=== PATIENT | male | born 1945 | race Caucasian/White ===

== ENCOUNTER 2019-04-05 14:11 | Observation (INO) | payer MEDICARE, SELFPAY ==
[2018-09-18 12:49] VITALS: BMI 31.6
[2019-04-05] VITALS (11 sets, daily range): BP systolic 148–190; BP diastolic 79–98; PULSE 57–76; RESP 15–19; TEMP 36.6–37.7; O2SAT 96–100; BMI 34.2; BMI 31.4
--- NOTE | 2019-04-05 14:19 | RAD_ITS ---
STUDY: X-RAY CHEST REASON FOR EXAM: Male, 74 years old. Stroke like symptoms. TECHNIQUE: Single AP portable view of the chest. COMPARISON: Comparison is made with prior studies of July 28, 2017. FINDINGS: EKG electrodes are seen. Hyperinflation. Scattered calcified granulomas. There is no demonstrated pleural abnormality. Normal size heart. Normal mediastinum and wyatt. Normal visualized pulmonary arteries. There is atherosclerotic tortuosity of the aortic arch and descending thoracic aorta. There are diffuse degenerative changes of the visualized thoracic spine. Normal visualized ribs, clavicles, and shoulders. There is no demonstrated abnormality of the visualized soft tissue structures of the upper abdomen. RAD/Chest 1 View IMPRESSION: Hyperinflation. Scattered calcified granulomas. Electronically Signed: Nate Langston, at 14:58 EDT , Service support ,
--- NOTE | 2019-04-05 14:19 | EKG12_ITS ---
Test Reason : STROKE Blood Pressure : / mmHG Vent. Rate : 055 BPM Atrial Rate : 055 BPM P-R Int : 182 ms QRS Dur : 104 ms QT Int : 446 ms P-R-T Axes : 055 007 -02 degrees QTc Int : 426 ms Sinus bradycardia Minimal voltage criteria for LVH, may be normal variant Nonspecific ST abnormality Poor R wave progression Abnormal ECG Confirmed by CON CRAIG, RSOARIO ([id number]), tape editor JULISSA JAIMES ([id number]) on 04/08/2019 11:41:04 AM Referred By: Andres Chaudhry Confirmed By:ROSARIO ANDUJAR MD
--- NOTE | 2019-04-05 14:20 | CT_ITS ---
STUDY: CT BRAIN WITHOUT CONTRAST REASON FOR EXAM: Male, 74 years old. Expressive dysphasia. Inability to follow directions. RADIATION DOSAGE (If Supplied By Facility): CTDIvol = ( 44.99 ) mGy, DLP = ( 796.11 ) mGycm TECHNIQUE: Transaxial CT imaging of the brain was performed without administration of intravenous contrast material. Individualized dose optimization techniques were used for this CT. COMPARISON: No relevant priors. FINDINGS: Normal soft tissue structures. Normal calvarium. There is mild cerebral atrophy with widening of the extra-axial spaces and ventricular dilatation. There are areas of decreased attenuation within the white matter tracts of the supratentorial brain, consistent with microvascular disease changes. Normal basal ganglia and thalami. Normal brainstem. Normal cerebellum. There is no intracranial hemorrhage. There are no findings of an acute ischemic infarction. Atherosclerotic calcification of the vertebral arteries and cavernous portions of the internal carotid arteries bilaterally. Normal visualized paranasal sinuses. CT/Brain/Head without Contrast IMPRESSION: Chronic involutional changes of the brain. N.B. : The above information has been verbally conveyed by Nate Langston to Yair Bhanu on 04/05/2019 14:35:03 (ET). Electronically Signed: Nate Langston, at 14:36 EDT , Service support ,
[2019-04-05 14:33] LABS: International Normalized Ratio 1.1; Prothrombin Time (Protime)PT. 13.5 SECONDS (11.7-14.9)
[2019-04-05 14:34] LABS: Partial Thromboplast Time 31.7 Seconds (24.1-36.2)
[2019-04-05 14:42] LABS: Absolute Lymphocyte Count 0.83 X10^3/uL (0.83-4.51); Absolute Neutrophil Count 2.9 X10^3/uL (2.0-7.7); Basophil# 0.03 X10^3/uL; Basophil% 0.7 % (0-1); Eosinophil# 0.19 X10^3/uL; Eosinophils% 4.4 % (0-5); Hematocrit 38.8 % (40-54); Hemoglobin 13.5 g/dL (13.0-16.5); Lymphocyte # 0.83 X10^3/ul (4.0); Mean Corp Hgb Conc 34.8 g/dL (32-36); Mean Corpuscular Hgb 32.2 pg (27.0-32.0); Mean Corpuscular Volume 92.6 fL (80-94); Mean Platelet Vol. 8.8 fl (6.2-12.0); Monocyte# 0.37 X10^3/uL; Monocyte% 8.5 % (0-10); NRBC Flagged by Analyzer 0 % (0-5); Neutrophil # 2.93 X10^3/uL (2.7-7.7); Neutrophil % 67.2 % (47-70); Platelet Count 157 K/mm3 (150-450); RBC Distribution Width SD 40.4 fl (35.1-43.9); Red Blood Count 4.19 M/mm3 (4.6-6.2); White Blood Count 4.4 K/mm3 (4.4-11.0)
[2019-04-05 14:51] LABS: Anion Gap 6 (5-15); BUN 14 mg/dL (7-18); BUN/Creat Ratio 15.2 RATIO (10-20); Calcium,Total 8.7 mg/dL (8.5-10.1); Chloride 105 mmol/L (98-107); Creatinine, Serum 0.92 mg/dL (0.70-1.30); EST Glomerular Filtration Rate 85 mL/min (>60); Est Glom Filt Rate - Afr Amer 103 mL/min (>60); Estimated Creatinine Clearance 72.74 ml/min; Glucose 118 mg/dL (74-106); Potassium 4.1 mmol/L (3.5-5.1); Sodium Level 142 mmol/L (136-145)
--- NOTE | 2019-04-05 16:11 | ED.VISSUMM ---
- ER Visit Summary Date of Service: 04/05/19 Chief Complaint: Expressive a aphasia History of Present Illness: The patient is a 74 M history of hypertension. No prior CVAs or TIAs. No recent head injury. According to the patient's they were at home and she said he could not find the words to put together to speak appropriately. She initially thought he was goofing around but then she realized he was serious. His speech was not slurred he just could not put the words together appropriately. No trouble moving his arms or legs. No numbness. No prior history. No recent head trauma. He is on no blood thinners besides aspirin. Physical Examination: Older male brought in by squad vital signs are stable afebrile. Initial blood pressure 190/98. HEENT exam normal. No facial droop. Tongue midline. Normal speech. Neck nontender. Lungs clear to auscultation bilaterally. Heart regular rhythm rate about 60 no murmur. Chest wall nontender. Abdomen soft nontender. Remedies moves all 4. Equal symmetrical 5 out of 5 food and nutrition teacher strength. Dorsi plantarflexion intact. Neurologically he is awake and alert. Currently he has normal speech. He has no facial droop. He has no weakness or numbness. His NIH score on arrival here is 0. Test Results: CAT scan of his brain without contrast shows no acute abnormality. Chronic changes. Read by the radiologist and reviewed by me. Chest x-ray portable one view no acute abnormality CBC normal. Chemistries normal. Troponin normal. EKG sinus bradycardia rate of 55 with no acute signs of TN or ischemia. Emergency Department Course and Treatment: Patient's history is consistent with a TIA that is completely resolved. Repeat exam his NIH remains normal. I did discuss about the patient is all his test results. They are comfortable with him being admitted. Treatment Plan: I spoke to our hospitalist the patient will be admitted to the PCU. Disposition: Admission Impression: Acute TIA resolved History of hypertension This note was generated with [employer] dictation software. It may contain incorrect words, spelling, and punctuation that were not noted in review of the chart prior to signing ED Disposition - Plan for ED Patient: Referrals: Niall Ramirez MD [Primary Care Provider] -
--- NOTE | 2019-04-05 16:16 | PCM.HP.STD ---
Problem List (1) Hyperlipemia, mixed Status: Chronic (2) History of left heart catheterization Status: Chronic Comment: 08/05/2017 multi-vessel CAD with collateral flow; (3) Atherosclerosis of [place] coronary artery of [place] heart without angina pectoris Status: Chronic (4) Low HDL (under 40) Status: Chronic (5) Hypokalemia Status: Chronic (6) Former smoker Status: Chronic (7) Hypertension Status: Chronic Qualifiers: Hypertension type: essential hypertension Qualified Code(s): I10 - Essential (primary) hypertension (8) TIA (transient ischemic attack) Status: Acute (9) Aphasia Status: Acute History of Present Illness Date of Admission: 04/05/19 Chief Complaint: Speech difficulty The patient is a 74 year old M with past medical history significant for hypertension brought to the emergency department after noticed patient was having difficulty finding words and expressing himself. There was no report any focal neurological deficit. Squad was called by the in view of the persistent nature of patient's speech difficulty. Patient symptoms have apparently resolved at the time of arrival to the emergency department. CT of the head obtained came back unremarkable. Decision was made to admit patient for subsequent elevation in the hospital. Past Medical History Past Medical History (Chronic Problems): Chronic Problems (Last Reviewed 04/05/19 @ 16:32 by Andres Chaudhry MD) Hyperlipemia, mixed (Chronic) History of left heart catheterization (Chronic) 08/05/2017 multi-vessel CAD with collateral flow; Atherosclerosis of [place] coronary artery of [place] heart without angina pectoris (Chronic) 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) Hypokalemia (Chronic) Former smoker (Chronic) Hypertension (Chronic) Medical History: Medical History (Last Reviewed 04/05/19 @ 16:32 by Andres Chaudhry MD) Atherosclerosis of [place] coronary artery of [place] heart without angina pectoris (Chronic) I25.10 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) E78.6 Hypokalemia (Chronic) E87.6 Former smoker (Chronic) Z87.891 Elevated troponin (Resolved) R74.8 Hypertension (Chronic) I10 Abnormal stress test (Resolved) Cellulitis of right leg (Resolved) L03.115 Vertigo (Resolved) R42 Allergies bacitracin [From Neosporin ([id number])] Allergy (Unknown, Verified 04/05/19 14:20) Dermatitis/rash neomycin [From Neosporin ([id number])] Allergy (Unknown, Verified 04/05/19 14:20) Dermatitis/rash polymyxin B [From Neosporin ([id number])] Allergy (Unknown, Verified 04/05/19 14:20) Dermatitis/rash Home Medications: Ambulatory Orders Medication Instructions Recorded Cholecalciferol (Vitamin D3) 5,000 unit PO DAILY 07/23/17 [Vitamin D3] Aspirin [Aspirin, Baby] 81 mg PO DAILY@0800 tab.chew 07/26/17 acetaminophen 500 mg tablet 500 mg PO Q6H PRN 01/31/18 garlic tablet 300 mg PO DAILY 09/18/18 metoprolol succinate ER 50 mg 25 mg PO QDAY tab 09/18/18 tablet,extended release 24 hr Omeprazole 40 mg PO DAILY 04/05/19 Surgical History: Surgical History (Last Reviewed 04/05/19 @ 16:32 by Andres Chaudhry MD) History of left heart catheterization (Chronic) Z98.890 08/05/2017 multi-vessel CAD with collateral flow; History of vasectomy Z98.52 Surgical History: noncontributory Psychiatric History: No pertinent psych hx Smoking Status: Former smoker Tobacco Use: Cigarettes - *Family History Maternal Family History: Family History (Last Reviewed 04/05/19 @ 16:32 by Andres Chaudhry MD) Father CAD (coronary artery disease) Mother Cancer CAD (coronary artery disease) Brother CAD (coronary artery disease) Myocardial infarction Brother Thoracic aortic aneurysm Brother Hypertension Sister Breast cancer Sister CAD (coronary artery disease) Hx of CABG History Items: - - No coronary artery disease Review of Systems Constitutional: Denies: Anorexia, Chills, Fever, Night Sweats, Weight Change HEENT: Denies: Head Aches, Sinus Congestion, Sinus Drainage Cardiovascular: Denies: Chest Pain, Orthopnea, Palpitations, Paroxysmal Noc. Dyspnea Respiratory: Denies: Cough, Shortness of breath at rest, Shortness of breath upon exertion, Sputum production Gastrointestinal: Denies: Abdominal Pain, Hematemesis, Hematochezia, Nausea, Melena, Vomiting Genitourinary: Denies: Dysuria, Frequency, Hematuria, Urgency Musculoskeletal: Denies: Joint Pain, Joint Tenderness Skin: Denies: Rash Neurological: Reports: Change in Speech, Slurred speech. Denies: Focal weakness, Numbness, Tingling Psychiatric: Denies: Homicidal Ideations, Suicidal Ideations Hematologic/ Lymphatic: Denies: Easy Bruising, Easy Bleeding VTE Information - Inpt Only VTE Present on Admission: No VTE Mechan Device Prophylaxis: Knee High CANELO Hose VTE Pharm Prophylaxis ordered?: Yes Patient Problems: Active and Suspected Problems (Last Reviewed 04/05/19 @ 16:32 by Andres Chaudhry MD) TIA (transient ischemic attack) (Acute) Aphasia (Acute) Objective: GENERAL: cooperative HEENT: Atraumatic; EYES; Anicteric, Normal Conjunctiva NECK; supple, normal thyroid, RESPIRATORY: Diminished to auscultation CARDIOVASCULAR: Regular S1 S2, GI: soft, non-tender, normoactive bowel sounds, : No Renal angle tenderness; EXTREMITIES: No edema, no clubbing, MUSCULOSKELETAL: No Joint Tenderness; NEURO: Awake; no lateralizing signs. SKIN: No Rash PSYCH; Normal affect - Physical Exam Vital Signs Temp Pulse Resp BP Pulse Ox 98 F 66 16 164/90 H 98 04/05/19 14:12 04/05/19 16:07 04/05/19 16:07 04/05/19 16:07 04/05/19 16:07 Oxygen Flow Rate (L/min) 2 Oxygen Delivery Method Nasal Cannula Weight: 108.182 kg Body Mass Index (BMI) 34.2 Finger Stick Blood Glucose 101 Laboratory Tests Past 24 Hrs 04/05/19 04/05/19 04/05/19 14:10 14:10 14:10 WBC 4.4 RBC 4.19 L Hgb 13.5 Hct 38.8 L MCV 92.6 MCH 32.2 H MCHC 34.8 RDW Std Deviation 40.4 RDW Coeff of Brigida 12.0 Plt Count 157 MPV 8.8 Immature Gran % (Auto) 0.200 Neut % (Auto) 67.2 Lymph % (Auto) 19.0 [place] % (Auto) 8.5 Eos % (Auto) 4.4 Baso % (Auto) 0.7 Absolute Neuts (auto) 2.9 Absolute Lymphs (auto) 0.83 Nucleated RBC % 0 PT 13.5 INR 1.1 APTT 31.7 Sodium 142 Potassium 4.1 Chloride 105 Carbon Dioxide 31.0 Anion Gap 6 BUN 14 Creatinine 0.92 Estim Creat Clear Calc 72.74 Est GFR (MDRD) Af Amer 103 Est GFR (MDRD) Non-Af 85 BUN/Creatinine Ratio 15.2 Glucose 118 H Calcium 8.7 Troponin I < 0.015 Assessment/Plan All Active Problems (Last Reviewed 04/05/19 @ 16:32 by Andres Chaudhry MD) TIA (transient ischemic attack) (Acute) Aphasia (Acute) Elevated troponin (Resolved) Abnormal stress test (Resolved) Cellulitis of right leg (Resolved) Vertigo (Resolved) Patient is a 74-year-old gentleman who presented with slurred speech and difficulty finding words lasting for over 1 hour. 1. Transient ischemic attack initial head CT obtained in the emergency department was unremarkable admitted to a monitored bed for subsequent evaluation. As part of's management ordered a CTA of the head and neck, MRI 2D echo. Patient is already on aspirin did continue. Also requested for lipid panel 2. Hypertension-blood pressure controlled, home medications continued with dose adjustment as needed 3. Dyslipidemia patient apparently did not tolerate statins in the past currently on supplement with garlic 4. Coronary artery disease underwent left heart catheterization in August 2017 which demonstrated only diffuse medical disease optimization of medical therapy was advised 5. Obesity with BMI of 34 weight loss advised 6. DVT prophylaxis SC Lovenox Advance planning; did discuss with the patient and family (daughter and spouse) regarding advanced directives as well as CODE STATUS. Did explain the various scenarios involved ( FULL CODE, DNR CCA, DNR CCA with no intubation, and DNR CC and what each meant) patient elected to full code. Order was placed. Time spent on discussion 18 minutes. Code Visit OBSV E&M: 29182 Initial observation care L3 Multi Select Codes - Hospitalists' Procedures Procedures: 79554 Advncd Care Plan 30 Min
--- NOTE | 2019-04-05 16:46 | ECHOD_ITS ---
Reason For Study: TIA/CVA Procedure This was a 2D Doppler, Color Flow transthoracic echocardiogram. The study was technically difficult. Contrast injection was performed. Exam performed portable in patient room. Left Ventricle Normal LV size. Moderate concentric left ventricular hypertrophy. Left ventricular systolic function is normal. The estimated ejection fraction is 65 %. Diastolic function is indeterminate. No regional wall motion abnormalities noted. Right Ventricle Normal RV size. Normal systolic function. Atria Normal left atrium. Normal right atrium. No doppler evidence for ASD. Mitral Valve There is no mitral annular calcification. Normal mitral valve. Trivial mitral valve insufficiency. Tricuspid Valve Normal tricuspid valve. Trivial tricuspid valve insufficiency. Unable to estimate RV systolic pressure/pulmonary artery pressure due to technically difficult study. Aortic Valve Trisinus/trileaflet aortic valve. Mild focal aortic valve calcification. Pulmonic Valve The pulmonic valve is not well visualized. Trivial pulmonic valve insufficiency. Great Vessels Normal sized aortic root. Pericardium/Pleural No pericardial effusion. Medication Diluted definity 3ml given slow IV push to enhance endocardial definition. MMode/2D Measurements & Calculations LVIDd: 5.3 cm IVSd: 1.6 cm LA dimension: 3.8 cm LVIDs: 3.5 cm LVPWd: 1.6 cm FS: 34.1 % LAV(MOD-sp4): 55.7 ml LA A4 area: 19.8 cm2 Time Measurements MV dec time: 0.30 sec Doppler Measurements & Calculations MV E max willard: 46.6 cm/sec Lat Peak E' Willard: 5.9 cm/sec Med Peak E' Willard: 6.6 cm/sec MV A max willard: 95.1 cm/sec E/E' lat: 7.8 E/E' med: 7.1 MV E/A: 0.49 MV V2 max: 112.7 cm/sec MV P1/2t max willard: 68.4 cm/sec Ao V2 max: 131.9 cm/sec MV max P.1 mmHg MV P1/2t: 91.0 msec Ao max P.0 mmHg MV V2 mean: 56.2 cm/sec MV dec slope: 220.0 cm/sec2 MV mean P.5 mmHg MV V2 VTI: 32.0 cm MVA(P1/2t): 2.4 cm2 LV V1 max: 97.1 cm/sec PA V2 max: 92.5 cm/sec LV V1 max P.8 mmHg Interpretation Summary The study was technically difficult. Contrast injection was performed. Left ventricular systolic function is normal. The estimated ejection fraction is 65 %. Moderate concentric left ventricular hypertrophy. Trivial mitral valve insufficiency. Trivial tricuspid valve insufficiency. Mild focal aortic valve calcification. Trivial pulmonic valve insufficiency. Unable to estimate RV systolic pressure/pulmonary artery pressure due to technically difficult study. Diastolic function is indeterminate. Ordering Physician: Andres Chaudhry Referring Physician: Andres Chaudhry Performed By: Ulices Bradley RCS
--- NOTE | 2019-04-05 16:46 | CT_ITS ---
STUDY: CT ANGIOGRAM HEAD AND NECK WITH CONTRAST REASON FOR EXAM: Male, 74 years old. TIA, stroke. Signs and symptoms are reported. According to the prior CT brain of 04/05/2019 the patient presents with expressive dysphasia and inability to follow directions. RADIATION DOSAGE (If Supplied By Facility): CTDIvol = ( 22.45 ) mGy, DLP = ( 854.17 ) mGycm. Individualized dose optimization techniques were used for this CT.? TECHNIQUE: IV contrast Isovue-300, [address] mL. Thin slice helical [address] angiogram was performed of the head and neck from the level of the hetal through the cranial vertex with 3-D volume rendered, coronal and sagittal MIP reformatted images saved to the PACS archive. COMPARISON: CT head 04/05/2019. FINDINGS: Apical thorax: Apical lungs clear, body wall soft tissues unremarkable, osseous structures intact. Incidental note is made of calcified pulmonary nodules in the lungs consistent with old granulomatous disease. Superior mediastinal contents unremarkable. Supraclavicular: Generalized heterogeneity of the thyroid without dominant nodule, favoring goitrous changes or sequela from thyroiditis. The thyroid is normal in size. There is no supraclavicular mass or lymphadenopathy. Cervical soft tissues: No mass or lymphadenopathy. Pharyngeal and laryngeal structures appear normal. Extra cranial soft tissues, orbital contents and facial soft tissues: No acute process. Sinuses: Relatively small right maxillary sinus, developmental, associated with mild mucoperiosteal thickening. Paranasal sinuses otherwise clear. Mastoid air cells and middle ear cavities clear. Symmetric and grossly normal features of the vestibular and acoustic apparatus of the temporal bones. Cranial facial osseous structures: No acute process. Cervical spine: There is multilevel cervical spondylosis with disc degeneration most notable at C6-C7, uncovertebral joint hypertrophy and facet hypertrophy contributing to prominent right foraminal stenosis at C2-C3, C3-C4 and prominent left foraminal stenosis at C6-C7. Aorta: Nondilated, mild atherosclerosis, widely patent three-vessel cervical arch branching. Right carotid: Mild plaque of the bulb and bifurcation. Calcified and soft atheroma contribute to luminal narrowing of the proximal ICA with a least dimension of 3 mm, widening thereafter up to 4.4 mm, less than 50% stenosis, widely patent through the skull base with mild calcified plaque of the cavernous portion. Left carotid: Mild calcified and soft atheroma of the bulb and bifurcation. No stenosis. Patent through the skull base, mild calcified plaque of the cavernous portion. [place] of [place]: Normal ophthalmic arteries. Normal supraclinoid ICA. Normal communicating arteries. Normal bilateral anterior and middle cerebral arteries. Vertebral arteries: Normal bilaterally. Posterior circulation: Normal intracranial vertebral arteries. Normal major cerebellopontine divisions. Normal basilar artery and basilar tip. Normal posterior cerebral arteries. Pedis: Normal dural venous sinuses, straight sinus, vein of Tom and major venous tributaries. Brain parenchyma: Mild age-related atrophy. No acute intracranial process. CT/CTA Head AND Neck W/ Contrast IMPRESSION: There is no hemodynamically significant carotid artery stenosis. Normal vertebral arteries. Normal intracranial circulation. Electronically Signed: Marcelo Lazo MD at 18:17 EDT Tel , Service support ,
--- NOTE | 2019-04-05 16:46 | MRI_ITS ---
STUDY: MRI BRAIN WITHOUT CONTRAST REASON FOR EXAM: Male, 74 years old. Aphasia TECHNIQUE: Standardized multiplanar fat and water weighted pulse sequences were obtained. COMPARISON: CTA and CT brain April 05, 2019 FINDINGS: There is mild cerebral atrophy with widening of the extra-axial spaces and ventricular dilatation. There are multiple white matter hyperintensities, distributed throughout the deep white matter tracts of the cerebral hemispheres, consistent with moderate chronic white matter ischemic changes. There is no evidence for recent intracranial ischemia or other cause of cytotoxic edema on diffusion weighted imaging (DWI). Normal bilateral basal ganglia. Normal thalami. There is no extra-axial fluid accumulation. Normal flow voids within the major intracranial circulation suggesting patency by spin echo criteria. Tortuous right vertebral artery impinging the right brainstem. Normal sella turcica, pituitary gland, infundibular stalk, optic chiasm and hypothalamus. Normal tectal plate and pineal gland. Normal midbrain, jennifer and medulla. Normal cerebellum. Normal basal cisterns. Normal bilateral temporal bones. Normal bilateral internal auditory canals. No demonstrated orbital abnormality, within the constraints of a routine brain study. Air-fluid level right maxillary sinus. Normal calvarium and skull base. Normal visualized soft tissue structures. Hypertrophic changes C1-C2 and erosion of the odontoid. IMPRESSION: Involutional changes of the brain, as described above. No acute infarct. Hypertrophic and cystic/erosive changes C1-C2. Query rheumatoid arthritis. Electronically Signed: Eduardo Gómez MD at 21:48 EDT , Service support , STUDY: MRI BRAIN WITHOUT CONTRAST REASON FOR EXAM: Male, 74 years old. Aphasia TECHNIQUE: Standardized multiplanar fat and water weighted pulse sequences were obtained. COMPARISON: CTA and CT brain April 05, 2019 FINDINGS: There is mild cerebral atrophy with widening of the extra-axial spaces and ventricular dilatation. There are multiple white matter hyperintensities, distributed throughout the deep white matter tracts of the cerebral hemispheres, consistent with moderate chronic white matter ischemic changes. There is no evidence for recent intracranial ischemia or other cause of cytotoxic edema on diffusion weighted imaging (DWI). Normal bilateral basal ganglia. Normal thalami. There is no extra-axial fluid accumulation. Normal flow voids within the major intracranial circulation suggesting patency by spin echo criteria. Tortuous right vertebral artery impinging the right brainstem. Normal sella turcica, pituitary gland, infundibular stalk, optic chiasm and hypothalamus. Normal tectal plate and pineal gland. Normal midbrain, jennifer and medulla. Normal cerebellum. Normal basal cisterns. Normal bilateral temporal bones. Normal bilateral internal auditory canals. No demonstrated orbital abnormality, within the constraints of a routine brain study. Air-fluid level right maxillary sinus. Normal calvarium and skull base. Normal visualized soft tissue structures. Hypertrophic changes C1-C2 and erosion of the odontoid. MRI/Brain without Contrast
[2019-04-05] MEDS: 0.9% NaCl Peripheral Flush Adult/Peds IV (20:15)
[2019-04-05] MEDS: LORazepam 2 MG/ML Syringe 1 MG IV (20:15)
[2019-04-06] VITALS (7 sets, daily range): BP systolic 147–160; BP diastolic 66–82; PULSE 52–68; RESP 17–18; TEMP 36.5–36.8; O2SAT 94–97; BMI 31.4
[2019-04-06 06:12] LABS: Absolute Lymphocyte Count 0.89 X10^3/uL (0.83-4.51); Absolute Neutrophil Count 2.3 X10^3/uL (2.0-7.7); Basophil# 0.04 X10^3/uL; Eosinophil# 0.21 X10^3/uL; Eosinophils% 5.4 % (0-5); Hematocrit 37.8 % (40-54); Hemoglobin 13.1 g/dL (13.0-16.5); Lymphocyte # 0.89 X10^3/ul (4.0); Lymphocyte % 23.1 % (19-41); Mean Corp Hgb Conc 34.7 g/dL (32-36); Mean Corpuscular Hgb 31.6 pg (27.0-32.0); Mean Corpuscular Volume 91.3 fL (80-94); Monocyte% 10.4 % (0-10); NRBC Flagged by Analyzer 0 % (0-5); Neutrophil # 2.31 X10^3/uL (2.7-7.7); Neutrophil % 59.8 % (47-70); Platelet Count 153 K/mm3 (150-450); RBC Distribution Width CV 12.2 % (11.6-14.6); RBC Distribution Width SD 40.4 fl (35.1-43.9); Red Blood Count 4.14 M/mm3 (4.6-6.2); White Blood Count 3.9 K/mm3 (4.4-11.0)
[2019-04-06 06:33] LABS: Anion Gap 6 (5-15); BUN 13 mg/dL (7-18); BUN/Creat Ratio 14.3 RATIO (10-20); Calcium,Total 8.7 mg/dL (8.5-10.1); Chloride 107 mmol/L (98-107); Cholesterol 183 mg/dL (200); Creatinine, Serum 0.91 mg/dL (0.70-1.30); EST Glomerular Filtration Rate 86 mL/min (>60); Est Glom Filt Rate - Afr Amer 104 mL/min (>60); Estimated Creatinine Clearance 75.85 ml/min; Glucose 94 mg/dL (74-106); High Density Lipoprotein 34 mg/dL; Potassium 3.9 mmol/L (3.5-5.1); Sodium Level 142 mmol/L (136-145); Triglycerides 193 mg/dL; Very Low Density Lipoprotein 39 mg/dL (5-40)
--- NOTE | 2019-04-06 08:48 | DCINST_ITS ---
- Discharge Diagnoses Current Active Problems: Current Active and Chronic Problems (Last Reviewed 04/05/19 @ 16:32 by Andres Chaudhry MD) TIA (transient ischemic attack) (Acute) Aphasia (Acute) You will use the following diet at home:: Cardiac Your food should be the consistency of: Regular Discharge Activity: Return to Normal Activity Allergies/Adverse Reactions: Allergies bacitracin [From Neosporin ([id number])] Allergy (Unknown, Verified 04/05/19 14:20) Dermatitis/rash neomycin [From Neosporin ([id number])] Allergy (Unknown, Verified 04/05/19 14:20) Dermatitis/rash polymyxin B [From Neosporin ([id number])] Allergy (Unknown, Verified 04/05/19 14:20) Dermatitis/rash Medications to take at Discharge Aspirin [Aspirin, Baby] 81 mg PO DAILY@0800 tab.chew 07/26/17 acetaminophen 500 mg tablet 500 mg PO Q6H PRN 01/31/18 metoprolol succinate ER 50 mg tablet,extended release 24 hr 25 mg PO QDAY tab 09/18/18 Ergocalciferol [Vitamin D] 50,000 unit PO SA 04/05/19 Omeprazole 40 mg PO DAILY 04/05/19 Primary Care Physician: Niall Ramirez MD [Primary Care Provider] - Please follow up with your Primary Care Physician in: in 5-7 days Test Results: Test results from this visit will be discussed in further detail at your follow- up appointment, if applicable. Proposed Discharge Date: 04/06/19
--- NOTE | 2019-04-06 08:50 | PCM.DC.SUM ---
Discharge Date and Diagnosis - Problem List Patient Problems: Active and Suspected Problems (Last Reviewed 04/05/19 @ 16:32 by Andres Chaudhry MD) TIA (transient ischemic attack) (Acute) Aphasia (Acute) Date of Admission: 04/05/19 Date of Discharge: 04/06/19 - Primary Discharge Diagnosis Active and Suspected Problems (Last Reviewed 04/05/19 @ 16:32 by Andres Chaudhry MD) TIA (transient ischemic attack) (Acute) Aphasia (Acute) - Secondary Discharge Diagnosis Chronic Problems (Last Reviewed 04/05/19 @ 16:32 by Andres Chaudhry MD) Hyperlipemia, mixed (Chronic) History of left heart catheterization (Chronic) 08/05/2017 multi-vessel CAD with collateral flow; Atherosclerosis of [place] coronary artery of [place] heart without angina pectoris (Chronic) 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 Scattered calcified granulomas. Electronically Signed: Nate Langston, at 14:58 EDT , Service support , Brain CT 04/05/19 14:20 IMPRESSION: Chronic involutional changes of the brain. N.B. : The above information has been verbally conveyed by Nate Langston to Yair Drummond on 04/05/2019 14:35:03 (ET). Electronically Signed: Nate Langston, at 14:36 EDT , Service support , ADDENDUM: 04/05/19 1443 IMPRESSION: Chronic involutional changes of the brain. N.B. : The above information has been verbally conveyed by Nate Langston to Yair Drummond on 04/05/2019 14:35:03 (ET). Electronically Signed: Nate Langston, at 14:36 EDT , Service support , ADDENDUM: 04/05/19 1746 IMPRESSION: Chronic involutional changes of the brain. N.B. : The above information has been verbally conveyed by Nate Langston to Yair Drummond on 04/05/2019 14:35:03 (ET). Electronically Signed: Nate Langston, at 14:36 EDT , Service support , Brain MRI 04/05/19 16:46 IMPRESSION: Involutional changes of the brain, as described above. No acute infarct. Hypertrophic and cystic/erosive changes C1-C2. Query rheumatoid arthritis. Electronically Signed: Eduardo Gómez MD at 21:48 EDT , Service support , ADDENDUM: 04/05/19 2155 IMPRESSION: Involutional changes of the brain, as described above. No acute infarct. Hypertrophic and cystic/erosive changes C1-C2. Query rheumatoid arthritis. Electronically Signed: Eduardo Gómez MD at 21:48 EDT , Service support , Head/Neck CTA 04/05/19 16:46 IMPRESSION: There is no hemodynamically significant carotid artery stenosis. Normal vertebral arteries. Normal intracranial circulation. Electronically Signed: Marcelo Lazo MD at 18:17 EDT Tel , Service support , Operations: None Summary of Care Provided: Patient is a 74-year-old gentleman who presented with slurred speech and difficulty finding words lasting for over 1 hour. 1. Transient ischemic attack initial head CT obtained in the emergency department was unremarkable admitted to a monitored bed for subsequent evaluation. As part of's management ordered a CTA of the head and neck, MRI 2D echo. Patient CTA of the head and neck was unremarkable. MRI did not show any acute CVA. Discharge home instructed to continue with his aspirin 2. Hypertension-blood pressure controlled, home medications continued with dose adjustment as needed 3. Dyslipidemia patient apparently did not tolerate statins in the past currently on supplement with garlic 4. Coronary artery disease underwent left heart catheterization in August 2017 which demonstrated only diffuse medical disease optimization of medical therapy was advised 5. Obesity with BMI of 34 weight loss advised 6. DVT prophylaxis SC Lovenox Patient Problems: Active and Suspected Problems (Last Reviewed 04/05/19 @ 16:32 by Andres Chaudhry MD) TIA (transient ischemic attack) (Acute) Aphasia (Acute) Objective: GENERAL: cooperative HEENT: Atraumatic; moist oral mucosa EYES; Anicteric, Normal Conjunctiva NECK; supple, normal thyroid, no distended JVD. RESPIRATORY: Diminished to auscultation bilaterally, CARDIOVASCULAR: Regular S1 S2, no audible murmurs GI: soft, non-tender, normoactive bowel sounds, : No Renal angle tenderness; EXTREMITIES: No edema, no clubbing, no cyanosis. NEURO: Awake; no lateralizing signs. SKIN: No Rash PSYCH; Normal affect - Physical Exam Vital Signs Temp Pulse Resp BP Pulse Ox 97.7 F L 59 L 18 149/66 H 96 04/06/19 04:15 04/06/19 07:29 04/06/19 04:15 04/06/19 04:15 04/06/19 07:01 Oxygen Flow Rate (L/min) 2 Oxygen Delivery Method Room Air Weight: 102.2 kg Body Mass Index (BMI) 31.4 Finger Stick Blood Glucose 101 Intake and Output for Last 24 Hours 04/04/19 04/05/19 04/06/19 23:59 23:59 23:59 Intake Total 480 / 480 Balance 480 / 480 Laboratory Tests Past 24 Hrs 04/05/19 04/05/19 04/05/19 14:10 14:10 14:10 WBC 4.4 RBC 4.19 L Hgb 13.5 Hct 38.8 L MCV 92.6 MCH 32.2 H MCHC 34.8 RDW Std Deviation 40.4 RDW Coeff of Brig[place] 12.0 Plt Count 157 MPV 8.8 Immature Gran % (Auto) 0.200 Neut % (Auto) 67.2 Lymph % (Auto) 19.0 [place] % (Auto) 8.5 Eos % (Auto) 4.4 Baso % (Auto) 0.7 Absolute Neuts (auto) 2.9 Absolute Lymphs (auto) 0.83 Nucleated RBC % 0 PT 13.5 INR 1.1 APTT 31.7 Sodium 142 Potassium 4.1 Chloride 105 Carbon Dioxide 31.0 Anion Gap 6 BUN 14 Creatinine 0.92 Estim Creat Clear Calc 72.74 Est GFR (MDRD) Af Amer 103 Est GFR (MDRD) Non-Af 85 BUN/Creatinine Ratio 15.2 Glucose 118 H Calcium 8.7 Troponin I < 0.015 Triglycerides Cholesterol LDL Cholesterol VLDL Cholesterol HDL Cholesterol 04/05/19 04/05/19 04/06/19 17:45 21:25 05:15 WBC 3.9 L RBC 4.14 L Hgb 13.1 Hct 37.8 L MCV 91.3 MCH 31.6 MCHC 34.7 RDW Std Deviation 40.4 RDW Coeff of Brig[place] 12.2 Plt Count 153 MPV 9.0 Immature Gran % (Auto) 0.300 Neut % (Auto) 59.8 Lymph % (Auto) 23.1 [place] % (Auto) 10.4 H Eos % (Auto) 5.4 H Baso % (Auto) 1.0 Absolute Neuts (auto) 2.3 Absolute Lymphs (auto) 0.89 Nucleated RBC % 0 PT INR APTT Sodium Potassium Chloride Carbon Dioxide Anion Gap BUN Creatinine Estim Creat Clear Calc Est GFR (MDRD) Af Amer Est GFR (MDRD) Non-Af BUN/Creatinine Ratio Glucose Calcium Troponin I < 0.015 < 0.015 Triglycerides Cholesterol LDL Cholesterol VLDL Cholesterol HDL Cholesterol 04/06/19 05:15 WBC RBC Hgb Hct MCV MCH MCHC RDW Std Deviation RDW Coeff of [place] Plt Count MPV Immature Gran % (Auto) Neut % (Auto) Lymph % (Auto) [place] % (Auto) Eos % (Auto) Baso % (Auto) Absolute Neuts (auto) Absolute Lymphs (auto) Nucleated RBC % PT INR APTT Sodium 142 Potassium 3.9 Chloride 107 Carbon Dioxide 29.0 Anion Gap 6 BUN 13 Creatinine 0.91 Estim Creat Clear Calc 75.85 Est GFR (MDRD) Af Amer 104 Est GFR (MDRD) Non-Af 86 BUN/Creatinine Ratio 14.3 Glucose 94 Calcium 8.7 Troponin I Triglycerides 193 Cholesterol 183 LDL Cholesterol 110 VLDL Cholesterol 39 HDL Cholesterol 34 L Discharge Diet: No Restrictions Discharge Activity: Return to Normal Activity Home Medications: Medications to take at Discharge Aspirin [Aspirin, Baby] 81 mg PO DAILY@0800 tab.chew 07/26/17 acetaminophen 500 mg tablet 500 mg PO Q6H PRN 01/31/18 metoprolol succinate ER 50 mg tablet,extended release 24 hr 25 mg PO QDAY tab 09/18/18 Ergocalciferol [Vitamin D] 50,000 unit PO SA 04/05/19 Omeprazole 40 mg PO DAILY 04/05/19 Primary Care Physician: Niall Ramirez MD [Primary Care Provider] - Please follow up with your Primary Care Physician in: in 5-7 days Disposition: Home Minutes spent on discharge:: 35 Patient Condition:: Stable Medical Necessity - Tobacco Use Smoking Status: Former smoker Tobacco Use: Cigarettes Meaningful Use Info Meaningful Use Diagnoses (Choose all that apply): None applicable Code Visit OBSV E&M: 51343 Observation care discharge
[2019-04-06] MEDS: Metoprolol(XL)Succ 25 MG Tablet PO (09:15)
[2019-04-06] MEDS: Pantoprazole Sodium 40 MG Tablet PO (09:15)
--- NOTE | 2019-04-06 09:15 | NURSING ---
Discharge teaching completed. Patient instructed to follow-up with his PCP in 5-[address] Chaudhry to review his Echo. Patient voiced understanding of same.
== END 2019-04-06 08:49 | disposition home or self-care (01) ==
LOC: ED 15:24 → PCU 16:32
PROVIDERS: Admitting Provider Internal Medicine; Emergency Provider Emergency Medicine; Family Provider Family Medicine; PCP Family Medicine; Visit Provider Internal Medicine
DX: G45.9 Transient cerebral ischemic attack, unspecified (principal); R47.01 Aphasia; E78.2 Mixed hyperlipidemia; I25.10 Atherosclerotic heart disease of native coronary artery without angina pectoris; E66.9 Obesity, unspecified; I10 Essential (primary) hypertension; Z87.891 Personal history of nicotine dependence; Z79.899 Other long term (current) drug therapy; Z79.82 Long term (current) use of aspirin; Z68.34 Body mass index [BMI] 34.0-34.9, adult; Z71.3 Dietary counseling and surveillance
CPT/HCPCS: 36415; 70450; 70496; 70498; 70551; 71045; 80048; 80061; 84484; 85025; 85610; 85730; 93005; 93306; 94762; 96374; 99218; 99251; 99285; J7030; Q9957; Q9967; A4216; G0378; G0463; J2405

== ENCOUNTER 2019-04-18 23:08 | Observation (INO) | payer MEDICARE, SELFPAY ==
[2019-04-06 00:25] VITALS: BMI 31.4
--- NOTE | 2019-04-18 23:08 | CT_ITS ---
We are attempting to reach an attending provider to discuss findings. An addendum with communication details will be sent when the communication is complete. STUDY: CT BRAIN WITHOUT CONTRAST REASON FOR EXAM: Male, 74 years old. Stroke RADIATION DOSAGE (If Supplied By Facility): CTDIvol = ( 44.99 ) mGy, DLP = ( 815.79 ) mGycm TECHNIQUE: Transaxial CT imaging of the brain was performed without administration of intravenous contrast material. Individualized dose optimization techniques were used for this CT. COMPARISON: Previous study of April 05, 2019 FINDINGS: Normal soft tissue structures. Normal calvarium. Normal size ventricles and extra-axial spaces for the patient's age. There are areas of decreased attenuation within the white matter tracts of the supratentorial brain, consistent with microvascular disease changes. Normal basal ganglia and thalami. Normal brainstem. Normal cerebellum. There is no intracranial hemorrhage. There are no findings of an acute ischemic infarction. There is minimal mucosal thickening of the right maxillary sinus. CT/Brain/Head without Contrast IMPRESSION: Chronic involutional changes of the brain. There is minimal mucosal thickening of the right maxillary sinus. There is no intracranial hemorrhage or evidence of acute infarct. Findings are stable in the interval. If clinically indicated, CTA brain and/or MRI may be helpful for further evaluation at this time. Electronically Signed: Yayo Patricia MD at 23:28 EDT , Service support ,
[2019-04-18 23:09] VITALS: BP 160/97; PULSE 107; RESP 15; TEMP 36.3; O2SAT 94; BMI 30.9
[2019-04-18] MEDS: LORazepam 2 MG/ML Syringe 1 MG IV ×3 (23:20→23:41)
[2019-04-18 23:21] VITALS: BP 160/97; PULSE 83; RESP 15; TEMP 36.3; O2SAT 99; BMI 30.9
--- NOTE | 2019-04-18 23:22 | EKG12_ITS ---
Test Reason : Blood Pressure : / mmHG Vent. Rate : 078 BPM Atrial Rate : 078 BPM P-R Int : 188 ms QRS Dur : 116 ms QT Int : 420 ms P-R-T Axes : 050 010 138 degrees QTc Int : 478 ms Normal sinus rhythm Marked ST abnormality, possible inferolateral subendocardial injury Abnormal ECG Confirmed by JEROMY CRAIG, LISA ([id number]), non linear editor ELOISE PERDUE ([id number]) on 04/22/2019 1:18:06 PM Referred By: SONAL Confirmed By:DALLAS PINZON MD
--- NOTE | 2019-04-18 23:22 | ED.RN ---
FACE SHEET FAXED PER [employer]
--- NOTE | 2019-04-18 23:23 | ED.RN ---
PT TO CT UPON ARRIVAL FROM EMS. RETURNS TO BED [address] HARRIS AT BEDSIDE TO EVALUATE. PT BEGINS SEIZING, FULL BODY TENSION, SNORING RESPS. PT ON NON REBREATHER 15L. ORAL SUCTION WITH CLEAR SECRETIONS. PT GIVEN 1 MG ATIVAN IV BY Bianca ZEPEDA. PT NOT POSTICTAL SNORING RESP. ADDITIONAL IV. 160/97 ,100% 15L, 79,17.
--- NOTE | 2019-04-18 23:25 | ED.RN ---
phone call to [facility] stroke line for consult at this time
[2019-04-18 23:29] VITALS: O2SAT 98
[2019-04-18 23:30] LABS: Absolute Neutrophil Count 3.5 X10^3/uL (2.0-7.7); Basophil# 0.04 X10^3/uL; Basophil% 0.5 % (0-1); Eosinophil# 0.27 X10^3/uL; Eosinophils% 3.4 % (0-5); Hemoglobin 15.1 g/dL (13.0-16.5); Lymphocyte % 41.8 % (19-41); Mean Corp Hgb Conc 33.6 g/dL (32-36); Mean Corpuscular Hgb 32.1 pg (27.0-32.0); Mean Corpuscular Volume 95.7 fL (80-94); Mean Platelet Vol. 8.8 fl (6.2-12.0); Monocyte# 0.72 X10^3/uL; Monocyte% 9.1 % (0-10); NRBC Flagged by Analyzer 0 % (0-5); Neutrophil # 3.54 X10^3/uL (2.7-7.7); Neutrophil % 44.9 % (47-70); Platelet Count 188 K/mm3 (150-450); RBC Distribution Width CV 11.9 % (11.6-14.6); RBC Distribution Width SD 41.6 fl (35.1-43.9); White Blood Count 7.9 K/mm3 (4.4-11.0)
[2019-04-18 23:35] LABS: International Normalized Ratio 1.1
[2019-04-18] MEDS: 0.9% Normal Saline 1,000 ML 100 ML IV (23:38)
--- NOTE | 2019-04-18 23:41 | ED.VIS.GEN ---
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 It is a stroke team and went straight to the CAT scanner. EMS stated that the patient reported a strange feeling in his head and nausea. He took a shower. He came out of the shower and talk to his family at 930 and had slurred speech and difficulty finding words. EMS stated that he had almost complete paralysis of his left upper and lower extremity as well as decreased sensation as well. Upon arrival the patient's symptoms are resolved. He has no slurred speech and normal movement of his upper and lower arm. The patient was admitted 2 weeks ago for a TIA with a aphasia and slurred speech. He was discharged on a baby aspirin. He had a full work-up that was negative for stroke. Per the who arrived later she stated that in December of this year he had a tonic-clonic seizure. He had similar nausea and aura prior. He was on Dilantin for 2 months and his neurologist in [place] recently stopped that. This was the first time he had a seizure. Patient denies any symptoms currently. He is not on a blood thinner other than baby aspirin. - Past Medical History (1) Aphasia Status: Acute (2) TIA (transient ischemic attack) Status: Acute (3) Atherosclerosis of [place] coronary artery of [place] heart without angina pectoris Status: Chronic (4) Former smoker Status: Chronic (5) History of left heart catheterization Status: Chronic Comment: 08/05/2017 multi-vessel CAD with collateral flow; (6) Hyperlipemia, mixed Status: Chronic (7) Hypertension Status: Chronic (8) Hypokalemia Status: Chronic (9) Low HDL (under 40) Status: Chronic (10) Abnormal stress test Status: Resolved (11) Cellulitis of right leg Status: Resolved (12) Elevated troponin Status: Resolved (13) Vertigo Status: Resolved Past Medical History - Allergies and Home Meds Allergies/Adverse Reactions: Allergies bacitracin [From Neosporin ([id number])] Allergy (Unknown, Verified 04/05/19 14:20) Dermatitis/rash neomycin [From Neosporin ([id number])] Allergy (Unknown, Verified 04/05/19 14:20) Dermatitis/rash polymyxin B [From Neosporin ([id number])] Allergy (Unknown, Verified 04/05/19 14:20) Dermatitis/rash Primary Care Physician: Niall Ramirez MD [Primary Care Provider] - Prior records reviewed: Yes Surgical History: - - Viewed Lives: Spouse/ Significant Other Smoking Status: Former smoker Alcohol: None Drugs: None - Family History Maternal Family History: Family History (Last Reviewed 04/05/19 @ 16:32 by Andres Chaudhry MD) Father CAD (coronary artery disease) Mother Cancer CAD (coronary artery disease) Brother CAD (coronary artery disease) Myocardial infarction Brother Thoracic aortic aneurysm Brother Hypertension Sister Breast cancer Sister CAD (coronary artery disease) Hx of CABG Family History: Reports: - - No coronary artery disease Review of Systems General: Denies: Chills, Fever, Sweats Eyes: Denies: Visual changes - bilaterally, Diplopia ENT: Denies: Rhinorrhea, Sore throat Cardiovascular: Denies: Chest pain, Palpitations Respiratory: Denies: Dyspnea, Cough, Dyspnea on exertion Gastrointestinal: Reports: Nausea. Denies: Abdominal pain, Vomiting, Diarrhea, Melena, Hematochezia Genitourinary: Denies: Dysuria, Hematuria, Frequency Musculoskeletal: Denies: Back pain, Extremity Pain Skin: Denies: Rash, Wounds Neurological: Reports: Weakness. Denies: Headache Physical Exam Vital Signs/Narrative: Vital Signs Temp Pulse Resp BP Pulse Ox 04/18/19 23:29 98 04/18/19 23:21 97.3 F L 83 15 160/97 H 99 04/18/19 23:09 97.3 F L 107 H 15 160/97 H 94 General: Well nourished, Well developed, No Acute Distress Head: Normocephalic, Atraumatic Eyes: Perrl, EOMI ENT: Moist mucous membranes, No rhinorrhea Neck: Supple, Nontender Cardiovascular: Regular rate, Regular rhythm, No murmurs Respiratory: No distress, CTA bilaterally, Chest nontender Abdomen: Soft, Nontender, Nondistended, Normal bowel sounds Back: Nontender, Normal Inspection Extremities: Nontender, No edema Skin: Normal color, No rash Neurological: Alert, Oriented x3, Cranial nerves II-XII grossly intact, Normal Strength, Normal Sensation, - - He has a mild intermittent twitch to his left periorbital region. initial NIH stroke scale 0 Psychological: Normal affect, Normal Mood Diagnostic/Tx/Re-eval - Medical Decision Making Upon return from the CAT scanner the patient was able to do NIH stroke scale. The patient then had a full body tonic-clonic generalized seizure lasting 1 minute. It resolved on its own. The patient had a postictal state with significant stiffness. He was placed on oxygen. Repeat blood sugar was normal. CT the head was negative. Patient was given Ativan to calm him. Patient was also started on a Keppra drip. His stated this would be his second seizure. Initially the patient was a stroke team. I discussed the case with [facility] neurology. They felt that at this point the seizure is most likely the cause of his symptoms and that TPA is not indicated in this case. The patient's symptoms were completely resolved upon arrival as well. Patient underwent lab work evaluation that showed no significant abnormalities including CBC troponin electrolytes and coagulation studies. Patient discussed with the hospitalist here at our institution. At this time I feel it is more likely that he has had a general tonic-clonic seizure with pre-aura including slurred speech and left-sided weakness. EKG shows sinus rhythm at a rate of 78. Mild diffuse ST depression V3 through V6 1 and aVL as well as inferior lead to suggestive of his post ictal state. No STEMI. Critical care time 74 minutes - Critical Care Time Critical care time (excluding procedures): 30-74 minutes ED Disposition - Plan for ED Patient: Diagnosis: Generalized convulsive seizure Referrals: Niall Ramirez MD [Primary Care Provider] -
--- NOTE | 2019-04-18 23:42 | ED.RN ---
PT AGITATED AND VIOLENT POSTICTAL. SOFT RESTRAINTS APPLIED FOR PATIENT SAFETY. MULTIPLE RNS AT BEDSIDE. PT PULLING AT LINES AND CORDS ATTEMPTING TO REMOVE. PT KICKING AND SWINGING INCOHERENTLY AT STAFF. SEIZURE PADS ON BEDSIDE. PT MEDICATED WITH ATIVAN PER MD ORDERS
[2019-04-18] MEDS: Ondansetron 4 MG/2 ML Vial IV (23:54)
[2019-04-19] VITALS (12 sets, daily range): BP systolic 123–152; BP diastolic 65–85; PULSE 55–71; RESP 12–18; TEMP 36.2–36.8; O2SAT 94–100; BMI 30.9; BMI 32.1
[2019-04-19 00:02] LABS: Anion Gap 14 (5-15); BUN 18 mg/dL (7-18); BUN/Creat Ratio 15.5 RATIO (10-20); Calcium,Total 9.5 mg/dL (8.5-10.1); Chloride 109 mmol/L (98-107); Creatinine, Serum 1.16 mg/dL (0.70-1.30); EST Glomerular Filtration Rate 65 mL/min (>60); Est Glom Filt Rate - Afr Amer 79 mL/min (>60); Estimated Creatinine Clearance 61.32 ml/min; Glucose 114 mg/dL (74-106); Potassium 4.4 mmol/L (3.5-5.1); Sodium Level 145 mmol/L (136-145)
--- NOTE | 2019-04-19 00:08 | PCM.HP.STD ---
History of Present Illness Date of Admission: 04/19/19 Chief Complaint: seizure The patient is a 74 year old M with a PMH as listed, who was admitted through the ED on 04/19/19 with a complaint of seizure. History was was taken from patient's and daughter as patient was too drowsy to give history. According to his , patient complained of feeling nauseous and lightheaded while he was admitted in the toilet about to go take a bath. He subsequently complained of a metallic taste in his mouth which was persistent. Therefore decided to bring him into the ED to be checked out. On arrival in the ED, patient had a generalized tonic-clonic seizure which lasted for about 1 minutes. Subsequently became very drowsy and obtunded. CT of the brain done was negative for any acute intracranial process. Of note, patient had a similar seizure in December 2018 and was sent to [facility]. According to his granddaughter, he was admitted in the ICU and had continuous video EEG but this was negative for any seizure. He was started on Dilantin and after 2 months he was taken off of the medication by his neurologist as he had not had any further seizures. Review of systems was otherwise negative. Vitals in the ED was essentially stable and he was saturating at 98% on 15 L of oxygen. CBC and BMP were essentially unremarkable. He has been admitted to be managed for acute neurolyse tonic-clonic seizure. 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) Hypokalemia (Chronic) Former smoker (Chronic) Hypertension (Chronic) Medical History: Medical History (Last Reviewed 04/05/19 @ 16:32 by Andres Chaudhry MD) Atherosclerosis of [place] coronary artery of [place] heart without angina pectoris (Chronic) I25.10 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) E78.6 Hypokalemia (Chronic) E87.6 Former smoker (Chronic) Z87.891 Elevated troponin (Resolved) R74.8 Hypertension (Chronic) I10 Abnormal stress test (Resolved) Cellulitis of right leg (Resolved) L03.115 Vertigo (Resolved) R42 Allergies bacitracin [From Neosporin ([id number])] Allergy (Unknown, Verified 04/05/19 14:20) Dermatitis/rash neomycin [From Neosporin ([id number])] Allergy (Unknown, Verified 04/05/19 14:20) Dermatitis/rash polymyxin B [From Neosporin ([id number]-[id number])] Allergy (Unknown, Verified 04/05/19 14:20) Dermatitis/rash Home Medications: Ambulatory Orders Medication Instructions Recorded Aspirin [Aspirin, Baby] 81 mg PO DAILY@0800 tab.chew 07/26/17 acetaminophen 500 mg tablet 500 mg PO Q6H PRN 01/31/18 metoprolol succinate ER 50 mg 25 mg PO QDAY tab 09/18/18 tablet,extended release 24 hr Ergocalciferol [Vitamin D] 50,000 unit PO SA 04/05/19 Omeprazole 40 mg PO DAILY 04/05/19 [place]-3 Fatty Acids [[place]-3] 1,000 mg PO DAILY 04/19/19 Surgical History: Surgical History (Last Reviewed 04/05/19 @ 16:32 by Andres Chaudhry MD) History of left heart catheterization (Chronic) Z98.890 08/05/2017 multi-vessel CAD with collateral flow; History of vasectomy Z98.52 Surgical History: - - Viewed Psychiatric History: No pertinent psych hx Lives: Spouse/ Significant Other Smoking Status: Former smoker Alcohol: None Drugs: None - *Family History Maternal Family History: Family History (Last Reviewed 04/05/19 @ 16:32 by Andres Chaudhry MD) Father CAD (coronary artery disease) Mother Cancer CAD (coronary artery disease) Brother CAD (coronary artery disease) Myocardial infarction Brother Thoracic aortic aneurysm Brother Hypertension Sister Breast cancer Sister CAD (coronary artery disease) Hx of CABG History Items: - - No coronary artery disease Review of Systems Constitutional: Reports: Chills, Fever, Weight Change Cardiovascular: Denies: Chest Pain Respiratory: Denies: Cough, Shortness of Breath, Shortness of breath at rest, Shortness of breath upon exertion Neurological: Reports: Confusion, Seizures. Denies: Focal weakness, Incoordination, Numbness, Tingling Unable to obtain accurate/complete ROS d/t: review of systems as per ; unable to do comprehensive ROS VTE Information - Inpt Only VTE Present on Admission: No VTE Pharm Prophylaxis ordered?: Yes Patient Problems: Active and Suspected Problems (Last Reviewed 04/05/19 @ 16:32 by Andres Chaudhry MD) Generalized convulsive seizure (Acute) - Physical Exam General: Disoriented, Lethargic HEENT: Atraumatic, PERRLA, EOMI, Normocephalic Oral: Dry Mucosa Neck: Supple, No JVD, Negative Carotid Bruits Lungs: Clear to auscultation, Normal air movement, No rhonchi, No wheeze, No rales Cardiovascular: Regular rate, Regular Rhythm, Normal S1, Normal S2, No murmurs Abdomen: Bowel Sounds Present, Soft, Non Tender, Non-Distended, No Hepato-splenomegaly Extremities: No clubbing, No cyanosis, No edema, Capillary Refill Less than 3 Seconds Skin: No rashes, No breakdown Musculoskeletal: No Tenderness to Palpation of Joints or Extremities Lymphatic: No Cervical, Supraclavicular, or Inguinal Adenopathy Neurological: Cranial nerves II-XII grossly intact, Muscle tone normal, - - spontaneously moves all limbs after sternal pressure is applied Psych/Mental Status: - - drowsy Vital Signs Temp Pulse Resp BP Pulse Ox 97.3 F L 83 15 160/97 H 98 04/18/19 23:21 04/18/19 23:21 04/18/19 23:21 04/18/19 23:21 04/18/19 23:29 Oxygen Flow Rate (L/min) 15 Oxygen Delivery Method Non-Rebreather Weight: 227 lb 11.8 oz Body Mass Index (BMI) 30.9 Finger Stick Blood Glucose 105 Laboratory Tests Past 24 Hrs 04/18/19 04/18/19 04/18/19 23:20 23:20 23:20 WBC 7.9 RBC 4.70 Hgb 15.1 Hct 45.0 MCV 95.7 H MCH 32.1 H MCHC 33.6 RDW Std Deviation 41.6 RDW Coeff of [place] 11.9 Plt Count 188 MPV 8.8 Immature Gran % (Auto) 0.300 Neut % (Auto) 44.9 L Lymph % (Auto) 41.8 H [place] % (Auto) 9.1 Eos % (Auto) 3.4 Baso % (Auto) 0.5 Absolute Neuts (auto) 3.5 Absolute Lymphs (auto) 3.30 Nucleated RBC % 0 PT 14.0 INR 1.1 APTT 32.0 Sodium 145 Potassium 4.4 Chloride 109 H Carbon Dioxide 22.0 Anion Gap 14 BUN 18 Creatinine 1.16 Estim Creat Clear Calc 61.32 Est GFR (MDRD) Af Amer 79 Est GFR (MDRD) Non-Af 65 BUN/Creatinine Ratio 15.5 Glucose 114 H Calcium 9.5 Troponin I < 0.[address] 04/18/19 23:08 IMPRESSION: Chronic involutional changes of the brain. There is minimal mucosal thickening of the right maxillary sinus. There is no intracranial hemorrhage or evidence of acute infarct. Findings are stable in the interval. If clinically indicated, CTA brain and/or MRI may be helpful for further evaluation at this time. Electronically Signed: Yayo Patricia MD at 23:28 EDT , Service support , ADDENDUM: 04/18/19 2344 IMPRESSION: Chronic involutional changes of the brain. There is minimal mucosal thickening of the right maxillary sinus. There is no intracranial hemorrhage or evidence of acute infarct. Findings are stable in the interval. If clinically indicated, CTA brain and/or MRI may be helpful for further evaluation at this time. N.B. : The above information has been verbally conveyed by Yayo Patricia MD to Theron Maharaj MD, on 04/18/2019 23:37:55 (ET). Electronically Signed: Yayo Patricia MD at 23:28 EDT , Service support , Assessment/Plan All Active Problems (Last Reviewed 04/05/19 @ 16:32 by Andres Chaudhry MD) TIA (transient ischemic attack) (Acute) Aphasia (Acute) Generalized convulsive seizure (Acute) Elevated troponin (Resolved) Abnormal stress test (Resolved) Cellulitis of right leg (Resolved) Vertigo (Resolved) 56-year-old male admitted with a complaint of lightheadedness and nausea and also complaining of metallic taste in his mouth and subsequently had a seizure. 1. Acute generalised tonic clonic seizure lasted ~ 1 min; had subsequent lethargy and drowsiness CT of the brain was negative had been taken off Dilantin 2 months ago after he was put on it in December, when he first had a seizure labs are unremarkable will check Mg load with IV keppra 1000mg consult neurology in the morning fall and seizure precautions NPO until he is more alert and able to pass a swallow test EKG after seizure showed ST depression in lateral leads, with possible subendocardial injury; however, repeat EKG showed resolution of these ST changes 2. Acute metabolic encephalopathy due to seizure: as under 1 3. Hypertension: on metoprolol 4. GERD: on omeprazole 5. History of TIA: had TIA a few weeks ago. On aspirin. DVT prophylaxis: SCDs Code status: full code. Patient's and granddaughter counseled extensively about different types of CODE STATUS including full code, DNR CCA and DNR CCA. Patient's family elect for him to be full code. Total iojm-af-[id number] time 16 minutes. Code Visit Inpatient E&M: 08156 Init Hosp L3 Procedures: 87780 Advncd Care Plan 30 Min
--- NOTE | 2019-04-19 00:10 | ED.RN ---
ATIVAN 1 MG GIVEN BY Bianca LOYOLA AT 0.
--- NOTE | 2019-04-19 00:26 | EKG12_ITS ---
Test Reason : REPEAT Blood Pressure : / mmHG Vent. Rate : 070 BPM Atrial Rate : 070 BPM P-R Int : 186 ms QRS Dur : 112 ms QT Int : 436 ms P-R-T Axes : 054 005 009 degrees QTc Int : 470 ms Normal sinus rhythm Nonspecific ST abnormality Abnormal ECG Confirmed by JEROMY CRAIG, LISA ([id number]), web editor ELOISE PERDUE ([id number]) on 04/22/2019 1:14:36 PM Referred By: FARIDA Confirmed By:DALLAS PINZON MD
[2019-04-19] MEDS: levETIRAcetam IV 1,000 MG/100 ML BAG 400 MG IV ×2 (00:34→10:45)
[2019-04-19 00:41] LABS: Bedside Glucose 105 mg/dL (70-110)
[2019-04-19 07:07] LABS: Absolute Lymphocyte Count 0.76 X10^3/uL (0.83-4.51); Absolute Neutrophil Count 4.5 X10^3/uL (2.0-7.7); Basophil# 0.02 X10^3/uL; Basophil% 0.3 % (0-1); Eosinophil# 0.05 X10^3/uL; Eosinophils% 0.9 % (0-5); Hematocrit 38.5 % (40-54); Hemoglobin 13.5 g/dL (13.0-16.5); Lymphocyte # 0.76 X10^3/ul (4.0); Mean Corp Hgb Conc 35.1 g/dL (32-36); Mean Corpuscular Volume 91.2 fL (80-94); Mean Platelet Vol. 9.1 fl (6.2-12.0); Monocyte# 0.54 X10^3/uL; Monocyte% 9.2 % (0-10); NRBC Flagged by Analyzer 0 % (0-5); Neutrophil # 4.47 X10^3/uL (2.7-7.7); Neutrophil % 76.3 % (47-70); Platelet Count 163 K/mm3 (150-450); RBC Distribution Width CV 11.9 % (11.6-14.6); RBC Distribution Width SD 39.5 fl (35.1-43.9); Red Blood Count 4.22 M/mm3 (4.6-6.2); White Blood Count 5.9 K/mm3 (4.4-11.0)
[2019-04-19 07:28] LABS: Anion Gap 6 (5-15); BUN 15 mg/dL (7-18); BUN/Creat Ratio 18.7 RATIO (10-20); Calcium,Total 8.2 mg/dL (8.5-10.1); Chloride 107 mmol/L (98-107); EST Glomerular Filtration Rate 100 mL/min (>60); Est Glom Filt Rate - Afr Amer 121 mL/min (>60); Estimated Creatinine Clearance 83.65 ml/min; Glucose 109 mg/dL (74-106); Potassium 3.9 mmol/L (3.5-5.1); Sodium Level 140 mmol/L (136-145)
--- NOTE | 2019-04-19 10:21 | PCM.CONS.GEN ---
Problem List (1) Seizure Status: Acute Reason for Consult Date of Consultation: 04/19/19 Reason for Consultation: Seizure History of Present Illness: The patient is a 74 year old M PMH HTN, HLD, CAD, history of vertigo admitted with seizures. History is obtained from patient as well as medical records and documentation. Per ED documentation patient initially came in as a stroke alert for acute onset slurred speech with left-sided weakness and numbness which had resolved and per ED documentation NIHSS was 0, [facility] telestroke was consulted, per ED documentation after coming back from the CT scan he had a witnessed generalized tonic-clonic seizure lasting for 1 minute without any tongue bite, urinary incontinence but patient had postictal confusion following the event, and per discussion with [facility] both [facility] neurology and ED felt that patient's symptoms were probably secondary to seizure and that he was not a TPA candidate. Per documentation patient also had a tonic-clonic seizure in December 2018, was started on Dilantin but per documentation it was later stopped by his outside neurologist . In the ED patient was loaded with phenytoin by the ED and started on Keppra 1000 mg twice daily. At present patient is alert, denies any headache, dizziness, focal motor weakness, sensory loss, speech disturbances, visual disturbances or facial weakness. Patient was admitted on 04/05/2019 with speech disturbances which had resolved and he was discharged with a diagnosis of possible TIA. Patient denies any frequent falls, does not use cane or walker to ambulate, per patient he does not drive, and is on aspirin at baseline. CT head on admission did not show anything acute. 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) Hypokalemia (Chronic) Former smoker (Chronic) Hypertension (Chronic) Medical History: Medical History (Last Reviewed 04/05/19 @ 16:32 by Andres Chaudhry MD) Atherosclerosis of [place] coronary artery of [place] heart without angina pectoris (Chronic) I25.10 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) E78.6 Hypokalemia (Chronic) E87.6 Former smoker (Chronic) Z87.891 Elevated troponin (Resolved) R74.8 Hypertension (Chronic) I10 Abnormal stress test (Resolved) Cellulitis of right leg (Resolved) L03.115 Vertigo (Resolved) R42 Allergies bacitracin [From Neosporin (uwj-hjf-iliud)] Allergy (Unknown, Verified 04/05/19 14:20) Dermatitis/rash neomycin [From Neosporin ([id number])] Allergy (Unknown, Verified 04/05/19 14:20) Dermatitis/rash polymyxin B [From Neosporin ([id number]-[id number])] Allergy (Unknown, Verified 04/05/19 14:20) Dermatitis/rash Home Medications: Ambulatory Orders Medication Instructions Recorded Aspirin [Aspirin, Baby] 81 mg PO DAILY@0800 tab.chew 07/26/17 acetaminophen 500 mg tablet 500 mg PO Q6H PRN 01/31/18 metoprolol succinate ER 50 mg 25 mg PO QDAY tab 09/18/18 tablet,extended release 24 hr Ergocalciferol [Vitamin D] 50,000 unit PO SA 04/05/19 Omeprazole 40 mg PO DAILY 04/05/19 [place]-3 Fatty Acids [[place]-3] 1,000 mg PO DAILY 04/19/19 Surgical History: Surgical History (Last Reviewed 04/05/19 @ 16:32 by Andres Chaudhry MD) History of left heart catheterization (Chronic) Z98.890 08/05/2017 multi-vessel CAD with collateral flow; History of vasectomy Z98.52 Surgical History: - - Viewed Psychiatric History: No pertinent psych hx Lives: Spouse/ Significant Other Smoking Status: Former smoker Alcohol: None Drugs: None - *Family History Maternal Family History: Family History (Last Reviewed 04/05/19 @ 16:32 by Andres Chaudhry MD) Father CAD (coronary artery disease) Mother Cancer CAD (coronary artery disease) Brother CAD (coronary artery disease) Myocardial infarction Brother Thoracic aortic aneurysm Brother Hypertension Sister Breast cancer Sister CAD (coronary artery disease) Hx of CABG History Items: - - No coronary artery disease Review of Systems Constitutional: Reports: - - Complete ROS negative except as documented in HPI Patient Problems: Active and Suspected Problems (Last Reviewed 04/05/19 @ 16:32 by Andres Chaudhry MD) Generalized convulsive seizure (Acute) Seizure (Acute) - Physical Exam General: Alert HEENT: Normocephalic Neck: Supple Lungs: Normal air movement Cardiovascular: Normal S1, Normal S2 Abdomen: Bowel Sounds Present Extremities: No cyanosis Neurological: - - Conscious, alert, CN II through XII grossly intact, power 5 x 5 both upper and lower extremities, no sensory loss, no cerebellar signs, gait deferred, reflexes + B/L B/S/T/K/A, no NR Psych/Mental Status: Normal Affect Vital Signs Temp Pulse Resp BP Pulse Ox 97.8 F 57 L 16 138/74 H 95 04/19/19 09:01 04/19/19 09:01 04/19/19 09:01 04/19/19 09:01 04/19/19 09:01 Oxygen Flow Rate (L/min) 11 Oxygen Delivery Method Room Air Weight: 101.5 kg Body Mass Index (BMI) 32.1 Finger Stick Blood Glucose 105 Intake and Output for Last 24 Hours 04/17/19 04/18/19 04/19/19 23:59 23:59 23:59 Intake Total 551 / 551 Output Total 625 / 625 Balance -74 / -74 Laboratory Tests Past 24 Hrs 04/18/19 04/18/19 04/18/19 23:20 23:20 23:20 WBC 7.9 RBC 4.70 Hgb 15.1 Hct 45.0 MCV 95.7 H MCH 32.1 H MCHC 33.6 RDW Std Deviation 41.6 RDW Coeff of [place] 11.9 Plt Count 188 MPV 8.8 Immature Gran % (Auto) 0.300 Neut % (Auto) 44.9 L Lymph % (Auto) 41.8 H [place] % (Auto) 9.1 Eos % (Auto) 3.4 Baso % (Auto) 0.5 Absolute Neuts (auto) 3.5 Absolute Lymphs (auto) 3.30 Nucleated RBC % 0 PT 14.0 INR 1.1 APTT 32.0 Sodium 145 Potassium 4.4 Chloride 109 H Carbon Dioxide 22.0 Anion Gap 14 BUN 18 Creatinine 1.16 Estim Creat Clear Calc 61.32 Est GFR (MDRD) Af Amer 79 Est GFR (MDRD) Non-Af 65 BUN/Creatinine Ratio 15.5 Glucose 114 H Calcium 9.5 Troponin I < 0.015 04/19/19 04/19/19 06:30 06:30 WBC 5.9 RBC 4.22 L Hgb 13.5 Hct 38.5 L MCV 91.2 MCH 32.0 MCHC 35.1 RDW Std Deviation 39.5 RDW Coeff of [place] 11.9 Plt Count 163 MPV 9.1 Immature Gran % (Auto) 0.300 Neut % (Auto) 76.3 H Lymph % (Auto) 13.0 L [place] % (Auto) 9.2 Eos % (Auto) 0.9 Baso % (Auto) 0.3 Absolute Neuts (auto) 4.5 Absolute Lymphs (auto) 0.76 L Nucleated RBC % 0 PT INR APTT Sodium 140 Potassium 3.9 Chloride 107 Carbon Dioxide 27.0 Anion Gap 6 BUN 15 Creatinine 0.80 Estim Creat Clear Calc 83.65 Est GFR (MDRD) Af Amer 121 Est GFR (MDRD) Non-Af 100 BUN/Creatinine Ratio 18.7 Glucose 109 H Calcium 8.2 L Troponin I POC Glucose 04/18/19 23:21 POC Glucose 105 Assessment/Plan All Active Problems (Last Reviewed 04/05/19 @ 16:32 by Anders Chaudhry MD) TIA (transient ischemic attack) (Acute) Aphasia (Acute) Generalized convulsive seizure (Acute) Seizure (Acute) Elevated troponin (Resolved) Abnormal stress test (Resolved) Cellulitis of right leg (Resolved) Vertigo (Resolved) The patient is a 74 year old M PMH HTN, HLD, CAD, history of vertigo admitted with seizures. History is obtained from patient as well as medical records and documentation. Per ED documentation patient initially came in as a stroke alert for acute onset slurred speech with left-sided weakness and numbness which had resolved and per ED documentation NIHSS was 0, [facility] was consulted, per ED documentation after coming back from the CT scan he had a witnessed generalized tonic-clonic seizure lasting for 1 minute without any tongue bite, urinary incontinence but patient had postictal confusion following the event, and per discussion with [facility] and ED felt that patient's symptoms were probably secondary to seizure and that he was not a TPA candidate. Per documentation patient also had a tonic-clonic seizure in December 2018, was started on Dilantin but per documentation it was later stopped by his outside neurologist . In the ED patient was loaded with phenytoin by the ED and started on Keppra 1000 mg twice daily. At present patient is alert, denies any headache, dizziness, focal motor weakness, sensory loss, speech disturbances, visual disturbances or facial weakness. Patient was admitted on 04/05/2019 with speech disturbances which had resolved and he was discharged with a diagnosis of possible TIA. Patient denies any frequent falls, does not use cane or walker to ambulate, per patient he does not drive, and is on aspirin at baseline. CT head on admission did not show anything acute. Impression Seizures Less likely to be stroke or TIA Plan ?MRI brain with and without contrast ?EEG ?On Keppra thousand milligrams p.o. twice daily. Side effect discussed in detail with patient ?On aspirin at baseline ?Seizure precautions ?Patient counseled not to drive for 6 months after the seizure ?Labs reviewed, check UA and UDS, lipid profile ?PT/OT ?GI/DVT prophylaxis ?Fall precautions ?Further medical management per hospitalist team ?Please call with questions if any ?Follow-up with neurology as outpatient in 6 weeks ?Thank you for allowing us to participate in patient's care and management This note is generated using [employer] dictation software. It may contain incorrect words, spellings and punctuation's which were not noted in the review of the note prior to signing. Code Visit Inpatient E&M: 45114 Init Hosp L3
[2019-04-19] MEDS: Metoprolol(XL)Succ 50 MG Tablet 25 MG PO (10:45)
[2019-04-19] MEDS: Enoxaparin 40 MG/0.4 ML Syringe SC (10:45)
[2019-04-19] MEDS: Pantoprazole Sodium 40 MG Tablet PO (10:45)
[2019-04-19] MEDS: Aspirin 81 MG TAB.CHEW PO (10:45)
[2019-04-19] MEDS: 0.9% NaCl Peripheral Flush Adult/Peds IV (10:46)
[2019-04-19 11:01] LABS: Bacteria 0 SEEN /hpf (None Seen); Mucous, Urine 0 SEEN /hpf (<or=2+); White Blood Cells 0 SEEN /hpf (0-5)
[2019-04-19 11:03] LABS: Color, Urine Yellow (Yellow); Glucose, Dipstick Normal (Normal); Ketone-Dipstick Negative (Negative); Leukocyte Esterase-Dipstick Negative /ul (Negative); Nitrite-Dipstick Negative (Negative); Occult Blood-Urine 10 /ul (Negative); Protein-Dipstick Negative (Negative); Urine Bilirubin Dipstick Negative (Negative); Urine Clarity Clear (Clear); Urine Urobilinogen Normal (Normal); Urine pH 6.5 (5.0 - 8.0)
[2019-04-19 11:14] LABS: Red Blood Cells-Urine 0-5 SEEN /hpf (0-5); Squamous Epithelial Cells - UA 0-5 SEEN /hpf (0-5)
--- NOTE | 2019-04-19 11:19 | MRI_ITS ---
STUDY: MRI BRAIN WITH AND WITHOUT CONTRAST REASON FOR EXAM: Male, 74 years old. Recurrent seizure TECHNIQUE: Standardized multiplanar fat and water weighted pulse sequences were obtained. 20 IV Dotarem was administered for the contrast portion of the examination. COMPARISON: CT head 04/18/2019. FINDINGS: There is mild cerebral atrophy with widening of the extra-axial spaces and ventricular dilatation. There are a limited number of small white matter hyperintensities, distributed throughout the deep white matter tracts of the cerebral hemispheres, consistent with mild chronic white matter ischemic changes. There is no evidence for recent intracranial ischemia or other cause of cytotoxic edema on diffusion weighted imaging (DWI). Normal T2* images of the brain without demonstrated susceptibility artifact. There is no demonstrated hemosiderin stain. Normal bilateral basal ganglia. Normal thalami. There is no extra-axial fluid accumulation. Normal flow voids within the major intracranial circulation suggesting patency by spin echo criteria. Normal venous enhancement. There is no enhancing intra-axial or extra-axial abnormality. Normal sella turcica, pituitary gland, infundibular stalk, optic chiasm and hypothalamus. Normal tectal plate and pineal gland. Normal midbrain, jennifer and medulla. Normal cerebellum. Normal basal cisterns. Normal bilateral temporal bones. Normal bilateral internal auditory canals. No demonstrated orbital abnormality, within the constraints of a routine brain study. Normal visualized paranasal sinuses. Normal calvarium and skull base. Normal visualized soft tissue structures. Normal visualized upper cervical spine. MRI/Brain W/WO Contrast IMPRESSION: Involutional changes of the brain, as described above. Electronically Signed: Letiemily Carlisle, at 15:50 EDT Tel , Service support ,
[2019-04-19 11:25] LABS: Amphetamine Urine VISTA NEGATIVE (<1000 ng/mL); Barbiturate Urine VISTA NEGATIVE (< 200 ng/mL); Benzodiazepine Urine VISTA NEGATIVE (< 200 ng/mL); Cocaine Urine VISTA NEGATIVE (< 300 ng/mL); Ecstacy Urine VISTA NEGATIVE (< 500 ng/mL); Methadone Urine VISTA NEGATIVE (< 300 ng/mL); PCP Urine VISTA NEGATIVE (< 25 ng/mL); THC Urine VISTA NEGATIVE (< 50 ng/mL); Vista UDS pH Range 6
--- NOTE | 2019-04-19 11:41 | PCM.DC ---
- Discharge Diagnoses Current Active Problems: Current Active and Chronic Problems (Last Reviewed 04/05/19 @ 16:32 by Andres Chaudhry MD) Generalized convulsive seizure (Acute) Seizure (Acute) You will use the following diet at home:: Cardiac Discharge Activity: May Not Drive - For at least 6 months or until approved by neurology Call your doctor if you observe: Shortness of breath, Dizziness, Fainting spells, - - Recurrent seizures. Allergies/Adverse Reactions: Allergies bacitracin [From Neosporin ([id number])] Allergy (Unknown, Verified 04/05/19 14:20) Dermatitis/rash neomycin [From Neosporin ([id number]-[id number])] Allergy (Unknown, Verified 04/05/19 14:20) Dermatitis/rash polymyxin B [From Neosporin ([id number]-[id number])] Allergy (Unknown, Verified 04/05/19 14:20) Dermatitis/rash Medications to take at Discharge Aspirin [Aspirin, Baby] 81 mg PO DAILY@0800 tab.chew 07/26/17 acetaminophen 500 mg tablet 500 mg PO Q6H PRN 01/31/18 metoprolol succinate ER 50 mg tablet,extended release 24 hr 25 mg PO QDAY tab 09/18/18 Ergocalciferol [Vitamin D] 50,000 unit PO SA 04/05/19 Omeprazole 40 mg PO DAILY 04/05/19 Levetiracetam [Keppra] 1,000 mg PO BID #120 tab 04/19/19 [place]-3 Fatty Acids [[place]-3] 1,000 mg PO DAILY 04/19/19 The following prescriptions were given: Levetiracetam [Keppra] 1,000 mg PO BID #120 tab Transmission Status: Pending to [facility] Primary Care Physician: Niall Ramirez MD [Primary Care Provider] - Please follow up with your Primary Care Physician in: 1 Week Test Results: Test results from this visit will be discussed in further detail at your follow-up appointment, if applicable. Please Follow Up With: Tana Dejesus MD When: 6 Weeks Proposed Discharge Date: 04/19/19
--- NOTE | 2019-04-19 13:13 | DS.PCM_ITS ---
<Vidhya Armstrong - Last Filed: 04/19/19 13:28> Discharge Date and Diagnosis - Problem List Patient Problems: Active and Suspected Problems (Last Reviewed 04/05/19 @ 16:32 by Andres Chaudhry MD) Seizure (Acute) Date of Admission: 04/19/19 Date of Discharge: 04/19/19 - Primary Discharge Diagnosis Active and Suspected Problems (Last Reviewed 04/05/19 @ 16:32 by Andres Chaudhry MD) 1. Acute seizure, history of tonic clonic seizure December 2018 2. Acute metabolic encephalopathy secondary to #1 3. Hypertension 4. GERD 5. 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 There is minimal mucosal thickening of the right maxillary sinus. There is no intracranial hemorrhage or evidence of acute infarct. Findings are stable in the interval. If clinically indicated, CTA brain and/or MRI may be helpful for further evaluation at this time. Electronically Signed: Yayo Patricia MD at 23:28 EDT , Service support , ADDENDUM: 04/18/19 2344 IMPRESSION: Chronic involutional changes of the brain. There is minimal mucosal thickening of the right maxillary sinus. There is no intracranial hemorrhage or evidence of acute infarct. Findings are stable in the interval. If clinically indicated, CTA brain and/or MRI may be helpful for further evaluation at this time. N.B. : The above information has been verbally conveyed by Yayo Patricia MD to Theron Maharaj MD, on 04/18/2019 23:37:55 (ET). Electronically Signed: Yayo Patricia MD at 23:28 EDT , Service support , Dr. Dejesus- Neurology Operations: None Procedures: Electroencephalogram Summary of Care Provided: The patient is a 74 year old M admitted 04/19/2019 due to seizure. 1. Acute seizure-Patient reports he had a tonic-clonic seizure in December 2018 and was started on Dilantin at that time. This was later discontinued by outside neurologist. Brain CT without acute process. Neurology consulted. Continue Keppra 1000 mg twice daily. EEG completed, results can be followed as outpatient follow-up. MRI of brain with and without contrast completed and results will be reviewed prior to discharge. Patient had recent MRI of brain without contrast 04/05/19 which showed involutional changes of the brain, no acute infarct, hypertrophic and cystic/erosive changes C1-C2. Follow-up with neurology in 6 weeks. Patient advised no driving for 6 months or until further approved by neurology. Urine drug screen and urinalysis unremarkable. 2. Acute metabolic encephalopathy secondary to #1-improved. 3. Hypertension-stable, continue home metoprolol regimen. 4. GERD-continue PPI regimen. 5. History of TIA-continue aspirin regimen. Patient seen and examined prior to discharge. Physical assessment as noted below. Patient is stable for discharge with follow up recommendations as noted above. This patient was seen by EDUARD Leblanc under the supervision of Dr. Vick. Patient Problems: Active and Suspected Problems (Last Reviewed 04/05/19 @ 16:32 by Andres Chaudhry MD) Seizure (Acute) - Physical Exam General: Alert, Oriented x3, Cooperative HEENT: Atraumatic, PERRLA, EOMI, Normocephalic Neck: Supple, No JVD, Negative Carotid Bruits Lungs: Clear to auscultation, Normal air movement Cardiovascular: Regular rate, Regular Rhythm, Normal S1, Normal S2, No murmurs Abdomen: Bowel Sounds Present, Soft, Non Tender, Non-Distended Extremities: No clubbing, No cyanosis, No edema, Capillary Refill Less than 3 Seconds Skin: No rashes, No breakdown Musculoskeletal: No Tenderness to Palpation of Joints or Extremities Neurological: Cranial nerves II-XII grossly intact, Neuro grossly intact Psych/Mental Status: Normal Affect, Appropriate Vital Signs Temp Pulse Resp BP Pulse Ox 97.9 F 56 L 14 137/76 H 95 04/19/19 11:00 04/19/19 11:00 04/19/19 11:00 04/19/19 11:00 04/19/19 11:00 Oxygen Flow Rate (L/min) 11 Oxygen Delivery Method Room Air Weight: 223 lb 12.307 oz Body Mass Index (BMI) 32.1 Finger Stick Blood Glucose 105 Intake and Output for Last 24 Hours 04/17/19 04/18/19 04/19/19 23:59 23:59 23:59 Intake Total 1232 / 1232 Output Total 1345 / 1345 Balance -113 / -113 Laboratory Tests Past 24 Hrs 04/18/19 04/18/19 04/18/19 23:20 23:20 23:20 WBC 7.9 RBC 4.70 Hgb 15.1 Hct 45.0 MCV 95.7 H MCH 32.1 H MCHC 33.6 RDW Std Deviation 41.6 RDW Coeff of Brigida 11.9 Plt Count 188 MPV 8.8 Immature Gran % (Auto) 0.300 Neut % (Auto) 44.9 L Lymph % (Auto) 41.8 H [place] % (Auto) 9.1 Eos % (Auto) 3.4 Baso % (Auto) 0.5 Absolute Neuts (auto) 3.5 Absolute Lymphs (auto) 3.30 Nucleated RBC % 0 PT 14.0 INR 1.1 APTT 32.0 Sodium 145 Potassium 4.4 Chloride 109 H Carbon Dioxide 22.0 Anion Gap 14 BUN 18 Creatinine 1.16 Estim Creat Clear Calc 61.32 Est GFR (MDRD) Af Amer 79 Est GFR (MDRD) Non-Af 65 BUN/Creatinine Ratio 15.5 Glucose 114 H Calcium 9.5 Troponin I < 0.015 Urine Color Urine Clarity Urine pH Ur Specific [place] Urine Protein Urine Glucose (UA) Urine Ketones Urine Occult Blood Urine Nitrite Urine Bilirubin Urine Urobilinogen Ur Leukocyte Esterase Urine RBC Urine WBC Ur Squamous Epith Cells Urine Bacteria Urine Mucus Urine Opiates Screen Urine Methadone Screen Ur Barbiturates Screen Ur Phencyclidine Scrn Ur Amphetamines Screen U Methamphetamin-MDMA U Benzodiazepines Scrn Urine Cocaine Screen U Cannabinoids Screen Ur Drug Screen Comment 04/19/19 04/19/19 04/19/19 06:30 06:30 10:55 WBC 5.9 RBC 4.22 L Hgb 13.5 Hct 38.5 L MCV 91.2 MCH 32.0 MCHC 35.1 RDW Std Deviation 39.5 RDW Coeff of Brigida 11.9 Plt Count 163 MPV 9.1 Immature Gran % (Auto) 0.300 Neut % (Auto) 76.3 H Lymph % (Auto) 13.0 L [place] % (Auto) 9.2 Eos % (Auto) 0.9 Baso % (Auto) 0.3 Absolute Neuts (auto) 4.5 Absolute Lymphs (auto) 0.76 L Nucleated RBC % 0 PT INR APTT Sodium 140 Potassium 3.9 Chloride 107 Carbon Dioxide 27.0 Anion Gap 6 BUN 15 Creatinine 0.80 Estim Creat Clear Calc 83.65 Est GFR (MDRD) Af Amer 121 Est GFR (MDRD) Non-Af 100 BUN/Creatinine Ratio 18.7 Glucose 109 H Calcium 8.2 L Troponin I Urine Color Urine Clarity Urine pH Ur Specific [place] Urine Protein Urine Glucose (UA) Urine Ketones Urine Occult Blood Urine Nitrite Urine Bilirubin Urine Urobilinogen Ur Leukocyte Esterase Urine RBC Urine WBC Ur Squamous Epith Cells Urine Bacteria Urine Mucus Urine Opiates Screen NEGATIVE Urine Methadone Screen NEGATIVE Ur Barbiturates Screen NEGATIVE Ur Phencyclidine Scrn NEGATIVE Ur Amphetamines Screen NEGATIVE U Methamphetamin-MDMA NEGATIVE U Benzodiazepines Scrn NEGATIVE Urine Cocaine Screen NEGATIVE U Cannabinoids Screen NEGATIVE Ur Drug Screen Comment 04/19/19 10:55 WBC RBC Hgb Hct MCV MCH MCHC RDW Std Deviation RDW Coeff of Brigida Plt Count MPV Immature Gran % (Auto) Neut % (Auto) Lymph % (Auto) [place] % (Auto) Eos % (Auto) Baso % (Auto) Absolute Neuts (auto) Absolute Lymphs (auto) Nucleated RBC % PT INR APTT Sodium Potassium Chloride Carbon Dioxide Anion Gap BUN Creatinine Estim Creat Clear Calc Est GFR (MDRD) Af Amer Est GFR (MDRD) Non-Af BUN/Creatinine Ratio Glucose Calcium Troponin I Urine Color Yellow Urine Clarity Clear Urine pH 6.5 Ur Specific [place] 1.010 Urine Protein Negative Urine Glucose (UA) Normal Urine Ketones Negative Urine Occult Blood 10 H Urine Nitrite Negative Urine Bilirubin Negative Urine Urobilinogen Normal Ur Leukocyte Esterase Negative Urine RBC 0-5 SEEN Urine WBC 0 SEEN Ur Squamous Epith Cells 0-5 SEEN Urine Bacteria 0 SEEN Urine Mucus 0 SEEN Urine Opiates Screen Urine Methadone Screen Ur Barbiturates Screen Ur Phencyclidine Scrn Ur Amphetamines Screen U Methamphetamin-MDMA U Benzodiazepines Scrn Urine Cocaine Screen U Cannabinoids Screen Ur Drug Screen Comment POC Glucose 04/18/19 23:21 POC Glucose 105 Discharge Diet: Low fat/ Low Cholesterol Discharge Activity: May Not Drive - For at least 6 months or until approved by neurology Call your doctor if you observe: Shortness of breath, Dizziness, Fainting spells, - - Recurrent seizures. Home Medications: Medications to take at Discharge Aspirin [Aspirin, Baby] 81 mg PO DAILY@0800 tab.chew 07/26/17 acetaminophen 500 mg tablet 500 mg PO Q6H PRN 01/31/18 metoprolol succinate ER 50 mg tablet,extended release 24 hr 25 mg PO QDAY tab 09/18/18 Ergocalciferol [Vitamin D] 50,000 unit PO SA 04/05/19 Omeprazole 40 mg PO DAILY 04/05/19 Levetiracetam [Keppra] 1,000 mg PO BID #120 tab 04/19/19 [place]-3 Fatty Acids [[place]-3] 1,000 mg PO DAILY 04/19/19 Following Prescrptions Were Given to Patient: Levetiracetam [Keppra] 1,000 mg PO BID #120 tab Transmission Status: Received by [id number] Primary Care Physician: Niall Ramirez MD [Primary Care Provider] - Please follow up with your Primary Care Physician in: 1 Week Please Follow Up With: Tana Dejesus MD When: 6 Weeks Disposition: Home Minutes spent on discharge:: 35 Patient Condition:: Stable Medical Necessity - Tobacco Use Smoking Status: Former smoker Meaningful Use Info Meaningful Use Diagnoses (Choose all that apply): None applicable <Javan Vick - Last Filed: 04/19/19 14:39> Discharge Date and Diagnosis - Primary Discharge Diagnosis Active and Suspected Problems (Last Reviewed 04/05/19 @ 16:32 by Andres Chaudhry MD) Seizure (Acute) - Secondary Discharge Diagnosis Chronic Problems (Last Reviewed 04/05/19 @ 16:32 by Andres Chaudhry MD) Hyperlipemia, mixed (Chronic) History of left heart catheterization (Chronic) 08/05/2017 multi-vessel CAD with collateral flow; Atherosclerosis of [place] coronary artery of [place] heart without angina pectoris (Chronic) 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) Hypokalemia (Chronic) Former smoker (Chronic) Hypertension (Chronic) Hospital Course and Treatment Imaging Results: 04/19/19 11:19 Brain W/WO Contrast [MRI] Stat Operations: None Procedures: Electroencephalogram Summary of Care Provided: Patient seen and examined independently. Data reviewed. I agree with the above note by the nurse practitioner. The patient is a 74 year old M presents with recurrent bouts of seizure. Had been worked up back in December started on phenytoin. Subsequently taken off of phenytoin and had been doing well. Had a recurrent seizures. Started on Keppra. MRI was negative for any acute process. Seen by neurology. Patient to follow-up with neurology as outpatient. Discussed with the patient about driving restrictions. Patient was already on driving restrictions were that were set to in about 2 months but I told him that with the new seizures, the 6 months starts from the time of his see new seizures, so the patient would not be able to drive, as long as he seizure-free, until October 2019. [] - Physical Exam General: Alert, Cooperative HEENT: Atraumatic, PERRLA, EOMI, Normocephalic Oral: Moist Mucosa, No Gingival or Mucosal Lesions/ Ulcerations Cardiovascular: Regular rate, Regular Rhythm, Normal S1, Normal S2 Abdomen: Bowel Sounds Present, Soft, Non Tender, Non-Distended Neurological: Cranial nerves II-XII grossly intact, Deep Tendon Reflexes 2+/4 and Symmetrical, Neuro grossly intact Vital Signs Temp Pulse Resp BP Pulse Ox 36.6 C 56 L 14 137/76 H 95 04/19/19 11:00 04/19/19 11:00 04/19/19 11:00 04/19/19 11:00 04/19/19 11:00 Oxygen Flow Rate (L/min) 11 Oxygen Delivery Method Room Air Weight: 101.5 kg Body Mass Index (BMI) 32.1 Finger Stick Blood Glucose 105 Intake and Output for Last 24 Hours 04/17/19 04/18/19 04/19/19 23:59 23:59 23:59 Intake Total 1232 / 1232 Output Total 1345 / 1345 Balance -113 / -113 Laboratory Tests Past 24 Hrs 04/18/19 04/18/19 04/18/19 23:20 23:20 23:20 WBC 7.9 RBC 4.70 Hgb 15.1 Hct 45.0 MCV 95.7 H MCH 32.1 H MCHC 33.6 RDW Std Deviation 41.6 RDW Coeff of Brigida 11.9 Plt Count 188 MPV 8.8 Immature Gran % (Auto) 0.300 Neut % (Auto) 44.9 L Lymph % (Auto) 41.8 H [place] % (Auto) 9.1 Eos % (Auto) 3.4 Baso % (Auto) 0.5 Absolute Neuts (auto) 3.5 Absolute Lymphs (auto) 3.30 Nucleated RBC % 0 PT 14.0 INR 1.1 APTT 32.0 Sodium 145 Potassium 4.4 Chloride 109 H Carbon Dioxide 22.0 Anion Gap 14 BUN 18 Creatinine 1.16 Estim Creat Clear Calc 61.32 Est GFR (MDRD) Af Amer 79 Est GFR (MDRD) Non-Af 65 BUN/Creatinine Ratio 15.5 Glucose 114 H Calcium 9.5 Troponin I < 0.015 Urine Color Urine Clarity Urine pH Ur Specific [place] Urine Protein Urine Glucose (UA) Urine Ketones Urine Occult Blood Urine Nitrite Urine Bilirubin Urine Urobilinogen Ur Leukocyte Esterase Urine RBC Urine WBC Ur Squamous Epith Cells Urine Bacteria Urine Mucus Urine Opiates Screen Urine Methadone Screen Ur Barbiturates Screen Ur Phencyclidine Scrn Ur Amphetamines Screen U Methamphetamin-MDMA U Benzodiazepines Scrn Urine Cocaine Screen U Cannabinoids Screen Ur Drug Screen Comment 04/19/19 04/19/19 04/19/19 06:30 06:30 10:55 WBC 5.9 RBC 4.22 L Hgb 13.5 Hct 38.5 L MCV 91.2 MCH 32.0 MCHC 35.1 RDW Std Deviation 39.5 RDW Coeff of Brigida 11.9 Plt Count 163 MPV 9.1 Immature Gran % (Auto) 0.300 Neut % (Auto) 76.3 H Lymph % (Auto) 13.0 L [place] % (Auto) 9.2 Eos % (Auto) 0.9 Baso % (Auto) 0.3 Absolute Neuts (auto) 4.5 Absolute Lymphs (auto) 0.76 L Nucleated RBC % 0 PT INR APTT Sodium 140 Potassium 3.9 Chloride 107 Carbon Dioxide 27.0 Anion Gap 6 BUN 15 Creatinine 0.80 Estim Creat Clear Calc 83.65 Est GFR (MDRD) Af Amer 121 Est GFR (MDRD) Non-Af 100 BUN/Creatinine Ratio 18.7 Glucose 109 H Calcium 8.2 L Troponin I Urine Color Urine Clarity Urine pH Ur Specific [place] Urine Protein Urine Glucose (UA) Urine Ketones Urine Occult Blood Urine Nitrite Urine Bilirubin Urine Urobilinogen Ur Leukocyte Esterase Urine RBC Urine WBC Ur Squamous Epith Cells Urine Bacteria Urine Mucus Urine Opiates Screen NEGATIVE Urine Methadone Screen NEGATIVE Ur Barbiturates Screen NEGATIVE Ur Phencyclidine Scrn NEGATIVE Ur Amphetamines Screen NEGATIVE U Methamphetamin-MDMA NEGATIVE U Benzodiazepines Scrn NEGATIVE Urine Cocaine Screen NEGATIVE U Cannabinoids Screen NEGATIVE Ur Drug Screen Comment 04/19/19 10:55 WBC RBC Hgb Hct MCV MCH MCHC RDW Std Deviation RDW Coeff of Brigida Plt Count MPV Immature Gran % (Auto) Neut % (Auto) Lymph % (Auto) [place] % (Auto) Eos % (Auto) Baso % (Auto) Absolute Neuts (auto) Absolute Lymphs (auto) Nucleated RBC % PT INR APTT Sodium Potassium Chloride Carbon Dioxide Anion Gap BUN Creatinine Estim Creat Clear Calc Est GFR (MDRD) Af Amer Est GFR (MDRD) Non-Af BUN/Creatinine Ratio Glucose Calcium Troponin I Urine Color Yellow Urine Clarity Clear Urine pH 6.5 Ur Specific [place] 1.010 Urine Protein Negative Urine Glucose (UA) Normal Urine Ketones Negative Urine Occult Blood 10 H Urine Nitrite Negative Urine Bilirubin Negative Urine Urobilinogen Normal Ur Leukocyte Esterase Negative Urine RBC 0-5 SEEN Urine WBC 0 SEEN Ur Squamous Epith Cells 0-5 SEEN Urine Bacteria 0 SEEN Urine Mucus 0 SEEN Urine Opiates Screen Urine Methadone Screen Ur Barbiturates Screen Ur Phencyclidine Scrn Ur Amphetamines Screen U Methamphetamin-MDMA U Benzodiazepines Scrn Urine Cocaine Screen U Cannabinoids Screen Ur Drug Screen Comment POC Glucose 04/18/19 23:21 POC Glucose 105 Discharge Diet: Low fat/ Low Cholesterol Discharge Activity: May Not Drive Call your doctor if you observe: Shortness of breath, Dizziness, Fainting spells, - Disposition: Home Minutes spent on discharge:: 35 Patient Condition:: Stable Medical Necessity - Tobacco Use Smoking Status: Former smoker Meaningful Use Info Meaningful Use Diagnoses (Choose all that apply): None applicable Code Visit OBSV E&M: 39800 Observation care discharge
--- NOTE | 2019-04-19 15:34 | PCM.PN.HOSP ---
Patient Problems: Active and Suspected Problems (Last Reviewed 04/05/19 @ 16:32 by Andres Chaudhry MD) Seizure (Acute) Subjective: Did poorly with therapy. Leaning towards left. Vitals/I&O's: Vital Signs Temp Pulse Resp BP Pulse Ox 36.6 C 64 14 137/76 H 95 04/19/19 11:00 04/19/19 15:00 04/19/19 11:00 04/19/19 11:00 04/19/19 11:00 Oxygen Flow Rate (L/min) 11 Oxygen Delivery Method Room Air Weight: 101.5 kg Body Mass Index (BMI) 32.1 Finger Stick Blood Glucose 105 Intake and Output for Last 24 Hours 04/17/19 04/18/19 04/19/19 23:59 23:59 23:59 Intake Total 1232 / 1232 Output Total 1345 / 1345 Balance -113 / -113 General: Alert, No apparent distress HEENT: Atraumatic, PERRLA, EOMI, Normocephalic Oral: Moist Mucosa, No Gingival or Mucosal Lesions/ Ulcerations Lungs: Clear to auscultation, Normal air movement, No rhonchi, No wheeze, No rales Cardiovascular: Regular rate, Regular Rhythm, Normal S1, Normal S2, No murmurs Abdomen: Bowel Sounds Present, Soft, Non Tender, Non-Distended, No Hepato-splenomegaly Extremities: No edema, No Calf Tenderness Skin: No rashes, No breakdown Neurological: Cranial nerves II-XII grossly intact, Neuro grossly intact, Motor Exam 5/5 strength throughout Psych/Mental Status: Appropriate, Flat Affect Laboratory Results 04/18/19 23:20: WBC 7.9, RBC 4.70, Hgb 15.1, Hct 45.0, MCV 95.7 H, MCH 32.1 H, MCHC 33.6, RDW Std Deviation 41.6, RDW Coeff of Brigida 11.9, Plt Count 188, MPV 8.8, Immature Gran % (Auto) 0.300, Neut % (Auto) 44.9 L, Lymph % (Auto) 41.8 H, [place] % (Auto) 9.1, Eos % (Auto) 3.4, Baso % (Auto) 0.5, Absolute Neuts (auto) 3.5, Absolute Lymphs (auto) 3.30, Nucleated RBC % 0 04/18/19 23:20: PT 14.0, INR 1.1, APTT 32.0 04/18/19 23:20: Sodium 145, Potassium 4.4, Chloride 109 H, Carbon Dioxide 22.0, Anion Gap 14, BUN 18, Creatinine 1.16, Estim Creat Clear Calc 61.32, Est GFR (MDRD) Af Amer 79, Est GFR (MDRD) Non-Af 65, BUN/Creatinine Ratio 15.5, Glucose 114 H, Calcium 9.5, Troponin I < 0.015 04/18/19 23:21: POC Glucose 105 04/19/19 06:30: WBC 5.9, RBC 4.22 L, Hgb 13.5, Hct 38.5 L, MCV 91.2, MCH 32.0, MCHC 35.1, RDW Std Deviation 39.5, RDW Coeff of Brigida 11.9, Plt Count 163, MPV 9.1, Immature Gran % (Auto) 0.300, Neut % (Auto) 76.3 H, Lymph % (Auto) 13.0 L, [place] % (Auto) 9.2, Eos % (Auto) 0.9, Baso % (Auto) 0.3, Absolute Neuts (auto) 4.5, Absolute Lymphs (auto) 0.76 L, Nucleated RBC % 0 04/19/19 06:30: Sodium 140, Potassium 3.9, Chloride 107, Carbon Dioxide 27.0, Anion Gap 6, BUN 15, Creatinine 0.80, Estim Creat Clear Calc 83.65, Est GFR (MDRD) Af Amer 121, Est GFR (MDRD) Non-Af 100, BUN/Creatinine Ratio 18.7, Glucose 109 H, Calcium 8.2 L 04/19/19 10:55: Urine Opiates Screen NEGATIVE, Urine Methadone Screen NEGATIVE, Ur Barbiturates Screen NEGATIVE, Ur Phencyclidine Scrn NEGATIVE, Ur Amphetamines Screen NEGATIVE, U Methamphetamin-MDMA NEGATIVE, U Benzodiazepines Scrn NEGATIVE, Urine Cocaine Screen NEGATIVE, U Cannabinoids Screen NEGATIVE, Ur Drug Screen Comment 04/19/19 10:55: Urine Color Yellow, Urine Clarity Clear, Urine pH 6.5, Ur Specific [place] 1.010, Urine Protein Negative, Urine Glucose (UA) Normal, Urine Ketones Negative, Urine Occult Blood 10 H, Urine Nitrite Negative, Urine Bilirubin Negative, Urine Urobilinogen Normal, Ur Leukocyte Esterase Negative, Urine RBC 0-5 SEEN, Urine WBC 0 SEEN, Ur Squamous Epith Cells 0-5 SEEN, Urine Bacteria 0 SEEN, Urine Mucus 0 SEEN Current Medications Acetaminophen (Tylenol) 500 mg PO Q6H PRN PRN Reason: PAIN Aspirin (Aspirin, Baby) 81 mg PO DAILY@0800 [facility] Last Admin: 04/19/19 10:45 Dose: 81 mg Documented by: Dextrose (D50w Syringe) 0 gm IV X1 PRN; Protocol PRN Reason: Hypoglycemia Enoxaparin Sodium (Lovenox) 40 mg SC DAILY@1000 [facility] Last Admin: 04/19/19 10:45 Dose: 40 mg Documented by: Ergocalciferol (Vitamin D) 50,000 unit PO Sa@1000 [place] Glucagon () 1 mg IM .X1 PRN PRN Reason: Hypoglycemia Levetiracetam () 1,000 mg in 100 mls @ 400 mls/hr IV Q12 [place] Lorazepam (Ativan) 1 mg IV Q4H PRN PRN PRN Reason: SEIZURES Metoprolol Succinate (Toprol Xl (Beta Damari)) 25 mg PO DAILY [facility] Last Admin: 04/19/19 10:45 Dose: 25 mg Documented by: Pantoprazole Sodium (Protonix) 40 mg PO DAILY [facility] Last Admin: 04/19/19 10:45 Dose: 40 mg Documented by: Sodium Chloride () 10 - 40 ml IV UD PRN PRN Reason: SALINE FLUSH Last Admin: 04/19/19 10:46 Dose: 10 ml Documented by: Medical Necessity - Tobacco Use Smoking Status: Former smoker Assessment/Plan All Active Problems (Last Reviewed 04/05/19 @ 16:32 by Andres Chaudhry MD) TIA (transient ischemic attack) (Acute) Aphasia (Acute) Generalized convulsive seizure (Acute) Seizure (Acute) Elevated troponin (Resolved) Abnormal stress test (Resolved) Cellulitis of right leg (Resolved) Vertigo (Resolved) 1. recurrent seizure The patient is a 74 year old M presents with recurrent bouts of seizure. Had been worked up back in December started on phenytoin. Subsequently taken off of phenytoin and had been doing well. Had a recurrent seizures. Started on Keppra. MRI was negative for any acute process. Seen by neurology. Patient to follow-up with neurology as outpatient. Discussed with the patient about driving restrictions. Patient was already on driving restrictions were that were set to in about 2 months but I told him that with the new seizures, the 6 months starts from the time of his see new seizures, so the patient would not be able to drive, as long as he seizure-free, until October 2019. follow up MRI and EEG 2. Debility too unsteady to return home anticipate SNF v rehab DW case mgmt 3. VTE prophylaxis: LMWH. Code Visit OBSV E&M: 09631 Subsequent observation care L3
--- NOTE | 2019-04-19 15:37 | EEG ---
- Electroencephalogram Date of service 04/19/2019 History EEG is being done in this 74 yr M to rule out seizures EEG Description: This is an 18 channel EEG with 10-20 lead placement system. Bipolar montages, and Referential montages were reviewed. Photic stimulation and Hyperventilation were performed. The posterior dominant rhythm is 9 HZ synchronous, symmetric, reacting to eye opening and closing. Photo stimulation elicited normal driving response but no abnormal photoparoxysmal response, Hyperventilation did not elicit any abnormal photoparoxysmal response. Sleep was identified. There is no abnormal background slowing noted. There was no epileptiform discharges or electrographic seizures noted during this recording. EKG artefact was noted during the record. EEG Interpretation This is a normal awake and asleep EEG. There is no epileptiform discharges or electrographic seizures noted during the record.
--- NOTE | 2019-04-19 17:11 | CASEMGMT ---
Social Work PT/OT reporting pt did not do well during therapy evaluation. SW met with pt, pt and several family members. Pt lives at home with his who is able to assist and transport as needed. Prior to hosptializaiton pt was independent with ADLS. Pt and family deny need for SNF at this time. SW also presented idea of home health therapy. Pt is agreeable to home health and written list of Home health companies in network with insurance provided. Pt would like to utilize [facility]. Referral made to [place] at [facility] and they are able to accept pt with start date of Monday. No further SW needs. Plan: D/C home with assist of family and [facility] PT JOSUÉ Figueredo
== END 2019-04-19 11:43 | disposition home or self-care (01) ==
LOC: ED 04-19 00:06 → PCU 04-19 00:58
PROVIDERS: Psychiatry & Neurology Neurology; Admitting Provider Student in an Organized Health Care Education/Training Program; Emergency Provider Emergency Medicine; Family Provider Family Medicine; PCP Family Medicine
DX: G40.409 Other generalized epilepsy and epileptic syndromes, not intractable, without status epilepticus (principal); G92 Toxic encephalopathy; I25.10 Atherosclerotic heart disease of native coronary artery without angina pectoris; I10 Essential (primary) hypertension; E78.5 Hyperlipidemia, unspecified; E87.6 Hypokalemia; Z88.8 Allergy status to other drugs, medicaments and biological substances; Z79.82 Long term (current) use of aspirin; Z79.899 Other long term (current) drug therapy; Z86.73 Personal history of transient ischemic attack (TIA), and cerebral infarction without residual deficits; Z87.891 Personal history of nicotine dependence
CPT/HCPCS: 36415; 70450; 70553; 80048; 80307; 81001; 82962; 84484; 85025; 85610; 85730; 87086; 87088; 93005; 95819; 96361; 96365; 96366; 96375; 97163; 97166; 99218; 99285; A9575; J7030; A4216; G0378; J2405

== ENCOUNTER 2019-09-02 02:07 | Emergency (ER) | payer MEDICARE, SELFPAY ==
[2019-04-19 01:16] VITALS: BMI 32.1
[2019-09-02 02:14] VITALS: BP 152/75; PULSE 73; RESP 16; TEMP 36.4; O2SAT 87; BMI 31.8
[2019-09-02 02:16] VITALS: O2SAT 96
--- NOTE | 2019-09-02 03:28 | ED.VIS.GEN ---
History of Present Illness Chief Complaint: Seizure Informant: Patient Narrative: Presents after a seizure. He was at home and felt a seizure coming on. He was in the bedroom. He was on the ground. It lasted for about 10 minutes. He had some clonic activity. No generalized seizure. No loss of conscious. History of seizure disorder on Keppra. He took a second dose of Keppra approximately 4 hours late today. He normally takes in the morning and then at dinner. He has not missed any doses. He has a history of seizure disorder. He had a negative MRI and work-up for seizures in April and sees neurology as an outpatient. Denies any other symptoms. Feels normal currently. - Past Medical History (1) Aphasia Status: Acute (2) Generalized convulsive seizure Status: Acute (3) Seizure Status: Acute (4) TIA (transient ischemic attack) Status: Acute (5) Atherosclerosis of [place] coronary artery of [place] heart without angina pectoris Status: Chronic (6) Former smoker Status: Chronic (7) History of left heart catheterization Status: Chronic Comment: 08/05/2017 multi-vessel CAD with collateral flow; (8) Hyperlipemia, mixed Status: Chronic (9) Hypertension Status: Chronic (10) Hypokalemia Status: Chronic (11) Low HDL (under 40) Status: Chronic (12) Abnormal stress test Status: Resolved (13) Cellulitis of right leg Status: Resolved (14) Elevated troponin Status: Resolved (15) Vertigo Status: Resolved Past Medical History - Allergies and Home Meds Allergies/Adverse Reactions: Allergies bacitracin [From Neosporin ([id number])] Allergy (Unknown, Verified 09/02/19 02:46) Dermatitis/rash neomycin [From Neosporin ([id number])] Allergy (Unknown, Verified 09/02/19 02:46) Dermatitis/rash polymyxin B [From Neosporin ([id number])] Allergy (Unknown, Verified 09/02/19 02:46) Dermatitis/rash Primary Care Physician: Niall Ramirez MD [Primary Care Provider] - Prior records reviewed: Yes Past Medical History: - - See problem list Surgical History: - - Viewed Lives: With Family Smoking Status: Former smoker Alcohol: None Drugs: None - Family History Maternal Family History: Family History (Last Reviewed 04/05/19 @ 16:32 by Andres Chaudhry MD) Father CAD (coronary artery disease) Mother Cancer CAD (coronary artery disease) Brother CAD (coronary artery disease) Myocardial infarction Brother Thoracic aortic aneurysm Brother Hypertension Sister Breast cancer Sister CAD (coronary artery disease) Hx of CABG Family History: Reports: - - No coronary artery disease Review of Systems General: Denies: Chills, Fever, Sweats Eyes: Denies: Visual changes - bilaterally, Diplopia ENT: Denies: Rhinorrhea, Sore throat Cardiovascular: Denies: Chest pain, Palpitations Respiratory: Denies: Dyspnea, Cough, Dyspnea on exertion Gastrointestinal: Denies: Abdominal pain, Nausea, Vomiting, Diarrhea, Melena, Hematochezia Genitourinary: Denies: Dysuria, Hematuria, Frequency Musculoskeletal: Denies: Back pain, Extremity Pain Skin: Denies: Rash, Wounds Neurological: Denies: Headache, Weakness, Numbness Physical Exam Vital Signs/Narrative: Vital Signs Temp Pulse Resp BP Pulse Ox 09/02/19 02:16 96 09/02/19 02:14 97.5 F L 73 16 152/75 H 87 General: Well nourished, Well developed, No Acute Distress Head: Normocephalic, Atraumatic Eyes: Perrl, EOMI ENT: Moist mucous membranes, No rhinorrhea Neck: Supple, Nontender Cardiovascular: Regular rate, Regular rhythm, No murmurs Respiratory: No distress, CTA bilaterally, Chest nontender Abdomen: Soft, Nontender, Nondistended, Normal bowel sounds Back: Nontender, Normal Inspection Extremities: Nontender, No edema Skin: Normal color, No rash Neurological: Alert, Oriented x3, Cranial nerves II-XII grossly intact, Normal Strength, Normal Sensation Psychological: Normal affect, Normal Mood Diagnostic/Tx/Re-eval - Medical Decision Making Monitored here. Resting comfortably. Given a dose of Ativan. We will continue his Keppra. At this time I feel he has a breakthrough seizure. Resting comfortably. We will follow-up with neurology. I do not feel he needs to be admitted. ED Disposition - Plan for ED Patient: Diagnosis: Breakthrough seizure, Seizure Instructions: SEIZURE, Recurrent [Adult] Referrals: Niall Ramirez MD [Primary Care Provider] -
[2019-09-02] MEDS: LORazepam 2 MG/ML Syringe 0.5 MG IV (03:43)
[2019-09-02 03:46] VITALS: BP 148/88; PULSE 79; RESP 16; O2SAT 96
== END 2019-09-02 03:52 | disposition home or self-care (01) ==
PROVIDERS: Emergency Provider Emergency Medicine; Family Provider Family Medicine; PCP Family Medicine
DX: G40.909 Epilepsy, unspecified, not intractable, without status epilepticus (principal); I25.10 Atherosclerotic heart disease of native coronary artery without angina pectoris; I10 Essential (primary) hypertension; E78.2 Mixed hyperlipidemia; Z79.82 Long term (current) use of aspirin; Z79.1 Long term (current) use of non-steroidal anti-inflammatories (NSAID); Z79.899 Other long term (current) drug therapy; Z86.73 Personal history of transient ischemic attack (TIA), and cerebral infarction without residual deficits; Z87.891 Personal history of nicotine dependence
CPT/HCPCS: 99285; A4216

== ENCOUNTER → 2020-04-17 06:56 | Outpatient (CLI) | payer MEDICARE, SELFPAY ==
[2020-04-09 11:04] VITALS: BMI 30.7
--- NOTE | 2020-04-17 15:48 | STRESSREP ---
Stress Test Report Pharmacologic myocardial stress test. 75-year-old male with a history of diffuse coronary artery disease. Stress protocol: Resting EKG demonstrates normal sinus rhythm with nonspecific ST-T wave changes. Rate of 60 bpm. Resting blood pressure is 144/100 mmHg. 0.4 mg of regadenoson was infused per usual protocol followed by rapid intravenous saline flush injection continuous EKG monitoring was performed. At rest nonspecific ST-T wave changes were noted at peak infusion nonspecific ST-T wave changes were noted. The maximum heart rate was 73 bpm. The maximum workload was 1 metabolic equivalent. The peak blood pressure 148/100 mmHg. Myocardial perfusion protocol. 14.8 mCi of technetium 99m sestamibi was injected at rest. 0.4 mg of regadenoson was infused per usual protocol peak infusion 44.3 mCi of technetium 99m sestamibi was injected stress images were obtained stress and rest images were reconstructed and compared in the short axis vertical and horizontal long axis. Gated images were also obtained per Perfusion SPECT analysis: Review of the images demonstrate normal perfusion noted in the anterior wall lateral wall and septum. There is a small to medium size defect noted in the inferolateral wall with improvement on the resting images suggestive of inferolateral ischemia. The rest of the headley appear to be normally perfused. Gated SPECT analysis: The gated ejection fraction is 42%. Conclusion: Abnormal myocardial perfusion stress test with evidence of inferolateral ischemia. Reduced ejection fraction.
== END ==
PROVIDERS: PCP Family Medicine; Referring Provider Internal Medicine Cardiovascular Disease; Visit Provider Internal Medicine Cardiovascular Disease
DX: I25.10 Atherosclerotic heart disease of native coronary artery without angina pectoris (principal)
CPT/HCPCS: 78452; 93017; A9500; A4216; J2785

== ENCOUNTER → 2020-04-20 07:40 | Outpatient (CLI) | payer MEDICARE, SELFPAY ==
[2020-04-09 11:04] VITALS: BMI 30.7
--- NOTE | 2020-04-20 07:42 | RAD_ITS ---
STUDY: X-RAY CHEST REASON FOR EXAM: Male, 75 years old. CAD, DYSPNEA TECHNIQUE: PA and lateral views of the chest. COMPARISON: 04/05/2019 FINDINGS: There are interstitial changes of the lungs. There is no demonstrated pleural abnormality. Normal size heart. Normal mediastinum and wyatt. Normal visualized pulmonary arteries. Normal visualized aortic arch and descending thoracic aorta. There are diffuse degenerative changes of the visualized thoracic spine. There is degenerative osteoarthritis of the bilateral shoulders. There is no demonstrated abnormality of the visualized soft tissue structures of the upper abdomen. RAD/Chest PA and Lateral IMPRESSION: Chronic interstitial changes, no superimposed acute pulmonary process Electronically Signed: Jluis Trent MD at 10:09 EDT , Service support ,
[2020-04-20 08:32] LABS: Absolute Lymphocyte Count 0.83 X10^3/uL (0.83-4.51); Absolute Neutrophil Count 2.7 X10^3/uL (2.0-7.7); Basophil# 0.03 X10^3/uL; Basophil% 0.7 % (0-1); Eosinophil# 0.17 X10^3/uL; Eosinophils% 4.1 % (0-5); Hematocrit 42.7 % (40-54); Hemoglobin 14.5 g/dL (13.0-16.5); Lymphocyte # 0.83 X10^3/ul (4.0); Lymphocyte % 20.1 % (19-41); Mean Corpuscular Hgb 31.8 pg (27.0-32.0); Mean Corpuscular Volume 93.6 fL (80-94); Mean Platelet Vol. 9.1 fl (6.2-12.0); Monocyte# 0.39 X10^3/uL; Monocyte% 9.5 % (0-10); NRBC Flagged by Analyzer 0 % (0-5); Neutrophil # 2.69 X10^3/uL (2.7-7.7); Neutrophil % 65.4 % (47-70); Platelet Count 173 K/mm3 (150-450); RBC Distribution Width CV 11.8 % (11.6-14.6); RBC Distribution Width SD 40.1 fl (35.1-43.9); Red Blood Count 4.56 M/mm3 (4.6-6.2); White Blood Count 4.1 K/mm3 (4.4-11.0)
[2020-04-20 08:51] LABS: Anion Gap 5 (5-15); BUN 14 mg/dL (7-18); Calcium,Total 8.8 mg/dL (8.5-10.1); Chloride 103 mmol/L (98-107); EST Glomerular Filtration Rate 78 mL/min (>60); Est Glom Filt Rate - Afr Amer 94 mL/min (>60); Glucose 95 mg/dL (74-106); Potassium 3.9 mmol/L (3.5-5.1); Sodium Level 140 mmol/L (136-145)
== END ==
PROVIDERS: PCP Family Medicine; Referring Provider Internal Medicine Cardiovascular Disease; Visit Provider Internal Medicine Cardiovascular Disease
DX: I25.10 Atherosclerotic heart disease of native coronary artery without angina pectoris (principal); I25.2 Old myocardial infarction; I10 Essential (primary) hypertension; E78.2 Mixed hyperlipidemia; I73.9 Peripheral vascular disease, unspecified; I74.3 Embolism and thrombosis of arteries of the lower extremities
CPT/HCPCS: 36415; 71046; 80048; 85025

== ENCOUNTER 2020-04-21 06:50 | Day surgery (SDC) | payer MEDICARE, SELFPAY ==
[2020-04-09 11:04] VITALS: BMI 30.7
[2020-04-20 10:30] VITALS: BMI 30.7
--- NOTE | 2020-04-21 08:00 | HP_ITS ---
[facility] HPI History of Present Illness Details: ANN MARIE ELAM, is a 75 M who presents to the office today for a follow- up visit. He is a gentleman with a history of coronary artery disease status post cardiac catheterization August 2017 demonstrating diffuse medical disease not amenable to angioplasty. He tells me that he had a CAT scan done which demonstrated coronary atherosclerosis and this prompted him to be referred back here for evaluation. He has had no neck arm or jaw discomfort suggest angina no dizziness or diaphoresis no near syncope or syncope. He has been compliant with his medications. He tells me that he did have some seizures and has been started on seizure medication. He has had no cardiac symptoms however. He has had no dizziness or diaphoresis near syncope or syncope he did not tolerate the statins and therefore he has discontinued these. His physical exam today demonstrates fibrotic rales in his lung daniels regular rate and rhythm and no pedal edema. Intake Vital Signs 04/09/20 Height 6 ft 04/09/20 Weight: 227 lb 04/09/20 BMI 30.7 04/09/20 BP 169/92 H 04/09/20 Respiration 18 04/09/20 Pulse 58 L 04/09/20 Pulse Oximetry (%) 95 04/09/20 BMI 31.4 Intake Visit Reasons: increased SOB and fatigue, CT chest at [facility] Allergies bacitracin [From Neosporin ([id number])] Allergy (Unknown, Verified 04/09/20 11:04) Dermatitis/rash neomycin [From Neosporin ([id number])] Allergy (Unknown, Verified 04/09/20 11:04) Dermatitis/rash polymyxin B [From Neosporin ([id number])] Allergy (Unknown, Verified 04/09/20 11:04) Dermatitis/rash Medications Aspirin [Aspirin, Baby] 81 mg PO DAILY@0800 tab.chew 07/26/17 [Rx Confirmed 04/09/20] metoprolol succinate 50 mg tablet,extended release 24 hr 25 mg PO QDAY tab 09/18/18 [History Confirmed 04/09/20] Ergocalciferol [Vitamin D] 50,000 unit PO SA 04/05/19 [History Confirmed 04/09/20] Omeprazole 40 mg PO DAILY 04/05/19 [History Confirmed 04/09/20] Levetiracetam [Keppra] 1,000 mg PO BID #120 tab 04/19/19 [Rx Confirmed 04/09/20] [place]-3 Fatty Acids [[place]-3] 1,200 mg PO DAILY 04/19/19 [History Confirmed 04/09/20] Cyanocobalamin (Vitamin B-12) [Vitamin B-12] 1,000 mcg PO DAILY 09/02/19 [History Confirmed 04/09/20] Meclizine HCl 25 mg PO DAILY PRN 09/02/19 [History Confirmed 04/09/20] Naproxen Sodium [Aleve] 440 mg PO Q8H PRN PRN 09/02/19 [History Confirmed 04/09/20] umeclidinium 62.5 mcg-vilanterol 25 mcg/actuation powdr for inhalation INHALATION 09/24/19 [History Confirmed 04/09/20] albuterol sulfate 90 mcg/actuation aerosol inhaler 2 inh INHALATION Q6H PRN g 04/09/20 [History Confirmed 04/09/20] levetiracetam 250 mg tablet 250 mg PO BID 04/09/20 [History Confirmed 04/09/20] Ejection fraction %: 65 to 70 PFSH Medical History Atherosclerosis of [place] coronary artery of [place] heart without angina pectoris (Chronic) Old inferior wall myocardial infarction (Chronic) History of non-ST elevation myocardial infarction (NSTEMI) (Resolved 07/23/17) Essential (primary) hypertension (Chronic) Hyperlipemia, mixed (Chronic) Peripheral vascular disease of extremity with claudication (Chronic) 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) COPD (chronic obstructive pulmonary disease) (Chronic) Lung nodule (Chronic) Obesity (Chronic) Obstructive sleep apnea (Suspected) 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) Seizure disorder (Chronic) Abnormal stress test (Resolved) Aphasia (Resolved) Cellulitis of right leg (Resolved) Elevated troponin (Resolved 07/2017) Generalized convulsive seizure (Resolved) Hypokalemia (Resolved) Vertigo (Resolved) TIA (transient ischemic attack) (Ruled-out) Former smoker (Inactive) Surgical History History of left heart catheterization (Resolved 08/05/17) History of vasectomy (Resolved) Family History Father CAD (coronary artery disease) Mother Cancer CAD (coronary artery disease) Brother CAD (coronary artery disease) Myocardial infarction Brother Thoracic aortic aneurysm Brother Hypertension Sister Breast cancer Sister CAD (coronary artery disease) Hx of CABG Social History (Updated 04/09/20 @ 11:[address] Romulo Flores MD) Smoking Status: Former smoker alcohol intake: never substance use type: does not use caffeine: Yes Type: coffee Number of servings: 10 what type of physical activity do you participate in: none seatbelt use: always do you feel safe at home: Yes ROS Const Const: Negative for fatigue, weakness, headache(s), frequent falls, difficulty sleeping or excessive sweating Eyes Eyes: Negative for loss of peripheral vision, transient loss of vision, blurry vision, double vision or tunnel vision ENT ENT: Positive for balance problems; negative for headache(s), dizziness or Nosebleed/epistaxis Cardio Chest Pain: No Palpitations: No Edema: Bilateral Muscle aches with walking: None Resp Respiratory: Positive for SOB with activity; negative for SOB at rest, SOB orthopnea\SOB lying down, Cough or paroxysmal nocturnal dyspnea GI GI: Negative nausea, vomiting, heartburn or black,tarry stools : Negative for hematuria Musc Musc: Positive for balance problems; negative for muscle aches/ myalgia, muscle weakness or joint pain Skin Skin: Negative non-healing lesions, rash or unusual bruising Neuro Neuro: Positive for seizures; negative for dizziness, lightheadedness, near syncope, syncope, orthostatic symptoms, frequent falls, headache(s), weakness, blurry vision, double vision or lack of coordination Jim Hematologic/Lymphatic: Negative for easy bleeding or easy bruising Endo Endo: Negative for fatigue, excessive sweating or increased thirst/drinking Psych Psych: Negative for anxiety or depression Allergy Allergy/Immunology: Negative for hives, Negative for rash Cardiology Exam Const Appearance: cooperative, healthy appearing, no acute distress, well developed and well groomed Nutritional Appearance: average body habitus and well nourished Orientation: alert, awake and oriented x3 Head Head: normal to inspection, normocephalic and atraumatic Ears: hearing grossly normal bilaterally and external ears normal Nose: external nose normal, nares normal, nasal mucous membranes and turbinates normal, septum normal, no nasal discharge Face and Sinus: face symmetric Mouth: oral mucosae normal, tongue normal, oropharynx normal and moist mucous membranes Teeth and gingiva: dentition normal Throat: posterior oropharynx normal, tonsils normal and uvula midline Eyes General: appearance normal, both eyes and all related structures Eyelids: eyelids normal Conjunctivae: conjunctivae normal Pupils: PERRL, normal by confrontation and accommodation normal EOM: EOM intact bilaterally Neck Neck: normal visual inspection, trachea midline and no JVD JVD: +5 Carotids: normal carotid upstroke and bounding pulses Chest Chest inspection: normal inspection of the chest, symmetric chest movement and normal respiratory effort Auscultation: Bilateral: Clear to Auscultation Cardio Palpation: normal PMI Rate: regular rate Rhythm: regular rhythm Heart sounds: S1 normal, S2 normal and normal, physiologic split S2; negative rub, gallop or murmur GI GI: normal to inspection, soft, no hepatosplenomegaly and bowel sounds present Neuro General: alert, awake, oriented x3, gait normal, moves all extremities and no focal sensory deficit Skin Skin: no rashes or lesions noted Extremities Pulses: Normal: Right Femoral Pulse, Left Femoral Pulse, Right Dorsalis Pedis Pulse, Left Dorsalis Pedis Pulse, Right Posterior Tibial Pulse, Left Posterior Tibial Pulse, Right Radial Pulse, Left Radial Pulse Lower Extremity Edema: None: Bilateral Musculoskel Musculoskeletal: No joint tenderness Psych Psychological: normal affect Assessment & Plan 1. Old inferior wall myocardial infarction I25.2 Plan He does have evidence of an old inferior wall myocardial infarction. His last catheterization had demonstrated an occlusion of his right coronary artery, occlusion of the obtuse marginal branch #2, 70% stenosis in the obtuse marginal branch #1, in the mid circumflex artery was totally occluded. There were left to left collaterals as well as [id number] collaterals. Medical therapy was recommended. I would recommend that we make him undergo a pharmacologic stress test to make sure that there is no worsening of the above. 2. Essential (primary) hypertension I10 Plan His blood pressure here today is elevated but it has been normal in your office. He also tells me that he had a checked yesterday and was normal and I would not make any changes. 3. Hyperlipemia, mixed E78.2 Plan He does have a history of hyperlipidemia. He has not been able to tolerate the statins in the past. He should continue with aggressive risk factor modification. 4. Peripheral vascular disease of extremity with claudication I73.9 Plan He does have evidence of peripheral vascular disease with an ankle-brachial index which was noted to be abnormal at approximately 0.77 in the left of 0.61. 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 He will continue to follow with a vascular surgeon regarding the above. 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
--- NOTE | 2020-04-21 08:48 | CL.D_ITS ---
Patient Name: ANN MARIE ELAM Study Date: 04/21/2020 Performing: Romulo Flores MD Ht: 72.04 inches 183 cm : 1945 Wt: 227.08 lbs 103 kg Age: 75 Gender: male BSA: 2.25 PROCEDURE(S) PERFORMED PP08-[id number]/COR/LV CLINICAL PROFILE AND INDICATIONS Indications: Stable Known CAD Heart Failure: None Stress/Imaging Date: 03/17/2020Stress Test with SPECT MPI: Positive Intermediate Risk CONCLUSIONS Patient has moderately severe two-vessel disease with a totally occluded right coronary artery with l [id number] collaterals and moderate disease noted in the circumflex artery. Left anterior descendi ng artery is calcified but no high-grade stenosis noted. Preserved ejection fraction is noted. In c omparison to the previous films from 3 years ago there is minimal change. RECOMMENDATIONS Medical therapy DESCRIPTION OF PROCEDURE The patient arrived to the procedure lab. The risks and benefits of the procedure as well as a full d escription of our services here and current unavailability of surgical backup were fully explained to the patient and/or their significant other prior to the catheterization. The Timeout was completed, verifying the correct patient and procedure. The patient's procedural site was prepped and draped in the usual fashion. Local anesthetic was given subcutaneously to right radial region with Lidocaine 2% . Using a modified Seldinger technique, arterial access was obtained via the right radial artery, a 6 Fr sheath was inserted. Left Coronary Artery selective angiography was performed in multiple views u sing a 5 Fr. 4.0 [place] catheter. Right Coronary Artery selective angiography was then performed in mu ltiple views using a 5 Fr. 4.0 [place] catheter. Left Coronary Artery selective angiography was perform ed in multiple views using a 5 Fr. JL3.5 catheter. Left Ventriculography was performed in LOPEZ projection using a 5 Fr. Pig[place] catheter. LV to AO pullback pressures were then recorded.The art erial sheath was pulled and a TR Band was applied for hemostasis - 10cc air CORONARY ANGIOGRAPHY DOMINANCE: Right Dominant LEFT HEART ASSESSMENT Left Ventricular Ejection Fraction: by LV Gram 60 % Normal LV wall motion Normal Left Ventricular systolic function LEFT MAIN: Mild calcification LEFT ANTERIOR DESCENDING ARTERY: Moderate calcification CIRCUMFLEX ARTERY: PROX CIRC: Mild calcification MID CIRC: Moderate luminal irregularities up to 50% RIGHT CORONARY ARTERY: PROX RCA: is occluded COLLATERAL FLOW: Collateral flow from Left to Right COMPLICATIONS No Complications PROCEDURE MEDICATIONS Fentanyl 50 mcg IV Versed 1 mg IV Versed 1 mg IV Oxygen: 2 L/min via nasal cannula Heparin diluted in 23cc Heparinized saline. Patient given 10cc IA of this solution. 04/21/2020 08:18: 13 SUMMARY OF HEMODYNAMIC DATA Time AIR REST ECG 07:06:46 AO 118/75 (95) SA 08:20:30 LV 146/6, 10 08:28:28 LV 143/6, 10 08:28:35 LV 151/9, 15 08:29:33 LV 149/8, 14 08:29:34 LV 149/7, 13 08:29:36 AOp 149/78 (107) 08:29:38 Signed By Romulo Flores MD On 04/21/2020 08:47:52 Romulo Flores MD
== END 2020-04-21 10:20 | disposition home or self-care (01) ==
LOC: CLSP 06:51
PROVIDERS: PCP Family Medicine; Referring Provider Internal Medicine Cardiovascular Disease; Visit Provider Internal Medicine Cardiovascular Disease
DX: I25.10 Atherosclerotic heart disease of native coronary artery without angina pectoris (principal); I25.82 Chronic total occlusion of coronary artery; I73.9 Peripheral vascular disease, unspecified; I25.2 Old myocardial infarction; I10 Essential (primary) hypertension; E78.2 Mixed hyperlipidemia; J44.9 Chronic obstructive pulmonary disease, unspecified; E66.9 Obesity, unspecified; Z68.30 Body mass index [BMI] 30.0-30.9, adult; G40.909 Epilepsy, unspecified, not intractable, without status epilepticus; Z95.1 Presence of aortocoronary bypass graft; Z79.82 Long term (current) use of aspirin; Z79.899 Other long term (current) drug therapy; Z87.891 Personal history of nicotine dependence
CPT/HCPCS: 93458; 99152; 99153; J7040; Q9967; C1769; C1894

== ENCOUNTER → 2020-10-15 08:05 | Outpatient (CLI) | payer MEDICARE, SELFPAY ==
[2020-09-29 08:55] VITALS: BMI 29.2
[2020-10-15 10:14] LABS: Anion Gap 3 (5-15); BUN 23 mg/dL (7-18); BUN/Creat Ratio 24.4 RATIO (10-20); Calcium,Total 9.3 mg/dL (8.5-10.1); Chloride 104 mmol/L (98-107); Creatinine, Serum 0.94 mg/dL (0.70-1.30); EST Glomerular Filtration Rate 83 mL/min (>60); Est Glom Filt Rate - Afr Amer 100 mL/min (>60); Glucose 91 mg/dL (74-106); Potassium 3.7 mmol/L (3.5-5.1); Sodium Level 139 mmol/L (136-145)
== END ==
PROVIDERS: PCP Family Medicine; Referring Provider Internal Medicine Cardiovascular Disease; Visit Provider Internal Medicine Cardiovascular Disease
DX: R60.9 Edema, unspecified (principal)
CPT/HCPCS: 36415; 80048

== ENCOUNTER 2021-03-11 20:53 | Emergency (ER) | payer MEDICARE, SELFPAY ==
[2020-09-29 08:55] VITALS: BMI 29.2
[2021-03-11 20:54] VITALS: BP 152/77; PULSE 67; RESP 18; TEMP 36.4; O2SAT 98; BMI 27.1
--- NOTE | 2021-03-11 22:00 | CT_ITS ---
STUDY: CT ABDOMEN AND PELVIS WITH CONTRAST REASON FOR EXAM: Male, 76 years old. Abdominal pain -- IV PO Contrast RADIATION DOSAGE (If Supplied By Facility): CTDIvol = ( 17.97 ) mGy, DLP = ( 1171.33 ) mGycm TECHNIQUE: Transaxial images were obtained from the dome of the diaphragm to the symphysis pubis without oral contrast. was administered. Sagittal and coronal images were reconstructed. Individualized dose optimization techniques were used for this CT. COMPARISON: None. FINDINGS: The visualized lung bases are unremarkable. The visualized portions of the heart are within normal limits. Normal liver. Normal gallbladder and extrahepatic biliary system. Normal spleen. Normal pancreas. Normal bilateral adrenal glands. Normal right kidney. Normal left kidney. Normal visualized stomach. Normal small intestine. There are multiple colonic diverticula consistent with diverticulosis. There is non-visualization of the appendix. Normal abdominal aorta. Normal inferior vena cava. Normal retroperitoneum. Normal urinary bladder. Normal visualized prostate gland. Prominent and heterogeneously enhancing lymph nodes in the right inguinal canal region. Largest which measures 3.3 x 2.5 cm. Numerous additional abnormal lymph nodes as well. No concerning left-sided lymphadenopathy, pelvic or retroperitoneal lymphadenopathy Normal osseous structures. CT/Abdomen/Pelvis WITH Contrast IMPRESSION: Abnormal enhancing and enlarged lymph nodes in the right inguinal canal region. Nonspecific finding. Remainder the exam is essentially within normal limits Electronically Signed: Luiz Bauer DO at 0:24 EDT Tel , Service support ,
[2021-03-11 22:18] LABS: Absolute Lymphocyte Count 0.94 X10^3/uL (0.83-4.51); Absolute Neutrophil Count 3.9 X10^3/uL (2.0-7.7); Basophil# 0.04 X10^3/uL; Basophil% 0.7 % (0-1); Eosinophil# 0.13 X10^3/uL; Eosinophils% 2.4 % (0-5); Hematocrit 36.4 % (40-54); Hemoglobin 12.6 g/dL (13.0-16.5); Lymphocyte # 0.94 X10^3/ul (0.83-4.51); Mean Corp Hgb Conc 34.6 g/dL (32-36); Mean Corpuscular Hgb 32.6 pg (27.0-32.0); Mean Corpuscular Volume 94.3 fL (80-94); Mean Platelet Vol. 8.8 fl (6.2-12.0); NRBC Flagged by Analyzer 0 % (0-5); Neutrophil % 70.5 % (47-70); Platelet Count 161 K/mm3 (150-450); RBC Distribution Width CV 11.7 % (11.6-14.6); Red Blood Count 3.86 M/mm3 (4.6-6.2); White Blood Count 5.5 K/mm3 (4.4-11.0)
[2021-03-11 22:25] LABS: Bacteria 0 SEEN /hpf (None Seen); Mucous, Urine 0 SEEN /hpf (<or=2+); White Blood Cells 0 SEEN /hpf (0-5)
[2021-03-11 22:26] LABS: Color, Urine Yellow (Yellow); Glucose, Dipstick Normal (Normal); Ketone-Dipstick Negative (Negative); Leukocyte Esterase-Dipstick Negative /ul (Negative); Nitrite-Dipstick Negative (Negative); Occult Blood-Urine 25 /ul (Negative); Protein-Dipstick Negative (Negative); Urine Bilirubin Dipstick Negative (Negative); Urine Clarity Clear (Clear); Urine Urobilinogen Normal (Normal)
[2021-03-11 22:33] LABS: AST(SGOT) 35 U/L (15-37); Alanine Aminotransfer ALT/SGPT 44 U/L (16-61); Albumin, Serum 3.3 g/dL (3.2-5.0); Alkaline Phosphatase 62 U/L (45-117); BUN 22 mg/dL (7-18); BUN/Creat Ratio 24.4 RATIO (10-20); Calcium,Total 8.7 mg/dL (8.5-10.1); EST Glomerular Filtration Rate 87 mL/min (>60); Est Glom Filt Rate - Afr Amer 105 mL/min (>60); Estimated Creatinine Clearance 76.64 ml/min; Globulin 3.3 g/dL (2.2-4.2); Glucose 103 mg/dL (74-106); Potassium 3.7 mmol/L (3.5-5.1); Protein, Total 6.6 g/dL (6.4-8.2); Sodium Level 139 mmol/L (136-145)
[2021-03-11 22:34] LABS: Anion Gap 3 (5-15); Chloride 104 mmol/L (98-107)
[2021-03-11 22:41] LABS: Red Blood Cells-Urine 0-5 SEEN /hpf (0-5); Squamous Epithelial Cells - UA 0-5 SEEN /hpf (0-5)
[2021-03-11 22:41] LABS: Lactic Acid 0.8 mmol/L (0.4-1.9)
--- NOTE | 2021-03-12 00:44 | EDS_ITS ---
HPI History of Present Illness Chief Complaint: Other, Pain/Inj Informant: patient Onset/Context/Timing Onset: Yesterday Context: Gradual Onset Timing: Continuous Quality: Burning, sharp Location: Right inguinal area Worsened by: Palpation Relieved by: Nothing Narrative Narrative: Patient presents with pain and swelling to his right inguinal area that began yesterday. Patient states it became worse today. Patient states there is more redness and swelling to the area today. Patient denies any fevers or chills. Patient denies any nausea or vomiting. Patient denies any dysuria or hematuria. Patient states his pain is localized to the right inguinal area. Patient states it is burning and sharp. Patient states it is worse with palpation. [facility] Medical History (Updated 03/12/21 @ 00:[address] 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) TIA (transient ischemic attack) Vertigo Home Medications aspirin 81 mg PO DAILY@0800 tab.chew 07/26/17 [Rx Last Taken 04/21/20] ergocalciferol (vitamin D2) 50,000 unit PO SA 04/05/19 [History Last Taken 03/30/19] omeprazole 40 mg PO DAILY 04/05/19 [History Last Taken 04/05/19] levetiracetam 1,000 mg PO BID #120 tab 04/19/19 [Rx Last Taken 04/21/20] cyanocobalamin (vitamin B-12) 1,000 mcg PO DAILY 09/02/19 [History Last Taken Unknown] meclizine 25 mg PO DAILY PRN 09/02/19 [History Last Taken Unknown] umeclidinium 62.5 mcg-vilanterol 25 mcg/actuation powdr for inhalation 1 inh INHALATION DAILY 09/24/19 [History Last Taken Unknown] albuterol sulfate 90 mcg/actuation aerosol inhaler 2 inh INHALATION Q6H PRN g 04/09/20 [History Last Taken Unknown] levetiracetam 250 mg tablet 250 mg PO BID 04/09/20 [History Last Taken 04/21/20] lisinopril 10 mg tablet 10 mg PO DAILY #90 tab 04/21/20 [Rx Last Taken Unknown] metoprolol succinate 25 mg tablet,extended release 24 hr 25 mg PO DAILY #90 tab 09/29/20 [Rx Last Taken Unknown] furosemide 40 mg tablet 40 mg PO BID #180 tab 10/08/20 [Rx Last Taken Unknown] Allergy/AdvReac Type Severity Reaction Status Date / Time bacitracin Allergy Unknown Dermatitis/ Verified 03/11/21 20:56 [From Neosporin rash ([id number])] neomycin Allergy Unknown Dermatitis/ Verified 03/11/21 20:56 [From Neosporin rash ([id number])] polymyxin B Allergy Unknown Dermatitis/ Verified 03/11/21 20:56 [From Neosporin rash ([id number])] Ljgswzj-Ofn-Hrw Reductase AdvReac myalgias, Verified 03/11/21 20:56 Inhibitor fatigue Family History Father CAD (coronary artery disease) Mother Cancer CAD (coronary artery disease) Brother CAD (coronary artery disease) Myocardial infarction Brother Thoracic aortic aneurysm Brother Hypertension Sister Breast cancer Sister CAD (coronary artery disease) Hx of CABG Surgical History History of left heart catheterization (04/21/20) History of vasectomy Social History Smoking Status: Former smoker alcohol intake: never substance use type: does not use caffeine: Yes Type: coffee Number of servings: 10 what type of physical activity do you participate in: none seatbelt use: always do you feel safe at home: Yes ROS ROS ED Constitutional Constitutional ED: Denies chills or fever(s) Eyes Eyes: Denies blurry vision or change in vision ENT ENT ED: Denies rhinorrhea or sore throat Cardiovascular Cardiovascular: Denies chest pain or palpitations Respiratory/Chest Respiratory/Chest: Denies cough or dyspnea Gastrointestinal Gastrointestinal: Reports abdominal pain; Denies nausea or vomiting Genitourinary Genitourinary ED: Denies dysuria or hematuria Musculoskeletal Musculoskeletal: Reports back pain; Denies neck pain Integumentary Denies abscess or rash Neurologic Neurologic: Denies headache(s) or weakness Allergic/Immunologic Allergic/Immunologic ED: Denies mouth swelling or urticaria EXAM Physical Exam Const Vital Signs: 03/11/21 20:54 Temperature 97.5 F L Temperature Source Temporal Pulse Rate 67 Respiratory Rate 18 Blood Pressure 152/77 H Blood Pressure Mean 102 Pulse Ox 98 Oxygen Delivery Method Room Air Positive well nourished and well developed General Appearance ED: well developed HEENT Reports moist mucous membranes Neck supple and no JVD Resp normal respiratory effort and clear to auscultation bilaterally Cardio regular rate and regular rhythm GI normal to inspection, nondistended, normoactive bowel sounds and non-tender Palpation: soft Narrative: There is tenderness and edema in the right inguinal area. There are no hernias palpated. The tender firm area feels like lymphadenopathy. There is no fluctuance. There is no discharge or drainage. Neuro oriented x3, CN's II-XII intact bilaterally and no sensory deficits noted Sensorium / Orientation: alert Motor Exam: strength 5/5 throughout MDM MDM MDM Narrative Medical decision making narrative: CBC shows a slight anemia with a hemoglobin of 12.6 hematocrit 36.4. Comprehensive metabolic profile was essentially within normal limits. Lactate was normal. Urinalysis was normal. CT scan of the abdomen and pelvis with oral and IV contrast was obtained. There are abnormal enhancing and enlarged lymph nodes in the right inguinal canal. This is nonspecific. There are no other acute intra-abdominal findings. This was interpreted by the radiologist and reviewed by myself. Lab Data Attestation: I reviewed the patient's lab results. Labs: Laboratory Results - last 24 hr 03/11/21 03/11/21 03/11/21 22:08 22:08 22:08 WBC 5.5 RBC 3.86 L Hgb 12.6 L Hct 36.4 L MCV 94.3 H MCH 32.6 H MCHC 34.6 RDW Std Deviation 40.0 RDW Coeff of Brig[place] 11.7 Plt Count 161 MPV 8.8 Immature Gran % (Auto) 0.400 Neut % (Auto) 70.5 H Lymph % (Auto) 17.0 L [place] % (Auto) 9.0 Eos % (Auto) 2.4 Baso % (Auto) 0.7 Absolute Neuts (auto) 3.9 Absolute Lymphs (auto) 0.94 Nucleated RBC % 0 Sodium 139 Potassium 3.7 Chloride 104 Carbon Dioxide 32.0 Anion Gap 3 L BUN 22 H Creatinine 0.90 Estim Creat Clear Calc 76.64 Est GFR (MDRD) Af Amer 105 Est GFR (MDRD) Non-Af 87 BUN/Creatinine Ratio 24.4 H Glucose 103 Lactic Acid 0.8 Calcium 8.7 Total Bilirubin 0.30 AST 35 ALT 44 Alkaline Phosphatase 62 Total Protein 6.6 Albumin 3.3 Globulin 3.3 Albumin/Globulin Ratio 1.0 Urine Color Urine Clarity Urine pH Ur Specific [place] Urine Protein Urine Glucose (UA) Urine Ketones Urine Occult Blood Urine Nitrite Urine Bilirubin Urine Urobilinogen Ur Leukocyte Esterase Urine RBC Urine WBC Ur Squamous Epith Cells Urine Bacteria Urine Mucus 03/11/21 22:10 WBC RBC Hgb Hct MCV MCH MCHC RDW Std Deviation RDW Coeff of [place] Plt Count MPV Immature Gran % (Auto) Neut % (Auto) Lymph % (Auto) [place] % (Auto) Eos % (Auto) Baso % (Auto) Absolute Neuts (auto) Absolute Lymphs (auto) Nucleated RBC % Sodium Potassium Chloride Carbon Dioxide Anion Gap BUN Creatinine Estim Creat Clear Calc Est GFR (MDRD) Af Amer Est GFR (MDRD) Non-Af BUN/Creatinine Ratio Glucose Lactic Acid Calcium Total Bilirubin AST ALT Alkaline Phosphatase Total Protein Albumin Globulin Albumin/Globulin Ratio Urine Color Yellow Urine Clarity Clear Urine pH 7.0 Ur Specific [place] 1.010 Urine Protein Negative Urine Glucose (UA) Normal Urine Ketones Negative Urine Occult Blood 25 H Urine Nitrite Negative Urine Bilirubin Negative Urine Urobilinogen Normal Ur Leukocyte Esterase Negative Urine RBC 0-5 SEEN Urine WBC 0 SEEN Ur Squamous Epith Cells 0-5 SEEN Urine Bacteria 0 SEEN Urine Mucus 0 SEEN Radiography Diagnostic Testing: Radiology Impression Abdomen/Pelvis CT 03/11/21 22:00 IMPRESSION: Abnormal enhancing and enlarged lymph nodes in the right inguinal canal region. Nonspecific finding. Remainder the exam is essentially within normal limits Electronically Signed: Luiz Bauer DO at 0:24 EDT Tel , Service support , Discharge Plan Triage Chief Complaint: Other, Pain/Inj ED Provider: Javan Loyd Dx/Rx/DC Orders Clinical Impression: Lymphadenopathy, inguinal Instructions: Lymphadenopathy Prescriptions: No Action umeclidinium-vilanterol 62.5-25 mcg/actuation blister with device 1 inh INHALATION DAILY RF: 0 metoprolol succinate 25 mg tablet extended release 24 hr 25 mg PO DAILY Qty: 90 RF: 3 levetiracetam 250 mg tablet 250 mg PO BID RF: 0 albuterol sulfate 90 mcg/actuation HFA aerosol inhaler 2 inh INHALATION Q6H PRN (Reason: Shortness Of Breath) RF: 0 aspirin 81 MG tablet,chewable 81 mg PO DAILY@0800 RF: 0 omeprazole 40 MG capsule,delayed release(DR/EC) 40 mg PO DAILY RF: 0 ergocalciferol (vitamin D2) 50,000 UNIT capsule 50,000 unit PO SA RF: 0 levetiracetam 1,000 MG tablet 1,000 mg PO BID Qty: 120 RF: 0 meclizine 25 MG tablet 25 mg PO DAILY PRN (Reason: Vertigo) RF: 0 cyanocobalamin (vitamin B-12) 1,000 MCG capsule 1,000 mcg PO DAILY RF: 0 lisinopril 10 mg tablet 10 mg PO DAILY Qty: 90 RF: 4 furosemide [Lasix] 40 mg tablet 40 mg PO BID Qty: 180 RF: 3 Primary Care Provider: Niall Ramirez Referrals: Marcelo Echeverria MD [STAFF PHYSICIAN] - Keep [place]oree appointment Niall Ramirez MD [Primary Care Provider] - 3-5 Days Disposition Disposition: Home, Self Care
[2021-03-12 01:10] VITALS: BP 170/117; PULSE 63; RESP 16; O2SAT 98
== END 2021-03-12 01:10 | disposition home or self-care (01) ==
PROVIDERS: Emergency Provider Emergency Medicine; PCP Family Medicine
DX: R59.0 Localized enlarged lymph nodes (principal); E78.2 Mixed hyperlipidemia; I10 Essential (primary) hypertension; I25.10 Atherosclerotic heart disease of native coronary artery without angina pectoris; I25.2 Old myocardial infarction; J44.9 Chronic obstructive pulmonary disease, unspecified; G40.909 Epilepsy, unspecified, not intractable, without status epilepticus; G47.33 Obstructive sleep apnea (adult) (pediatric); Z86.73 Personal history of transient ischemic attack (TIA), and cerebral infarction without residual deficits; Z79.82 Long term (current) use of aspirin; Z79.899 Other long term (current) drug therapy; Z87.891 Personal history of nicotine dependence
CPT/HCPCS: 74177; 80053; 81001; 83605; 85025; 99283; Q9967; A4216

== ENCOUNTER 2021-03-13 13:10 | Emergency (ER) | payer MEDICARE, SELFPAY ==
[2021-03-13 13:11] VITALS: BP 128/69; PULSE 58; RESP 14; TEMP 36.2; O2SAT 98; BMI 29.0
[2021-03-13 14:41] LABS: Bacteria 0 SEEN /hpf (None Seen); Mucous, Urine 0 SEEN /hpf (<or=2+); Red Blood Cells-Urine 0 SEEN /hpf (0-5); Squamous Epithelial Cells - UA 0 SEEN /hpf (0-5); White Blood Cells 0 SEEN /hpf (0-5)
[2021-03-13 14:48] LABS: Color, Urine Yellow (Yellow); Glucose, Dipstick Normal (Normal); Ketone-Dipstick Negative (Negative); Leukocyte Esterase-Dipstick Negative /ul (Negative); Nitrite-Dipstick Negative (Negative); Occult Blood-Urine 10 /ul (Negative); Protein-Dipstick Negative (Negative); Urine Bilirubin Dipstick Negative (Negative); Urine Clarity Clear (Clear); Urine Urobilinogen Normal (Normal)
[2021-03-13] MEDS: Cephalexin 250 MG Capsule 500 MG PO (15:16)
--- NOTE | 2021-03-13 15:25 | EX.ED.GUMALE ---
HPI History of Present Illness Chief Complaint: Male Pain/Injury Narrative Narrative: 76-year-old male presenting for repeat evaluation. He states he was previously here and had lab work and imaging done which showed abnormal lymphadenopathy in the right inguinal region. He states that he is scheduled to follow-up to have these biopsied but noticed today that he started to have redness of the skin in this area. He denies any new injury. He denies abdominal pain, nausea, vomiting. He denies testicular pain or penile pain. He hasn't had no dysuria no hematuria that he knows of. He does not feel unwell other than pain where the lymphadenopathy is. He states he has not had sex in 6 months. 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 Seizure disorder 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) TIA (transient ischemic attack) Vertigo Home Medications aspirin 81 mg PO DAILY@0800 tab.chew 07/26/17 [Rx Last Taken 04/21/20] ergocalciferol (vitamin D2) 50,000 unit PO SA 04/05/19 [History Last Taken 03/30/19] omeprazole 40 mg PO DAILY 04/05/19 [History Last Taken 04/05/19] levetiracetam 1,000 mg PO BID #120 tab 04/19/19 [Rx Last Taken 04/21/20] cyanocobalamin (vitamin B-12) 1,000 mcg PO DAILY 09/02/19 [History Last Taken Unknown] meclizine 25 mg PO DAILY PRN 09/02/19 [History Last Taken Unknown] umeclidinium 62.5 mcg-vilanterol 25 mcg/actuation powdr for inhalation 1 inh INHALATION DAILY 09/24/19 [History Last Taken Unknown] albuterol sulfate 90 mcg/actuation aerosol inhaler 2 inh INHALATION Q6H PRN g 04/09/20 [History Last Taken Unknown] levetiracetam 250 mg tablet 250 mg PO BID 04/09/20 [History Last Taken 04/21/20] lisinopril 10 mg tablet 10 mg PO DAILY #90 tab 04/21/20 [Rx Last Taken Unknown] metoprolol succinate 25 mg tablet,extended release 24 hr 25 mg PO DAILY #90 tab 09/29/20 [Rx Last Taken Unknown] furosemide 40 mg tablet 40 mg PO BID #180 tab 10/08/20 [Rx Last Taken Unknown] cephalexin 500 mg PO Q6 #40 capsule 03/13/21 [Rx Last Taken Unknown] Allergy/AdvReac Type Severity Reaction Status Date / Time bacitracin Allergy Unknown Dermatitis/ Verified 03/13/21 13:11 [From Neosporin rash ([id number])] neomycin Allergy Unknown Dermatitis/ Verified 03/13/21 13:11 [From Neosporin rash ([id number]-[id number]-lcney)] polymyxin B Allergy Unknown Dermatitis/ Verified 03/13/21 13:11 [From Neosporin rash (mjh-[id number])] [id number]-Dcn Reductase AdvReac myalgias, Verified 03/13/21 13:11 Inhibitor fatigue Family History Father CAD (coronary artery disease) Mother Cancer CAD (coronary artery disease) Brother CAD (coronary artery disease) Myocardial infarction Brother Thoracic aortic aneurysm Brother Hypertension Sister Breast cancer Sister CAD (coronary artery disease) Hx of CABG Surgical History History of left heart catheterization (04/21/20) History of vasectomy Social History Smoking Status: Former smoker alcohol intake: never substance use type: does not use caffeine: Yes Type: coffee Number of servings: 10 what type of physical activity do you participate in: none seatbelt use: always do you feel safe at home: Yes ROS ROS ED Constitutional Constitutional ED: Denies chills, fever(s) or subjective Eyes Eyes: Denies blurry vision or change in vision ENT ENT ED: Denies rhinorrhea or sore throat Cardiovascular Cardiovascular: Denies chest pain or palpitations Respiratory/Chest Respiratory/Chest: Denies cough, dyspnea or sputum Gastrointestinal Gastrointestinal: Denies abdominal pain, nausea or vomiting Genitourinary Genitourinary ED: Denies dysuria or hematuria Integumentary Reports rash Neurologic Neurologic: Denies headache(s), paresthesias or weakness Psychiatric Psychiatric: Denies anxiety or depression Hematologic/Lymphatic Hematologic/Lymphatic: Reports lymphadenopathy EXAM Physical Exam Const Vital Signs: 03/13/21 13:11 Temperature 97.2 F L Temperature Source Temporal Pulse Rate 58 L Respiratory Rate 14 Blood Pressure 128/69 H Blood Pressure Mean 88 Pulse Ox 98 Oxygen Delivery Method Room Air Positive well nourished General Appearance ED: NAD HEENT normocephalic and atraumatic Resp normal respiratory effort and clear to auscultation bilaterally Cardio regular rate and regular rhythm GI non-tender Palpation: soft Narrative: Right inguinal lymphadenopathy. No testicular pain or swelling. Penis appears normal. There is erythema overlying the area lymphadenopathy which is mildly tender to palpation. Neuro oriented x3 Sensorium / Orientation: alert Psych mental status grossly normal Skin Lesions: no lesions Rashes: no rashes MDM MDM MDM Narrative Medical decision making narrative: Patient presenting for evaluation of erythema which is started to spread over the area of lymphadenopathy. He denies any other new symptoms. His work-up previously was normal. He is scheduled for a biopsy. Given the new erythema I will cover him for cellulitis. He will follow up on Monday for biopsy. Patient stable for discharge at this time. Impression: 1 right inguinal lymphadenopathy 2. Right inguinal cellulitis Lab Data Labs: Laboratory Results - last 24 hr 03/13/21 14:30 Urine Color Yellow Urine Clarity Clear Urine pH 7.0 Ur Specific [place] 1.030 Urine Protein Negative Urine Glucose (UA) Normal Urine Ketones Negative Urine Occult Blood 10 H Urine Nitrite Negative Urine Bilirubin Negative Urine Urobilinogen Normal Ur Leukocyte Esterase Negative Urine RBC 0 SEEN Urine WBC 0 SEEN Ur Squamous Epith Cells 0 SEEN Urine Bacteria 0 SEEN Urine Mucus 0 SEEN Discharge Plan Triage Chief Complaint: Male Pain/Injury ED Provider: Parth Gutierrez Dx/Rx/DC Orders Instructions: ED Cellulitis Prescriptions: New cephalexin 500 mg capsule 500 mg PO Q6 Qty: 40 RF: 0 No Action umeclidinium-vilanterol 62.5-25 mcg/actuation blister with device 1 inh INHALATION DAILY RF: 0 metoprolol succinate 25 mg tablet extended release 24 hr 25 mg PO DAILY Qty: 90 RF: 3 levetiracetam 250 mg tablet 250 mg PO BID RF: 0 albuterol sulfate 90 mcg/actuation HFA aerosol inhaler 2 inh INHALATION Q6H PRN (Reason: Shortness Of Breath) RF: 0 aspirin 81 MG tablet,chewable 81 mg PO DAILY@0800 RF: 0 omeprazole 40 MG capsule,delayed release(DR/EC) 40 mg PO DAILY RF: 0 ergocalciferol (vitamin D2) 50,000 UNIT capsule 50,000 unit PO SA RF: 0 levetiracetam 1,000 MG tablet 1,000 mg PO BID Qty: 120 RF: 0 meclizine 25 MG tablet 25 mg PO DAILY PRN (Reason: Vertigo) RF: 0 cyanocobalamin (vitamin B-12) 1,000 MCG capsule 1,000 mcg PO DAILY RF: 0 lisinopril 10 mg tablet 10 mg PO DAILY Qty: 90 RF: 4 furosemide [Lasix] 40 mg tablet 40 mg PO BID Qty: 180 RF: 3 Primary Care Provider: Niall Ramirez Referrals: Niall Ramirez MD [Primary Care Provider] - Disposition Disposition: Home, Self Care Discharge Date/Time: 03/13/21 15:23
== END 2021-03-13 15:23 | disposition home or self-care (01) ==
PROVIDERS: Emergency Provider Student in an Organized Health Care Education/Training Program; PCP Family Medicine
DX: L03.314 Cellulitis of groin (principal); R59.0 Localized enlarged lymph nodes; I25.10 Atherosclerotic heart disease of native coronary artery without angina pectoris; J44.9 Chronic obstructive pulmonary disease, unspecified; I10 Essential (primary) hypertension; I25.2 Old myocardial infarction; E78.2 Mixed hyperlipidemia; E66.9 Obesity, unspecified; Z68.29 Body mass index [BMI] 29.0-29.9, adult; G47.33 Obstructive sleep apnea (adult) (pediatric); I73.9 Peripheral vascular disease, unspecified; G40.909 Epilepsy, unspecified, not intractable, without status epilepticus; Z86.73 Personal history of transient ischemic attack (TIA), and cerebral infarction without residual deficits; Z79.82 Long term (current) use of aspirin; Z79.899 Other long term (current) drug therapy; Z87.891 Personal history of nicotine dependence
CPT/HCPCS: 81001; 99283

== ENCOUNTER 2021-05-26 22:27 | Emergency (ER) | payer MEDICARE, SELFPAY ==
[2021-05-26 22:28] VITALS: BP 101/58; PULSE 90; RESP 18; TEMP 36.7; O2SAT 95; BMI 27.8
--- NOTE | 2021-05-26 22:56 | RAD_ITS ---
EXAM: XR CHEST, 1 VIEW : 1945 CLINICAL INDICATION: fever TECHNIQUE: Frontal view of the chest. This report was created using [employer] report generation technology. COMPARISON: 04/20/2020 FINDINGS: LUNGS AND PLEURAL SPACES: There are mild emphysematous changes in the upper lobes. No pneumothorax. No effusion. HEART: Unremarkable. Cardiac silhouette not enlarged. MEDIASTINUM: Central airways and mediastinal contour are unremarkable. BONES/JOINTS: Unremarkable. SOFT TISSUES: Unremarkable. TUBES, LINES AND DEVICES: Right-sided Port-A-Cath is in good position with the distal tip overlying the superior vena cava. RAD/Chest 1 View (Portable) IMPRESSION: Mild emphysematous changes in the upper lobes. Right-sided Port-A-Cath is in good position. There is no focal consolidation. at 0000 Reported and signed by: Sylvester Navarro MD Electronically Signed: Sylvester Navarro MD at 23:58 EDT Tel , Service support ,
--- NOTE | 2021-05-26 22:58 | EX.ED.DYSGE1 ---
HPI History of Present Illness Chief Complaint: Fever Informant: patient Onset/Context/Timing Onset: Yesterday Current Severity: Mild Maximum Severity: Moderate Narrative Narrative: Patient presents secondary to fever. He is currently on chemotherapy treatment secondary to lymphoma. His last treatment was on May 17 and his neck scheduled treatment is on June 07. Patient states last evening he had some low-grade fevers. Tonight his temperature went up to 102. He does report having some chills today. He states he has felt somewhat queasy lately but no vomiting or diarrhea. He denies cough or congestion. Last evening he had some right knee pain but no redness or swelling. Today that is improved. 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) TIA (transient ischemic attack) Vertigo Home Medications aspirin 81 mg PO DAILY@0800 tab.chew 07/26/17 [Rx Last Taken 04/21/20] omeprazole 40 mg PO DAILY 04/05/19 [History Last Taken 04/05/19] levetiracetam 1,000 mg PO BID #120 tab 04/19/19 [Rx Last Taken 04/21/20] meclizine 25 mg PO DAILY PRN 09/02/19 [History Last Taken Unknown] umeclidinium 62.5 mcg-vilanterol 25 mcg/actuation powdr for inhalation 1 inh INHALATION DAILY 09/24/19 [History Last Taken Unknown] albuterol sulfate 90 mcg/actuation aerosol inhaler 2 inh INHALATION Q6H PRN g 04/09/20 [History Last Taken Unknown] levetiracetam 250 mg tablet 250 mg PO BID 04/09/20 [History Last Taken 04/21/20] furosemide 40 mg tablet 40 mg PO BID #180 tab 10/08/20 [Rx Last Taken Unknown] cephalexin 500 mg PO Q6 #40 capsule 03/13/21 [Rx Last Taken Unknown] cholecalciferol (vitamin D3) 1,250 mcg (50,000 unit) capsule 1,250 mcg PO QWEEK 03/29/21 [History Last Taken Unknown] metoprolol succinate 25 mg tablet,extended release 24 hr 50 mg PO DAILY tab 03/29/21 [History Last Taken Unknown] lisinopril 10 mg tablet 10 mg PO DAILY #90 tab 04/22/21 [Rx Last Taken Unknown] Allergy/AdvReac Type Severity Reaction Status Date / Time bacitracin Allergy Unknown Dermatitis/ Verified 05/26/21 22:30 [From Neosporin rash ([id number])] neomycin Allergy Unknown Dermatitis/ Verified 05/26/21 22:30 [From Neosporin rash ([id number])] polymyxin B Allergy Unknown Dermatitis/ Verified 05/26/21 22:30 [From Neosporin rash ([id number])] Sbygmee-Uil-Fpi Reductase AdvReac myalgias, Verified 05/26/21 22:30 Inhibitor fatigue Family History Father CAD (coronary artery disease) Mother Cancer CAD (coronary artery disease) Brother CAD (coronary artery disease) Myocardial infarction Brother Thoracic aortic aneurysm Brother Hypertension Sister Breast cancer Sister CAD (coronary artery disease) Hx of CABG Surgical History History of left heart catheterization (04/21/20) History of vasectomy Social History Smoking Status: Former smoker alcohol intake: never substance use type: does not use caffeine: Yes Type: coffee Number of servings: 10 what type of physical activity do you participate in: none seatbelt use: always do you feel safe at home: Yes ROS ROS ED Constitutional Constitutional ED: Reports fever(s); Denies chills Eyes Eyes: Denies change in vision ENT ENT ED: Denies sore throat Cardiovascular Cardiovascular: Denies chest pain Respiratory/Chest Respiratory/Chest: Denies cough or dyspnea Gastrointestinal Gastrointestinal: Reports nausea; Denies abdominal pain, diarrhea or vomiting Genitourinary Genitourinary ED: Denies dysuria Musculoskeletal Musculoskeletal: Denies back pain Integumentary Denies rash Neurologic Neurologic: Denies headache(s) or weakness Endocrine Endocrinology: Reports polydipsia Allergic/Immunologic Allergic/Immunologic ED: Denies urticaria EXAM Physical Exam Const Vital Signs: 05/26/21 22:28 05/26/21 23:33 05/27/21 00:27 Temperature 98.1 F 98.9 F 98.9 F Temperature Source Temporal Oral Oral Pulse Rate 90 75 77 Respiratory Rate 18 16 18 Respiratory Pattern Normal Blood Pressure 101/58 L 116/76 128/74 H Blood Pressure Mean 72 89 92 Pulse Ox 95 97 95 Oxygen Delivery Method Room Air Room Air Room Air 05/27/21 00:55 Temperature 99.7 F H Temperature Source Oral Pulse Rate Respiratory Rate Respiratory Pattern Blood Pressure Blood Pressure Mean Pulse Ox Oxygen Delivery Method Positive well nourished and well developed General Appearance ED: well developed HEENT Reports normocephalic and head/scalp atraumatic Eyes PERRL and EOMs intact bilaterally Neck supple Chest Wall inspection of chest normal and palpation of chest normal Resp normal respiratory effort and clear to auscultation bilaterally Cardio regular rate and regular rhythm GI normal to inspection, nondistended, normoactive bowel sounds Palpation: soft Extremity normal to inspection Neuro oriented x3 and no sensory deficits noted Sensorium / Orientation: alert Motor Exam: strength 5/5 throughout Psych mental status grossly normal Skin no rashes or lesions noted MDM MDM MDM Narrative Medical decision making narrative: Lab work, urinalysis, chest x-ray, cultures obtained. Rapid Covid test obtained. Lab Data Attestation: I reviewed the patient's lab results. Labs: Laboratory Results - last 24 hr 05/26/21 05/26/21 05/26/21 23:15 23:15 23:15 WBC 3.1 L RBC 3.07 L Hgb 9.9 L Hct 29.5 L MCV 96.1 H MCH 32.2 H MCHC 33.6 RDW Std Deviation 44.0 H RDW Coeff of Brigida 13.2 Plt Count 167 MPV 9.4 Neut % (Auto) Not Reportable Absolute Neuts (auto) 1.9 L Absolute Lymphs (auto) 0.47 L Neutrophils % (Manual) 42 L Band Neutrophils % 20 H Lymphocytes % (Manual) 15 L Monocytes % (Manual) 12 H Eosinophils % (Manual) 3 Basophils % (Manual) 2 H Metamyelocytes % 2 H Myelocytes % 4 H Diff Path Review May foll Sodium 134 L Potassium 4.0 Chloride 101 Carbon Dioxide 29.0 Anion Gap 4 L BUN 16 Creatinine 0.98 Estim Creat Clear Calc 68.30 Est GFR (MDRD) Af Amer 96 Est GFR (MDRD) Non-Af 79 BUN/Creatinine Ratio 16.3 Glucose 114 H Lactic Acid 1.1 Calcium 8.8 Total Bilirubin 0.20 Direct Bilirubin 0.11 AST 20 ALT 28 Alkaline Phosphatase 86 Total Protein 6.4 Albumin 2.7 L Globulin 3.7 Urine Color Urine Clarity Urine pH Ur Specific Purlear Urine Protein Urine Glucose (UA) Urine Ketones Urine Occult Blood Urine Nitrite Urine Bilirubin Urine Urobilinogen Ur Leukocyte Esterase Urine RBC Urine WBC Ur Squamous Epith Cells Urine Bacteria Urine Mucus 05/27/21 00:10 WBC RBC Hgb Hct MCV MCH MCHC RDW Std Deviation RDW Coeff of Brigida Plt Count MPV Neut % (Auto) Absolute Neuts (auto) Absolute Lymphs (auto) Neutrophils % (Manual) Band Neutrophils % Lymphocytes % (Manual) Monocytes % (Manual) Eosinophils % (Manual) Basophils % (Manual) Metamyelocytes % Myelocytes % Diff Path Review Sodium Potassium Chloride Carbon Dioxide Anion Gap BUN Creatinine Estim Creat Clear Calc Est GFR (MDRD) Af Amer Est GFR (MDRD) Non-Af BUN/Creatinine Ratio Glucose Lactic Acid Calcium Total Bilirubin Direct Bilirubin AST ALT Alkaline Phosphatase Total Protein Albumin Globulin Urine Color Yellow Urine Clarity Clear Urine pH 8.0 Ur Specific Purlear 1.015 Urine Protein Negative Urine Glucose (UA) Normal Urine Ketones Negative Urine Occult Blood 10 H Urine Nitrite Negative Urine Bilirubin Negative Urine Urobilinogen Normal Ur Leukocyte Esterase 25 H Urine RBC 0-5 SEEN Urine WBC 0 SEEN Ur Squamous Epith Cells 0 SEEN Urine Bacteria 0 SEEN Urine Mucus 0 SEEN Radiography Chest X-Ray - ED: 1 View, Read by ED Physician, Chronic Changes and No Infiltrates Diagnostic Testing: Radiology Impression Chest X-Ray 05/26/21 22:56 IMPRESSION: Mild emphysematous changes in the upper lobes. Right-sided Port-A-Cath is in good position. There is no focal consolidation. at 0000 Reported and signed by: Sylvester Navarro MD Electronically Signed: Sylvester Navarro MD at 23:58 EDT Tel , Service support , Treatment and Re-Evaluation Comments:: Patient was afebrile on arrival here. Lab work is remarkable for a white count of 3.1 with 1.9 absolute neutrophil count. Chemistry studies and LFTs normal. Lactic acid normal. Urinalysis and Covid swab both negative. On repeat evaluation patient feels well. His temperature is currently 99.7. I attempted to contact Dr. Rodriguez, on-call for patient's oncologist. At this time we have not received a return call. I will let the patient go as his absolute neutrophil count is not 1.5 or under. I will speak with Dr. Rodriguez before I leave from the shift and if he wishes for the patient to be on antibiotics I will contact him and make these arrangements. Patient and are comfortable with this plan. Discharge Plan Triage Chief Complaint: Fever ED Provider: Liv Isaacs Dx/Rx/DC Orders Clinical Impression: Fever Instructions: ED FUO Adult, ED Fever Control (Adult) Prescriptions: No Action umeclidinium-vilanterol 62.5-25 mcg/actuation blister with device 1 inh INHALATION DAILY RF: 0 levetiracetam 250 mg tablet 250 mg PO BID RF: 0 albuterol sulfate 90 mcg/actuation HFA aerosol inhaler 2 inh INHALATION Q6H PRN (Reason: Shortness Of Breath) RF: 0 cholecalciferol (vitamin D3) 1,250 mcg (50,000 unit) capsule 1,250 mcg PO QWEEK RF: 0 metoprolol succinate 25 mg tablet extended release 24 hr 50 mg PO DAILY RF: 0 aspirin 81 MG tablet,chewable 81 mg PO DAILY@0800 RF: 0 omeprazole 40 MG capsule,delayed release(DR/EC) 40 mg PO DAILY RF: 0 levetiracetam 1,000 MG tablet 1,000 mg PO BID Qty: 120 RF: 0 meclizine 25 MG tablet 25 mg PO DAILY PRN (Reason: Vertigo) RF: 0 cephalexin 500 mg capsule 500 mg PO Q6 Qty: 40 RF: 0 furosemide [Lasix] 40 mg tablet 40 mg PO BID Qty: 180 RF: 3 lisinopril 10 mg tablet 10 mg PO DAILY Qty: 90 RF: 4 Primary Care Provider: Niall Ramirez Referrals: Aparna Thorne MD [STAFF PHYSICIAN] - As soon as possible Niall Ramirez MD [Primary Care Provider] - Disposition Disposition: Home, Self Care
[2021-05-26 23:33] VITALS: BP 116/76; PULSE 75; RESP 16; TEMP 37.2; O2SAT 97
[2021-05-26 23:46] LABS: Hematocrit 29.5 % (40-54); Hemoglobin 9.9 g/dL (13.0-16.5); Mean Corp Hgb Conc 33.6 g/dL (32-36); Mean Corpuscular Hgb 32.2 pg (27.0-32.0); Mean Corpuscular Volume 96.1 fL (80-94); Mean Platelet Vol. 9.4 fl (6.2-12.0); POSITIVE COUNT YES; POSITIVE DIFFERENTIAL YES; POSITIVE MORPHOLOGY YES; Platelet Count 167 K/mm3 (150-450); RBC Distribution Width CV 13.2 % (11.6-14.6); Red Blood Count 3.07 M/mm3 (4.6-6.2); White Blood Count 3.1 K/mm3 (4.4-11.0)
[2021-05-26 23:50] LABS: AST(SGOT) 20 U/L (15-37); Alanine Aminotransfer ALT/SGPT 28 U/L (16-61); Albumin, Serum 2.7 g/dL (3.2-5.0); Alkaline Phosphatase 86 U/L (45-117); Anion Gap 4 (5-15); BUN 16 mg/dL (7-18); BUN/Creat Ratio 16.3 RATIO (10-20); Bilirubin, Direct 0.11 mg/dL (0.00-0.30); Calcium,Total 8.8 mg/dL (8.5-10.1); Chloride 101 mmol/L (98-107); Creatinine, Serum 0.98 mg/dL (0.70-1.30); Differential Indicated MANUAL DIFF; EST Glomerular Filtration Rate 79 mL/min (>60); Est Glom Filt Rate - Afr Amer 96 mL/min (>60); Globulin 3.7 g/dL (2.2-4.2); Glucose 114 mg/dL (74-106); Lactic Acid 1.1 mmol/L (0.4-1.9); Protein, Total 6.4 g/dL (6.4-8.2); Sodium Level 134 mmol/L (136-145)
[2021-05-27 00:15] LABS: Basophil 2 % (0-1); Neutrophil-Band 20 % (0-5); Neutrophil-Segmented 42 % (47-70)
[2021-05-27 00:16] LABS: Metamyelocyte 2 % (0-1); Monocyte 12 % (0-10); Myelocyte 4 % (0-0)
[2021-05-27 00:17] LABS: Eosinophil 3 % (0-5); Lymphocyte 15 % (19-41)
[2021-05-27 00:18] LABS: Absolute Lymphocyte Count 0.47 X10^3/uL (0.83-4.51); Absolute Neutrophil Count 1.9 X10^3/uL (2.0-7.7)
[2021-05-27 00:25] LABS: Bacteria 0 SEEN /hpf (None Seen); Mucous, Urine 0 SEEN /hpf (<or=2+); Squamous Epithelial Cells - UA 0 SEEN /hpf (0-5); White Blood Cells 0 SEEN /hpf (0-5)
[2021-05-27 00:27] VITALS: BP 128/74; PULSE 77; RESP 18; TEMP 37.2; O2SAT 95
[2021-05-27 00:28] LABS: Color, Urine Yellow (Yellow); Glucose, Dipstick Normal (Normal); Ketone-Dipstick Negative (Negative); Leukocyte Esterase-Dipstick 25 /ul (Negative); Nitrite-Dipstick Negative (Negative); Occult Blood-Urine 10 /ul (Negative); Protein-Dipstick Negative (Negative); Specific Gravity, Urine 1.015 (1.002-1.030); Urine Bilirubin Dipstick Negative (Negative); Urine Clarity Clear (Clear); Urine Urobilinogen Normal (Normal)
[2021-05-27 00:36] LABS: Red Blood Cells-Urine 0-5 SEEN /hpf (0-5)
[2021-05-27 00:55] VITALS: TEMP 37.6
[2021-05-27 01:42] VITALS: BP 118/68; PULSE 81; RESP 20; O2SAT 97
[2021-05-27 04:36] LABS: Platelet Estimate ADEQUATE (ADEQ); Red Cell Morphology NORM C+C NORMAL (NORM C&C)
[2021-05-27 12:42] LABS: Pathologist Review Reviewed
== END 2021-05-27 01:56 | disposition home or self-care (01) ==
PROVIDERS: Emergency Provider Emergency Medicine; PCP Family Medicine
DX: R50.9 Fever, unspecified (principal); C85.90 Non-Hodgkin lymphoma, unspecified, unspecified site; I10 Essential (primary) hypertension; E78.2 Mixed hyperlipidemia; J44.9 Chronic obstructive pulmonary disease, unspecified; I25.2 Old myocardial infarction; I73.9 Peripheral vascular disease, unspecified; G47.33 Obstructive sleep apnea (adult) (pediatric); I25.10 Atherosclerotic heart disease of native coronary artery without angina pectoris; G40.909 Epilepsy, unspecified, not intractable, without status epilepticus; Z86.73 Personal history of transient ischemic attack (TIA), and cerebral infarction without residual deficits; Z79.82 Long term (current) use of aspirin; Z79.899 Other long term (current) drug therapy; Z87.891 Personal history of nicotine dependence
CPT/HCPCS: 36591; 71045; 80048; 80076; 81001; 83605; 85025; 87040; 87086; 87426; 99283; A4216

== ENCOUNTER → 2022-04-13 | Outpatient (CLI) | payer MEDICARE, SELFPAY ==
--- NOTE | 2022-04-13 17:37 | STRESSREP ---
Stress Test Report Pharmacologic myocardial perfusion stress test. 77-year-old man with a history of chest pain and shortness of breath. Stress protocol: Resting EKG demonstrates sinus bradycardia with a rate of 49 bpm normal intervals are noted resting blood pressure is 162/70 mmHg. 0.4 mg of regadenoson was infused per usual protocol followed by rapid intravenous saline flush injection continuous EKG monitoring was performed. The maximum heart rate attained was 68 bpm which was 47% of max impacted heart rate the maximum workload was 1 metabolic equivalent. At rest there were nonspecific ST-T wave changes noted with did not meet the criteria for abnormal flow reserve and at peak infusion nonspecific ST changes were noted with did not meet the criteria for abnormal flow reserve. The peak blood pressure was 168/88 mmHg. Myocardial perfusion protocol. 14.7 mCi of technetium 99m sestamibi was injected at rest. 0.4 mg of regadenoson was infused per usual protocol. At peak infusion 45.0 mCi of technetium 99m sestamibi was injected stress images were obtained stress and rest images were reconstructed and compared in the short axis vertical long and horizontal long axis. Gated images were also obtained. Perfusion SPECT analysis: Review of the stress images demonstrate normal uptake of tracer noted in all areas of the myocardium. The resting images similar demonstrate normal uptake of tracer noted in all areas of the myocardium. No previous infarct is noted and no ischemia is noted. Gated SPECT analysis: The gated ejection fraction is 56%. Conclusion: Normal pharmacologic myocardial perfusion stress test. Preserved ejection fraction.
== END | disposition home or self-care (01) ==
PROVIDERS: PCP Family Medicine; Referring Provider Physician Assistant Medical; Visit Provider Physician Assistant Medical
DX: I25.10 Atherosclerotic heart disease of native coronary artery without angina pectoris (principal)
CPT/HCPCS: 78452; 93017; A9500; A4216; J2785

== ENCOUNTER → 2023-01-12 | Outpatient (CLI) | payer MEDICARE, SELFPAY ==
[2023-01-12 11:47] LABS: AST(SGOT) 33 U/L (15-37); Alanine Aminotransfer ALT/SGPT 34 U/L (16-61); Albumin, Serum 3.6 g/dL (3.2-5.0); Alkaline Phosphatase 63 U/L (45-117); Anion Gap 7 (5-15); BUN 22 mg/dL (7-18); BUN/Creat Ratio 23.3 RATIO (10-20); Bilirubin, Direct 0.13 mg/dL (0.00-0.30); Calcium,Total 9.1 mg/dL (8.5-10.1); Chloride 104 mmol/L (98-107); Cholesterol 176 mg/dL (200); Creatinine, Serum 0.94 mg/dL (0.70-1.30); EST Glomerular Filtration Rate 82 mL/min (>60); Est Glom Filt Rate - Afr Amer 99 mL/min (>60); Globulin 3.4 g/dL (2.2-4.2); Glucose 99 mg/dL (74-106); High Density Lipoprotein 35 mg/dL; Sodium Level 141 mmol/L (136-145); Triglycerides 148 mg/dL; Very Low Density Lipoprotein 30 mg/dL (5-40)
== END | disposition home or self-care (01) ==
LOC: LAB 10:57
PROVIDERS: PCP Family Medicine; Visit Provider Internal Medicine Cardiovascular Disease
DX: I10 Essential (primary) hypertension (principal); I25.10 Atherosclerotic heart disease of native coronary artery without angina pectoris; E78.2 Mixed hyperlipidemia
CPT/HCPCS: 36415; 80048; 80061; 80076

== ENCOUNTER → 2024-10-04 | Outpatient (CLI) | payer MEDICARE, SELFPAY ==
[2024-10-04 10:54] LABS: Absolute Lymphocyte Count 0.47 X10^3/uL (0.83-4.51); Absolute Neutrophil Count 3.1 X10^3/uL (2.0-7.7); Basophil# 0.05 X10^3/uL; Basophil% 1.2 % (0-1); Eosinophil# 0.19 X10^3/uL; Eosinophils% 4.5 % (0-5); Hematocrit 40.3 % (40-54); Hemoglobin 14.4 g/dL (13.0-16.5); Lymphocyte # 0.47 X10^3/ul (0.83-4.51); Lymphocyte % 11.2 % (19-41); Mean Corp Hgb Conc 35.7 g/dL (32-36); Mean Corpuscular Hgb 32.1 pg (27.0-32.0); Mean Corpuscular Volume 89.8 fL (80-94); Mean Platelet Vol. 8.4 fl (6.2-12.0); Monocyte# 0.36 X10^3/uL; Monocyte% 8.6 % (0-10); NRBC Flagged by Analyzer 0 % (0-5); Neutrophil % 74.3 % (47-70); POSITIVE DIFFERENTIAL YES; Platelet Count 159 K/mm3 (150-450); RBC Distribution Width CV 12.3 % (11.6-14.6); Red Blood Count 4.49 M/mm3 (4.6-6.2); White Blood Count 4.2 K/mm3 (4.4-11.0)
[2024-10-04 11:31] LABS: Anion Gap 5 (5-15); BUN 19 mg/dL (7-18); BUN/Creat Ratio 20.2 RATIO (10-20); Chloride 101 mmol/L (98-107); Creatinine, Serum 0.94 mg/dL (0.70-1.30); EST Glomerular Filtration Rate 82 mL/min (>60); Est Glom Filt Rate - Afr Amer 99 mL/min (>60); Glucose 94 mg/dL (74-106); Potassium 3.8 mmol/L (3.5-5.1); Sodium Level 136 mmol/L (136-145)
[2024-10-05 09:37] LABS: BNP,B-Type NATRIURETIC PEPTIDE 24.9 pg/mL (0-100)
== END | disposition home or self-care (01) ==
LOC: LAB 10:18
PROVIDERS: PCP Family Medicine; Referring Provider Nurse Practitioner Family; Visit Provider Nurse Practitioner Family
DX: R06.09 Other forms of dyspnea (principal)
CPT/HCPCS: 36415; 80048; 83880; 85025

== ENCOUNTER → 2024-10-14 | Outpatient (CLI) | payer MEDICARE, SELFPAY ==
--- NOTE | 2024-10-14 09:52 | ECHOD_ITS ---
Reason For Study: DYSPNEA Procedure This was a 2D Doppler, Color Flow transthoracic echocardiogram. The study was technically difficult. Exam performed in department. Left Ventricle Normal LV size. Moderate concentric left ventricular hypertrophy. Left ventricular systolic function is normal. The left ventricular ejection fraction is 60 %. No regional wall motion abnormalities noted. Right Ventricle Normal RV size. Normal systolic function. Atria Normal left atrium. Normal right atrium. Mitral Valve Normal mitral valve. Tricuspid Valve Normal tricuspid valve. Aortic Valve Trisinus/trileaflet aortic valve. Mild focal aortic valve calcification. Pulmonic Valve Normal pulmonic valve. Great Vessels Normal aortic root. The pulmonary artery is normal size. Normal inferior vena cava. Pericardium/Pleural No pericardial effusion. MMode/2D Measurements & Calculations LVIDd: 4.4 cm IVSd: 1.5 cm LVOT diam: 2.4 cm LVIDs: 2.6 cm LVPWd: 1.5 cm LVOT area: 4.6 cm2 RVDd: 3.6 cm FS: 40.6 % _ asc Aorta Diam: 3.7 cm LAV(MOD-bp): 21.2 ml LVAd ap4: 23.3 cm2 LAV(MOD-bp) Indexed: 10.0 ml/m2 LVLd ap4: 7.7 cm LAV(MOD-sp2): 27.2 ml EDV(MOD- sp4): 58.9 ml LAV(MOD-sp4): 15.8 ml EDV(sp4- el): 59.9 ml LVAs ap4: 13.9 cm2 LVLs ap4: 6.5 cm ESV(MOD- sp4): 25.2 ml ESV(sp4- el): 25.4 ml EF(MOD- sp4): 57.2 % EF(sp4- el): 57.5 % _ LVAd ap2: 20.2 cm2 SV(MOD-sp4): 33.7 ml SV(MOD- sp2): 27.9 ml LVLd ap2: 7.7 cm SI(MOD-sp4): 15.9 ml/m2 SI(MOD- sp2): 13.2 ml/m2 EDV(MOD-sp2): 45.5 ml EDV(sp2-el): 45.0 ml LVAs ap2: 11.5 cm2 LVLs ap2: 6.2 cm ESV(MOD-sp2): 17.6 ml ESV(sp2-el): 18.2 ml EF(MOD-sp2): 61.3 % _ SV(sp4-el): 34.5 ml Ao sinus diam: 3.[address] Junction: 2.8 cm _ LA dimension(2D): 3.9 cm LA A4 area: 9.3 cm2 RA A4 area: 7.8 cm2 _ TAPSE: 1.4 cm Time Measurements MV dec time: 0.26 sec Doppler Measurements & Calculations MV E max willard: 53.4 cm/sec Lat Peak E' Willard: 7.8 cm/sec Med Peak E' Willard: 8.2 cm/sec MV A max willard: 75.1 cm/sec E/E' lat: 6.8 E/E' med: 6.5 MV E/A: 0.71 _ MV dec slope: 209.4 cm/sec2 Ao V2 max: 114.9 cm/sec LV V1 max: 85.6 cm/sec Ao max P.3 mmHg LV V1 max P.9 mmHg Ao V2 mean: 76.9 cm/sec LV V1 mean P.6 mmHg Ao mean P.6 mmHg LV V1 mean: 59.1 cm/sec Ao V2 VTI: 19.5 cm LV V1 VTI: 15.8 cm AV (velocity ratio): 0.81 DORETHA(I,D): 3.7 cm2 DORETHA(V,D): 3.4 cm2 _ SV(LVOT): 73.0 ml PA V2 max: 78.5 cm/sec TR max willard: 186.1 cm/sec TR max P.8 mmHg ECHO/Echo Complete Interpretation Summary Normal LV size. Moderate concentric left ventricular hypertrophy. Left ventricular systolic function is normal. The left ventricular ejection fraction is 60 %. Mild focal aortic valve calcification. Ordering Physician: José Barron Referring Physician: José Barron Performed By: Violet Philippe RDCS
== END | disposition home or self-care (01) ==
LOC: CVS 09:40
PROVIDERS: PCP Family Medicine; Referring Provider Nurse Practitioner Family; Visit Provider Nurse Practitioner Family
DX: I25.10 Atherosclerotic heart disease of native coronary artery without angina pectoris (principal); I10 Essential (primary) hypertension; E78.2 Mixed hyperlipidemia; R06.09 Other forms of dyspnea
CPT/HCPCS: 93306

== ENCOUNTER → 2025-04-23 | Outpatient (CLI) | payer MEDICARE, SELFPAY ==
--- OUTSIDE RECORDS SUMMARY | 2025-04-23 06:51 | XMS RPT_ITS | CCD ---
Author Organization [facility] Care Team Providers Care Tank Storage Supervisor Name Role Phone Fidelina Cabrales Unavailable Fidelina Cabrales Unavailable Araseli RN, Leidy Pineda Unavailable Unavailable Austin CRAIG, Benji Fierro Unavailable Unavailable Primary Care Provider UnavailKeerthi Ross MD Primary Care Provider Christina Hi RN Unavailable Unavailable Cristóbal CRAIG MD, Angela Unavailable Anabel Jerez RN Unavailable Anabel Jerez RN Unavailable Christina Hi RN Unavailable Unavailable Dr. Keerthi Hazel Primary Care Provider Dr. Keerthi Hazel Referring Provider IGLESIA Milse Attending Provider IGLESIA Miles Referring Provider IGLESIA Miles Other Provider Dr. Romulo Flores Attending Provider Keerthi Hazel MD Primary Care Provider Cristóbal CRAIG MD, Daallanung Unavailable Anabel Jerez RN Unavailable Keerthi Hazel MD Primary Care Provider Cristóbal CRAIG MD, Daallanung Unavailable Anabel Jerez RN Unavailable Catrachita Shearer RN Unavailable Solitario GARZA, Anabel Unavailable Janki GARZA, Catrachita Unavailable Dr. Kaylyn Segovia Attending Penny vailable Ilir, Dr. Keerthi Juan Primary Care Unavail able AMBER ELIZALDE Attending Unavailable KEERTHI HAZEL Primary Care Unavailable AMBER ELIZALDE Attending Unavailable KEERTHI HAZEL Primary Care Unavailable AMBER ELIZALDE Attending Unavailable SELF Referring Unavailable KEERTHI HAZEL Primary Care Unavailable STEPHON INFANTE Admitting Unavailable STEPHON INFANTE Attending Unavailable KEERTHI HAZEL Primary Care Unavailable Simone RN, Elvie Unavailable Chin Hatch MD Unavailable Unavailable Primary Care Provider Unavaillynette Ambrocio MD, Angela Unavailable Franklin GARZA, Lulu Unavailable Unavailable Keerthi Hazel MD Primary Care Provider KEERTHI HAZEL Primary Care Unavailable JAMES LIVINGSTON Attending Unavaillynette LAIRD VIDHYA Referring Unavaila CESAR Oropeza Admitting Unavailable Provider Yissel CRAIG Unavailable Unavailable RADHA ALLEN Attending Unavailable RADHA ALLEN Attending Unavailable Sussy RN, Christina Unavailable Unavailable Zoë J2EE DEVELOPER.Zakia ERNST Unavailable Suppan J2EE DEVELOPER.KLEVER, Yessi A Unavailable Suppan J2EE DEVELOPER.TRANSCRIPTIONIST, Yessi A Unavailable [phone] Suppan J2EE DEVELOPER.KLEVER, Yessi A Unavailable DELILAH RODRIGUES Attending Unavailable KEERTHI HAZEL Primary Care Unavailable KEERTHI HAZEL Primary Care Unavailable EITAN VIDHYA Attending Unavailmiriam Hazel MD, Dr. Tierney Primary Care Provider Dr. Keerthi Hazel MD Referring Provider Anedrson SLASHER TENDER-CJosé Attending Provider KEERTHI HAZEL Primary Care Unavailable CHIN HATCH Attending Unavailable KEERTHI HAZEL Primary Care Unavailable SELF Referring Unavailable ADE GARCIA Attending Unavailable KEERTHI HAZEL Primary Care Unavailable MADISON CHAVARRIA Referring Unavailable ILIR, KEERTHI Amor Primary Care Unavailable ILIR, KEERTHI Amor Primary Care Unavailable KEERTHI HAZEL Attending Unavailable ILIR, KEERTHI Amor Primary Care Unavailable ILIR, KEERTHI Amor Referring Unavailable ILIR, KEERTHI Amor Primary Care Unavailable ILIR, KEERTHI Amor Referring Unavailable MADISON CHAVARRIA Attending Unavailable MADISON CHAVARRIA Referring Unavailable ILIR, KEERTHI Amor Primary Care Unavailable ILIR, KEERTHI Amor Primary Care Unavailable ILIR, KEERTHI Amor Primary Care Unavailable ILIR, KEERTHI Amor Attending Unavailable ILIR, KEERTHI Amor Primary Care Unavailable ILIR, KEERTHI Amor Referring Unavailable ILIR, KEERTHI Amor Primary Care Unavailable MARS MARRERO Referring Unavailable ILIR, KEERTHI Amor Primary Care Unavailable MARS MARRERO Referring Unavailable ILIR, KEERTHI Amor Primary Care Unavailable ILIR, KEERTHI Amor Referring Unavailable ILIR, KEERTHI Amor Primary Care Unavailable ILIR, KEERTHI Amor Primary Care Unavailable MADISON CHAVARRIA Attending Unavailable ILIR, KEERTHI Amor Primary Care Unavailable Seltzer, Keerthi Primary Care Unavailable Carolina Solo Attending Unavailabl e Ilir, Keerthi Referring Unavailable Romulo Flores Attending Unavailable Ilir, Keerthi Primary Care Unavailable Ilir, Keerthi Primary Care Unavailable Roof SLASHER TENDER, José Jarrett Attending Unavailable Ilir, Keerthi Referring Unavailable Seltzer, Keerthi Primary Care Unavailable Roof SLASHER TENDER, José Jarrett Referring Unavailable Roof SLASHER TENDER, José Jarrett Attending Unavailable Ilir, Keerthi Primary Care Unavailable Roof SLASHER TENDER, José Jarrett Referring Unavailable Roof SLASHER TENDER, José Jarrett Attending Unavailable Roof SLASHER TENDER, José Jarrett Attending Unavailable Roof SLASHER TENDER, José Jarrett Referring Unavailable Keerthi Hazel Primary Care Unavailable Roof SLASHER TENDER, José Jarrett Attending Unavailable Keerthi Hzael Referring Unavailable Ilir, Keerthi Primary Care Unavailable Allergies Allergy Classification Reported Allergen(s) Allergy Type Date of Onset Reaction(s) Facility bacitracin / neomycin / polymyxin b (4 sources) bacitracin / neomycin / polymyxin b Drug Allergy 0 Other: See Comments [facility] HMG-CoA Reductase Inhibitors (statins) (4 sources) atorvastatin Drug Allergy 8 Myalgia [facility] Work Phone: (2 sources) bacitracin / neomycin / polymyxin b Drug Allergy 7 Dermatitis/tarik h [facility] Work Phone: (4 sources) NKDA; Translations: [NKDA] propensity to adverse reactions 3 [facility] Work Phone: (1 source) Bacitracin / Neomycin / Polymyxin B Drug Allergy 0 [facility] Work Phone: (20 sources) atorvastatin; Translations: [ATORVASTATIN CALCIUM] Drug Allergy 8 Myalgia [facility] Work Phone: (20 sources) bacitracin / neomycin / polymyxin b; Translations: [NEOMYCIN-BACITR ACIN-POLYMYXIN] Drug Allergy 0 Other: See Comments [facility] Work Phone: (2 sources) Bacitracin Drug Allergy 2 Dermatitis/tarik h [facility] (2 sources) Neomycin Drug Allergy 2 Dermatitis/tarik h [facility] (2 sources) Polymyxin B Drug Allergy 2 Dermatitis/tarik h [facility] (3 sources) Gvvqmrf-Whr-Dra Reductase Inhibitor; Translations: [Ccoxizn-Hiy-Woj Reductase Inhibitor] Propensity to adverse reactions 2 myalgias, fatigue [facility] (1 source) Bacitracin Drug Allergy 5 [facility] (1 source) Neomycin Drug Allergy 5 [facility] (1 source) polymyxin B Drug allergy (disorder) 5 [facility] Medications Current Medications Medication Drug Class(es) Dates Sig (Normalized) Sig (Original) acetaminophen 500 mg oral tablet (20 sources) take 2 tablets by mouth every eight hours as needed acetaminophen (TYLENOL EXTRA STRENGTH) 500 mg tablet Take 1,000 mg by mouth every 8 hours as needed. Active take 1 tablet by velasquez th every six hours as needed for pain acetaminophen (TYLENOL) 500 MG tablet Ta ke 500 mg by mouth every 6 hours as needed for Pain 0 Suspended Comment on above: Take 1,000 mg by velasquez th every 8 hours as needed. [id number] 200 actuat albuterol 0.09 mg/actuat metered dose inhaler (20 sources) beta2-Adrenergic Agonist Start: 05-22-2023 End: 10-09-2024 take 2 puff(s) by inhalation every four hours as needed for wheezing VENTOLIN HFA 90 mcg/actuation inhaler Indications: Chronic obstructive pulmonary disease, unspecified COPD type (HCC) Inhale 2 Puffs as instructed every 4 hours as needed for wheezing/shortness of breath. 1 Each 10/18/2023 Active Start: 03-25-2022 take 2 puff(s) by in halation every four hours as needed for wheezing VENTOLIN HFA 90 mcg/actuation inhaler Indications: Chronic obstructive pulmonary disease, unspecified COPD type (HCC) Inhale 2 Puffs as instructed every 4 hours as needed for wheezing/shortness of breath. 1 Each 03/25/2022 Active Start: 11-08-2021 End: 03-25-2022 take 2 puff(s) by inhalation every four hours as needed for wheezing albuterol sulfate 90 mcg/actuation breath activated powder inhaler Indications: Chronic obstructive pulmonary disease, unspecified COPD type (HCC) Inhale 2 Puffs as instructed every 4 hours as needed for wheezing/shortness of breath. 1 Each 11/08/2021 03/25/2022 Discontinued Start: 04-09-2020 Albuterol Sulf ate 90 mcg/actuation HFA aerosol inhaler Active 2 NMA INHALATION EVERY 6 HOURS as needed for Shortness Of Breath April 09, 2020 12:00am Start: 04-09-2020 Albuterol Sulf ate Active 2 INH INHALATION EVERY 6 HOURS April 09, 2020 12:00am Comment on above: Inhale 2 Puffs as in structed every 4 hours as needed for wheezing/shortness of breath. amoxicillin 875 mg / clavulanate 125 mg oral tablet (4 sources) Penicillin-class Antibacterial Start: 2023 End: 2023 take 1 tablet by mouth twice daily amoxicillin-clavulana te potassium (AUGMENTIN) 875-125 mg per tablet Take 1 tablet by mouth two times a day for 5 days. 10 tablet 0 03/05/2024 03/10/2024 Active azithromycin 500 mg oral tablet (4 sources) Macrolide Antimicrobial Start: 2023 End: 2023 take 1 tablet by mouth once daily azithromycin (ZITHROMAX) 500 mg tablet Take 1 tablet by mouth once daily for 3 days. 3 tablet 0 03/05/2024 03/08/2024 Active cyclobenzaprine hydrochloride 10 mg oral tablet (9 sources) Muscle Relaxant Start: 2021 End: 2021 take 1 tablet by mouth at bedtime as needed cyclobenzaprine (FLEXERIL) 10 mg tablet Indications: Chronic pain syndrome Take 1 tablet by mouth at bedtime as needed. 30 tablet 0 03/03/2022 04/02/2022 Active Comment on above: Take 1 tablet by velasquez th at bedtime as needed. dexamethasone 1 mg oral tablet (1 source) Corticosteroid Start: 2021 End: 2021 take 1 tablet by mouth once dexAMETHasone (DECADRON) 1 mg tablet Indications: Adrenal hyperplasia (HCC) Take 1 tablet by mouth one time only for 1 dose. Before bed 1 tablet 0 12/10/2021 12/10/2021 Active Comment on above: Take 1 tablet by velasquez th one time only for 1 dose. Before bed doxycycline monohydrate 100 mg oral tablet (2 sources) Tetracycline-class Drug Start: 2021 End: 2021 take 1 tablet by mouth twice daily doxycycline monohydrate 100 mg tablet Indications: COPD with exacerbation (HCC) Take 1 tablet by mouth twice daily for 10 days. 20 tablet 0 11/25/2021 12/05/2021 Active Comment on above: Take 1 tablet by velasquez th twice daily for 10 days. 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) , Diffuse large B-cell lymphoma of intra-abdominal lymph nodes (HCC) For CT CHESTABD/PEL W IVCON Routine order Administer, As Directed One Time Only, via Oral, Rectal, both Oral and Rectal, Enteric Tube, Stoma or Indwelling Catheter, Enteric Contrast as designated per enteric contrast guidelines 1 Each 0 02/07/2024 2024 Active Start: 01-17-2022 End: 01-18-2022 enteric contrast (will be pr ovided with radiology test) Indications: 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) , Diffuse large B-cell lymphoma of intra-abdominal lymph nodes (HCC) For CT CHESTABD/PEL W IVCON Routine order Administer, As Directed One Time Only, via Oral, Rectal, both Oral and Rectal, Enteric Tube, Stoma or Indwelling Catheter, Enteric Contrast as designated per enteric contrast guidelines 1 Each 0 01/17/2022 01/18/2022 Active Comment on above: For CT CHESTABD/PEL W IVCON Routine order Administer, As Directed One Time Only, via Oral, Rectal, both Oral and Rectal, Enteric Tube, Stoma or Indwelling Catheter, Enteric Contrast as designated per enteric contrast guidelines ezetimibe 10 mg oral tablet (20 sources) Dietary Cholesterol Absorption Inhibitor Start: End: take 1 tablet by mouth once daily Ezetimibe (Zetia) 10 mg tablet Active 10 mg PO DAILY March 11, 2024 12:00am Comment on above: Take 1 tablet by velasquez th once daily. 30 actuat fluticasone furoate 0.1 mg/actuat / umeclidinium 0.0625 mg/actuat / vilanterol 0.025 mg/actuat dry powder inhaler (12 sources) Anticholinergic, Corticosteroid, beta2-Adrenergic Agonist Start: End: take 1 puff(s) by inhalation once daily fluticasone-umeclidin -vilanter (TRELEGY ELLIPTA) 100-62.5-25 mcg inhalation powder Inhale 1 Puff as instructed once daily. 60 Each 11 05/22/2023 06/17/2024 Active Comment on above: Inhale 1 Puff as ins tructed once daily. 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 Discontinue saline lock post exam. If Pt. has a central line or IVAD, may access for administration according to line specific nursing protocol. Once exam is complete flush line and de-access according to line specific nursing protocol in the CT contrast administration guidelines link. 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 Discontinue saline lock post exam. If Pt. has a central line or IVAD, may access for administration according to line specific nursing protocol. Once exam is complete flush line and de-access according to line specific nursing protocol in the CT contrast administration guidelines link. 1 Each 0 01/17/2022 01/18/2022 Active Comment on above: CT Chest ABD/PEL-Inj ect, intravenously, once for 1 dose.No IV access, insert saline lock prior to the beginning of sedation, infusion, injection of imaging exam. Discontinue saline lock post exam. If Pt. has a central line or IVAD, may access for administration according to line specific nursing protocol. Once exam is complete flush line and de-access according to line specific nursing protocol in the CT contrast administration guidelines link. levETIRAcetam 1000 mg oral tablet (20 sources) Start: 10-29-19 take 1 tablet by mouth twice daily levETIRAcetam (KEPPRA) 250 mg tablet Take 1 tablet by mouth two times a day. 180 tablet 4 10/29/2024 Active Start: 10-29-2024 take 1 tablet by velasquez th twice daily levETIRAcetam (KEPPRA) 1,000 mg tablet Take 1 tablet by mouth two times a day. 180 tablet 4 10/29/2024 Active Start: 10-05-2023 take 1 tablet by velasquez th twice daily levETIRAcetam (Keppra) 250 MG tablet Indications: Unspecified convulsions (CMS/HCC) TAKE 1 TABLET BY MOUTH TWICE DAILY 180 tablet 3 10/05/2023 Active Start: 10-05-2023 take 1 tablet by velasquez th twice daily levETIRAcetam (Keppra) 1000 MG tablet Indications: Unspecified convulsions (CMS/HCC) TAKE 1 TABLET BY MOUTH TWICE DAILY FOR 90 DAYS 180 tablet 3 10/05/2023 Active Start: 04-09-2020 End: 10-29-2024 take 1 tablet by mouth twice daily Levetiracetam 250 mg tablet Active 250 mg PO TWICE A DAY April 09, 2020 12:00am Start: 04-19-2019 End: 10-29-2024 take 1 tablet by mouth twice daily Levetiracetam 1,000 MG tablet Active 1000 mg PO TWICE A DAY 120 0 April 19, 2019 12:00am End: 10-05-2023 levETIRAcetam (Keppra) 250 M G tablet every 12 (twelve) hours 0 10/05/2023 Discontinued End: 10-05-2023 levETIRAcetam (Keppra) 1000 MG tablet every 12 (twelve) hours 0 10/05/2023 Discontinued levETIRAcetam (K EPPRA) 500 MG tablet Take 1,250 mg by mouth 2 times daily 0 Suspended Comment on above: Take 1,000 mg by velasquez twice daily. Take 1 tablet by velasquez twice daily. levoFLOXacin 500 mg oral tablet (2 sources) Quinolone Antimicrobial Start: 07-20-20 End: 07-27-20 levoFLOXacin (LEVAQUIN) 500 mg tablet Indications: Acute bronchitis with chronic obstructive pulmonary disease (COPD) ([facility]) Take 1 tablet by mouth once daily for 7 days. FOR 7 DAYS. 7 tablet 0 07/20/2022 07/27/2022 Active Comment on above: Take 1 tablet by velasquez once daily for 7 days. FOR 7 DAYS. lisinopril 10 mg oral tablet (20 sources) Angiotensin Converting Enzyme Inhibitor Start: 04-21-20 End: 05-30-20 24 take 1 tablet by mouth once daily Lisinopril 10 mg tablet Active 10 mg PO DAILY 90 4 May 30, 2024 11:38am Start: 04-14-2020 End: 04-21-2020 take 1 tablet by mouth once daily Lisinopril 5 mg tablet Discontinued 5 mg PO DAILY 30 April 14, 2020 9:49am April 21, 2020 9:52am Comment on above: Take 10 mg by mouth once daily. mecobalamin (20 sources) take 1 tablet by mouth once daily mecobalamin (B12 ACTIVE ORAL) Take 1 tablet by mouth once daily. Active mecobalamin (B12 ACTIVE ORAL) Take by mouth. Active 24 hr metoprolol succinate 25 mg extended release oral tablet (20 sources) beta-Adrenergic Neeta Start: 03-11-2024 Metopr olol Succinate 25 mg tablet extended release 24 hr Active 50 mg PO DAILY March 11, 2024 3:14pm Start: 02-24-2023 take 1 tablet by velasquez th once daily metoprolol succinate ER (TOPROL XL) 25 mg 24 hr tablet Take 50 mg by mouth once daily. 02/24/2023 Active Start: 02-24-2023 metoprolol suc cinate ER (TOPROL XL) 25 mg 24 hr tablet Start: 09-17-2021 End: 01-09-2023 take 0.5 tablet by mouth once daily metoprolol succinate ER (TOPROL XL) 50 mg 24 hr tablet Indications: Coronary artery disease involving [place] coronary artery of [place] heart without angina pectoris Take 0.5 tablets by mouth once daily. 45 tablet 3 09/17/2021 07/13/2022 Discontinued Start: 09-07-2021 End: 09-05-2024 take 1 tablet by mouth once daily Metoprolol Succinate 25 mg tablet extended release 24 hr Discontinued 25 mg PO DAILY 90 September 08, 2023 4:10pm March 11, 2024 3:14pm Start: 03-29-2021 End: 09-07-2021 Metoprolol Succinate 25 mg t ablet extended release 24 hr Discontinued 50 mg PO DAILY March 29, 2021 10:00am September 07, 2021 2:07pm Start: 03-29-2021 End: 09-07-2021 take 50 mg by mouth once daily Metoprolol Succinate Di scontinued 50 MG PO DAILY March 29, 2021 10:00am September 07, 2021 2:07pm Start: 09-29-2020 End: 03-29-2021 take 1 tablet by mouth once daily Metoprolol Succinate 25 mg tablet extended release 24 hr Discontinued 25 mg PO DAILY 90 3 September 29, 2020 11:19am March 29, 2021 10:01am Start: 08-12-2020 METOPROLOL TAR TRATE 25 MG TABS one tablet daily METOPROLOL TARTRATE [id number] Benji Avila MD Start: 09-18-2018 End: 09-29-2020 take 2 tablets by mouth once daily Metoprolol Succinate 50 mg tablet extended release 24 hr Discontinued 25 mg PO daily September 18, 2018 1:50pm September 29, 2020 11:07am BP Start: 09-18-2018 End: 09-29-2020 take 25 mg by mouth once daily Metoprolol Succinate Di scontinued 25 MG PO daily September 18, 2018 1:50pm September 29, 2020 11:07am Start: 07-31-2017 take 1 tablet by velasquez th once daily at bedtime TOPROL XL 50 MG [id number] One tablet by mouth daily at bedtime METOPROLOL SUCCINATE [id number] Leidy Marx RN Start: 07-26-2017 End: 09-18-2018 take 1 tablet by mouth once daily Metoprolol Succinate 50 mg tablet extended release 24 hr Discontinued 50 mg PO daily January 31, 2018 1:34pm September 18, 2018 1:51pm take 1 tablet by velasquez th once daily metoprolol succinate (TOPROL XL) 25 MG extended release tablet Take 25 mg by mouth daily 0 Suspended Comment on above: Take 0.5 tablets by mouth once daily. Take 25 mg by mouth once daily. ofloxacin 3 mg/ml otic solution (1 source) Quinolone Antimicrobial Start: 4 End: 4 ofloxacin (FLOXIN) 0.3 % otic solution Indications: Acute otitis externa of right ear, unspecified type Use 5 Drops in the right ear two times a day for 7 days. 5 mL 0 02/16/2024 02/23/2024 Active omeprazole 40 mg delayed release oral capsule (20 sources) Proton Pump Inhibitor Start: 9 End: 5 take 1 capsule by mouth once daily omeprazole (PRILOSEC) 40 mg capsule Indications: GERD with esophagitis Take 1 capsule by mouth once daily. 90 capsule 3 11/27/2024 Active take 2 capsules by mouth once da neris omeprazole (PRILOSEC) 20 MG delayed release capsule Take 40 mg by mouth daily 0 Suspended Comment on above: Take 1 capsule by mo uth once daily. perflutren lipid microspheres 1.3 mL in NaCl (PF) 0.9% 10 mL injection (DEFINITY) (20 sources) Start: 09-14-2022 End: 12-14-2023 perflutren lipid microspheres 1.3 mL in NaCl (PF) 0.9% 10 mL injection (DEFINITY) Start: 04-09-2021 End: 11-22-2021 perflutren lipid microsphere s 1.3 mL in NaCl (PF) 0.9% 10 mL injection (DEFINITY) 125 ml sodium chloride 9 mg/ ml prefilled syringe (20 sources) Start: 09-14-2022 End: 12-14-2023 sodium chloride 0.9 % (flush ) 10 mL (BD POSIFLUSH) Start: 04-09-2021 End: 11-22-2021 sodium chloride 0.9 % (flush ) 10 mL (BD POSIFLUSH) Start: 09-15-2020 End: 09-15-2020 0.9 % sodium chloride infusi on 30 actuat umeclidinium 0.0625 mg/actuat / vilanterol 0.025 mg/actuat dry powder inhaler (20 sources) Anticholinergic, beta2-Adrenergic Agonist Start: 01-17-2024 take 1 dose by inhalation once daily umeclidinium-vilanterol (ANORO ELLIPTA) 62.5-25 mcg/actuation inhaler Inhale 1 Inhalation as instructed once daily. 60 Each 5 01/17/2024 Active Start: 05-04-2022 End: 11-28-2022 take 1 dose by inhalation once daily umeclidinium-vilanterol (ANORO ELLIPTA) 62.5-25 mcg/actuation inhaler Indications: Chronic obstructive pulmonary disease, unspecified COPD type (HCC) Inhale 1 Inhalation as instructed once daily. 60 Each 5 11/28/2022 Active Start: 11-08-2021 End: 05-02-2022 take 1 dose by inhalation once daily umeclidinium-vilanterol (ANORO ELLIPTA) 62.5-25 mcg/actuation inhaler Indications: Chronic obstructive pulmonary disease, unspecified COPD type (HCC) Inhale 1 Inhalation as instructed once daily. 60 Each 5 11/08/2021 05/02/2022 Discontinued Start: 09-24-2019 End: 03-27-2025 Umeclidinium-Vilanterol 62.5 -25 mcg/actuation blister with device Discontinued 1 NMA INHALATION DAILY September 24, 2019 1:00am March 27, 2025 9:09am Start: 09-24-2019 ANORO ELLIPTA 62.5-25 MCG/INH AEPB one time daily UMECLIDINIUM-VILANTEROL [id number] Benji Avila MD End: 02-07-2024 take 1 puff(s) by inhalation once daily umeclidinium-vilanterol (ANORO ELLIPTA) 62.5-25 mcg/actuation inhaler Inhale 1 Puff as instructed once daily. 02/07/2024 Discontinued Comment on above: Inhale 1 Inhalation as instructed once daily. Inhale 1 Puff as ins tructed once daily. Completed/Discontinued Medications Medication Drug Class(es) Dates Sig (Normalized) Sig (Original) acetaminophen 300 mg / codeine phosphate 30 mg oral tablet (1 source) Opioid Agonist take 1 tablet by mouth every four hours as needed for pain acetaminophen-code ine (TYLENOL/CODEINE #3) 300-30 MG per tablet Take 1 tablet by mouth every 4 hours as needed for Pain. 0 Suspended albuterol 0.833 mg/ml / ipratropium bromide 0.167 mg/ml inhalation solution (20 sources) Anticholinergic, beta2-Adrenergic Agonist Start: 05-22-2023 End: 06-17-2024 take 3 mL by inhalation three times daily ipratropium-albute rol (DUONEB) 0.5 mg-3 mg(2.5 mg base)/3 mL nebu Inhale 3 mL as instructed three times daily. 360 mL 11 05/22/2023 02/07/2024 Discontinued Start: 09-14-2022 End: 03-13-2023 take 3 mL by inhalation three times daily ipratropium-albuterol (DUONEB) 0.5 mg-3 mg(2.5 mg base)/3 mL nebu Inhale 3 mL as instructed three times daily. 270 mL 5 09/14/2022 Active Comment on above: Inhale 3 mL as instr ucted three times daily. aspirin 81 mg delayed release oral tablet (20 sources) Nonsteroidal Anti-inflammatory Drug Start: 07-31-2017 ASPIRIN LOW DOSE 81 MG TBEC one tablet daily ASPIRIN [id number] Benji Avila MD Start: 07-26-2017 take 1 tablet by velasquez th once daily Aspirin 81 MG tablet,chewable Active 81 mg PO DAILY@0800 0 July 26, 2017 1:00am Comment on above: DAILY@0800 Take 81 mg by mouth once daily. atorvastatin 40 mg oral tablet (6 sources) HMG-CoA Reductase Inhibitor Start: 7 End: 9 take 1 tablet by mouth once daily Atorvastatin 40 mg tablet Discontinued 40 mg PO .COMPLEX 90 3 April 04, 2018 9:10am September 18, 2018 1:50pm 40 mg PO ON HOLD d/t myalgias [id number] et-Choln (1 source) Start: 7 End: 9 take 1 mL by mouth once daily P4-K0-F7-B5-B6-Iron- Met-Choln Discontinued 118 ML PO DAILY August 03, 2017 1:00am September 18, 2018 1:51pm N3-J5-B8-T3-V8-Qonr-M et-Choln 354 ML liquid (1 source) Start: 7 End: 9 take 1 mL by mouth once daily Y0-X3-C2-B5-B6-Iron- Met-Choln 354 ML liquid Discontinued 118 mL PO DAILY August 03, 2017 1:00am September 18, 2018 1:51pm benzonatate 100 mg oral capsule (20 sources) Non-narcotic Antitussive Start: 4 End: take 1 capsule by mouth every eight hours as needed benzonatate (TESSALON PERLES) 100 mg capsule Take 1 capsule by mouth three times a day as needed for cough. 30 capsule 06/25/2024 10/08/2024 Discontinued (Course of therapy completed) Start: 11-25-2021 End: 03-21-2022 take 1 capsule by mouth three times daily as needed for cough benzonatate (TESSALON PERLES) 100 mg capsule Indications: COPD with exacerbation (HCC) Take 1 capsule by mouth three times daily as needed for cough. 30 capsule 0 11/25/2021 03/21/2022 Discontinued Comment on above: Take 1 capsule by [facility] three times daily as needed for cough. cephalexin 500 mg oral capsule (20 sources) Cephalosporin Antibacterial Start: 2 take 1 capsule by mouth three times daily cephALEXin (KEFLEX) 500 mg capsule Take one capsule by mouth three times a day for 5 days 0 08/04/2022 Active Start: 03-13-2021 End: 12-02-2021 take 1 capsule by mouth every six hours Cephalexin 500 mg capsule Discontinued 500 mg PO EVERY 6 HOURS 40 0 March 13, 2021 12:00am December 02, 2021 3:58pm Start: 07-26-2017 End: 08-23-2017 take 1 capsule by mouth three times daily Cephalexin 500 MG capsule Discontinued 500 mg PO THREE TIMES A DAY 18 0 July 26, 2017 1:00am August 23, 2017 2:52pm Comment on above: Take one capsule by mouth three times a day for 5 days cholecalciferol 1.25 mg oral capsule (20 sources) Vitamin D Start: 2 End: 4 take 1 capsule by mouth every week cholecalciferol, Vitamin D3, (VITAMIN D3) 1,250 mcg (50,000 unit) cap capsule Indications: Vitamin D deficiency Take 1 capsule by mouth one time a week. 12 capsule 1 10/05/2022 06/26/2024 Discontinued Start: 03-29-2021 take 1 capsule by [facility] every week Cholecalciferol (Vitamin D3) 1,250 mcg (50,000 unit) capsule Active 1250 ug PO EVERY WEEK March 29, 2021 12:00am Start: 08-12-2020 VITAMIN D3 1.2 5 MG (76379 UT) CAPS one capsule weekly CHOLECALCIFEROL [id number] Benji Avila MD Comment on above: Take 1 capsule by [facility] one time a week. clindamycin 300 mg oral capsule (5 sources) Lincosamide Antibacterial Start: 7 take 1 tablet by mouth three times daily CLINDAMYCIN HCL 300 MG CAPS One tablet by mouth three times daily CLINDAMYCIN HCL [id number] Leidy Marx RN Start: 07-26-2017 End: 08-23-2017 take 2 capsules by mouth three times daily Clindamycin Hcl 150 MG capsule Discontinued 300 mg PO THREE TIMES A DAY 36 0 July 26, 2017 1:00am August 23, 2017 2:52pm Start: 07-26-2017 End: 08-23-2017 take 300 mg by mouth three times daily Clindamycin Hcl Discontinued 300 MG PO THREE TIMES A DAY 36 July 26, 2017 1:00am August 23, 2017 2:52pm clopidogrel 75 mg oral tablet (7 sources) P2Y12 Platelet Inhibitor Start: 07-31-2017 End: 08-23-2017 take 1 tablet by mouth once daily Clopidogrel 75 MG tablet Discontinued 75 mg PO DAILY August 03, 2017 1:00am August 23, 2017 2:50pm Start: 07-31-2017 PLAVIX 75 MG T ABS 4 tablets by mouth today then One tablet by mouth daily CLOPIDOGREL BISULFATE [id number] Romulo Flores MD ergocalciferol 1.25 mg oral capsule (2 sources) Provitamin D2 Compound Start: 04-05-2019 End: 03-29-2021 Ergocalciferol (Vitamin D2) 50,000 UNIT capsule Discontinued 13991 U PO SA April 05, 2019 12:00am March 29, 2021 10:01am supplement furosemide 40 mg oral tablet (20 sources) Loop Diuretic Start: 10-17-2022 End: 10-04-2024 take 1 tablet by mouth every four to six hours in the evening Furosemide (Lasix) 40 mg tablet Discontinued 40 mg PO .COMPLEX January 12, 2023 10:34am October 04, 2024 10:56am 40 mg orally in the am and 1 tablets 4 to 6 hours later (pm) Start: 09-29-2020 End: 12-10-2024 take 1 tablet by mouth twice daily Furosemide (Lasix) 40 mg tablet Discontinued 40 mg PO TWICE A DAY 180 October 06, 2021 4:15pm October 17, 2022 5:08pm Start: 08-31-2020 End: 10-08-2020 take 1 tablet by mouth once daily Furosemide 40 mg tablet Discontinued 40 mg PO DAILY 30 September 21, 2020 5:02pm October 08, 2020 11:48am take 1 tablet by velasquez th twice daily furosemide (LASIX) 20 MG tablet Take by mouth 2 times daily Pt unsure of dose 0 Suspended Comment on above: Take 40 mg by mouth twice daily. Take 1 tablet by velasquez twice daily. Take 1 tablet by velasquez two times a day. gabapentin 300 mg oral capsule (20 sources) Anti-epileptic Agent Start: 07-21-2023 End: 02-07-2024 take 1 capsule by mouth three times daily gabapentin (NEURONTIN) 300 mg capsule Indications: neuropathic pain Take 1 capsule by mouth three times a day for 90 days. 90 capsule 2 07/21/2023 02/07/2024 Discontinued (Other) Start: 11-10-2022 take 1 capsule by mo [facility] once daily gabapentin (Neurontin) 300 MG capsule Take 1 capsule by mouth 1 (one) time each day at the same time 0 11/10/2022 Active Comment on above: TAKE 1 CAPSULE BY [facility] ONCE DAILY for up to 30 days Take 1 capsule by mo [facility] three times a day for 90 days. ibuprofen 200 mg oral capsule (20 sources) Nonsteroidal Anti-inflammatory Drug End: Ibuprofen 200 mg cap Take by mouth every 6 hours as needed. 03/05/2024 Discontinued Comment on above: Take by mouth every 6 hours as needed. 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 Cream 02/07/2024 Discontinued End: 02-07-2024 LIDOCAINE-PRILOCAINE TOPICAL Apply to affected area. Cream 0 02/07/2024 Discontinued LIDOCAINE-PRILOC MILI TOPICAL Apply to affected area. Cream 0 Active Comment on above: Apply DIRECTED TO THE AFFECTED AREA(S) NEEDED Apply to affected ar ea. Cream magnesium oxide 400 mg oral tablet (20 sources) Start: 4 End: 4 take 1 tablet by mouth once daily magnesium oxide (MAG-OX) 400 mg (241.3 mg magnesium) tablet Take 1 tablet by mouth once daily. 30 tablet 03/05/2024 06/25/2024 Discontinued (Course of therapy completed) meclizine hydrochloride 25 mg oral tablet (17 sources) Antiemetic Start: 9 End: 2 take 1 tablet by mouth every twelve hours as needed meclizine (ANTIVERT) 25 mg tab Take 25 mg by mouth twice daily as needed. 0 09/02/2019 07/21/2022 Discontinued (Other) Start: 09-02-2019 meclizine (ANT IVERT) 25 mg tab Take by mouth. 0 09/02/2019 Active Start: 09-02-2019 End: 03-27-2025 take 1 tablet by mouth once daily as needed Meclizine 25 MG tablet Discontinued 25 mg PO DAILY as needed for Vertigo September 02, 2019 1:00am March 27, 2025 9:09am Comment on above: Take by mouth. Take 25 mg by mouth twice daily as needed. METHYLPREDNISOLONE (1 source) Corticosteroid Start: 2019 End: 2019 METHYLPREDNISOLONE 4 MG TBPK Use as directed on package METHYLPREDNISOLONE [id number] Benji Avila MD naproxen sodium 220 mg oral tablet (3 sources) Nonsteroidal Anti-inflammatory Drug Start: 2018 End: 2020 take 2 tablets by mouth every eight hours as needed for pain Naproxen Sodium 220 MG tablet Discontinued 440 mg PO EVERY 8 HOURS NEEDED as needed for Pain Or Fever September 02, 2019 1:00am September 29, 2020 11:12am Start: 09-02-2019 End: 09-29-2020 take 440 mg by mouth every eight hours as needed Naproxen Sodium Discontinued 440 MG PO EVERY 8 HOURS NEEDED September 02, 2019 1:00am September 29, 2020 11:12am Naproxen Sodium (ALEVE) 220 MG CAPS Take by mouth 0 Suspended 10 actuat olodaterol 0.0025 mg/actuat / tiotropium 0.0025 mg/actuat inhalation spray (19 sources) Anticholinergic, beta2-Adrenergic Agonist Start: 09-07-2023 End: 02-07-2024 tiotropium-olodaterol (STIOLTO RESPIMAT) 2.5-2.5 mcg/actuation Inhale 2 Puffs as instructed once daily. 4 g 5 09/07/2023 02/07/2024 Discontinued Comment on above: Inhale 2 Puffs as instructed once daily. [place]-3 Fatty Acids (1 source) Start: 04-19-2019 End: 09-29-2020 take 1200 mg by mouth once daily [place]-3 Fatty Acids Discontinued 1200 MG PO DAILY April 19, 2019 12:00am September 29, 2020 11:09am [place]-3 Fatty Acids 1,000 MG capsule (1 source) Start: 04-19-2019 End: 09-29-2020 take 1 capsule by mouth once daily [place]-3 Fatty Acids 1,000 MG capsule Discontinued 1200 mg PO DAILY April 19, 2019 12:00am September 29, 2020 11:09am potassium chloride 20 meq extended release oral tablet (20 sources) Start: 03-11-2024 End: 12-31-2024 take 1 tablet by mouth once potassium chloride 20 mEq TbER Take 1 tablet by mouth every afternoon. 05/30/2024 12/31/2024 Discontinued (Other) Start: 03-05-2024 End: 04-04-2024 take 1 tablet by mouth once daily potassium chloride ER (KLOR-CON) 20 mEq tablet Take 1 tablet by mouth once daily. 30 tablet 03/05/2024 04/04/2024 Start: 01-18-2023 End: 02-13-2024 take 1 tablet by mouth once daily potassium chloride (K-TAB) 10 mEq tablet Take 1 tablet by mouth once daily. 30 tablet 2 11/15/2023 02/13/2024 Comment on above: Take 10 mEq by mouth once daily. Take 1 tablet by velasquez th once daily. 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 FOR NAUSEA 30 tablet 2 04/22/2021 03/03/2022 Discontinued Comment on above: Take 1 tablet by vleasquez th every 6 hours as needed. FOR NAUSEA RED YEAST RICE ORAL (20 sources) End: 07-04-20 RED YEAST RICE ORAL Take by mouth once daily. 07/04/2022 Discontinued End: 07-04-2022 RED YEAST RICE ORAL Take by mouth once daily. 0 07/04/2022 Discontinued RED YEAST RICE O RAL Take by mouth once daily. 0 Active Comment on above: Take by mouth once d aily. traMADol hydrochloride 50 mg oral tablet (1 source) Opioid Agonist Start: 0 End: 0 take 1 tablet by mouth every four to six hours as needed TRAMADOL HCL 50 MG TABS Take 1 tablet by mouth every 4-6 hours as needed TRAMADOL HCL [id number] Benji Avila MD ubidecarenone (COQ-10 ORAL) (20 sources) End: 4 take 1 tablet by mouth once daily ubidecarenone (COQ-10 ORAL) Take 1 tablet by mouth once daily. 03/06/2024 Discontinued (Other) End: 03-06-2024 take 1 tablet by mouth once daily ubidecarenone (COQ-10 ORAL) Take 1 tablet by mouth once daily. 0 03/06/2024 Discontinued (Other) take 1 tablet by velasquez th once daily ubidecarenone (COQ-10 ORAL) Take 1 tablet by mouth once daily. 0 Active ubidecarenone (C OQ-10 ORAL) Take by mouth once daily. 0 Active Comment on above: Take by mouth once d aily. Take 1 tablet by velasquez th once daily. Vitamin B Complex (20 sources) End: 03-02-2024 take 1 tablet by mouth every week vitamin B complex (SUPER B [id number] ORAL) Take 1 tablet by mouth one time a week. 03/02/2024 Discontinued (Discontinued by Patient) take 1 tablet by mouth every wee k vitamin B complex (SUPER B [id number] ORAL) Take 1 tablet by mouth one time a week. 0 Active take 1 tablet by mouth once poppy y vitamin B complex (SUPER B [id number] ORAL) Take 1 tablet by mouth once daily. 0 Active vitamin B comple x (SUPER B [id number] ORAL) Take by mouth once daily. 0 Active Comment on above: Take by mouth once d aily. Take 1 tablet by velasquez th once daily. vitamin b12 1 mg oral capsule (2 sources) Vitamin B12 Start: 09-02-2019 End: 03-29-2021 take 1 capsule by mouth once daily Cyanocobalamin (Vitamin B-12) 1,000 MCG capsule Discontinued 1000 ug PO DAILY September 02, 2019 1:00am March 29, 2021 10:00am vitamin d 1000 unt oral tablet (3 sources) Start: 07-31-2017 take 1 tablet by mouth once daily VITAMIN D 1000 UNIT TABS One tablet by mouth daily CHOLECALCIFEROL [id number] Leidy Marx RN Problems Active Problems Problem Classification Problem Date Documented Date Episodic/Chronic Abdominal pain (2 sources) Right inguinal pain; Translations: [Right lower quadrant pain] Episodic Aortic and peripheral arterial embolism or thrombosis (2 sources) Thrombosis of left popliteal artery; Translations: [Embolism and thrombosis of arteries of the lower extremities] Onset: 10-21-2019 04-08-2020 Chronic Aortic; peripheral; and visceral artery aneurysms (1 source) Aneurysm of popliteal artery; Translations: [Aneurysm of artery of lower extremity] 10-10-2023 Chronic Chronic obstructive pulmonary disease and bronchiectasis (20 sources) Acute exacerbation of chronic obstructive airways disease; Translations: [Chronic obstructive pulmonary disease with (acute) exacerbation] Onset: 01-16-2019 Resolved: 01-19-2022 Chronic Congestive heart failure; nonhypertensive (20 sources) Chronic diastolic heart failure; Translations: [Chronic diastolic (congestive) heart failure] Onset: 03-03-2024 Resolved: 12-31-2024 03-03-2024 Chronic Coronary atherosclerosis and other heart disease (20 sources) Coronary atherosclerosis; Translations: [Atherosclerotic heart disease of [place] coronary artery with other forms of angina pectoris] Onset: 07-23-2017 Chronic Deficiency and other anemia (1 source) Anemia; Translations: [Anemia, unspecified] 03-14-2024 Episodic Disorders of lipid metabolism (20 sources) Hyperlipidemia; Translations: [Hyperlipidemia, unspecified] Onset: 07-31-2017 07-31-2017 Chronic Epilepsy; convulsions (20 sources) Seizure disorder; Translations: [Epilepsy, unspecified, not intractable, without status epilepticus] Onset: 12-22-2018 11-22-2021 Chronic Epilepsy; convulsions (3 sources) Seizure; Translations: [Unspecified convulsions] 10-04-2023 Episodic Esophageal disorders (20 sources) Gastroesophageal reflux disease; Translations: [Gastro-esophageal reflux disease without esophagitis] Onset: 03-09-2018 Resolved: 02-11-2019 11-22-2021 Chronic Essential hypertension (20 sources) Hypertensive disorder; Translations: [Essential hypertension] Onset: 07-31-2017 07-31-2017 Chronic Fever of unknown origin (2 sources) Fever; Translations: [Fever, unspecified] 06-04-2021 Episodic Genitourinary congenital anomalies (20 sources) Multiple renal cysts; Translations: [Congenital multiple renal cysts] Onset: 01-17-2022 Chronic Immunizations and screening for infectious disease (2 sources) Vaccination needed; Translations: [Encounter for immunization] Onset: 12-31-2024 12-31-2024 Episodic Lymphadenitis (2 sources) Inguinal lymphadenopathy; Translations: [Localized enlarged lymph nodes] 03-04-2022 Episodic Non-Hodgkin`s lymphoma (20 sources) Diffuse non-Hodgkin's lymphoma, large cell (clinical); Translations: [Diffuse large B-cell lymphoma, lymph nodes of inguinal region and lower limb] Onset: 04-14-2021 11-22-2021 Chronic Nutritional deficiencies (5 sources) Vitamin D deficiency; Translations: [Vitamin D deficiency, unspecified] Onset: 06-25-2024 Chronic Occlusion or stenosis of precerebral arteries (5 sources) Bilateral stenosis of carotid arteries; Translations: [Occlusion and stenosis of bilateral carotid arteries] Onset: 12-24-2024 11-28-2023 Chronic Other acquired deformities (1 source) Scoliosis, unspecified; Translations: [Scoliosis, unspecified] Onset: 05-25-2023 Chronic Other aftercare (1 source) Encounter for therapeutic drug level monitoring; Translations: [Medication monitoring encounter] Onset: 12-31-2024 Episodic Other circulatory disease (1 source) Bruit; Translations: [Other specified symptoms and signs involving the circulatory and respiratory systems] 10-10-2023 Episodic Other congenital anomalies (4 sources) Diaphragmatic eventration; 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] Chronic Other connective tissue disease (20 sources) Cramp in lower limb; Translations: [Sleep related leg cramps] 2012 Chronic Other connective tissue disease (20 sources) Ganglion cyst; Translations: [Ganglion, unspecified site] 03-09-2018 Episodic Other connective tissue disease (1 source) Swelling of lower limb; Translations: [Other specified soft tissue disorders] Episodic Other ear and sense organ disorders (1 source) Acute otitis externa of right ear; Translations: [Unspecified acute noninfective otitis externa, right ear] 02-16-2024 Episodic Other endocrine disorders (1 source) Disorder of adrenal gland; Translations: [Disorder of adrenal gland, unspecified] Chronic Other endocrine disorders (3 sources) Adrenal hyperplasia; Translations: [Other specified disorders of adrenal gland] Chronic Other hematologic conditions (12 sources) Raised cardiac enzyme or marker; Translations: [Other specified abnormalities of plasma proteins] Onset: 11-22-2021 Episodic Other inflammatory condition of skin (20 sources) Psoriasis; Translations: [Other psoriasis] 2012 Chronic Other lower respiratory disease (8 sources) Dyspnea on exertion; Translations: [Dyspnea] Onset: 01-29-2013 07-31-2017 Episodic Other lower respiratory disease (20 sources) Snoring; Translations: [Snoring] 02-11-2019 Episodic Other lower respiratory disease (2 sources) Elevated diaphragm; Translations: [Disorders of diaphragm] Episodic Other lower respiratory disease (3 sources) Multiple nodules of lung; Translations: [Other nonspecific abnormal finding of lung field] Episodic Other lower respiratory disease (1 source) Dyspnea; Translations: [Shortness of breath] Episodic Other lower respiratory disease (3 sources) Cough; Translations: [Cough] 11-17-2021 Episodic Other lower respiratory disease (2 sources) Abnormal breath sounds; Translations: [Other abnormalities of breathing] 06-25-2024 Episodic Other lower respiratory disease (2 sources) Other forms of dyspnea; Translations: [Other forms of dyspnea] Onset: 03-27-2025 Episodic Other lower respiratory disease (2 sources) Dyspnea, unspecified; Translations: [Dyspnea, unspecified type] Onset: 03-27-2025 Episodic Other nervous system disorders (3 sources) Chronic pain syndrome; Translations: [Chronic pain syndrome] Chronic Other nervous system disorders (1 source) Chronic pain syndrome; Translations: [Chronic pain syndrome] Onset: 07-04-2022 Chronic Other non-traumatic joint disorders (1 source) Pain in right shoulder; Translations: [Pain in joint, shoulder region] 11-17-2021 Episodic Peripheral and visceral atherosclerosis (20 sources) Peripheral vascular disease, unspecified; Translations: [Peripheral vascular disease, unspecified] Onset: 03-02-2024 11-22-2021 Chronic Residual codes; unclassified (2 sources) Edema; Translations: [Edema, unspecified] 03-04-2022 Episodic Screening and history of mental health and substance abuse codes (5 sources) Ex-smoker; Translations: [Personal history of nicotine dependence] Episodic Skin and subcutaneous tissue infections (5 sources) Cellulitis of lower limb; Translations: [Cellulitis of right lower limb] Onset: 07-31-2017 07-31-2017 Episodic Spondylosis; intervertebral disc disorders; other back problems (20 sources) Other intervertebral disc degeneration, lumbar region; Translations: [Spondylosis without myelopathy or radiculopathy, lumbar region] Onset: 05-25-2023 Chronic Unclassified (20 sources) Cardiovascular stress test abnormal; Translations: [CT of abdomen abnormal] Onset: 01-29-2013 Resolved: 06-25-2024 07-31-2017 Episodic Unclassified (1 source) New Patient Onset: 10-29-2024 Unclassified (1 source) PAD (peripheral artery disease) 02-04-2025 Unclassified (1 source) Degeneration of intervertebral disc of lumbar region, unspecified whether pain present; Translations: [Degeneration of intervertebral disc of lumbar region, unspecified whether pain present] Onset: 03-02-2024 Unclassified (1 source) Cough, unspecified type; Translations: [Cough, unspecified type] Onset: 06-25-2024 Past or Other Problems Problem Classification Problem Date Documented Da te Episodic/Chronic Coagulation and hemorrhagic disorders (20 sources) Platelet count below reference range; Translations: [Thrombocytopenia, unspecified] Onset: 3 Resolved: 4 01-18-2023 Chronic Conditions associated with dizziness or vertigo (20 sources) Vertigo; Translations: [Dizziness and giddiness] Resolved: 2 02-11-2019 Episodic Deficiency and other anemia (1 source) Anemia, unspecified; Translations: [Anemia, unspecified type] Onset: 4 Episodic Fluid and electrolyte disorders (20 sources) Hypokalemia; Translations: [Hypokalemia] Onset: 4 03-04-2024 Episodic Gastrointestinal hemorrhage (20 sources) Gastrointestinal hemorrhage; Translations: [Hemorrhage of anus and rectum] Onset: 8 Resolved: 8 03-09-2018 Episodic Malaise and fatigue (20 sources) Asthenia; Translations: [Other malaise] Onset: 4 Resolved: 4 03-03-2024 Episodic Nonspecific chest pain (20 sources) Chest pain; Translations: [Chest pain, unspecified] Onset: 2 Resolved: 2 11-22-2021 Episodic Other aftercare (20 sources) Patient encounter status; Translations: [Encounter for adjustment and management of vascular access device] Onset: 8 Resolved: 1 04-21-2021 Episodic Other gastrointestinal disorders (20 sources) Occult blood in stools; Translations: [Other fecal abnormalities] Onset: 8 Resolved: 8 03-09-2018 Episodic Other hematologic conditions (3 sources) High troponin I level; Translations: [Other specified abnormal findings of blood chemistry] Onset: 7 07-31-2017 Episodic Other lower respiratory disease (20 sources) Nodule of lung; Translations: [Solitary pulmonary nodule] Onset: 7 08-14-2017 Episodic Other lower respiratory disease (1 source) Other abnormalities of breathing; Translations: [Abnormal breath sounds] Onset: 4 Episodic Other male genital disorders (20 sources) Phimosis; Translations: [Phimosis] Onset: 9 02-11-2019 Episodic Other nervous system disorders (20 sources) Disorder of brain; Translations: [Encephalopathy, unspecified] Onset: 9 Resolved: 9 02-11-2019 Chronic Other nutritional; endocrine; and metabolic disorders (20 sources) Obese class I; Translations: [Obesity, unspecified] Onset: 9 Resolved: 4 12-24-2018 Chronic Pneumonia (except that caused by tuberculosis or sexually transmitted disease) (20 sources) Pneumonia; Translations: [Pneumonia, unspecified organism] Onset: 4 Resolved: 4 03-03-2024 Episodic Residual codes; unclassified (20 sources) History of clinical finding in subject; Translations: [Personal history of other specified conditions] Resolved: 2 03-21-2019 Episodic Residual codes; unclassified (20 sources) Personal history of other specified conditions; Translations: [Personal history of other specified diseases] Resolved: 2 07-21-2022 Episodic Respiratory failure; insufficiency; arrest (adult) (20 sources) Acute respiratory failure; Translations: [Acute respiratory failure with hypoxia] Onset: 4 Resolved: 4 03-03-2024 Episodic Septicemia (except in labor) (20 sources) Sepsis; Translations: [Sepsis, unspecified organism] Onset: 4 Resolved: 4 03-05-2024 Episodic Spondylosis; intervertebral disc disorders; other back problems (20 sources) Low back pain; Translations: [Spinal stenosis of lumbar region] Onset: 0 08-12-2020 Episodic Substance-related disorders (20 sources) Tobacco user; Translations: [Nicotine dependence, unspecified, uncomplicated] Onset: 9 Resolved: 9 11-29-2017 Chronic Unclassified (1 source) Problem Results Test Name Value Interpretation Reference Range Facility CBC W Auto Differential pane l (Bld)on 03-27-2025 Basophils (Bld) [#/Vol] 0.04 10*3/uL Normal <0.11 [facility] Comment on above: Order Comment: Speci men Type: BLOOD SPECIMEN Ordering Facility: [facility] Address: [address] [place] [address] Performed By: #### [id number] #### [facility] CLIA [id number] [address] [place] [address] [place] Basophils/100 WBC (Bld) 0.9 % Normal [facility] Comment on above: Order Comment: Speci men Type: BLOOD SPECIMEN Ordering Facility: [facility] Address: [address] [place] [id number] Performed By: #### 5 7021-8 #### [facility] CLIA [id number] [address] [place] [address] [place] Differential cell count method Nom (Bld) Auto Normal [facility] Comment on above: Order Comment: Speci men Type: BLOOD SPECIMEN Ordering Facility: [facility] Address: [address] [place],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 [Mass/Vol] 14.4 g/dL Normal 13.0-16.5 [facility] Comment on above: Performed By: #### L 503.6620, L500.2500, L100.0100 #### [facility] [address] [place], [address] IG% 0.200 Normal 0.0-0.9 [facility] Comment on above: Result Comment: IG% - Immature Granulocytes (promyelocytes, myelocytes and metamyelocytes) > 1% indicates that a LEFT SHIFT is Present. Performed By: #### L 503.6620, L500.2500, L100.0100 #### [facility] [address] [place], [address] Lymphocytes/100 WBC (Bld) 11.2 % Low 19-41 [facility] Comment on above: Performed By: #### L 503.6620, L500.2500, L100.0100 #### [facility] [address] [place], [address] MCH (RBC) [Entitic mass] 32.1 pg High 27.0-32.0 [facility] Comment on above: Performed By: #### L 503.6620, L500.2500, L100.0100 #### [facility] [address] [place], [address] MCHC (RBC) [Mass/Vol] 35.7 g/dL Normal 32-36 [facility] Comment on above: Performed By: #### L 503.6620, L500.2500, L100.0100 #### [facility] [address] [place], [address] MCV (RBC) [Entitic vol] 89.8 fL Normal 80-94 [facility] Comment on above: Performed By: #### L 503.6620, L500.2500, L100.0100 #### [facility] [address] [place], [address] Monocytes/100 WBC (Bld) 8.6 % Normal 0-10 [facility] Comment on above: Performed By: #### L 503.6620, L500.2500, L100.0100 #### [facility] [address] [place], [address] Neutrophils/100 WBC (Bld) 74.3 % High 47-70 [facility] Comment on above: Performed By: #### L 503.6620, L500.2500, L100.0100 #### [facility] [address] [place], [address] Nucleated RBC (Bld) [#/Vol] 0 10*3/uL Normal 0-5 [facility] Comment on above: Performed By: #### L 503.6620, L500.2500, L100.0100 #### [facility] [address] [place], [address] Platelet mean volume (Bld) [Entitic vol] 8.4 fL Normal 6.2-12.0 [facility] Comment on above: Performed By: #### L 503.6620, L500.2500, L100.0100 #### [facility] [address] [place], [address] Platelets (Bld) [#/Vol] 159 10*3/uL Normal 150-450 [facility] Comment on above: Performed By: #### L 503.6620, L500.2500, L100.0100 #### [facility] [address] [place], [address] RBC (Bld) [#/Vol] 4.49 10*6/uL Low 4.6-6.2 [facility] Comment on above: Performed By: #### L 503.6620, L500.2500, L100.0100 #### [facility] [address] [place], [address] RDW SD 40.0 fl Normal 35.1-43.9 [facility] Comment on above: Performed By: #### L 503.6620, L500.2500, L100.0100 #### [facility] [address] [place], [address] WBC (Bld) [#/Vol] 4.2 10*3/uL Low 4.4-11.0 [facility] Comment on above: Performed By: #### L 503.6620, L500.2500, L100.0100 #### [facility] [address] [place], [address] Cardiology Visit Reporton Cardiology Visit Report [facility] [address] [place] [address] OFFICE VISIT Date of Service: 10/04/24 MR#: [id number] Acct: [id number] Name: ANN MARIE ELAM Sr. Rep #: [id number] : 1945 Provider: EDUARD carrasco Age/Sex: 79/M Location: [facility] Status: Signed HPI HPI History of Present Illness Details: This is a 79-year-old gentleman who presents here today for a cardiovascular hospital follow-up. He has a history of coronary artery disease. He underwent a heart catheterization August 2017 which demonstrated diffuse medical disease that was not amenable through angioplasty. He then underwent a CT which demonstrated coronary arthrosclerosis which prompted him to come back for further evaluation. He did undergo a diagnostic heart catheterization which demonstrated an occluded OM 2, mid circumflex artery and proximally occluded RCA with eerc-cj-jwijn collaterals this was unchanged from 2016. Repeat heart cath in 2019 was similar. He had a stress test in 2021, this was negative. Patient had presented to the emergency room at [facility] on 03/02/2024, and was febrile, tachycardic, normotensive, and increased respiratory rate. He was noted to have pneumonia. During his hospitalization, his troponins were noted to be elevated, this was thought to be due to his pneumonia. He denies chest, arm, jaw, or neck discomfort. He denies palpitations. He denies bilateral lower extremity edema. He denies claudication. He states nightly he notes shortnes of breath when lying flat. This improves with sitting up. He then lies down again without issues. This has been ongoing for six months. He states chronic shortness of breath with activity. He denies shortness of breath at rest, orthopnea, or PND. He denies chronic cough. He denies significant, sudden weight gain. He denies lightheadedness, dizziness, near-syncope, or syncope. He denies blood in urine, blood in stool, or epistaxis. He denies fever with chills. He denies myalgia. He denies fatigue. His exercise level has remained stable. 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 Is patient in pain?: No Allergies bacitracin (From Neosporin (ztm-zlz-htxaz)) Allergy (Unknown, Verified 10/04/24 09:33) Dermatitis/rash neomycin (From Neosporin (gdj-mtk-exphk)) Allergy (Unknown, Verified 10/04/24 09:33) Dermatitis/rash polymyxin B (From Neosporin (und-gmg-ngeae)) Allergy (Unknown, Verified 10/04/24 09:33) Dermatitis/rash Brdmyvl-GXP-XtD Reductase Inhibitor (Hkdtpuy-Fgt-Agv Reductase Inhibitor) Adverse Reaction (Verified 10/04/24 09:33) myalgias, fatigue Medications ???Medication ???Instructions ???Recorded ???Confirmed ???Type aspirin 81 mg chewable tablet 81 mg PO DAILY@0800 07/26/1710/04 Rx omeprazole 40 mg capsule,delayed 40 mg PO DAILY GERD 04/05/1910/04 History release levetiracetam 1,000 mg tablet 1,000 mg PO BID #120 tabs 04/19/19 10/04/24 Rx meclizine 25 mg tablet 25 mg PO DAILY PRN Vertigo 9 10/04/24 History umeclidinium 62.5 mcg-vilanterol 1 inh inhalation DAILY 09/24/19 History 25 mcg/actuation powdr for inhalation albuterol sulfate 90 mcg/actuation 2 inh inhalation Q6H PRN Shortne ss 04/09/20 10/04/24 History aerosol inhaler Of Breath levetiracetam 250 mg tablet 250 mg PO BID 04/09/20 10/04/24 Hi story cholecalciferol (vitamin D3) 1,250 1,250 mcg PO QWEEK 03/29/2109/06 History mcg (50,000 unit) capsule ezetimibe 10 mg tablet (Zetia) 10 mg PO DAILY 03/11/24 10/04/24 H istory metoprolol succinate 25 mg 50 mg PO DAILY 03/11/24 10/04/24 H istory tablet,extended release 24 hr lisinopril 10 mg tablet 10 mg PO DAILY #90 tabs 05/30/24 0 10/04/24 Rx furosemide 40 mg tablet (Lasix) 40 mg PO BID 10/04/24 10/04/24 His tory Have you fallen in the past year?: No [facility] Medical History Neuropathy Lymphoma Lymphadenopathy, inguinal 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 Normal [facility] CNCONon 09-19-2024 CNCON Consults (NE50MN) -- ANN MARIE ELAM SR ([id number]) 1945 M [facility] Date Time Provider Department 09/19/24 SHELLI GONZALEZ NE50MN During your visit today, we recorded the following information about you: Shital Díaz APRN.TRANSCRIPTIONIST 09/19/2024 5:17 PM Signed [facility] Review of Records Patient: Ann Marie Elam SR Address: [address] [place] [address] Impression: Review of records for Ann Marie Elam SR, a 79 year old male, being referred by Self to Any Epileptologist for further evaluation and treatment/transfer of care. Patient has previously diagnosed seizures. EEG from 2019 reported as normal. The BEM done in 2019 reported diffuse encephalopathy but no epileptiform activity. MRI from 2019 reported no acute findings. Patient has trialed 1 AED. As he is reporting no episodes over the last 2 years, would start with a long EEG and consultation with an Epileptologist for transfer of care. 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 [place] [address] Bedside EEG ([facility], 12/21/2018-12/22/2018): Continuous video-EEG monitoring was reviewed from 023 until 430 on 12/21/18 and shows evidence for a moderate diffuse encephalopathy. No epileptiform discharges or EEG seizures were recorded. Continuous video-EEG monitoring was reviewed from 430 on 12/22/18 to 12/22/2018 and shows evidence for a mild diffuse encephalopathy. No epileptiform discharges or EEG seizures were recorded EEG ([facility], 04/19/2019): This is a normal awake and asleep EEG. There are no epileptiform discharges or electrographic seizures noted during this record. MRI brain wo/w contrast ([facility], 04/19/2019): Mild cerebral atrophy with widening of the extra-axial spaces and ventricular dilatation. There are a limited number of small white matter hyperintensities, distributed throughout the deep white mater tracts of the cerebral hemispheres, consistent with mild chronic white maker changes. [place] Recommendations: - Long EEG, consultation with an Epileptologist. - Additional testing to be considered by epilepsy clinicians Signed: Shital Díaz APRN.TRANSCRIPTIONIST September 19, [address] Gonzalez for review and recommendations. MD Recommendations (as discussed with Dr. Gonzalez): - Please proceed with the above plan. Allergies As of Date: 09/19/2024 Noted Allergy Reaction LIPITOR (ATORVASTATIN CALCIUM) 05/13/2018 17 - Myalgia NEOSPORIN ([id number]* 14 - Other: See Comments Comments: Skin reaction Date Reviewed: 07/16/2024 Reviewed by: Edgardo Arreola MA - Fully Assessed Primary Visit Diagnosis:Seizure disorder (HCC) [G40.909] Order(s):EPIL EEG LONG [[id number]] Order #: [id number]: 1 Prescriptions as of 09/19/2024 - metoprolol succinate ER (TOPROL XL) 25 mg 24 hr tablet Take 1 tablet by mouth once daily. - ezetimibe (ZETIA) 10 mg tablet Take 1 tablet by mouth once daily. - mecobalamin (B12 ACTIVE ORAL) Take 1 tablet by mouth once daily. - potassium chloride 20 mEq TbER Take 1 tablet by mouth every afternoon. - benzonatate (TESSALON PERLES) 100 mg capsule Take 1 capsule by mouth three times a day as needed for cough. - furosemide (LASIX) 40 mg tablet Take 1 tablet by mouth two times a day. - umeclidinium-vilanterol (ANORO ELLIPTA) 62.5-25 mcg/actuation inhaler Inhale 1 Inhalation as instructed once daily. - VENTOLIN HFA 90 mcg/actuation inhaler Inhale 2 Puffs as instructed every 4 hours as needed for wheezing/shortness of breath. - omeprazole (PRILOSEC) 40 mg capsule Take 1 capsule by mouth once daily. - aspirin 81 mg chewable tablet Take 81 mg by mouth once daily. - acetaminophen (TYLENOL EXTRA STRENGTH) 500 mg tablet Take 1,000 mg by mouth every 8 hours as needed. - lisinopril (ZESTRIL, PRINIVIL) 10 mg tablet Take 10 mg by mouth once daily. - levETIRAcetam (KEPPRA) 250 mg tablet Take 1 tablet by mouth twice daily. - levETIRAcetam (KEPPRA) 1,000 mg tablet Take 1,000 mg by mouth twice daily. Problem List As Of Date 09/19/2024 Noted Resolved Ganglion [M67 (more content not included)... [facility] ANN MARIE ELAM SR ([id number]) 1945 M [facility] Date Time Provider Department 09/19/24 KEERTHI HAZEL [facility] During your visit today, we recorded the following information about you: Elle Malik RN 09/19/2024 10:39 AM Signed Patient's calls and states that patient's current neurologist Dr. Harrington in [facility] is retiring and patient is now having to find a different neurologist. Patient is looking to find a neurologist within the [facility]. asking if PCP can place referral so that patient can schedule an appointment with a new neurologist? Please review and advise, GREG Barraza William J, MD 09/19/2024 11:19 AM Signed placed Kika Browning MA 09/19/2024 11:39 AM Signed Call to pt's and notified her that referral has been placed. Did notify her that Dr. Hanson is in [place] and she can check with Scheduling what other Neurologists are available and locations of their choosing. Verbalized understanding. Transferred to corporate scheduler. Kika Browning MA Allergies As of Date: 09/19/2024 Noted Allergy Reaction LIPITOR (ATORVASTATIN CALCIUM) 05/13/2018 17 - Myalgia NEOSPORIN ([id number]* 14 - Other: See Comments Comments: Skin reaction Date Reviewed: 07/16/2024 Reviewed by: Edgardo Arreola MA - Fully Assessed Reason for Visit: Referral Request [124] Primary Visit Diagnosis:Seizure disorder (HCC) [G40.909] Order(s):CONSULT TO NEUROLOGY [9019] Order #: [id number]: 1 FUTURE Prescriptions as of 09/19/2024 - metoprolol succinate ER (TOPROL XL) 25 mg 24 hr tablet Take 1 tablet by mouth once daily. - ezetimibe (ZETIA) 10 mg tablet Take 1 tablet by mouth once daily. - mecobalamin (B12 ACTIVE ORAL) Take 1 tablet by mouth once daily. - potassium chloride 20 mEq TbER Take 1 tablet by mouth every afternoon. - benzonatate (TESSALON PERLES) 100 mg capsule Take 1 capsule by mouth three times a day as needed for cough. - furosemide (LASIX) 40 mg tablet Take 1 tablet by mouth two times a day. - umeclidinium-vilanterol (ANORO ELLIPTA) 62.5-25 mcg/actuation inhaler Inhale 1 Inhalation as instructed once daily. - VENTOLIN HFA 90 mcg/actuation inhaler Inhale 2 Puffs as instructed every 4 hours as needed for wheezing/shortness of breath. - omeprazole (PRILOSEC) 40 mg capsule Take 1 capsule by mouth once daily. - aspirin 81 mg chewable tablet Take 81 mg by mouth once daily. - acetaminophen (TYLENOL EXTRA STRENGTH) 500 mg tablet Take 1,000 mg by mouth every 8 hours as needed. - lisinopril (ZESTRIL, PRINIVIL) 10 mg tablet Take 10 mg by mouth once daily. - levETIRAcetam (KEPPRA) 250 mg tablet Take 1 tablet by mouth twice daily. - levETIRAcetam (KEPPRA) 1,000 mg tablet Take 1,000 mg by mouth twice daily. Problem List As Of Date 09/19/2024 Noted Resolved Ganglion [M67.40] Sleep related leg cramps [G47.62] Tobacco use disorder [F17.200] 11/29/2017 Other psoriasis [L40.8] Lung nodule [R91.1] 08/14/2017 Coronary artery disease involving [place]*08/14/2017 Bright red blood per rectum [K62.5] 09/18/2017 03/09/2018 Positive occult stool blood test [R19.5] 09/18/2017 03/09/2018 Vascular catheter fitting or adjustment [Z45.2] 09/18/2017 04/21/2021 Gimenez's esophagus without dysplasia [K22.70] 03/09/2018 02/11/2019 Acute encephalopathy [G93.40] 12/21/2018 02/11/2019 Seizure disorder (HCC) [G40.909] 12/22/2018 Nicotine use disorder, F17.2 [F17.200] 12/24/2018 02/11/2019 Obesity, Class I, BMI 30-34.9 [E66.811] 12/24/2018 06/25/2024 Chronic obstructive pulmonary disease (HCC) [J4*01/16/2019 Phimosis [N47.1] 02/11/2019 Essential hypertension [I10] History of seizure [Z87.898] 07/21/2022 Mixed hyperlipidemia [E78.2] Snoring [R06.83] GERD (gastroesophageal reflux disease) [K21.9] Vertigo [R42] 07/21/2022 PAD (peripheral artery disease) (HCC) [I73.9] 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 Chest pain [R07.9] 11/22/2021 01/19/2022 Elevated troponin [R79.89] 11/22/2021 01/19/2022 Multiple renal cysts [Q61.02] 01/17/2022 Spinal stenosis, lumbar region with neurogenic *07/04/2022 Platelets decreased (HCC) [D69.6] 01/18/2023 03/06/2024 DDD (degenerative disc disease), lumbar [M51.36*08/01/2023 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 Normal [facility] CBC W Auto Differential pane l (Bld)on 07-16-2024 Basophils (Bld) [#/Vol] 0.03 10*3/uL Normal <0.11 [facility] Comment on above: Order Comment: Speci men Type: BLOOD SPECIMENOrdering Facility: [facility] Address: [address] [place] [address] Performed By: #### 5 7021-8 ####[facility] [id number] [place] [address] [place] Basophils/100 WBC (Bld) 0.5 % Normal [facility] Comment on above: Order Comment: Speci men Type: BLOOD SPECIMENOrdering Facility: [facility] Address: [address] [place] [address] Performed By: #### 5 7021-8 ####[facility] [id number] [place] [address] [place] Differential cell count method Nom (Bld) Auto Normal [facility] Comment on above: Order Comment: Speci men Type: BLOOD SPECIMENOrdering Facility: [facility] Address: [address] [place] [address] Performed By: #### 5 7021-8 ####[facility] FARAZ [id number] [place] [address] [place] Eosinophils (Bld) [#/Vol] 0.15 10*3/uL Normal <0.46 [facility] Comment on above: Order Comment: Speci men Type: BLOOD SPECIMENOrdering Facility: [facility] Address: [address] [place] [address] Performed By: #### 5 7021-8 ####[facility] [id number] [place] [address] [place] Eosinophils/100 WBC (Bld) 2.4 % Normal [facility] Comment on above: Order Comment: Speci men Type: BLOOD SPECIMENOrdering Facility: [facility] Address: [address] [place] [address] Performed By: #### 5 7021-8 ####[facility] [id number] [place] [address] [place] Erythrocyte distribution width (RBC) [Ratio] 12.2 % Normal 11.5-15.0 [facility] Comment on above: Order Comment: Speci men Type: BLOOD SPECIMENOrdering Facility: [facility] Address: [address] [place] [address] Performed By: #### 5 7021-8 ####[facility] [id number] [place] [address] [place] Hematocrit (Bld) [Volume fraction] 40.8 % Normal 39.0-51.0 [facility] Comment on above: Order Comment: Speci men Type: BLOOD SPECIMENOrdering Facility: [facility] Address: [address] [place] [address] Performed By: #### 5 7021-8 ####[facility] [id number] [place] [address] [place] Hemoglobin (Bld) [Mass/Vol] 14.0 g/dL Normal 13.0-17.0 [facility] Comment on above: Order Comment: Speci men Type: BLOOD SPECIMENOrdering Facility: [facility] Address: [address] [place] [address] Performed By: #### 5 7021-8 ####[facility] [id number] [place] [address] [place] Immature granulocytes (Bld) [#/Vol] 10*3/uL Normal <0.10 [facility] Comment on above: Order Comment: Speci men Type: BLOOD SPECIMENOrdering Facility: [facility] Address: [address] [place] [address] Performed By: #### 5 7021-8 ####[facility] [id number] [place] [address] [place] Immature granulocytes/100 WBC (Bld) 0.3 % Normal [facility] Comment on above: Order Comment: Speci men Type: BLOOD SPECIMENOrdering Facility: [facility] Address: [address] [place] [address] Performed By: #### 5 7021-8 ####[facility] [id number] [place] [address] [place] Lymphocytes (Bld) [#/Vol] 0.47 10*3/uL Low 1.00-4.00 [facility] Comment on above: Order Comment: Speci men Type: BLOOD SPECIMENOrdering Facility: [facility] Address: [address] [place] [address] Performed By: #### 5 7021-8 ####[facility] [id number] [place] [address] [place] Lymphocytes/100 WBC (Bld) 7.6 % Normal [facility] Comment on above: Order Comment: Speci men Type: BLOOD SPECIMENOrdering Facility: [facility] Address: [address] [place] [address] Performed By: #### 5 7021-8 ####[facility] [id number] [place] [address] [place] MCH (RBC) [Entitic mass] 31.7 pg Normal 26.0-34.0 [facility] Comment on above: Order Comment: Speci men Type: BLOOD SPECIMENOrdering Facility: [facility] Address: [address] [place] [address] Performed By: #### 5 7021-8 ####[facility] [id number] [place] [address] [place] MCHC (RBC) [Mass/Vol] 34.3 g/dL Normal 30.5-36.0 [facility] Comment on above: Order Comment: Speci men Type: BLOOD SPECIMENOrdering Facility: [facility] Address: [address] [place] [address] Performed By: #### 5 7021-8 ####[facility] [id number] [place] [address] [place] MCV (RBC) [Entitic vol] 92.3 fL Normal 80.0-100.0 [facility] Comment on above: Order Comment: Speci men Type: BLOOD SPECIMENOrdering Facility: [facility] Address: [address] [place] [address] Performed By: #### 5 7021-8 ####[facility] [id number] [place] [address] [place] Monocytes (Bld) [#/Vol] 0.46 10*3/uL Normal <0.87 [facility] Comment on above: Order Comment: Speci men Type: BLOOD SPECIMENOrdering Facility: [facility] Address: [address] [place] [address] Performed By: #### 5 7021-8 ####[facility] [id number] [place] [address] [place] Monocytes/100 WBC (Bld) 7.4 % Normal [facility] Comment on above: Order Comment: Speci men Type: BLOOD SPECIMENOrdering Facility: [facility] Address: [address] [place] [address] Performed By: #### 5 7021-8 ####[facility] [id number] [place] [address] [place] Neutrophils (Bld) [#/Vol] 5.09 10*3/uL Normal 1.45-7.50 [facility] Comment on above: Order Comment: Speci men Type: BLOOD SPECIMENOrdering Facility: [facility] Address: [address] [place] [address] Performed By: #### 5 7021-8 ####[facility] [id number] [place] [address] [place] Neutrophils/100 WBC (Bld) 81.8 % Normal [facility] Comment on above: Order Comment: Speci men Type: BLOOD SPECIMENOrdering Facility: [facility] Address: [address] [place] [address] Performed By: #### 5 7021-8 ####[facility] [id number] [place] [address] [place] Nucleated RBC (Bld) [#/Vol] 10*3/uL Normal <0.01 [facility] Comment on above: Order Comment: Speci men Type: BLOOD SPECIMENOrdering Facility: [facility] Address: [address] [place] [address] Performed By: #### 5 7021-8 ####[facility] CLIFFAVELIA [id number] [place] [address] [place] Nucleated RBC/100 WBC (Bld) [Ratio] 0.0 /100 WBC Normal [facility] Comment on above: Order Comment: Speci men Type: BLOOD SPECIMENOrdering Facility: [facility] Address: [address] [place] [address] Performed By: #### 5 7021-8 ####[facility] [id number] [place] [address] [place] Platelet mean volume (Bld) [Entitic vol] 8.0 fL Low 9.0-12.7 [facility] Comment on above: Order Comment: Speci men Type: BLOOD SPECIMENOrdering Facility: [facility] Address: [address] [place] [address] Performed By: #### 5 7021-8 ####[facility]Miriam [id number] [place] [address] [place] Platelets (Bld) [#/Vol] 149 10*3/uL Low 150-400 [facility] Comment on above: Order Comment: Speci men Type: BLOOD SPECIMENOrdering Facility: [facility] Address: [address] [place] [address] Performed By: #### 5 7021-8 ####[facility] [id number] [place] [address] [place] RBC (Bld) [#/Vol] 4.42 10*6/uL Normal 4.20-6.00 [facility] Comment on above: Order Comment: Speci men Type: BLOOD SPECIMENOrdering Facility: [facility] Address: [address] [place] [address] Performed By: #### 5 7021-8 ####[facility] [id number] [place] [id number] [place] WBC (Bld) [#/Vol] 6.22 10*3/uL Normal 3.70-11.00 [facility] Comment on above: Order Comment: Speci men Type: BLOOD SPECIMENOrdering Facility: [facility] Address: [address] [place] [address] Performed By: #### 5 7021-8 ####[facility] KELECHIGENIE CORONADOSELECT [facility] IND[facility]NALIA [id number] [place] [address] [place] CNOVSPon 07-16-2024 CNOVSP Visit (SP) Office (H EMAWS) -- ANN MARIE ELAM SR ([id number]) 1945 M CHT Date Time Provider Department 07/16/24 10:00 AM CHIN HATCH During your visit today, we recorded the following information about you: Temperature Pulse Blood pressure Weight 97.6 degrees 99/minute 113/69 94.3 kg Chin Hatch MD 07/16/2024 11:18 AM Signed (Elements copied from my note dated July 17, 2023, have been reviewed and updated where appropriate, and all reflect current assessment and medical decision making from today's encounter, July 16, 2024) HISTORY OF PRESENT ILLNESS: Ann Marie Elam SR is a 78 year old male DLCL stage II RCHOP 3 cycles finished June 07, 2021 IFRT through August 13, 2021. Here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 Speci men Type: BLOOD SPECIMENOrdering Facility: [facility] Address: [address] [place] [address] Performed By: #### 5 7021-8 ####[facility] [id number] [place] [address] [place] Differential cell count method Nom (Bld) Auto Normal [facility] Comment on above: Order Comment: Speci men Type: BLOOD SPECIMENOrdering Facility: [facility] Address: [address] [place] [address] Performed By: #### 5 7021-8 ####[facility] [id number] [place] [address] [place] Eosinophils (Bld) [#/Vol] 0.18 10*3/uL Normal <0.46 [facility] Comment on above: Order Comment: Speci men Type: BLOOD SPECIMENOrdering Facility: [facility] Address: [address] [place] [address] Performed By: #### 5 7021-8 ####[facility] [id number] [place] [address] [place] Eosinophils/100 WBC (Bld) 4.9 % Normal [facility] Comment on above: Order Comment: Speci men Type: BLOOD SPECIMENOrdering Facility: [facility] Address: [address] [place] [address] Performed By: #### 5 7021-8 ####[facility] [id number] [place] [address] [place] Erythrocyte distribution width (RBC) [Ratio] 12.1 % Normal 11.5-15.0 [facility] Comment on above: Order Comment: Speci men Type: BLOOD SPECIMENOrdering Facility: [facility] Address: [address] [place] [address] Performed By: #### 5 7021-8 ####[facility] [id number] [place] [address] [place] Hematocrit (Bld) [Volume fraction] 40.3 % Normal 39.0-51.0 [facility] Comment on above: Order Comment: Speci men Type: BLOOD SPECIMENOrdering Facility: [facility] Address: [address] [place] [address] Performed By: #### 5 7021-8 ####[facility] [id number] [id number] [address] [place] Hemoglobin (Bld) [Mass/Vol] 13.6 g/dL Normal 13.0-17.0 [facility] Comment on above: Order Comment: Speci men Type: BLOOD SPECIMENOrdering Facility: [facility] Address: [address] [place] [address] Performed By: #### 5 7021-8 ####[facility] [id number] [place] [address] [place] Immature granulocytes (Bld) [#/Vol] 10*3/uL Normal <0.10 [facility] Comment on above: Order Comment: Speci men Type: BLOOD SPECIMENOrdering Facility: [facility] Address: [address] [place] [address] Performed By: #### 5 7021-8 ####[facility] [id number] [place] [address] [place] Immature granulocytes/100 WBC (Bld) 0.3 % Normal [facility] Comment on above: Order Comment: Speci men Type: BLOOD SPECIMENOrdering Facility: [facility] Address: [address] [place] [address] Performed By: #### 5 7021-8 ####[facility] [id number] [place] [address] [place] Lymphocytes (Bld) [#/Vol] 0.68 10*3/uL Low 1.00-4.00 [facility] Comment on above: Order Comment: Speci men Type: BLOOD SPECIMENOrdering Facility: [facility] Address: [address] [place] [address] Performed By: #### 5 7021-8 ####[facility] [id number] [place] [address] [place] Lymphocytes/100 WBC (Bld) 18.4 % Normal [facility] Comment on above: Order Comment: Speci men Type: BLOOD SPECIMENOrdering Facility: [facility] Address: [address] [place] [address] Performed By: #### 5 7021-8 ####[facility] LABIA [id number] [place] [address] [place] MCH (RBC) [Entitic mass] 31.9 pg Normal 26.0-34.0 [facility] Comment on above: Order Comment: Speci men Type: BLOOD SPECIMENOrdering Facility: [facility] Address: [address] [place] [address] Performed By: #### 5 7021-8 ####[facility]IA [id number] [place] [address] [place] MCHC (RBC) [Mass/Vol] 33.7 g/dL Normal 30.5-36.0 [facility] Comment on above: Order Comment: Speci men Type: BLOOD SPECIMENOrdering Facility: [facility] Address: [address] [place] [address] Performed By: #### 5 7021-8 ####[facility]IA [id number] [place] [address] [place] MCV (RBC) [Entitic vol] 94.4 fL Normal 80.0-100.0 [facility] Comment on above: Order Comment: Speci men Type: BLOOD SPECIMENOrdering Facility: [facility] Address: [address] [place] [address] Performed By: #### 5 7021-8 ####[facility]IA [id number] [place] [address] [place] Monocytes (Bld) [#/Vol] 0.32 10*3/uL Normal <0.87 [facility] Comment on above: Order Comment: Speci men Type: BLOOD SPECIMENOrdering Facility: [facility] Address: [address] [place] [address] Performed By: #### 5 7021-8 ####[facility] LABCLIA [id number] [place] [address] [place] Monocytes/100 WBC (Bld) 8.6 % Normal [facility] Comment on above: Order Comment: Speci men Type: BLOOD SPECIMENOrdering Facility: [facility] Address: [address] [place] [address] Performed By: #### 5 7021-8 ####[facility] LABCLIA [id number] [place] [address] [place] Neutrophils (Bld) [#/Vol] 2.48 10*3/uL Normal 1.45-7.50 [facility] Comment on above: Order Comment: Speci men Type: BLOOD SPECIMENOrdering Facility: [facility] Address: [address] [place] [address] Performed By: #### 5 7021-8 ####[facility] LABCLIA [id number] [place] [address] [place] Neutrophils/100 WBC (Bld) 67.0 % Normal [facility] Comment on above: Order Comment: Speci men Type: BLOOD SPECIMENOrdering Facility: [facility] Address: [address] [place] [address] Performed By: #### 5 7021-8 ####[facility] LABCLIA [id number] [place] [address] [place] Nucleated RBC (Bld) [#/Vol] 10*3/uL Normal <0.01 [facility] Comment on above: Order Comment: Speci men Type: BLOOD SPECIMENOrdering Facility: [facility] Address: [address] [place] [address] Performed By: #### 5 7021-8 ####[facility] LABCLIA [id number] [place] [address] [place] Nucleated RBC/100 WBC (Bld) [Ratio] 0.0 /100 WBC Normal [facility] Comment on above: Order Comment: Speci men Type: BLOOD SPECIMENOrdering Facility: [facility] Address: [address] [place] [address] Performed By: #### 5 7021-8 ####[facility] LABIA [id number] [place] [address] [place] Platelet mean volume (Bld) [Entitic vol] 8.8 fL Low 9.0-12.7 [facility] Comment on above: Order Comment: Speci men Type: BLOOD SPECIMENOrdering Facility: [facility] Address: [address] [place] [address] Performed By: #### 5 7021-8 ####[facility] LABIA [id number] [place] [address] [place] Platelets (Bld) [#/Vol] 155 10*3/uL Normal 150-400 [facility] Comment on above: Order Comment: Speci men Type: BLOOD SPECIMENOrdering Facility: [facility] Address: [address] [place] [address] Performed By: #### 5 7021-8 ####[facility] LABIA [id number] [place] [address] [place] RBC (Bld) [#/Vol] 4.27 10*6/uL Normal 4.20-6.00 [facility] Comment on above: Order Comment: Speci men Type: BLOOD SPECIMENOrdering Facility: [facility] Address: [address] [place] [address] Performed By: #### 5 7021-8 ####[facility] LABIA [id number] [place] [address] [place] WBC (Bld) [#/Vol] 3.70 10*3/uL Normal 3.70-11.00 [facility] Comment on above: Order Comment: Speci men Type: BLOOD SPECIMENOrdering Facility: [facility] Address: [address] [place] [address] Performed By: #### 5 7021-8 ####[facility] LABCLIA [id number] [place] [id number] [place] Ferritin SerPl-[facility] 2023 Ferritin [Mass/Vol] 123.0 ng/mL Normal 30.3-565.7 [facility] Comment on above: Order Comment: Speci men Type: BLOOD SPECIMENOrdering Facility: [facility] Address: [address] [place] [address] Performed By: #### 5 0190-8, 2131-9, 2275-4, 2283-8 ####[facility] LABIA [id number] [place] [address] [place] Folate SerPl-ncon 04-02-20 Folate [Mass/Vol] 11.8 ng/mL Normal >4.7 [facility] Comment on above: Order Comment: Speci men Type: BLOOD SPECIMENOrdering Facility: [facility] Address: [address] [place] [address] Performed By: #### 5 0190-8, 2131-9, 2275-, 8 ####[facility] LABIA [id number] [place] [address] [place] Iron and Iron binding capaci ty panelon 04-02-2024 Iron [Mass/Vol] 83 ug/dL Normal 41-186 [facility] Comment on above: Order Comment: Speci men Type: BLOOD SPECIMENOrdering Facility: [facility] Address: [address] [place] [address] Performed By: #### 5 0190-8, 2131-9, 2275-4, 8 ####[facility] LABIA [id number] [place] [address] [place] Iron binding capacity [Mass/Vol] 276 ug/dL Normal 232-386 [facility] Comment on above: Order Comment: Speci men Type: BLOOD SPECIMENOrdering Facility: [facility] Address: [facility] [place] [address] Performed By: #### 5 0190-8, 9, 2275-12, 2284-04 ####[facility] LABCLIA [id number] [address] [address] [place] Iron/TIBC [Molar ratio] 30.1 % Normal 15.0-57.0 [facility] Comment on above: Order Comment: Speci men Type: BLOOD SPECIMENOrdering Facility: [facility] Address: [address] [place], [place] [address] Performed By: #### 5 0190-8, 2132-05, 2275-12, 2284-04 ####[facility] LABCLIA [id number] [place] [id number] [place] Vit B12 [facility] 04-02-2 024 Cobalamin (Vitamin B12) [Mass/Vol] 307 pg/mL Normal 232-1245 [facility] Comment on above: Order Comment: Speci men Type: BLOOD SPECIMENOrdering Facility: [facility] Address: [address] [place], [place] [address] Performed By: #### 5 0190-8, 2132-05, 2275-12, 2284-04 ####[facility] LABIA [id number] [address] [address] [place] XR Chest PA and Lateralon IMPRESSION: 1. Increased right basilar atelectasis versus infiltrate. 2. Increased blunting of the right costophrenic sulcus suggesting small pleural effusion. 3. Chronic elevation of the right hemidiaphragm. Medical Investigator: PSCB Transcribe Date/Time: Mar 18 2024 9:12A Dictated by : MARY BARRIENTOS MD This examination was interpreted and the report reviewed and electronically signed by: MARY BARRIENTOS MD on Mar 18 2024 9:13AM [facility] DIVISION OF RADIOLOGY * * *Final Report* * * DATE OF EXAM: Mar 13 2024 1:53PM WOX 5291 - XR CHEST 2V FRONTAL/LAT / PROCEDURE REASON: Bacterial pneumonia * * * * Physician Interpretation * * * * CHEST RADIOGRAPH: PA and lateral views of the chest Exam Date/Time: 03/13/2024 1:53 PM Indication: Bacterial pneumonia Comparison: Chest x-ray 03/02/2024 RESULTS: Lines, Tubes, and Devices: None Lungs and Pleura: Chronic elevation of the right hemidiaphragm is unchanged. There is increased right basilar opacity and blunting of the right costophrenic sulcus. The left lung is clear. No pneumothorax. Cardiomediastinal silhouette: Unchanged. Other: The bones of the chest are unremarkable. DIVISION OF RADIOLOGY Provider, [facility] - 03/18/2024 * * *Final Report* * * DATE OF EXAM: Mar 13 2024 1:53PM WOX 5291 - XR CHEST 2V FRONTAL/LAT / PROCEDURE REASON: Bacterial pneumonia * * * * Physician Interpretation * * * * CHEST RADIOGRAPH: PA and lateral views of the chest Exam Date/Time: 03/13/2024 1:53 PM Indication: Bacterial pneumonia Comparison: Chest x-ray 03/02/2024 RESULTS: Lines, Tubes, and Devices: None Lungs and Pleura: Chronic elevation of the right hemidiaphragm is unchanged. There is increased right basilar opacity and blunting of the right costophrenic sulcus. The left lung is clear. No pneumothorax. Cardiomediastinal silhouette: Unchanged. Other: The bones of the chest are unremarkable. IMPRESSION IMPRESSION: 1. Increased right basilar atelectasis versus infiltrate. 2. Increased blunting of the right costophrenic sulcus suggesting small pleural effusion. 3. Chronic elevation of the right hemidiaphragm. Medical Investigator: ERNA Transcribe Date/Time: Mar 18 2024 9:12A Dictated by : MARY BARRIENTOS MD This examination was interpreted and the report reviewed and electronically signed by: MARY BARRIENTOS MD on Mar 18 2024 9:13AM EST [facility] XR Chest PA and LateralOrder ed By: Ccf Provider on 03-18-2024 [facility] XR Chest PA and Lateralon Radiology Study observation (narrative) [facility] Basic metabolic 2000 panelon 03-05-2024 Anion gap [Moles/Vol] 9 mmol/L Normal 8-15 [facility] Comment on above: Order Comment: Speci men Type: BLOOD SPECIMENOrdering Facility: [facility] Address: [address] [place] [id number] Performed By: #### 2 4321-2, ####[facility]ATORYCLIA [id number] [place] [address] [place] Calcium [Mass/Vol] 9.1 mg/dL Normal 8.5-10.2 [facility] Comment on above: Order Comment: Speci men Type: BLOOD SPECIMENOrdering Facility: [facility] Address: [address] [place] [address] Performed By: #### 2 4320-2, ####[facility]ORATORYCLIA [id number] [place] [address] [place] Chloride [Moles/Vol] 101 mmol/L Normal 98-107 [facility] Comment on above: Order Comment: Speci men Type: BLOOD SPECIMENOrdering Facility: [facility] Address: [address] [place] [address] Performed By: #### 2 4320-2, ####[facility]ORATORYCLIA [id number] [place] [address] [place] CO2 [Moles/Vol] 31 mmol/L High 22-30 [facility] Comment on above: Order Comment: Speci men Type: BLOOD SPECIMENOrdering Facility: [facility] Address: [address] [place] [id number] Performed By: #### 2 4320-2, ####[facility]ORATORYCLIA [id number] [place] [id number] [place] Creatinine [Mass/Vol] 1.02 mg/dL Normal 0.73-1.22 [facility] Comment on above: Order Comment: Speci men Type: BLOOD SPECIMENOrdering Facility: [facility] Address: [address] [place] [id number] Performed By: #### 2 4321-2, ####[facility]ATORYCLIA [id number] [place] [address] [place] Creatinine and Glomerular filtration rate.predicted panel (S/P/Bld) 75 mL/min/1.73m??? Normal >=60 [facility] Comment on above: Order Comment: Tonya heller Type: BLOOD SPECIMENOrdering Facility: [facility] Address: [address] [place] [address] Result Comment: Liiver mated Glomerular Filtration Rate (eGFR) is calculated using the 2020 CKD-EPI creatinine equation. This equation utilizes serum creatinine, sex, and age as parameters. The creatinine assay has traceable calibration to isotope dilution-mass spectrometry. Refer to KDIGO guidelines for clinical interpretation. In patients with unstable renal function, e.g. those with acute kidney injury, the eGFR may not accurately reflect actual GFR. Performed By: #### 2 4321-2, ####[facility]ATORYCLIA [id number] [place] [address] [place] Glucose [Mass/Vol] 93 mg/dL Normal 74-99 [facility] Comment on above: Order Comment: Tonya heller Type: BLOOD SPECIMENOrdering Facility: [facility] Address: [address] [place] [address] Result Comment: The [place] Diabetes Association (ADA) provides guidance for cutoff values for fasting glucose and random glucose. The ADA defines fasting as no caloric intake for at least 8 hours. Fasting plasma glucose results between 100 to 125 mg/dL indicate increased risk for diabetes (prediabetes). Fasting plasma glucose results greater than or equal to 126 mg/dL meet the criteria for diagnosis of diabetes. In the absence of unequivocal hyperglycemia, results should be confirmed by repeat testing. In a patient with classic symptoms of hyperglycemia or hyperglycemic crisis, random plasma glucose results greater than or equal to 200 mg/dL meet the criteria for diagnosis of diabetes. Reference: Standards of Medical Care in Diabetes 2016, [place] [employer]. Diabetes Care. 2016.39(Suppl 1). Performed By: #### 2 4321-2, ####[facility]ORATORYCLIA [id number] [place] [id number] [place] Potassium [Moles/Vol] 3.5 mmol/L Low 3.7-5.1 [facility] Comment on above: Order Comment: Speci men Type: BLOOD SPECIMENOrdering Facility: [facility] Address: [address] [place] [address] Performed By: #### 2 4321-2, ####[facility]ORATORYCLIA [id number] [place] [id number] [place] Sodium [Moles/Vol] 141 mmol/L Normal 136-144 [facility] Comment on above: Order Comment: Speci men Type: BLOOD SPECIMENOrdering Facility: [facility] Address: [address] [place] [address] Performed By: #### 2 4321-2, ####[facility] LABORATORYCLIA [id number] [place] [address] [place] Urea nitrogen [Mass/Vol] 13 mg/dL Normal 9-24 [facility] Comment on above: Order Comment: Speci men Type: BLOOD SPECIMENOrdering Facility: [facility] Address: [address] [place] [address] Performed By: #### 2 432-2, ####[facility] LABORATORYCLIA [id number] [address] [place] CASE MANAGEMon 03-05-2024 CASE MANAGEM HNO ID: [id number] Author: EDEN HERNANDEZ LSW Service: ASSESSMENT Author Type: Gun Number Type: Care Mgt Progress Note Filed: 03/05/2024 14:59 Note Text: CARE MANAGEMENT DISCHARGE NOTE SERVICE DATE: March 05, 2024 SERVICE TIME: 2:04 PM Admission Date: 03/02/2024 LOS: 3 days Discharge Arrangement Discharge Arrangement: Home with Relative Services Arranged Medical Services: Other: See Comment Provider Name: N/A Phone: N/A Caregiver Assessment Caregiver is ready, willing and able to meet the patient's needs as recommended by the inter-professional team: Yes Name of Caregiver: Spouse to assist pt. in meeting his needs upon discharge. Transportation Arrangements Transportation Arrangements: Car Date of Trip: 03/05/24 Time of Trip: 1530 Destination: Pts. home. Handoff Communication: Handoff to: Primary Care Physician Primary Care Physician Name/Phone: Dr. Hazel [phone] Additional Information: N/A IMM Follow Up Copy Given: Yes Copy given to:: Patient Method: By Phone Pt. Will discharge today w/basic needs. SW delivered IM. Pt. Reports no questions/comments/concern s. SW will remain available should any further needs arise. 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 PATIENT NAME: Ann Marie Elam DATE: March 05, 2024 TIME: 2:04 PM CONTACT #: Normal [facility] CBC panel Auto (Bld)on 03-05 Erythrocyte distribution width (RBC) [Ratio] 12.2 % Normal 11.5-15.0 [facility] Comment on above: Order Comment: Speci men Type: BLOOD SPECIMEN [facility] Address: [address] [place] [address] Performed By: #### 5 8410-2 #### [facility] CLIA [id number] [address] STATES [place] [facility] Hematocrit (Bld) [Volume fraction] 36.4 % Low 39.0-51.0 [facility] Comment on above: Order Comment: Speci men Type: BLOOD SPECIMEN [facility] Address: [address] [place] [address] Performed By: #### 5 8410-2 #### [facility] CLIA [id number] [address] [place] Hemoglobin (Bld) [Mass/Vol] 12.4 g/dL Low 13.0-17.0 [facility] Comment on above: Order Comment: Speci men Type: BLOOD SPECIMEN [facility] Address: [address] [place] [address] Performed By: #### 5 8410-2 #### [facility] CLIA [id number] [address] [place] MCH (RBC) [Entitic mass] 32.3 pg Normal 26.0-34.0 [facility] Comment on above: Order Comment: Speci men Type: BLOOD SPECIMEN [facility] Address: [address] [place] [address] Performed By: #### 5 8410-2 #### [facility] CLIA [id number] [address] [place] MCHC (RBC) [Mass/Vol] 34.1 g/dL Normal 30.5-36.0 [facility] Comment on above: Order Comment: Speci men Type: BLOOD SPECIMEN [facility] Address: [address] [place] [address] Performed By: #### 5 8410-2 #### [facility] CLIA [id number] [address] [place] MCV (RBC) [Entitic vol] 94.8 fL Normal 80.0-100.0 [facility] Comment on above: Order Comment: Speci men Type: BLOOD SPECIMEN [facility] Address: [address] [place] [address] Performed By: #### 5 8410-2 #### [facility] CLIA [id number] [address] Nucleated RBC (Bld) [#/Vol] 10*3/uL Normal <0.01 [facility] Comment on above: Order Comment: Speci men Type: BLOOD SPECIMEN [facility] Address: [address] [place] [address] Performed By: #### 5 8410-2 #### [facility] CLIA [id number] [address] [place] Platelet mean volume (Bld) [Entitic vol] 8.6 fL Low 9.0-12.7 [facility] Comment on above: Order Comment: Speci men Type: BLOOD SPECIMEN [facility] Address: [address] [place] [address] Performed By: #### 5 8410-2 #### [facility] CLIA [id number] [address] [place] Platelets (Bld) [#/Vol] 131 10*3/uL Low 150-400 [facility] Comment on above: Order Comment: Speci men Type: BLOOD SPECIMEN [facility] Address: [address] [place] [address] Performed By: #### 5 8410-2 #### [facility] CLIA [id number] 1000 [place] [address] [place] RBC (Bld) [#/Vol] 3.84 10*6/uL Low 4.20-6.00 [facility] Comment on above: Order Comment: Speci men Type: BLOOD SPECIMEN [facility] Address: [address] [place], [place] [address] Performed By: #### 5 8410-2 #### [facility] CLIA [id number] [address] WBC (Bld) [#/Vol] 3.88 10*3/uL Normal 3.70-11.00 [facility] Comment on above: Order Comment: Speci men Type: BLOOD SPECIMEN [facility] Address: [address] [place], [place] [address] Performed By: #### 5 8410-2 #### [facility] CLIA [id number] [address] CNDSon 03-05-2024 [facility] HNO ID: [id number] Author: JAMES LIVINGSTON MD Service: Hospital Medicine Author Type: Physician Type: Discharge Summary Filed: 03/05/2024 13:25 Note Text: DISCHARGE SUMMARY PATIENT NAME: Ann Marie Elam SR Code Status: Full Code Highest Readmission Risk Score: 21 The 30 day readmissions risk score is derived from an internally validated risk model which evaluates patient level characteristics, utilization history, medication orders and lab results up until the day of discharge. Patients with a score of 40 or above are considered highest risk for readmission. Specific patient level drivers will be listed at the bottom of the summary. Admission Information Admission Information ADMIT DATE: 03/02/2024 DISCHARGE DATE: 03/05/2024 MY DOCTORS AND MEDICAL TEAM: My Main Hospital Doctor: James Livingston MD Primary Care Provider: Keerthi Hazel MD My Medical Team Members: Treatment Team: Attending Provider: James Livingston MD Primary Service: 2, Me MY CONDITION AT DISCHARGE: Stable REASON I WAS IN THE HOSPITAL: Sepsis due to pneumonia SUMMARY OF WHAT HAPPENED WHILE I WAS IN THE HOSPITAL: Treated with IV antibiotics seem to respond rapidly exam normalized over a few days. 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, lumbar region with neurogenic claudication DDD (degenerative disc disease), lumbar PNA (pneumonia) Troponin level elevated Acute respiratory failure with hypoxia (HCC) Chronic diastolic CHF (congestive heart failure) (HCC) Physical debility Hypokalemia Acute diastolic CHF (congestive heart failure) (HCC) Resolved Problems: Lactate blood increase OPERATIONS PERFORMED WHILE IN THE HOSPITAL: None IMPORTANT TEST/PROCEDURES: No procedures performed TEST RESULTS NOT AVAILABLE AT THIS TIME: No pending results Discharge Disposition Discharge Disposition: Home With Self Care Activity When You Leave the Hospital Resume pre-hospital activity Gradually increase activity as tolerated do not overdo it Diet Instructions Resume your pre-hospital diet For Pain When You Leave the Hospital Use acetaminophen (Tylenol) as recommended on the bottle Follow Up Appointments Follow-Up Appointment When: Tomorrow Comment - 9:20 AM Patient/Parents to call for appointment?: Scheduled Keerthi Hazel MD [phone] [address] [facility] [place] [address] PCP Requested Referral Additional Provider to Provider Information: This is a 79-year-old male, with past medical history of seizure disorder, CAD, hypertension, hyperlipidemia, peripheral arterial disease, GERD, diffuse large B-cell lymphoma, degenerative disc disease, obesity presented to the emergency department with chills and tremors. Patient states that over the past day has been noticing increasing weakness and generalized body ache. While going to a family event started to have extreme tremors. Patient states that over the past 2 months has been having increasing shortness of breath. Shortness of breath worse today. Associated with some cough and productive clear sputum. No recent sick contacts or travel abroad. Patient states that his shortness of breath is worse on laying flat. No PND. Does feel winded on walking short distances. At baseline patient is able to ambulate with a cane. Patient states that he does not have a history of heart failure. Does not endorse any chest pain, nausea, vomiting, loose stools, dizziness or lightheadedness. Due to the above complaint patient decided to come to the ED for further evaluation and treatment. In the emergency department patient was febrile, tachycardic, normotensive, increased respiratory rate saturating mid 90s with 3 L supplemental oxygen. Lab investigation show elevated anion gap, elevated lactate, elevated high-sensitivity troponin, normal CBC, non significant UA,. Patient was also noted to have elevated lactate. Blood cultures drawn. Viral respiratory panel negative. Chest x-ray shows right-sided diaphragmatic eventration and small subsegmental atelectasis. CT chest showed no evidence of pulmonary embolism. Right middle lobe and lower lobe subsegmental parenchymal consolidation. Peribronchial thickening. Thickening of the fissures. Elevated right hemidiaphragm. Chronic granulomatous changes. Advanced coronary artery calcification. CT ab (more content not included)... Normal [facility] Magnesium SerPl-mCncon 03-05 Magnesium [Mass/Vol] 2.2 mg/dL Normal 1.7-2.3 [facility] Comment on above: Order Comment: Tonya helelr Type: BLOOD SPECIMENOrdering Facility: [facility] Address: [address] [place] [address] Performed By: #### 2 4321-2, ####[facility]ORATORYCLIA [id number] [place] [address] [place] [facility] Basic metabolic 2000 panelon 03-04-2024 Anion gap [Moles/Vol] 8 mmol/L Normal 8-15 [facility] Comment on above: Order Comment: Tonya [facility] Type: BLOOD SPECIMENOrdering Facility: [facility] Address: [address] [place], [place] [address] Performed By: #### 2 4321-2, 60308-2, ####[facility] LABORATORYCLIA [id number] [place] [id number] [place] Calcium [Mass/Vol] 8.7 mg/dL Normal 8.5-10.2 [facility] Comment on above: Order Comment: Speci men Type: BLOOD SPECIMENOrdering Facility: [facility] Address: [address] [place] [address] Performed By: #### 2 4321-2, 51509-6, ####[facility]ORATORYCLIA [id number] [address] [place] [address] [place] [facility] Chloride [Moles/Vol] 100 mmol/L Normal 98-107 [facility] Comment on above: Order Comment: Speci men Type: BLOOD SPECIMENOrdering Facility: [facility] Address: [address] [place] [address] Performed By: #### 2 4321-2, 61183-4, ####[facility] LABORATORYCLIA [id number] [place] [address] [place] CO2 [Moles/Vol] 30 mmol/L Normal 22-30 [facility] Comment on above: Order Comment: Speci men Type: BLOOD SPECIMENOrdering Facility: [facility] Address: [address] [place] [address] Performed By: #### 2 4321-2, 64581-9, ####[facility] LABORATORYCLIA [id number] [address] OF [facility] Creatinine [Mass/Vol] 0.99 mg/dL Normal 0.73-1.22 [facility] Comment on above: Order Comment: Speci men Type: BLOOD SPECIMENOrdering Facility: [facility] Address: [address] [place] [address] Performed By: #### 2 4321-2, 11372-4, ####[facility] LABORATORYCLIA [id number] [address] Creatinine and Glomerular filtration rate.predicted panel (S/P/Bld) 77 mL/min/1.73m??? Normal >=60 [facility] Comment on above: Order Comment: Speci men Type: BLOOD SPECIMENOrdering Facility: [facility] Address: [address] [place] [address] Result Comment: Livier mated Glomerular Filtration Rate (eGFR) is calculated using the 2020 CKD-EPI creatinine equation. This equation utilizes serum creatinine, sex, and age as parameters. The creatinine assay has traceable calibration to isotope dilution-mass spectrometry. Refer to KDIGO guidelines for clinical interpretation. In patients with unstable renal function, e.g. those with acute kidney injury, the eGFR may not accurately reflect actual GFR. Performed By: #### 2 4321-2, 44722-6, ####[facility] LABORATORYCLIA [id number] [place] [address] [place] Glucose [Mass/Vol] 102 mg/dL High 74-99 [facility] Comment on above: Order Comment: Tonya heller Type: BLOOD SPECIMENOrdering Facility: [facility] Address: [address] [id number] Result Comment: The [place] Diabetes Association (ADA) provides guidance for cutoff values for fasting glucose and random glucose. The ADA defines fasting as no caloric intake for at least 8 hours. Fasting plasma glucose results between 100 to 125 mg/dL indicate increased risk for diabetes (prediabetes). Fasting plasma glucose results greater than or equal to 126 mg/dL meet the criteria for diagnosis of diabetes. In the absence of unequivocal hyperglycemia, results should be confirmed by repeat testing. In a patient with classic symptoms of hyperglycemia or hyperglycemic crisis, random plasma glucose results greater than or equal to 200 mg/dL meet the criteria for diagnosis of diabetes. Reference: Standards of Medical Care in Diabetes 2016, [place] [employer] Association. Diabetes Care. 2016.39(Suppl 1). Performed By: #### 2 4321-2, 17942-6, ####[facility] LABORATORYCLIA [id number] [place] [address] [place] Potassium [Moles/Vol] 3.4 mmol/L Low 3.7-5.1 [facility] Comment on above: Order Comment: Tonya heller Type: BLOOD SPECIMENOrdering Facility: [facility] Address: [address] [place] [address] Performed By: #### 2 4321-2, 94131-4, ####[facility] LABORATORYCLIA [id number] [place] [address] [place] Sodium [Moles/Vol] 138 mmol/L Normal 136-144 [facility] Comment on above: Order Comment: Speci men Type: BLOOD SPECIMENOrdering Facility: [facility] Address: [address] [place], [place] [address] Performed By: #### 2 4321-2, 55565-4, ####[facility] LABORATORYCLIA [id number] [address] Urea nitrogen [Mass/Vol] 13 mg/dL Normal 9-24 [facility] Comment on above: Order Comment: Speci men Type: BLOOD SPECIMENOrdering Facility: [facility] Address: [address] [place], [place] [address] Performed By: #### 2 4321-2, 92640-8, ####[facility]ORATORYCLIA [id number] [address] CASE MANAGEMon 03-04-2024 CASE MANAGEM HNO ID: [id number] Author: EDEN HERNANDEZ LSW Service: ASSESSMENT Author Type: Gun Number Type: Care Mgt Progress Note Filed: 03/04/2024 12:11 Note Text: CARE MANAGEMENT PROGRESS NOTE SERVICE DATE: 03/04/2024 SERVICE TIME: 12:10 PM LOS: 2 days Needs Prior to Discharge: To Be Determined SW reviewed EMR. Pt. Admitted with sepsis and PNA. Pt. Is on IV Atb and has been weaned to RA, follow for ability to remain off O2. PT is recommending Outpatient therapy; OT is recommending HHC. FOC offered, pt. declined. Pt. Is from home w/spouse and granddaughter. 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 Spouse to transport home when medically ready for discharge. 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 PATIENT NAME: Ann Marie Elam DATE: March 04, 2024 TIME: 12:10 PM PAGER/CONTACT #: Normal [facility] CBC panel Auto (Bld)on 03-04 Erythrocyte distribution width (RBC) [Ratio] 12.0 % Normal 11.5-15.0 [facility] Comment on above: Order Comment: Speci men Type: BLOOD SPECIMEN [facility] Address: [address] [place] [address] Performed By: #### 5 8410-2 #### [facility] CLIA [id number] [address] Hematocrit (Bld) [Volume fraction] 32.9 % Low 39.0-51.0 [facility] Comment on above: Order Comment: Speci men Type: BLOOD SPECIMEN [facility] Address: [address] [place] [address] Performed By: #### 5 8410-2 #### [facility] CLIA [id number] [address] [place] Hemoglobin (Bld) [Mass/Vol] 11.5 g/dL Low 13.0-17.0 [facility] Comment on above: Order Comment: Speci men Type: BLOOD SPECIMEN [facility] Address: [address] [place] [address] Performed By: #### 5 8410-2 #### [facility] CLIA [id number] [address] MCH (RBC) [Entitic mass] 32.6 pg Normal 26.0-34.0 [facility] Comment on above: Order Comment: Speci men Type: BLOOD SPECIMEN [facility] Address: [address] [place] [address] Performed By: #### 5 8410-2 #### [facility] CLIA [id number] [address] MCHC (RBC) [Mass/Vol] 35.0 g/dL Normal 30.5-36.0 [facility] Comment on above: Order Comment: Speci men Type: BLOOD SPECIMEN [facility] Address: [address] [place] [address] Performed By: #### 5 8410-2 #### [facility] CLIA [id number] [address] MCV (RBC) [Entitic vol] 93.2 fL Normal 80.0-100.0 [facility] Comment on above: Order Comment: Speci men Type: BLOOD SPECIMEN [facility] Address: [address] [place] [address] Performed By: #### 5 8410-2 #### [facility] CLIA [id number] [address] [place] [address] [place] Nucleated RBC (Bld) [#/Vol] 10*3/uL Normal <0.01 [facility] Comment on above: Order Comment: Speci men Type: BLOOD SPECIMEN [facility] Address: [address] [place] [address] Performed By: #### 5 8410-2 #### [facility] CLIA [id number] [address] [place] [address] [place] Platelet mean volume (Bld) [Entitic vol] 9.1 fL Normal 9.0-12.7 [facility] Comment on above: Order Comment: Speci men Type: BLOOD SPECIMEN [facility] Address: [address] [place] [address] Performed By: #### 5 8410-2 #### [facility] CLIA [id number] [address] [place] [address] [place] Platelets (Bld) [#/Vol] 123 10*3/uL Low 150-400 [facility] Comment on above: Order Comment: Speci men Type: BLOOD SPECIMEN [facility] Address: [address] [place] [address] Performed By: #### 5 8410-2 #### [facility] CLIA [id number] [address] [place] [address] [place] RBC (Bld) [#/Vol] 3.53 10*6/uL Low 4.20-6.00 [facility] Comment on above: Order Comment: Speci men Type: BLOOD SPECIMEN [facility] Address: [address] [place] [address] Performed By: #### 5 8410-2 #### [facility] CLIA [id number] [address] [place] [address] [place] WBC (Bld) [#/Vol] 5.26 10*3/uL Normal 3.70-11.00 [facility] Comment on above: Order Comment: Speci men Type: BLOOD SPECIMEN [facility] Address: [address] [place] [address] Performed By: #### 5 8410-2 #### [facility] CLIA [id number] [address] [place] [address] [place] Magnesium SerPl-ncon 03-04 Magnesium [Mass/Vol] 1.9 mg/dL Normal 1.7-2.3 [facility] Comment on above: Order Comment: Speci men Type: BLOOD SPECIMENOrdering Facility: [facility] Address: [address] [place] [address] Performed By: #### 2 4321-2, 25315-0, 88409-8 ####[facility] LABORATORYCLIA [id number] [place] [address] [place] [facility] Natriuretic peptide.B prohormone N-Terminal [Mass/Vol] 708 pg/mL High <450 [facility] Comment on above: Order Comment: Speci men Type: BLOOD SPECIMENOrdering Facility: [facility] Address: [address] [place] [address] Performed By: #### 2 4321-2, 76706-8, 89701-7 ####[facility] LABORATORYCLIA [id number] [place] [address] [place] CBC W Auto Differential pane l (Bld)on 03-03-2024 Basophils (Bld) [#/Vol] 10*3/uL Normal <0.11 [facility] Comment on above: Order Comment: Speci men Type: BLOOD SPECIMENOrdering Facility: [facility] Address: [address] [place] [address] Performed By: #### 5 7021-8 ####[facility] LABORATORYCLIA [id number] [address] Basophils/100 WBC (Bld) 0.3 % Normal [facility] Comment on above: Order Comment: Speci men Type: BLOOD SPECIMENOrdering Facility: [facility] Address: [address] [place] [address] Performed By: #### 5 7021-8 ####[facility] LABORATORYCLIA [id number] [address] [place] Differential cell count method Nom (Bld) Auto Normal [facility] Comment on above: Order Comment: Speci men Type: BLOOD SPECIMENOrdering Facility: [facility] Address: [address] [place] [address] Performed By: #### 5 7021-8 ####[facility] LABORATORYCLIA [id number] [place] [address] [place] Eosinophils (Bld) [#/Vol] 10*3/uL Normal <0.46 [facility] Comment on above: Order Comment: Speci men Type: BLOOD SPECIMENOrdering Facility: [facility] Address: [address] [place] [address] Performed By: #### 5 7021-8 ####[facility] LABORATORYCLIA [id number] [address] [place] Eosinophils/100 WBC (Bld) 0.1 % Normal [facility] Comment on above: Order Comment: Speci men Type: BLOOD SPECIMENOrdering Facility: [facility] Address: [address] [place] [address] Performed By: #### 5 7021-8 ####[facility] LABORATORYCLIA [id number] [address] [place] Erythrocyte distribution width (RBC) [Ratio] 12.3 % Normal 11.5-15.0 [facility] Comment on above: Order Comment: Speci men Type: BLOOD SPECIMENOrdering Facility: [facility] Address: [address] [place] [address] Performed By: #### 5 7021-8 ####[facility] LABORATORYCLIA [id number] [address] [place] Hematocrit (Bld) [Volume fraction] 33.0 % Low 39.0-51.0 [facility] Comment on above: Order Comment: Speci men Type: BLOOD SPECIMENOrdering Facility: [facility] Address: [address] [place] [address] Performed By: #### 5 7021-8 ####[facility] LABORATORYCLIA [id number] [place] [address] [place] Hemoglobin (Bld) [Mass/Vol] 11.3 g/dL Low 13.0-17.0 [facility] Comment on above: Order Comment: Speci men Type: BLOOD SPECIMENOrdering Facility: [facility] Address: [address] [place] [address] Performed By: #### 5 7021-8 ####[facility] LABORATORYCLIA [id number] [place] [address] [place] Immature granulocytes (Bld) [#/Vol] 0.03 10*3/uL Normal <0.10 [facility] Comment on above: Order Comment: Speci men Type: BLOOD SPECIMENOrdering Facility: [facility] Address: [address] [place] [address] Performed By: #### 5 7021-8 ####[facility] LABORATORYCLIA [id number] [address] OF [place] Immature granulocytes/100 WBC (Bld) 0.4 % Normal [facility] Comment on above: Order Comment: Speci men Type: BLOOD SPECIMENOrdering Facility: [facility] Address: [address] [place] [address] Performed By: #### 5 7021-8 ####[facility] LABORATORYCLIA [id number] [place] [address] [place] Lymphocytes (Bld) [#/Vol] 0.23 10*3/uL Low 1.00-4.00 [facility] Comment on above: Order Comment: Speci men Type: BLOOD SPECIMENOrdering Facility: [facility] Address: [address] [place] [address] Performed By: #### 5 7021-8 ####[facility] LABORATORYCLIA [id number] [address] Lymphocytes/100 WBC (Bld) 3.2 % Normal [facility] Comment on above: Order Comment: Speci men Type: BLOOD SPECIMENOrdering Facility: [facility] Address: [address] [place] [address] Performed By: #### 5 7021-8 ####[facility] LABORATORYCLIA [id number] [address] MCH (RBC) [Entitic mass] 32.6 pg Normal 26.0-34.0 [facility] Comment on above: Order Comment: Speci men Type: BLOOD SPECIMENOrdering Facility: [facility] Address: [address] [place] [address] Performed By: #### 5 7021-8 ####[facility] LABORATORYCLIA [id number] [address] MCHC (RBC) [Mass/Vol] 34.2 g/dL Normal 30.5-36.0 [facility] Comment on above: Order Comment: Speci men Type: BLOOD SPECIMENOrdering Facility: [facility] Address: [address] [place] [address] Performed By: #### 5 7021-8 ####[facility] LABORATORYCLIA [id number] [address] MCV (RBC) [Entitic vol] 95.1 fL Normal 80.0-100.0 [facility] Comment on above: Order Comment: Speci men Type: BLOOD SPECIMENOrdering Facility: [facility] Address: [address] [place] [address] Performed By: #### 5 7021-8 ####[facility] LABORATORYCLIA [id number] [address] Monocytes (Bld) [#/Vol] 0.54 10*3/uL Normal <0.87 [facility] Comment on above: Order Comment: Speci men Type: BLOOD SPECIMENOrdering Facility: [facility] Address: [address] [place] [address] Performed By: #### 5 7021-8 ####[facility] LABORATORYCLIA [id number] [address] Monocytes/100 WBC (Bld) 7.6 % Normal [facility] Comment on above: Order Comment: Speci men Type: BLOOD SPECIMENOrdering Facility: [facility] Address: [address] [place] [address] Performed By: #### 5 7021-8 ####[facility] LABORATORYCLIA [id number] [place] [address] [place] Neutrophils (Bld) [#/Vol] 6.27 10*3/uL Normal 1.45-7.50 [facility] Comment on above: Order Comment: Speci men Type: BLOOD SPECIMENOrdering Facility: [facility] Address: [address] [place] [address] Performed By: #### 5 7021-8 ####[facility] LABORATORYCLIA [id number] [place] [address] [place] Neutrophils/100 WBC (Bld) 88.4 % Normal [facility] Comment on above: Order Comment: Speci men Type: BLOOD SPECIMENOrdering Facility: [facility] Address: [address] [place] [address] Performed By: #### 5 7021-8 ####[facility] LABORATORYCLIA [id number] [place] [address] [place] Nucleated RBC (Bld) [#/Vol] 10*3/uL Normal <0.01 [facility] Comment on above: Order Comment: Speci men Type: BLOOD SPECIMENOrdering Facility: [facility] Address: [address] [place] [address] Performed By: #### 5 7021-8 ####[facility] LABORATORYCLIA [id number] [place] [address] [place] Nucleated RBC/100 WBC (Bld) [Ratio] 0.0 /100 WBC Normal [facility] Comment on above: Order Comment: Speci men Type: BLOOD SPECIMENOrdering Facility: [facility] Address: [address] [place] [address] Performed By: #### 5 7021-8 ####[facility] LABORATORYCLIA [id number] [place] [address] [place] Platelet mean volume (Bld) [Entitic vol] 8.3 fL Low 9.0-12.7 [facility] Comment on above: Order Comment: Speci men Type: BLOOD SPECIMENOrdering Facility: [facility] Address: [facility] [address] [place] [id number] Performed By: #### 5 7021-8 ####[facility] LABORATORYCLIA [id number] [address] Platelets (Bld) [#/Vol] 115 10*3/uL Low 150-400 [facility] Comment on above: Order Comment: Speci men Type: BLOOD SPECIMENOrdering Facility: [facility] Address: [address] [place] [address] Performed By: #### 5 7021-8 ####[facility] LABORATORYCLIA [id number] [address] OF [place] RBC (Bld) [#/Vol] 3.47 10*6/uL Low 4.20-6.00 [facility] Comment on above: Order Comment: Speci men Type: BLOOD SPECIMENOrdering Facility: [facility] Address: [address] [place] [address] Performed By: #### 5 7021-8 ####[facility] LABORATORYCLIA [id number] [address] WBC (Bld) [#/Vol] 7.10 10*3/uL Normal 3.70-11.00 [facility] Comment on above: Order Comment: Speci men Type: BLOOD SPECIMENOrdering Facility: [facility] Address: [address] [place] [address] Performed By: #### 5 7021-8 ####[facility] LABORATORYCLIA [id number] [address] CONSULT PROGon 03-03-2024 CONSULT PROG HNO ID: [id number] Author: ABDULAZIZ BLAKE RPh Service: Pharmacy Author Type: Pharmacist Type: Consult Progress Note Filed: 03/03/2024 14:12 Note Text: PHARMACY VANCOMYCIN DOSING NOTE Patient Name: Ann Marie Elam SR Admission Date: 03/02/2024 Date of Consult: 03/03/2024 Time of Consult: 2:10 PM RECOMMENDATIONS/PLAN: Pharmacy consulted for vancomycin dosing for Ann Marie Elam SR, a 79 year old male. 1. Vancomycin therapy has been discontinued. Vancomycin level(s) have been discontinued: Yes. Pharmacy vancomycin dosing service will sign off. Thank you for allowing us to participate in this patient's care. Please contact pharmacy if there are questions. Vancomycin Levels: No results found for: ELIZABETH lBake [facility] CONSULT PROG HNO ID: [id number] Author: DESEAN DENG RPh Service: Pharmacy Author Type: Pharmacist Type: Consult Progress Note Filed: 03/03/2024 08:30 Note Text: PHARMACY VANCOMYCIN DOSING NOTE Patient Name: Ann Marie Elam SR Admission Date: 03/02/2024 Date of Consult: 03/03/2024 Time of Consult: 8:11 AM Indication: Pneumonia Goal Range: 15-20 mcg/mL RECOMMENDATIONS/PLAN: Pharmacy consulted for vancomycin dosing for Ann Marie Elam SR, a 79 year old male. 1. Patient is currently ordered Vancomycin 1.5 g IV q24h. Today is day 2 of therapy. Patient received 1.5 g x 1 at [facility] on 03/02/24 @1528 2. No vancomycin level has been drawn for this dosing regimen. 3. The present dose of vancomycin is the recommended dosage for this patient at this time. Continue therapy as prescribed. 4. The next vancomycin level has been ordered for 03/04/24 @ 1400 (Completed) 5. S. aureus nasal PCR swab ordered - pending We will follow patient renal function, vancomycin levels and doses with you during the course of therapy. Additional recommendations will appear in follow up notes. If you have any questions, please contact pharmacy at [phone]. Age: [age] year old Allergies: ALLERGIES Allergen Reactions Lipitor [Atorvastat* Myalgia Neosporin [Neomycin* Other: See Comments Skin reaction Last 3 Encounter Wt Readings: Date: Wt: 03/02/2024 96.7 kg (213 lb 3 oz) 03/02/2024 93.9 kg (207 lb) 02/16/2024 94 kg (207 lb 3.7 oz) Last 1 Encounter Ht Readings: Date: Ht: 03/02/2024 180.3 cm (5' 11) CrCl: 70 mL/min Temp (24hrs), Av.3 ?C (99.1 ?F), Min:36.7 ?C (98 ?F), Max:39.2 ?C (102.5 ?F) - Current Temp: 36.7 ?C (98 ?F) Labs BUN (mg/dL) Date Value 03/03/2024 18 03/02/2024 17 01/26/2024 18 Creatinine (mg/dL) Date Value 03/03/2024 1.01 03/02/2024 1.00 01/26/2024 0.94 WBC (k/uL) Date Value 03/03/2024 7.10 03/02/2024 5.08 02/07/2024 3.62 (L) Vancomycin Levels: No results found for: ELIZABETH Reynoso, Umbrella Supervisor Normal [facility] Comprehensive metabolic 2000 panelon 03-03-2024 Albumin [Mass/Vol] 3.5 g/dL Low 3.9-4.9 [facility] Comment on above: Order Comment: Speci men Type: BLOOD SPECIMEN [facility] Address: [address] [place] [address] Performed By: #### H STNT, , #### [facility] CLIA [id number] [address] ALP [Catalytic activity/Vol] 60 U/L Normal 38-113 [facility] Comment on above: Order Comment: Speci men Type: BLOOD SPECIMEN [facility] Address: [address] [place] [address] Performed By: #### H STNT, , #### [facility] CLIA [id number] [address] [place] [facility] ALT [Catalytic activity/Vol] 28 U/L Normal 10-54 [facility] Comment on above: Order Comment: Speci men Type: BLOOD SPECIMEN [facility] Address: [facility] [place] [address] Performed By: #### H STNT, 72167-1, #### [facility] CLIA [id number] [address] [place] [address] [place] Anion gap [Moles/Vol] 8 mmol/L Normal 8-15 [facility] Comment on above: Order Comment: Speci men Type: BLOOD SPECIMEN [facility] Address: [address] [place] [address] Performed By: #### H STNT, , #### [facility] CLIA [id number] [address] [place] [address] [place] AST [Catalytic activity/Vol] 33 U/L Normal 14-40 [facility] Comment on above: Order Comment: Speci men Type: BLOOD SPECIMEN [facility] Address: [address] [place] [address] Performed By: #### H STNT, , #### [facility] CLIA [id number] [address] [place] Bilirubin [Mass/Vol] 0.5 mg/dL Normal 0.2-1.3 [facility] Comment on above: Order Comment: Speci men Type: BLOOD SPECIMEN [facility] Address: [address] [place] [address] Performed By: #### H STNT, , #### [facility] CLIA [id number] [address] [place] [facility] Calcium [Mass/Vol] 8.2 mg/dL Low 8.5-10.2 [facility] Comment on above: Order Comment: Speci men Type: BLOOD SPECIMEN [facility] Address: [address] [place] [address] Performed By: #### H STNT, , #### [facility] CLIA [id number] [address] [place] [address] [place] Chloride [Moles/Vol] 102 mmol/L Normal 98-107 [facility] Comment on above: Order Comment: Speci men Type: BLOOD SPECIMEN [facility] Address: [address] [place] [address] Performed By: #### H STNT, , #### [facility] CLIA [id number] [address] [place] [address] [place] CO2 [Moles/Vol] 27 mmol/L Normal 22-30 [facility] Comment on above: Order Comment: Speci men Type: BLOOD SPECIMEN [facility] Address: [address] [place] [address] Performed By: #### H STNT, , #### [facility] CLIA [id number] [address] STATES [place] [facility] Creatinine [Mass/Vol] 1.01 mg/dL Normal 0.73-1.22 [facility] Comment on above: Order Comment: Speci men Type: BLOOD SPECIMEN [facility] Address: [address] [place] [address] Performed By: #### H STNT, , #### [facility] CLIA [id number] [address] Creatinine and Glomerular filtration rate.predicted panel (S/P/Bld) 76 mL/min/1.73m??? Normal >=60 [facility] Comment on above: Order Comment: Speci men Type: BLOOD SPECIMEN [facility] Address: [address] [place] [address] Result Comment: Livier mated Glomerular Filtration Rate (eGFR) is calculated using the 2020 CKD-EPI creatinine equation. This equation utilizes serum creatinine, sex, and age as parameters. The creatinine assay has traceable calibration to isotope dilution-mass spectrometry. Refer to KDIGO guidelines for clinical interpretation. In patients with unstable renal function, e.g. those with acute kidney injury, the eGFR may not accurately reflect actual GFR. Performed By: #### H STNT, , #### [facility] CLIA [id number] [address] [place] Glucose [Mass/Vol] 114 mg/dL High 74-99 [facility] Comment on above: Order Comment: Speci men Type: BLOOD SPECIMEN [facility] Address: [address] [place] [address] Result Comment: The [place] Diabetes Association (ADA) provides guidance for cutoff values for fasting glucose and random glucose. The ADA defines fasting as no caloric intake for at least 8 hours. Fasting plasma glucose results between 100 to 125 mg/dL indicate increased risk for diabetes (prediabetes). Fasting plasma glucose results greater than or equal to 126 mg/dL meet the criteria for diagnosis of diabetes. In the absence of unequivocal hyperglycemia, results should be confirmed by repeat testing. In a patient with classic symptoms of hyperglycemia or hyperglycemic crisis, random plasma glucose results greater than or equal to 200 mg/dL meet the criteria for diagnosis of diabetes. Reference: Standards of Medical Care in Diabetes 2016, [place] [employer] Association. Diabetes Care. 2016.39(Suppl 1). Performed By: #### H STNT, , #### [facility] CLIA [id number] [address] [place] [address] [place] Potassium [Moles/Vol] 4.0 mmol/L Normal 3.7-5.1 [facility] Comment on above: Order Comment: Tonya heller Type: BLOOD SPECIMEN [facility] Address: [address] [place] [address] Performed By: #### H STNT, , #### [facility] CLIA [id number] [address] [place] [address] [place] Protein [Mass/Vol] 5.7 g/dL Low 6.3-8.0 [facility] Comment on above: Order Comment: Tonya heller Type: BLOOD SPECIMEN [facility] Address: [address] [place] [address] Performed By: #### H STNT, , #### [facility] CLIA [id number] [address] [place] [address] [place] Sodium [Moles/Vol] 137 mmol/L Normal 136-144 [facility] Comment on above: Order Comment: Tonya heller Type: BLOOD SPECIMEN [facility] Address: [address] [place] [address] Performed By: #### H STNT, , #### [facility] CLIA [id number] [address] [place] [address] [place] Urea nitrogen [Mass/Vol] 18 mg/dL Normal 9-24 [facility] Comment on above: Order Comment: Speci men Type: BLOOD SPECIMEN [facility] Address: [address] [place] [address] Performed By: #### H STNT, 10271-7, 35162-3 #### [facility] CLIA [id number] [address] [place] HIGH SENSITIVITY TROPONIN To n 03-03-2024 Troponin T.cardiac High sensitivity method [Mass/Vol] 86 ng/L High <12 [facility] Comment on above: Order Comment: Speci men Type: BLOOD SPECIMEN [facility] Address: [address] [place] [address] Performed By: #### H STNT, 40800-9, 95266-4 #### [facility] CLIA [id number] [address] [place] [address] [place] Magnesium SerPl-mCncon 03-03 Magnesium [Mass/Vol] 1.8 mg/dL Normal 1.7-2.3 [facility] Comment on above: Order Comment: Speci men Type: BLOOD SPECIMEN [facility] Address: [address] [place] [address] Performed By: #### H STNT, 29548-3, 05932-9 #### [facility] CLIA [id number] [address] [place] THERAPY NTon 03-03-2024 THERAPY NT HNO ID: [id number] Author: HILLARY NG, OTR/L Service: Occupational Therapy Author Type: Occupational Therapist Type: Therapy (PT/OT/Speech/Resp) Filed: 03/03/2024 15:33 Note Text: Occupational Therapy Evaluation Summary SERVICE DATE: 03/03/2024 SERVICE TIME: 1440 to 1520 ROOM: [place] [address] OT 6 Clicks Score: 19 DISCHARGE RECOMMENDATIONS Home OT Recommended Discharge Disposition Comments: see assessment statement Anticipated Discharge Needs: Physical Assist at Home, Supervision at Home Physical Assist at Home for: Ambulation, Cleaning, Laundry, Shopping, Transportation, Safety, Meals Supervision at Home due to: Other: See Comment (wet shower transfer safety) ASSESSMENT Response to Therapy Interventions: Good Participation in Activities, On-Track to Achieve Discharge Goals Pt typically amb w/occassional use of cane, indep for ADLs and active now presents with balance deficits slightly below baseline affecting ADLs and functional transfers. Pt will benefit from OT in the home to return to [facility]. PRECAUTIONS Fall Risk, Lines/Tubes/Drains, Seizure R drop foot at baseline CURRENT HOSPITAL COURSE Sepsis Relevant Past Medical History: COPD, CAD, GERD, HLD, PAD, vertigo HOME LIVING Patient Lives With: Spouse, Family Assistance Available: 24-Hour, Other: See Comment Comments: granddaughter Entry To Home: Stairs, Without Rail Number Of Stairs Into Home: 2 Number Of Stairs To Bed/Bath: 0 Tub/Shower Type: walk in Laundry: basement - spouse completes Equipment Owned: Cane, Walker- Wheeled, Grab Bars- Shower, Shower Chair, Hand Held Shower PRIOR FUNCTIONAL LEVEL Within Functional Limits, History of Falls Indep for ADLs, pt uses cane most times at baseline; has R foot drop but doens't wear brace, however states he plans to do so and use RW upon d/c. Reports about 2 falls per month due to tripping. Active, drives, shops, spouse completes cooking, cleaning and laundry. Sleeps in flat bed Baseline Cognition: Oriented to self, Oriented to place, Oriented to time, Oriented to situation SUBJECTIVE I would like to complete some self care activities COGNITION Responsiveness: Alert, Awake Follows Commands: 3-step Commands THERAPY DIAGNOSIS Reduced mobility-other, Decreased activities of daily living (ADL), Muscle Weakness (generalized), Unsteadiness on feet, General symptoms and signs-other TREATMENT INTERVENTIONS Evaluation, Therapeutic Activity (09788), Self Fdc Management (90685) Timed Code Treatment (minutes): 25 Skilled Treatment Time (minutes): 40 TRAINING AND EDUCATION PROVIDED Assistive Device Use, Bed Mobility, Benefits of In-Hospital Mobility, Discharge Planning, Energy Conservation, Expected Functional Level, Functional Mobility Involving ADLs, Grooming Tasks, Health Literacy, Insight into Deficits, Positioning, Precautions/Restrictions, Role of Occupational Therapy, Safety/Judgment, Self-Efficacy, Sitting Balance to Improve [place] with ADLs/Self-Care, Standing Balance to Improve [place] with ADLs/Self-Care, Toileting , Transfer - Bed to Chair, Transfer - Sit to Stand, Treatment Protocol, Upper Extremity Bathing, Upper Extremity Dressing THERAPEUTIC SKILLS USED Activity Dosing, Cues for Sequencing/Proper Technique for Activity, Cuing Tactile, Cuing Verbal, Cuing Visual, Family Training, Movement Facilitation, Physical Assist, Task Analysis Learning, Teach-Back for Education, Therapeutic Use of Self FUNCTIONAL STATUS Activities of Daily Living Assist Level Additional Information Feeding Independent Grooming Contact Guard Assistance, Additional Information in stance at sink to complete all grooming activities. Noted pt to fatigue mid completion, first attempting to lean on sink and then attempting to lean against wall. Informed of correct use of RW when grooming at sink. Bathing Upper Body Contact Guard Assistance, Additional Information in stance at sink to sponge bathe Bathing Lower Body Minimal Assistance, Additional Information based on decreased endurance Dressing Upper Body Set Up Dressing Lower Body Contact Guard Assistance, Additional Information for standing balance to pull up pants Toileting Contact Guard Assistance, Additional Information for standing balance when using urinal Mobility Assist Level Additional Information Bed Mobility Sit To Supine: Supervision Sit to Stand Contact Guard Assistance Stand to Sit Contact Guard Assistance Bed to Chair Contact Guard Assistance Bed To Chair Transfer Type: Stepping Bed To Chair Transfer Equipment: Wheeled Walker Toilet/Commode Shower Functional Mobility Contact Guard Assistance, Additional Information Functional Mobility Device: Wheeled Walker chair>sink>bed, pt fatiguing end of task GOALS Patient will demonstrate progress with self-care, cognitive and/or coping needs identified to allow safe discharge to home with available support and/or p (more content not included)... [facility] THERAPY NT HNO ID: [id number] Author: MONTSERRAT JON PT Service: Physical Therapy Author Type: Physical Therapist Type: Therapy (PT/OT/Speech/Resp) Filed: 03/03/2024 10:23 Note Text: -- Summary: PT Keysha -- Physical Therapy Evaluation Summary SERVICE DATE: 03/03/2024 SERVICE TIME: 0934 to 1000 ROOM: [place] [address] PT 6 Clicks Score: 20 DISCHARGE RECOMMENDATIONS Outpatient PT Recommended Discharge Disposition Comments: Pt currently functioning below baseline. Pt presents with decreased strength, impaired activity tolerance, and impaired balance. Pt would benefit from outpatient services to address deficits. Recommended Discharge Equipment: No equipment needs anticipated ASSESSMENT Response to Therapy Interventions: Good Participation in Activities, Improved Tolerance for Activity, On-Track to Achieve Discharge Goals, Requires Additional Time to Complete Activities Patient CGA with use of FWW and IV pole for ambulation. Recommend trial of cane next session and to progress stair negotiation as able PRECAUTIONS Fall Risk, Lines/Tubes/Drains, Seizure R drop foot at baseline CURRENT HOSPITAL COURSE Sepsis Relevant Past Medical History: COPD, CAD, GERD, HLD, PAD, vertigo HOME LIVING Patient Lives With: Spouse, Family Assistance Available: 24-Hour Entry To Home: Stairs, Without Rail Number Of Stairs Into Home: 2 Number Of Stairs To Bed/Bath: 0 Tub/Shower Type: walk in Laundry: basement - spouse completes Equipment Owned: Cane, Walker- Wheeled PRIOR FUNCTIONAL LEVEL Within Functional Limits, History of Falls Patient reports active lifestyle, stating him and his spouse are contantly in/out of the house running errands and performing tasks with/for friends. Patient reports granddaughter also resides with them but works multimedia services manager. Patient states he uses a cane for ambulation when he can rememeber to use it. States he has had R foot drop for abour 4 years and has a brace however no longer wears it. Reports the foot drop contributes to many tripping episodes and interittent falls (reports approx 2 falls per month); + driving, self medical management. Reports independence with ADLs and states spouse performs most IADLs SUBJECTIVE Pt reports, I got no sleep last night, this bed is terrible. Agreeable to PT, cleared with RN THERAPY DIAGNOSIS Reduced mobility-other TREATMENT INTERVENTIONS Evaluation, Gait Training (88081), Therapeutic Activity (42424) Timed Code Treatment (minutes): 11 Skilled Treatment Time (minutes): 26 TRAINING AND EDUCATION PROVIDED Anatomy and Impact on Deficits, Assistive Device Use, Bed Mobility, Benefits of In-Hospital Mobility, Discharge Planning, Expected Functional Level, Falls Prevention, Gait Pattern, Reduction of Deviations, Role of Physical Therapy, Sitting Balance, Standing Balance, Transfers, Treatment Protocol THERAPEUTIC SKILLS USED Activity Dosing, Cues for Sequencing/Proper Technique for Activity, Cuing Tactile, Cuing Verbal, Cuing Visual, Management of Critical Lines, Tubes and/or Drains, Muscle Activation Facilitation, Physical Assist, Postural Alignment Correction FUNCTIONAL STATUS Bed Mobility Supine To Sit: Stand By Assistance Sit to Supine: Additional Information OOB in bedside chair at session end Scooting: Stand By Assistance Transfers Sit To Stand: Additional Information, Contact Guard Assistance X 2 trials Stand To Sit: Additional Information, Contact Guard Assistance Cues for safe approach, reaching UE back, and controlled descent Bed to Chair Gait Additional Information, Contact Guard Assistance Patient demonstrates steppage gait with R drop foot which is likely baseline due to BLE neuropathy. Education provided re: use of R foot brace + AD (cane or FWW) to reduce risk of falls. Gait Device: Wheeled Walker, IV Pole Gait Distance (feet): 1 X 200 with FWW, 1 X 15 with IV pole Stairs GOALS Patient will demonstrate progress with functional mobility to allow safe discharge to home with available support and/or physical assistance. Transfer Supine to/from Sit with: Stand By Assistance Transfer Sit to/from Stand with: Stand By Assistance Ambulate with: Contact Guard Assistance Distance: 200 feet Device: Cane Ambulate Up and Down Steps with: Contact Guard Assistance Number of Steps: 2 Device: Cane Rehab Potential: Good Progress Toward Goals: Progressing as expected PLAN PT Frequency: 3 Times Per Week Treatment Interventions: Education, Self Care / Home Management, Energy Conservation Training, Joint Mobility, Strengthening, Functional Mobility Training, Balance Training, Edema Management, Pain Management Plan for Next Visit: Bed Mobility, Gait Training, Exercise Instruction/Handout, Cane Training, Stair Training SIGNATURE (more content not included)... [facility] ALLIED HEALTHon 03-02-2024 ALLIED [facility]ALTH HNO ID: [id number] Author: WINSOME TOMLINSON RT(R) Service: Radiology Author Type: Technologist Type: Allied Health Filed: 03/02/2024 14:51 Note Text: Radiology Service Progress Note DATE OF SERVICE: March 02, 2024 TIME: 2:50 PM PATIENT IDENTITY VERIFICATION COMPLETED USING TWO (2) STANDARD IDENTIFIERS: Name and Date of confirmed by patient verbally. FALL SCREENING: Has the patient had 2 falls in the last year or 1 fall with injury or currently using an Ambulatory Assistive Device (Walker, Cane, Wheelchair, Crutches, etc.)? Emergency Room Patient: Screened in ED PATIENT GENDER DATA: Male PATIENT RELEVANT IMPLANT DATA REVIEWED: Not Applicable PATIENT PRESENTS WITH AN IMPLANTABLE OR ATTACHED AIRPORT SCREENER: No ALLERGIES: Reviewed and unchanged CONTRAST ALLERGY: NO. EXAM: CT -CONTRAST INDUCED NEPHROPATHY RISK FACTORS: Patient age > 60 years CREATININE: Creatinine Date Value Ref Range Status 03/02/2024 1.00 0.73 - 1.22 mg/dL Final 01/26/2024 0.94 0.73 - 1.22 mg/dL Final 07/10/2023 0.83 0.73 - 1.22 mg/dL Final Estimated Glomerular Filtration Rate Date Value Ref Range Status 03/02/2024 77 >=60 mL/min/1.73m? Final Comment: Estimated Glomerular Filtration Rate (eGFR) is calculated using the 2020 CKD-EPI creatinine equation. This equation utilizes serum creatinine, sex, and age as parameters. The creatinine assay has traceable calibration to isotope dilution-mass spectrometry. Refer to KDIGO guidelines for clinical interpretation. In patients with unstable renal function, e.g. those with acute kidney injury, the eGFR may not accurately reflect actual GFR. eGFR- Date Value Ref Range Status 09/24/2021 >60 Final P.O.C.T. RESULTS: POC done: Yes, See Lab Tab March 02, 2024 TREATMENT: N/A PERIPHERAL IV DATA: Inpatient - refer to LDA documentation RADIOLOGY DEPARTMENT: CT; Exam(s) Completed: Abdomen/Pelvis and PE Study SIGNATURE: RT Francisca(Jamila) PATIENT NAME: Ann Marie Elam DATE: March 02, 2024 TIME: 2:50 PM Normal [facility] HNO ID: [id number] Author: WINSOME TOMLINSON RT(Jamila) Service: Radiology Author Type: Technologist Type: Allied Health Filed: 03/02/2024 12:33 Note Text: Radiology Service Progress Note PATIENT NAME: Ann Marie Elam SR DATE OF SERVICE: March 02, 2024 TIME: 12:33 PM PATIENT IDENTITY VERIFICATION COMPLETED USING TWO (2) IDENTIFIERS: Name and Date of confirmed by patient verbally. FALL SCREENING: Has the patient had 2 falls in the last year or 1 fall with injury or currently using an Ambulatory Assistive Device (Walker, Cane, Wheelchair, Crutches, etc.)? Emergency Room Patient: Screened in ED PATIENT GENDER DATA: Male PATIENT RELEVANT IMPLANT DATA REVIEWED: Not Applicable PATIENT PRESENTS WITH AN IMPLANTABLE OR ATTACHED AIRPORT SCREENER: No RADIOLOGY DEPARTMENT: General X-ray: Exam(s) Completed: Chest X-Ray PERIPHERAL IV DATA: Not applicable SIGNED BY: RT Francisca(R) March 02, 2024 12:33 PM Normal [facility] Bacteria Bld Culton 03-02-20 24 Bacteria identified Cx Nom (Bld) CULTURE, BLOOD: No growth 5 days Normal [facility] Comment on above: Performed By: #### S LACTR #### [facility] CLIA [id number] [address] [place] [address] [place] Bacteria identified Cx Nom (Bld) CULTURE, BLOOD: No growth 5 days Normal [facility] Comment on above: Performed By: #### S LACTR #### [facility] CLIA [id number] [address] [place] [address] [place] CBC W Auto Differential pane l (Bld)on 03-02-2024 Basophils (Bld) [#/Vol] 10*3/uL Normal <0.11 [facility] Comment on above: Order Comment: Speci men Type: BLOOD SPECIMEN [facility] Address: [address] [place] [address] Performed By: #### 5 7021-8 #### [facility] CLIA [id number] [address] [place] [address] [place] Basophils/100 WBC (Bld) 0.2 % Normal [facility] Comment on above: Order Comment: Speci men Type: BLOOD SPECIMEN [facility] Address: [address] [place] [address] Performed By: #### 5 7021-8 #### [facility] CLIA [id number] [address] [place] [address] [facility] Differential cell count method Nom (Bld) Auto Normal [facility] Comment on above: Order Comment: Speci men Type: BLOOD SPECIMEN [facility] Address: [address] [place] [address] Performed By: #### 5 7021-8 #### [facility] CLIA [id number] [address] [place] [address] [place] Eosinophils (Bld) [#/Vol] 0.07 10*3/uL Normal <0.46 [facility] Comment on above: Order Comment: Speci men Type: BLOOD SPECIMEN [facility] Address: [address] [place] [address] Performed By: #### 5 7021-8 #### [facility] CLIA [id number] [address] [place] [id number] [facility] Eosinophils/100 WBC (Bld) 1.4 % Normal [facility] Comment on above: Order Comment: Speci men Type: BLOOD SPECIMEN [facility] Address: [address] [place] [address] Performed By: #### 5 7021-8 #### [facility] CLIA [id number] [address] [place] [address] [place] Erythrocyte distribution width (RBC) [Ratio] 12.1 % Normal 11.5-15.0 [facility] Comment on above: Order Comment: Speci men Type: BLOOD SPECIMEN [facility] Address: [address] [place] [address] Performed By: #### 5 7021-8 #### [facility] CLIA [id number] [address] [place] [address] [place] Hematocrit (Bld) [Volume fraction] 44.0 % Normal 39.0-51.0 [facility] Comment on above: Order Comment: Speci men Type: BLOOD SPECIMEN [facility] Address: [address] [place] [address] Performed By: #### 5 7021-8 #### [facility] CLIA [id number] [address] [place] [address] [place] Hemoglobin (Bld) [Mass/Vol] 15.0 g/dL Normal 13.0-17.0 [facility] Comment on above: Order Comment: Speci men Type: BLOOD SPECIMEN [facility] Address: [address] [place] [address] Performed By: #### 5 7021-8 #### [facility] CLIA [id number] [address] [place] [address] [place] Immature granulocytes (Bld) [#/Vol] 10*3/uL Normal <0.10 [facility] Comment on above: Order Comment: Speci men Type: BLOOD SPECIMEN [facility] Address: [address] [place] [address] Performed By: #### 5 7021-8 #### [facility] CLIA [id number] [address] [place] [address] [place] Immature granulocytes/100 WBC (Bld) 0.2 % Normal [facility] Comment on above: Order Comment: Speci men Type: BLOOD SPECIMEN [facility] Address: [address] [place] [address] Performed By: #### 5 7021-8 #### [facility] CLIA [id number] [address] [place] [address] [place] Lymphocytes (Bld) [#/Vol] 0.45 10*3/uL Low 1.00-4.00 [facility] Comment on above: Order Comment: Speci men Type: BLOOD SPECIMEN [facility] Address: [address] [place] [address] Performed By: #### 5 7021-8 #### [facility] CLIA [id number] [address] [place], [place] [address] [place] [address] STATES [facility] Lymphocytes/100 WBC (Bld) 8.9 % Normal [facility] Comment on above: Order Comment: Speci men Type: BLOOD SPECIMEN [facility] Address: [address] [place] [address] Performed By: #### 5 7021-8 #### [facility] CLIA [id number] [address] [place], [place] [address] [place] [address] MCH (RBC) [Entitic mass] 32.7 pg Normal 26.0-34.0 [facility] Comment on above: Order Comment: Speci men Type: BLOOD SPECIMEN [facility] Address: [address] [place] [address] Performed By: #### 5 7021-8 #### [facility] CLIA [id number] [address] [place] MCHC (RBC) [Mass/Vol] 34.1 g/dL Normal 30.5-36.0 [facility] Comment on above: Order Comment: Speci men Type: BLOOD SPECIMEN [facility] Address: [address] [place] [address] Performed By: #### 5 7021-8 #### [facility] CLIA [id number] [address] [place] MCV (RBC) [Entitic vol] 95.9 fL Normal 80.0-100.0 [facility] Comment on above: Order Comment: Speci men Type: BLOOD SPECIMEN [facility] Address: [address] [place] [address] Performed By: #### 5 7021-8 #### [facility] CLIA [id number] [address] Monocytes (Bld) [#/Vol] 0.10 10*3/uL Normal <0.87 [facility] Comment on above: Order Comment: Speci men Type: BLOOD SPECIMEN [facility] Address: [address] [place] [address] Performed By: #### 5 7021-8 #### [facility] CLIA [id number] [address] [place] [address] [place] Monocytes/100 WBC (Bld) 2.0 % Normal [facility] Comment on above: Order Comment: Speci men Type: BLOOD SPECIMEN [facility] Address: [address] [place] [address] Performed By: #### 5 7021-8 #### [facility] CLIA [id number] [address] [place] [address] [place] Neutrophils (Bld) [#/Vol] 4.44 10*3/uL Normal 1.45-7.50 [facility] Comment on above: Order Comment: Speci men Type: BLOOD SPECIMEN [facility] Address: [address] [place] [address] Performed By: #### 5 7021-8 #### [facility] CLIA [id number] [address] [place] [address] [place] Neutrophils/100 WBC (Bld) 87.3 % Normal [facility] Comment on above: Order Comment: Speci men Type: BLOOD SPECIMEN [facility] Address: [address] [place] [address] Performed By: #### 5 7021-8 #### [facility] CLIA [id number] [address] [place] [address] [place] Nucleated RBC (Bld) [#/Vol] Normal [facility] Comment on above: Order Comment: Speci men Type: BLOOD SPECIMEN [facility] Address: [address] [place] [address] Performed By: #### 5 7021-8 #### [facility] CLIA [id number] [address] [place] [address] [place] Nucleated RBC/100 WBC (Bld) [Ratio] Normal [facility] Comment on above: Order Comment: Speci men Type: BLOOD SPECIMEN [facility] Address: [address] [place] [address] Performed By: #### 5 7021-8 #### [facility] CLIA [id number] [address] [place] [address] [place] Platelet mean volume (Bld) [Entitic vol] 8.5 fL Low 9.0-12.7 [facility] Comment on above: Order Comment: Speci men Type: BLOOD SPECIMEN [facility] Address: [address] [place] [address] Performed By: #### 5 7021-8 #### [facility] CLIA [id number] [address] [place] [address] [place] Platelets (Bld) [#/Vol] 156 10*3/uL Normal 150-400 [facility] Comment on above: Order Comment: Speci men Type: BLOOD SPECIMEN [facility] Address: [address] [place] [address] Performed By: #### 5 7021-8 #### [facility] CLIA [id number] [address] [place] [address] [place] RBC (Bld) [#/Vol] 4.59 10*6/uL Normal 4.20-6.00 [facility] Comment on above: Order Comment: Speci men Type: BLOOD SPECIMEN [facility]ing [facility] Address: [address] [place] [address] Performed By: #### 5 7021-8 #### [facility] CLIA [id number] [address] [place] [address] [place] WBC (Bld) [#/Vol] 5.08 10*3/uL Normal 3.70-11.00 [facility] Comment on above: Order Comment: Speci men Type: BLOOD SPECIMEN [facility]ing [facility] Address: [address] [place] [address] Performed By: #### 5 7021-8 #### [facility] CLIA [id number] [address] [place] [address] [facility] CONSULT PROGon 03-02-2024 CONSULT PROG HNO ID: [id number] Author: DESEAN DENG RPh Service: Pharmacy Author Type: Pharmacist Type: Consult Progress Note Filed: 03/02/2024 19:49 Note Text: PHARMACY VANCOMYCIN DOSING NOTE Patient Name: Ann Marie Elam SR Admission Date: 03/02/2024 Date of Consult: 03/02/2024 Time of Consult: 7:47 PM Indication: Pneumonia Goal Range: 15-20 mcg/mL RECOMMENDATIONS/PLAN: Pharmacy consulted for vancomycin dosing for Ann Marie Elam SR, a 79 year old male. 1. Patient is currently ordered Vancomycin 1.5 g IV q24h. Today is day 1 of therapy. 2. No vancomycin level has been drawn for this dosing regimen. 3. The present dose of vancomycin is the recommended dosage for this patient at this time. Continue therapy as prescribed. 4. The next vancomycin level will be ordered for 03/04/24 unless clinically indicated sooner. (Pharmacy will order) 5. S. aureus nasal PCR swab ordered We will follow patient renal function, vancomycin levels and doses with you during the course of therapy. Additional recommendations will appear in follow up notes. If you have any questions, please contact pharmacy at [phone]. Age: [age] year old Allergies: ALLERGIES Allergen Reactions Lipitor [Atorvastat* Myalgia Neosporin [Neomycin* Other: See Comments Skin reaction Last 3 Encounter Wt Readings: Date: Wt: 03/02/2024 93.9 kg (207 lb) 02/16/2024 94 kg (207 lb 3.7 oz) 02/07/2024 94.9 kg (209 lb 3.2 oz) Last 1 Encounter Ht Readings: Date: Ht: 09/07/2023 182.9 cm (6') CrCl: 68 mL/min Temp (24hrs), Av ?C (98.6 ?F), Min:37 ?C (98.6 ?F), Max:37 ?C (98.6 ?F) - Current Temp: 37 ?C (98.6 ?F) Labs BUN (mg/dL) Date Value 03/02/2024 17 01/26/2024 18 07/10/2023 18 Creatinine (mg/dL) Date Value 03/02/2024 1.00 01/26/2024 0.94 07/10/2023 0.83 WBC (k/uL) Date Value 03/02/2024 5.08 02/07/2024 3.62 (L) 01/26/2024 3.33 (L) Vancomycin Levels: No results found for: ELIZABETH Deng [facility] CONSULT PROG HNO ID: [id number] Author: AURE BARKSDALE RPh Service: Pharmacy Author Type: Pharmacist Type: Consult Progress Note Filed: 03/02/2024 14:33 Note Text: PHARMACY VANCOMYCIN DOSING NOTE Patient Name: Ann Marie Elam SR Admission Date: 03/02/2024 Date of Consult: 03/02/2024 Time of Consult: 2:23 PM Indication: Source unknown; empiric Goal Range: 10-20 mcg/mL RECOMMENDATIONS/PLAN: Pharmacy consulted for vancomycin dosing for Ann Marie Elam SR, a 79 year old male. 1. Patient is currently ordered Vancomycin 1.5 g IV q24h. Today is day 1 of therapy. 2. No vancomycin level has been drawn for this dosing regimen. Sepsis > Febrile, MAP < 65 (fluids; no pressors at this time), WBC wnl, tachypnea Patient with DLBCL. Per report pt with Skin CA as well and had recent chemo Bld Cx 2/2 in process Renal fn stable , possible range of 0.7- 1.0 Accumulation risk: obese, elderly Will dose at 15 mg/kg q 12 hr with actual BW due to current clinical presentation; and get level prior to 4th dose dt above accumulation risk 3. The present dose of vancomycin is the recommended dosage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 pain [R07.9] 11/22/2021 01/19/2022 Acute bronchitis with chronic obstructive pulmo*11/22/2021 Elevated troponin [R77.8] 11/22/2021 01/19/2022 Multiple renal cysts [Q61.02] 01/17/2022 Spinal stenosis, lumbar region with neurogenic *07/04/2022 Encounter Status:Closed by CHUYITA LOPEZ LPN on 08/04/22 [facility] CBC W Auto Differential pane l (Bld)on 07-18-2022 Basophils (Bld) [#/Vol] <0.11 k/uL [facility] Basophils/100 WBC (Bld) 0.6 % [facility] Differential cell count method Nom (Bld) Auto [facility] Eosinophils (Bld) [#/Vol] 0.16 10*3/uL <0.46 k/uL [facility] Eosinophils/100 WBC (Bld) 4.5 % [facility] Erythrocyte distribution width (RBC) [Ratio] 11.9 % 11.5 - 15.0 % [facility] Hematocrit (Bld) [Volume fraction] 38.6 % Low 39.0 - 51.0 % [facility] Hemoglobin (Bld) [Mass/Vol] 13.5 g/dL 13.0 - 17.0 g/dL [facility] Immature granulocytes (Bld) [#/Vol] <0.10 k/uL [facility] Immature granulocytes/100 WBC (Bld) 0.6 % [facility] Lymphocytes (Bld) [#/Vol] 0.44 10*3/uL Low 1.00 - 4.00 k/uL [facility] Lymphocytes/100 WBC (Bld) 12.3 % [facility] MCH (RBC) [Entitic mass] 33.5 pg 26.0 - 34.0 pg [facility] MCHC (RBC) [Mass/Vol] 35.0 g/dL 30.5 - 36.0 g/dL [facility] MCV (RBC) [Entitic vol] 95.8 fL 80.0 - 100.0 fL [facility] Monocytes (Bld) [#/Vol] 0.40 10*3/uL <0.87 k/uL [facility] Monocytes/100 WBC (Bld) 11.1 % [facility] Neutrophils (Bld) [#/Vol] 2.55 10*3/uL 1.45 - 7.50 k/uL [facility] Neutrophils/100 WBC (Bld) 70.9 % [facility] Nucleated RBC (Bld) [#/Vol] <0.01 k/uL [facility] Nucleated RBC/100 WBC (Bld) [Ratio] 0.0 /100 WBC [facility] Platelet mean volume (Bld) [Entitic vol] 8.3 fL Low 9.0 - 12.7 fL [facility] Platelets (Bld) [#/Vol] 136 10*3/uL Low 150 - 400 k/uL [facility] RBC (Bld) [#/Vol] 4.03 10*6/uL Low 4.20 - 6.0 0 m/uL [facility] WBC (Bld) [#/Vol] 3.59 10*3/uL Low 3.70 - 11.00 k/uL [facility] Comprehensive metabolic 2000 panelon 07-18-2022 Albumin [Mass/Vol] 4.0 g/dL 3.9 - 4.9 g/dL [facility] ALP [Catalytic activity/Vol] 71 U/L 38 - 113 U/L [facility] ALT [Catalytic activity/Vol] 25 U/L 10 - 54 U/L [facility] Anion gap [Moles/Vol] 6 mmol/L Low 9 - 18 mmol/L [facility] AST [Catalytic activity/Vol] 26 U/L 14 - 40 U/L [facility] Bilirubin [Mass/Vol] 0.3 mg/dL 0.2 - 1 .3 mg/dL [facility] Calcium [Mass/Vol] 8.7 mg/dL 8.5 - 10. 2 mg/dL [facility] Chloride [Moles/Vol] 99 mmol/L 97 - 10 5 mmol/L [facility] CO2 [Moles/Vol] 32 mmol/L High 22 - 30 mmol/L [facility] Creatinine [Mass/Vol] 0.76 mg/dL 0.73 - 1.22 mg/dL [facility] Estimated Glomerular Filtration Rate 93 mL/min/1.73m >=60 mL/min/1.73 m [facility] Glucose [Mass/Vol] 99 mg/dL 74 - 99 mg/dL [facility] Potassium [Moles/Vol] 3.8 mmol/L 3.7 - 5.1 mmol/L [facility] Protein [Mass/Vol] 6.3 g/dL 6.3 - 8.0 g/dL [facility] Sodium [Moles/Vol] 137 mmol/L 136 - 144 mmol/L [facility] Urea nitrogen [Mass/Vol] 15 mg/dL 9 - 24 mg/dL [facility] LD LACTATE DEHYDROon 07-18- 022 LDH [Catalytic activity/Vol] 239 U/L High 135 - 225 U/L [facility] CNOVon 07-04-2022 CNOV Office Visit (AGUSTÍN ) -- ANN MARIE ELAM SR ([id number]) 1945 M [facility] Date Time Provider Department 07/04/22 3:15 PM AMBER ELIZALDE During your visit today, we recorded the following information about you: Pulse Blood pressure 56/minute 140/69 Amber Elizalde APRN.BUILDING SUPERINTENDENT 07/04/2022 3:33 PM Signed Patient was last seen by me on 11/03/21 for back pain Last procedure 04/28/22 LESI Plan of care: Encouraged to follow instructions of oncologist Continue Tylenol PRN. No more 4000mg in a day OARRS reviewed and consistent Followup in 4-5 months in office Pain level:09/13 States had 80% relief from LESI Denies any ED visits or hospitalizations since last office visit Reports pain worse with splitting wood, riding tractor, bending over Reports pain better with tylenol ES and LESI Describes pain in lower back as intermittent ache States pain radiates to right hip at times Denies numbness/tingling States he trips quite a bit Right drop foot Denies issues with bowels or bladder Denies nausea or vomiting Denies dizziness. Hx vertigo Denies headaches Physical assessment Alert and oriented x3 Skin pink,warm,, and dry. No conversational shortness of breath appreciated Wearing face mask. Mood pleasant and cooperative. Able to ascend and descend from sitting position without difficulty accompanied by +5/5 motor strength in both legs. Negative SLR from seated position bilaterally.Sensory is intact to light touch in all dermatomes. Negative Sylwia's test bilaterally. Lumbar flexion is 90 degrees and lumbar extension is < 10 degrees. Negative lumbar facet loading Deferred toe and heel walking due to poor balance. Amber Elizalde APRN.CNS 07/04/2022 3:31 PM Addendum Encouraged to follow instructions of oncologist and PCP Continue Tylenol PRN. No more 4000mg in a day OARRS reviewed and consistent Followup in 4-5 months in office Referring Provider: SELF [200] Allergies As of Date: 07/04/2022 Noted Allergy Reaction LIPITOR (ATORVASTATIN CALCIUM) 05/13/2018 17 - Myalgia NEOSPORIN ([id number]* 14 - Other: See Comments Comments: Skin reaction Date Reviewed: 07/04/2022 Reviewed by: Amber Elizalde APRN.BUILDING SUPERINTENDENT - Fully Assessed Reason for Visit: Back Pain [12] Primary Visit Diagnosis:Lumbar radiculopathy [M54.16] Other Visit Diagnoses:Spinal stenosis, lumbar region with neurogenic claudication [M48.062] Chronic pain syndrome [G89.4] Prescriptions as of 07/04/2022 - umeclidinium-vilanterol (ANORO ELLIPTA) 62.5-25 mcg/actuation inhaler Inhale 1 Inhalation as instructed once daily. - VENTOLIN HFA 90 mcg/actuation inhaler Inhale 2 Puffs as instructed every 4 hours as needed for wheezing/shortness of breath. - vitamin B complex (SUPER B [id number] ORAL) Take by mouth once daily. - aspirin 81 mg chewable tablet DAILY@0800 - meclizine (ANTIVERT) 25 mg tab Take by mouth. - omeprazole (PRILOSEC) 40 mg capsule Take 1 capsule by mouth once daily. - cholecalciferol, Vitamin D3, (VITAMIN D3) 1,250 mcg (50,000 unit) cap capsule Take 1 capsule by mouth one time a week. - metoprolol succinate ER (TOPROL XL) 50 mg 24 hr tablet Take 0.5 tablets by mouth once daily. - ubidecarenone (COQ-10 ORAL) Take by mouth once daily. - acetaminophen (TYLENOL EXTRA STRENGTH) 500 mg tablet Take 1,000 mg by mouth every 8 hours as needed. - furosemide (LASIX) 40 mg tablet Take 40 mg by mouth twice daily. - lisinopril (ZESTRIL, PRINIVIL) 10 mg tablet Take 10 mg by mouth once daily. - levETIRAcetam (KEPPRA) 250 mg tablet Take 1 tablet by mouth twice daily. - levETIRAcetam (KEPPRA) 1,000 mg tablet Take 1,000 mg by mouth twice daily. 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 [K22.70] 03/09/2018 02/11/2019 Acute encephalopathy [G93.40] 12/21/2018 02/11/2019 Seizure disorder (HCC) [G40.909] 12/22/2018 Nicotine use disorder, F17.2 [F17.200] 12/24/2018 02/11/2019 Obesity, Class I, BMI 30-34.9 [E66.9] 12/24/2018 Chronic obstructive pulmonary disease (HCC) [J4*01/16/2019 01/19/2022 Phimosis [N47.1] 02/11/2019 Essential hypertension [I10] History of seizure [Z87.898] HLD (hyperlipidemia) [E78.5] Snoring [R06.83] GERD (gastroesophageal reflux disease) [K21.9] Vertigo [R42] PAD (peripheral artery disease) (HCC) [I73.9] 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 Normal [facility] Urinalysis complete panel (U )on 01-18-2022 Bilirubin Ql (U) Negative Negative [facility] Clarity (Unsp spec) Clear Clear [facility] Color (U) Light Yellow Yellow [facility] Glucose Test strip (U) [Mass/Vol] Negative Negative [facility] Hemoglobin Ql (U) 1+ Abnormal Negative [facility] Ketones Ql (U) Negative Negative [facility] Leukocyte esterase Test strip Ql (U) Negative Negative [facility] Nitrite Ql (U) Negative Negative [facility] pH (U) 7.0 [pH] 5.0 - 8.0 [facility] Protein (U) [Mass/Vol] Negative Negative [facility] RBC LM.HPF (Urine sed) [#/Area] 0-3 /HPF 0-3 /HPF [facility] Specific gravity (U) [Rel density] 1.015 1.005 - 1.030 [facility] Urobilinogen Ql (U) Negative Negative [facility] WBC LM.HPF (Urine sed) [#/Area] 0-5 /HPF 0-5 /HPF [facility] CBC W Auto Differential pane l (Bld)on 01-14-2022 Abs Immature Gran <0.03 <0.10 k/uL [facility] Basophils (Bld) [#/Vol] 10*3/uL <0.11 k/uL [facility] Basophils/100 WBC (Bld) 0.7 % [facility] Differential cell count method Nom (Bld) Auto [facility] Eosinophils (Bld) [#/Vol] 0.12 10*3/uL <0.46 k/uL [facility] Eosinophils/100 WBC (Bld) 4.0 % [facility] Erythrocyte distribution width (RBC) [Ratio] 12.4 % 11.5 - 15.0 % [facility] Hematocrit (Bld) [Volume fraction] 36.5 % Low 39.0 - 51.0 % [facility] Hemoglobin (Bld) [Mass/Vol] 12.8 g/dL Low 13.0 - 17.0 g/dL [facility] Immature Gran % 0.3 % [facility] Lymphocytes (Bld) [#/Vol] 0.25 10*3/uL Low 1.00 - 4.00 k/uL [facility] Lymphocytes/100 WBC (Bld) 8.3 % [facility] MCH (RBC) [Entitic mass] 33.2 pg 26.0 - 34.0 pg [facility] MCHC (RBC) [Mass/Vol] 35.1 g/dL 30.5 - 36.0 g/dL [facility] MCV (RBC) [Entitic vol] 94.6 fL 80.0 - 100.0 fL [facility] Monocytes (Bld) [#/Vol] 0.39 10*3/uL <0.87 k/uL [facility] Monocytes/100 WBC (Bld) 13.0 % [facility] Neutrophils (Bld) [#/Vol] 2.22 10*3/uL 1.45 - 7.50 k/uL [facility] Neutrophils/100 WBC (Bld) 73.7 % [facility] Nucleated RBC (Bld) [#/Vol] 10*3/uL <0.01 k/uL [facility] Nucleated RBC/100 WBC (Bld) [Ratio] 0.0 /100 WBC [facility] Platelet mean volume (Bld) [Entitic vol] 8.0 fL Low 9.0 - 12.7 fL [facility] Platelets (Bld) [#/Vol] 151 10*3/uL 150 - 400 k/uL [facility] RBC (Bld) [#/Vol] 3.86 10*6/uL Low 4.20 - 6.0 0 m/uL [facility] WBC (Bld) [#/Vol] 3.01 10*3/uL Low 3.70 - 11.00 k/uL [facility] CT ABD/PEL W IVCONon [address] [facility] [address] CHEST W IVCONon 2 [facility] Comprehensive metabolic 2000 panelon 01-14-2022 Albumin [Mass/Vol] 4.3 g/dL 3.9 - 4.9 g/dL [facility] ALP [Catalytic activity/Vol] 59 U/L 38 - 113 U/L [facility] ALT [Catalytic activity/Vol] 36 U/L 10 - 54 U/L [facility] Anion gap [Moles/Vol] 10 mmol/L 9 - 18 mmol/L [facility] AST [Catalytic activity/Vol] 36 U/L 14 - 40 U/L [facility] Bilirubin [Mass/Vol] 0.3 mg/dL 0.2 - 1 .3 mg/dL [facility] Calcium [Mass/Vol] 9.2 mg/dL 8.5 - 10. 2 mg/dL [facility] Chloride [Moles/Vol] 102 mmol/L 97 - 10 5 mmol/L [facility] CO2 [Moles/Vol] 27 mmol/L 22 - 30 mmol/L [facility] Creatinine [Mass/Vol] 0.83 mg/dL 0.73 - 1.22 mg/dL [facility] Estimated Glomerular Filtration Rate 91 mL/min/1.73m >=60 mL/min/1.73 m [facility] Glucose [Mass/Vol] 108 mg/dL High 74 - 99 mg/dL [facility] Potassium [Moles/Vol] 4.1 mmol/L 3.7 - 5.1 mmol/L [facility] Protein [Mass/Vol] 6.8 g/dL 6.3 - 8.0 g/dL [facility] Sodium [Moles/Vol] 139 mmol/L 136 - 144 mmol/L [facility] Urea nitrogen [Mass/Vol] 25 mg/dL High 9 - 24 mg/dL [facility] LD LACTATE DEHYDROon 022 LDH [Catalytic activity/Vol] 302 U/L High 135 - 225 U/L [facility] No Panel Informationon 11-17 IMPRESSION: New finding of marked elevation RIGHT hemidiaphragm etiology uncertain. There may be some atelectasis in the RIGHT lower lung field. Medical Investigator: ERNA Transcribe Date/Time: Nov 17 2021 1:53P Dictated by : ANTIONE PAGAN DO This examination was interpreted and the report reviewed and electronically signed by: ANTIONE PAAGN DO on Nov 17 2021 2:17PM [facility] DIVISION OF RADIOLOGY Radiology Study observation (narrative) [facility] No Panel InformationOrdered By: [facility] Provider on 11-17-2021 [facility] XR Chest PA and Lateralon * * *Final Report* * * DATE OF EXAM: Nov 17 2021 12:25PM WOX [id number] - XR CHEST 2V FRONTAL/LAT / PROCEDURE REASON: Cough * * * * Physician Interpretation * * * * EXAMINATIONs 2: 1. CHEST RADIOGRAPH (2 VIEW FRONTAL & LATERAL)/ 2. RIGHT shoulder CLINICAL HISTORY: Acute pain of right shoulder (accession [id number]), Cough (accession [id number]) MQ: XC2_6 EXAM DATE/TIME: 11/17/2021 12:25 PM COMPARISON: 04/21/2021 RESULT: Lines, tubes, and devices: The central venous catheter appears to project over the expected region of the superior vena cava as seen in the lateral view. Lungs and pleura: New finding of marked elevation of the RIGHT hemidiaphragm. Some eventration of the diaphragm was seen medially previously. The lateral view suggesting some RIGHT lower lobe atelectasis. Cardiomediastinal silhouette: Normal cardiomediastinal silhouette. Bones and soft tissues: Unremarkable. DIVISION OF RADIOLOGY Provider, [facility] - 11/17/2021 * * *Final Report* * * DATE OF EXAM: Nov 17 2021 12:25PM WOX [id number] - XR CHEST 2V FRONTAL/LAT / PROCEDURE REASON: Cough * * * * Physician Interpretation * * * * EXAMINATIONs 2: 1. CHEST RADIOGRAPH (2 VIEW FRONTAL & LATERAL)/ 2. RIGHT shoulder CLINICAL HISTORY: Acute pain of right shoulder (accession [id number]), Cough (accession [id number]) MQ: XC2_6 EXAM DATE/TIME: 11/17/2021 12:25 PM COMPARISON: 04/21/2021 RESULT: Lines, tubes, and devices: The central venous catheter appears to project over the expected region of the superior vena cava as seen in the lateral view. Lungs and pleura: New finding of marked elevation of the RIGHT hemidiaphragm. Some eventration of the diaphragm was seen medially previously. The lateral view suggesting some RIGHT lower lobe atelectasis. Cardiomediastinal silhouette: Normal cardiomediastinal silhouette. Bones and soft tissues: Unremarkable. IMPRESSION IMPRESSION: New finding of marked elevation RIGHT hemidiaphragm etiology uncertain. There may be some atelectasis in the RIGHT lower lung field. Medical Investigator: ERNA Transcribe Date/Time: Nov 17 2021 1:53P Dictated by : ANTIONE PAGAN DO This examination was interpreted and the report reviewed and electronically signed by: ANTIONE PAGAN DO on Nov 17 2021 2:17PM EST [facility] XR Shoulder - right 3 Viewso n 11-17-2021 * * *Final Report* * * DATE OF EXAM: Nov 17 2021 12:25PM WOX 5253 - XR SHLDR >/=3V AP/JASBIR AP/OTHR RT / PROCEDURE REASON: Acute pain of right shoulder * * * * Physician Interpretation * * * * EXAMINATIONs 2: 1. CHEST RADIOGRAPH (2 VIEW FRONTAL & LATERAL)/ 2. RIGHT shoulder CLINICAL HISTORY: Acute pain of right shoulder (accession [id number]), Cough (accession [id number]) MQ: XC2_6 EXAM DATE/TIME: 11/17/2021 12:25 PM COMPARISON: 04/21/2021 RESULT: Lines, tubes, and devices: The central venous catheter appears to project over the expected region of the superior vena cava as seen in the lateral view. Lungs and pleura: New finding of marked elevation of the RIGHT hemidiaphragm. Some eventration of the diaphragm was seen medially previously. The lateral view suggesting some RIGHT lower lobe atelectasis. Cardiomediastinal silhouette: Normal cardiomediastinal silhouette. Bones and soft tissues: Unremarkable. DIVISION OF RADIOLOGY Provider, [facility] - 11/17/2021 * * *Final Report* * * DATE OF EXAM: Nov 17 2021 12:25PM WOX 5253 - XR SHLDR >/=3V AP/JASBIR AP/OTHR RT / PROCEDURE REASON: Acute pain of right shoulder * * * * Physician Interpretation * * * * EXAMINATIONs 2: 1. CHEST RADIOGRAPH (2 VIEW FRONTAL & LATERAL)/ 2. RIGHT shoulder CLINICAL HISTORY: Acute pain of right shoulder (accession [id number]), Cough (accession [id number]) MQ: XC2_6 EXAM DATE/TIME: 11/17/2021 12:25 PM COMPARISON: 04/21/2021 RESULT: Lines, tubes, and devices: The central venous catheter appears to project over the expected region of the superior vena cava as seen in the lateral view. Lungs and pleura: New finding of marked elevation of the RIGHT hemidiaphragm. Some eventration of the diaphragm was seen medially previously. The lateral view suggesting some RIGHT lower lobe atelectasis. Cardiomediastinal silhouette: Normal cardiomediastinal silhouette. Bones and soft tissues: Unremarkable. IMPRESSION IMPRESSION: New finding of marked elevation RIGHT hemidiaphragm etiology uncertain. There may be some atelectasis in the RIGHT lower lung field. Medical Investigator: ERNA Transcribe Date/Time: Nov 17 2021 1:53P Dictated by : ANTIONE PAGAN DO This examination was interpreted and the report reviewed and electronically signed by: ANTIONE PAGAN DO on Nov 17 2021 2:17PM [facility] Basic Metabolic Panelon 09-04 Anion gap [Moles/Vol] 9 Normal [facility] Comment on above: Performed By: #### B MP3 #### [facility] [address] [place] [address] Calcium [Mass/Vol] 9.1 mg/dL Normal 8.4-10.4 [facility] Comment on above: Performed By: #### B MP3 #### [facility] [address] [place] [address] CO2 [Moles/Vol] 29 mmol/L Normal 22-30 [facility] Comment on above: Performed By: #### B MP3 #### [facility] [address] [place] [address] Glucose [Mass/Vol] 89 mg/dL Normal 70-100 [facility] Comment on above: Performed By: #### B MP3 #### [facility] [address] [place] [address] Urea nitrogen [Mass/Vol] 25 mg/dL High 7-20 [facility] Comment on above: Performed By: #### B MP3 #### [facility] [address] [place] [address] Creatinine [Mass/Vol] 0.89 mg/dL Normal 0.52-1.25 [facility] Comment on above: Performed By: #### B MP3 #### [facility] [address] [place] [address] GFR/1.73 sq M predicted among blacks MDRD (S/P/Bld) [Vol rate/Area] mL/min/{1.73_m2} Normal >60 [facility] Comment on above: Performed By: #### B MP3 #### [place] [address], [place] GFR/1.73 sq M predicted among non-blacks MDRD (S/P/Bld) [Vol rate/Area] 83.3 mL/min/{1.73_m2} Normal >60 [facility] Comment on above: Result Comment: KDIG O guidelines provide the following GFR categories: Stage GFR(ml/min/1.73 m2) Terms G1 >=90 Normal or high G2 60-89 Mildly decreased* G3a 45-59 Mildly to moderately decreased G3b 30-44 Moderately to severely decreased G4 15-29 Severely decreased G5 <15 Kidney failure *Relative to young adult level. In the absence of evidence of kidney damage, neither GFR category G1 nor G2 fulfill the criteria for CKD. The CKD-EPI equation is validated in individuals 18 years of age and older. Currently the best equation for estimating glomerular filtration rate (GFR) from serum creatinine in children is the Bedside Suarez equation. It is less accurate in patients with extremes of muscle mass, restriction of dietary protein, ingestion of creatine, extra-renal metabolism of creatinine, or treatment with medications that affect renal tubular creatinine secretion. Performed By: #### B MP3 #### [place] [address], [place] Chloride [Moles/Vol] 101 mmol/L Normal 98-107 [facility] Comment on above: Performed By: #### B MP3 #### [place] [address], [place] Potassium [Moles/Vol] 4.3 mmol/L Normal 3.5-5.1 [facility] Comment on above: Performed By: #### B MP3 #### [place] [address], [place] Sodium [Moles/Vol] 139 mmol/L Normal 135-145 [facility] Comment on above: Performed By: #### B MP3 #### [place] [address], [place] Anion gap [Moles/Vol] 9 mmol/L [place], [place] Calcium [Mass/Vol] 9.1 mg/dL 8.4 - 10. 4 mg/dL [place] Chloride [Moles/Vol] 101 mmol/L 98 - 10 7 mmol/L [place] CO2 [Moles/Vol] 29 mmol/L 22 - 30 mmol/L [place] Creatinine [Mass/Vol] 0.89 mg/dL 0.52 - 1.25 mg/dL [place] EGFR IF NonAfrican [place] 83.3 mL/min >60 [place] Comment on above: KDIGO guidelines pro vide the following GFR categories: Stage GFR(ml/min/1.73 m2) Terms G1 >=90 Normal or high G2 60-89 Mildly decreased* G3a 45-59 Mildly to moderately decreased G3b 30-44 Moderately to severely decreased G4 15-29 Severely decreased G5 <15 Kidney failure *Relative to young adult level. In the absence of evidence of kidney damage, neither GFR category G1 nor G2 fulfill the criteria for CKD. The CKD-EPI equation is validated in individuals 18 years of age and older. Currently the best equation for estimating glomerular filtration rate (GFR) from serum creatinine in children is the Bedside Suarez equation. It is less accurate in patients with extremes of muscle mass, restriction of dietary protein, ingestion of creatine, extra-renal metabolism of creatinine, or treatment with medications that affect renal tubular creatinine secretion. GFR/1.73 sq M predicted among blacks MDRD (S/P/Bld) [Vol rate/Area] mL/min/{1.73_m2} >60 mL/min [place], [place] Glucose [Mass/Vol] 89 mg/dL 70 - 100 mg/dL [place] Interpretation and review of laboratory results Abnormal [place] Potassium [Moles/Vol] 4.3 mmol/L 3.5 - 5.1 mmol/L [place] Sodium [Moles/Vol] 139 mmol/L 135 - 145 mmol/L [place] Urea nitrogen [Mass/Vol] 25 mg/dL High 7 - 20 mg/dL [place] Test Performed by [facility], [address] [place] [id number] [place], [place] MRI Spine Lumbar w/o Contras ton 09-15-2020 MRI Spine Lumbar w/o Contrast [facility]: [id number] ACCESSION EXAM DATE/TIME PROCEDURE ORDERING PROVIDER [id number] 09/15/2020 13:14 EST MRI Spine Lumbar w/o TALIWAL, BENJI V Contrast CPT code 72777 Reason For Exam (MRI Spine Lumbar w/o Contrast) radiculopathy affecting rt leg spinal stenosis Report Examination: MRI lumbar spine Indication: radiculopathy affecting rt leg spinal stenosis Technique: Multiplanar multi-sequence MRI images of the lumbar spine were obtained. Findings: Grade 1 anterior listhesis of L1 on L2 is present. Otherwise, the lumbar vertebral bodies are in gross anatomic alignment. There is no acute fracture. There are no focal marrow replacing lesions. The conus terminates at approximately the mid L1 level. The paraspinal musculature is grossly unremarkable. Small bilateral renal cysts are present. At the L1/L2 level, there is grade 1 anterior listhesis. Circumferential disc bulging is noted. Mild facet and ligamentum flavum hypertrophy is present. There is severe narrowing of the central canal with narrowing of the lateral recesses. Moderate to severe right and [id number] left-sided foraminal narrowing is noted. At the L2/L3 level, circumferential disc bulging is present with small osteophytes. These extend into the right and left foraminal regions. This is more pronounced on the right. Facet and ligamentum flavum hypertrophy are present. There is severe narrowing of the central canal with narrowing of the lateral recesses. Moderate to severe bilateral foraminal narrowing is present greater on the right. At the L3/L4 level, circumferential disc bulging with small osteophytes are noted. These extend into the right and left foraminal regions. Facet hypertrophy is noted. There is moderate to severe narrowing of the central canal with narrowing of the lateral recesses. Advanced bilateral foraminal narrowing is noted. At the L4/L5 level, circumferential disc bulging with small osteophytes are present. These extend into the right and left Magnetic Resonance Imaging Report foraminal regions, greater on the left. Degenerative facet changes are noted. There is encroachment on the lateral recesses. Mild narrowing of the central canal is noted. Severe left and moderate to severe right-sided foraminal narrowing is noted. Small synovial cyst is present along the posterior margin of the left facet joint measuring approximately 4 mm. At the L5/S1 level, circumferential disc bulging with small osteophytes are present. These extend into the right and left foraminal regions. There is severe bilateral foraminal stenosis. Encroachment on the lateral recesses is noted. There is mild central canal stenosis. Impression: Central canal stenosis is greatest (severe) at L1/L2 and L2/L3. Slightly lesser central canal stenosis is present at L3/L4. Moderate to severe or greater multilevel foraminal stenosis. Grade 1 anterior listhesis at L1/L2. Mild scoliosis. Report Dictated on Workstation: [employer] Final Dictated: 09/15/2020 2:29 pm Dictating Physician: MD ONEAL KRIKOR Signed Date and Time: 09/15/2020 2:53 pm Signed by: MD ONEAL KRIKOR Transcribed Date and Time: 09/15/2020 2:29 Normal [facility] Clinical Summary: HMSPatient IDon 08-12-2020 [facility] Work Phone: Clinical Summary: Scanned Hi story Summaryon 08-12-2020 data entered by patient, alcohol (ethanol or ETOH) use No [facility] Work Phone: data entered by patient, cigarette smoking 2 packs per day [facility] Work Phone: data entered by patient, drug (of abuse) use No [facility] Work Phone: data entered by patient, Employer Name Retired [facility] Work Phone: data entered by patient, exercise history No [facility] Work Phone: Data entered by patient, history of past surgeries TonsillectomyHernia repair Cryst [facility] Work Phone: data entered by patient, mother's medical history Blood clotsObesityCancerHeart disease [facility] Work Phone: data entered by patient, past medical history COPDHigh blood pressureSeizuresVascular disease [facility] Work Phone: data entered by patient, social history, current smoker former smoker [facility] Work Phone: data entered by patient, social history, marital status [facility] Work Phone: father of patient is alive or [facility] Work Phone: Housing Type: apartment, house, fdc, trailer, none House [facility] Work Phone: housing unit size (asthma environmental history, housing) (from single family to don't know) 2 Floors [facility] Work Phone: medical history of patient's brother(s) Heart disease [facility] Work Phone: mother of patient is alive or [facility] Work Phone: Number of dependent children No [facility] Work Phone: TSH Qn Blood clotsHeart disease [facility] Work Phone: Office Visit: New - 1st visi t with practice, Rm: 2on 08-12-2020 NEGATED: Highlighted rowTobacco smoking status NHIS Tobacco smoking status [facility] Work Phone: Basic Panelon 12-24-2018 Creatinine [Mass/Vol] 0.81 mg/dL Normal 0.67-1.17 [facility] Comment on above: Performed By: #### L P14 #### [place] [address] Anion gap [Moles/Vol] 10 mmol/L Normal 8-16 [facility] Comment on above: Performed By: #### L P14 #### [facility] [address] [place], [place] [address] CO2 [Moles/Vol] 30 mmol/L Normal 21-32 [facility] Comment on above: Performed By: #### L P14 #### [facility] [address] [place], [place] [address] Glucose [Mass/Vol] 89 mg/dL Normal 70-99 [facility] Comment on above: Performed By: #### L P14 #### [facility] [address] [place], [place] [address] Urea nitrogen [Mass/Vol] 14 mg/dL Normal 7-18 [facility] Comment on above: Performed By: #### L P14 #### [facility] [address] [place], [place] [address] Calcium [Mass/Vol] 8.7 mg/dL Normal 8.5-10.1 [facility] Comment on above: Performed By: #### L P14 #### [facility] [address] [place] [address] Chloride [Moles/Vol] 102 mmol/L Normal 98-107 [facility] Comment on above: Performed By: #### L P14 #### [facility] [address] [place], [place] [address] Potassium [Moles/Vol] 3.9 mmol/L Normal 3.5-5.1 [facility] Comment on above: Performed By: #### L P14 #### [facility] [address] [place] [address] Sodium [Moles/Vol] 138 mmol/L Normal 136-145 [facility] Comment on above: Performed By: #### L P14 #### [facility] [address] [place] [address] Hemogramon 12-24-2018 Erythrocyte distribution width (RBC) [Ratio] 12.3 % Normal 11.6-14.4 [facility] Comment on above: Performed By: #### L P14 #### [place] [address] Hematocrit (Bld) [Volume fraction] 40.0 % Low 40.1-51.0 [facility] Comment on above: Performed By: #### L P14 #### [facility] [address] [place] [address] Hemoglobin (Bld) [Mass/Vol] 13.8 g/dL Normal 13.7-17.5 [facility] Comment on above: Performed By: #### L P14 #### [facility] [address] [place] [address] MCH (RBC) [Entitic mass] 32.5 pg High 25.7-32.2 [facility] Comment on above: Performed By: #### L P14 #### [facility] [address] [place] [address] MCHC (RBC) [Mass/Vol] 34.5 % Normal 32.3-36.5 [facility] Comment on above: Performed By: #### L P14 #### [place] [address] MCV (RBC) [Entitic vol] 94.3 fL Normal 83.2-95.6 [facility] Comment on above: Performed By: #### L P14 #### [facility] [address] [place] [address] Platelet mean volume (Bld) [Entitic vol] 9.2 fL Normal 8.7-12.0 [facility] Comment on above: Performed By: #### L P14 #### [place] [address] Platelets (Bld) [#/Vol] 160 thou/cmm Normal 141-365 [facility] Comment on above: Performed By: #### L P14 #### [facility] [address] [place] [address] RBC (Bld) [#/Vol] 4.24 mil/cmm Low 4.63-6.08 [facility] Comment on above: Performed By: #### L P14 #### [facility] [address] [place] [address] RDW SD 42.5 fl Normal 36.1-45.8 [facility] Comment on above: Performed By: #### L P14 #### [facility] [address] [place] [address] WBC (Bld) [#/Vol] 5.39 thou/cmm Normal 4.23-9.07 [facility] Comment on above: Performed By: #### L P14 #### [place] [address] MDRD GFRon 12-24-2018 GFR/1.73 sq M predicted among non-blacks MDRD (S/P/Bld) [Vol rate/Area] mL/min/{1.73_m2} Normal >60mL/min/1 .73m2 [facility] Comment on above: Result Comment: If t he patient is , multiply the result by 1.210. Performed By: #### L CBCD #### [place] [address] Basic Panelon 12-23-2018 Creatinine [Mass/Vol] 0.80 mg/dL Normal 0.67-1.17 [facility] Comment on above: Performed By: #### L P14 #### [place] [address] Anion gap [Moles/Vol] 10 mmol/L Normal 8-16 [facility] Comment on above: Performed By: #### L P14 #### [place] [address] CO2 [Moles/Vol] 29 mmol/L Normal 21-32 [facility] Comment on above: Performed By: #### L P14 #### [facility] [address] [place] [address] Urea nitrogen [Mass/Vol] 12 mg/dL Normal 7-18 [facility] Comment on above: Performed By: #### L P14 #### [place] [address] Calcium [Mass/Vol] 8.5 mg/dL Normal 8.5-10.1 [facility] Comment on above: Performed By: #### L P14 #### [place] [address] Glucose [Mass/Vol] 100 mg/dL High 70-99 [facility] Comment on above: Performed By: #### L P14 #### [facility] [address] [place] [address] Chloride [Moles/Vol] 104 mmol/L Normal 98-107 [facility] Comment on above: Performed By: #### L P14 #### [facility] [address] [place] [address] Potassium [Moles/Vol] 3.6 mmol/L Normal 3.5-5.1 [facility] Comment on above: Performed By: #### L P14 #### [facility] [address] [place] [address] Sodium [Moles/Vol] 139 mmol/L Normal 136-145 [facility] Comment on above: Performed By: #### L P14 #### [place] [address] Hemogramon 12-23-2018 Erythrocyte distribution width (RBC) [Ratio] 12.0 % Normal 11.6-14.4 [facility] Comment on above: Performed By: #### L P14 #### [place] [address] Hematocrit (Bld) [Volume fraction] 37.4 % Low 40.1-51.0 [facility] Comment on above: Performed By: #### L P14 #### [place] [address] Hemoglobin (Bld) [Mass/Vol] 12.9 g/dL Low 13.7-17.5 [facility] Comment on above: Performed By: #### L P14 #### [place] [address] MCH (RBC) [Entitic mass] 32.3 pg High 25.7-32.2 [facility] Comment on above: Performed By: #### L P14 #### [place] [address] MCHC (RBC) [Mass/Vol] 34.5 % Normal 32.3-36.5 [facility] Comment on above: Performed By: #### L P14 #### [address], [place] [address] MCV (RBC) [Entitic vol] 93.7 fL Normal 83.2-95.6 [facility] Comment on above: Performed By: #### L P14 #### [facility] [address] [place] [address] Platelet mean volume (Bld) [Entitic vol] 9.4 fL Normal 8.7-12.0 [facility] Comment on above: Performed By: #### L P14 #### [place] [address] Platelets (Bld) [#/Vol] 163 thou/cmm Normal 141-365 [facility] Comment on above: Performed By: #### L P14 #### [place] [address] RBC (Bld) [#/Vol] 3.99 mil/cmm Low 4.63-6.08 [facility] Comment on above: Performed By: #### L P14 #### [place] [address] RDW SD 41.8 fl Normal 36.1-45.8 [facility] Comment on above: Performed By: #### L P14 #### [place] [address] WBC (Bld) [#/Vol] 5.32 thou/cmm Normal 4.23-9.07 [facility] Comment on above: Performed By: #### L P14 #### [place] [address] Basic Panelon 12-22-2018 Creatinine [Mass/Vol] 0.79 mg/dL Normal 0.67-1.17 [facility] Comment on above: Performed By: #### L CBCD #### [place] [address] Anion gap [Moles/Vol] 9 mmol/L Normal 8-16 [facility] Comment on above: Performed By: #### L CBCD #### [place] [address] CO2 [Moles/Vol] 28 mmol/L Normal 21-32 [facility] Comment on above: Performed By: #### L CBCD #### [facility] [address] [place], [place] [address] Glucose [Mass/Vol] 91 mg/dL Normal 70-99 [facility] Comment on above: Performed By: #### L CBCD #### [facility] [address] [place], [place] [address] Urea nitrogen [Mass/Vol] 14 mg/dL Normal 7-18 [facility] Comment on above: Performed By: #### L CBCD #### [facility] [address] [place], [place] [address] Calcium [Mass/Vol] 8.2 mg/dL Low 8.5-10.1 [facility] Comment on above: Performed By: #### L CBCD #### [place] [address] Chloride [Moles/Vol] 104 mmol/L Normal 98-107 [facility] Comment on above: Performed By: #### L CBCD #### [place] [address] Potassium [Moles/Vol] 3.5 mmol/L Normal 3.5-5.1 [facility] Comment on above: Performed By: #### L CBCD #### [place] [address] Sodium [Moles/Vol] 137 mmol/L Normal 136-145 [facility] Comment on above: Performed By: #### L CBCD #### [place] [address] Hemogramon 12-22-2018 Erythrocyte distribution width (RBC) [Ratio] 12.0 % Normal 11.6-14.4 [facility] Comment on above: Performed By: #### L CBCD #### [place] [address] Hematocrit (Bld) [Volume fraction] 37.9 % Low 40.1-51.0 [facility] Comment on above: Performed By: #### L CBCD #### [address], [place] [address] Hemoglobin (Bld) [Mass/Vol] 13.1 g/dL Low 13.7-17.5 [facility] Comment on above: Performed By: #### L CBCD #### [facility] [address] [place] [address] MCH (RBC) [Entitic mass] 32.5 pg High 25.7-32.2 [facility] Comment on above: Performed By: #### L CBCD #### [facility] [address] [place] [address] MCHC (RBC) [Mass/Vol] 34.6 % Normal 32.3-36.5 [facility] Comment on above: Performed By: #### L CBCD #### [place] [address] MCV (RBC) [Entitic vol] 94.0 fL Normal 83.2-95.6 [facility] Comment on above: Performed By: #### L CBCD #### [place] [address] Platelet mean volume (Bld) [Entitic vol] 9.3 fL Normal 8.7-12.0 [facility] Comment on above: Performed By: #### L CBCD #### [place] [address] Platelets (Bld) [#/Vol] 153 thou/cmm Normal 141-365 [facility] Comment on above: Performed By: #### L CBCD #### [place] [address] RBC (Bld) [#/Vol] 4.03 mil/cmm Low 4.63-6.08 [facility] Comment on above: Performed By: #### L CBCD #### [place] [address] RDW SD 41.7 fl Normal 36.1-45.8 [facility] Comment on above: Performed By: #### L CBCD #### [place] [address] WBC (Bld) [#/Vol] 6.64 thou/cmm Normal 4.23-9.07 [facility] Comment on above: Performed By: #### L CBCD #### [facility] [address] [place], [place] [address] Basic Panelon 12-21-2018 Anion gap [Moles/Vol] 10 mmol/L Normal 8-16 [facility] Comment on above: Performed By: #### L CBCD #### [address] [address] Potassium [Moles/Vol] 4.2 mmol/L Normal 3.5-5.1 [facility] Comment on above: Result Comment: SPEC IMEN SLIGHTLY HEMOLYZED Performed By: #### L CBCD #### [address] [address] Creatinine [Mass/Vol] 0.79 mg/dL Normal 0.67-1.17 [facility] Comment on above: Performed By: #### L CBCD #### [address] [address] CO2 [Moles/Vol] 27 mmol/L Normal 21-32 [facility] Comment on above: Performed By: #### L CBCD #### [address] [address] Urea nitrogen [Mass/Vol] 14 mg/dL Normal 7-18 [facility] Comment on above: Performed By: #### L CBCD #### [address] [address] Calcium [Mass/Vol] 8.0 mg/dL Low 8.5-10.1 [facility] Comment on above: Performed By: #### L CBCD #### [address] [address] Glucose [Mass/Vol] 100 mg/dL High 70-99 [facility] Comment on above: Performed By: #### L CBCD #### [address] [address] Chloride [Moles/Vol] 103 mmol/L Normal 98-107 [facility] Comment on above: Performed By: #### L CBCD #### [facility] [address] [place] [address] Sodium [Moles/Vol] 136 mmol/L Normal 136-145 [facility] Comment on above: Performed By: #### L CBCD #### [facility] [address] [place] [address] Hemogramon 12-21-2018 Erythrocyte distribution width (RBC) [Ratio] 12.1 % Normal 11.6-14.4 [facility] Comment on above: Performed By: #### L CBCD #### [facility] [address] [place] [address] Hematocrit (Bld) [Volume fraction] 39.2 % Low 40.1-51.0 [facility] Comment on above: Performed By: #### L CBCD #### [place] [address] Hemoglobin (Bld) [Mass/Vol] 13.4 g/dL Low 13.7-17.5 [facility] Comment on above: Performed By: #### L CBCD #### [place] [address] MCH (RBC) [Entitic mass] 32.1 pg Normal 25.7-32.2 [facility] Comment on above: Performed By: #### L CBCD #### [place] [address] MCHC (RBC) [Mass/Vol] 34.2 % Normal 32.3-36.5 [facility] Comment on above: Performed By: #### L CBCD #### [place] [address] MCV (RBC) [Entitic vol] 93.8 fL Normal 83.2-95.6 [facility] Comment on above: Performed By: #### L CBCD #### [place] [address] Platelet mean volume (Bld) [Entitic vol] 9.3 fL Normal 8.7-12.0 [facility] Comment on above: Performed By: #### L CBCD #### [facility] [address] [place], [place] [address] Platelets (Bld) [#/Vol] 175 thou/cmm Normal 141-365 [facility] Comment on above: Performed By: #### L CBCD #### [facility] [address] [place] [address] RBC (Bld) [#/Vol] 4.18 mil/cmm Low 4.63-6.08 [facility] Comment on above: Performed By: #### L CBCD #### [facility] [address] [place] [address] RDW SD 41.4 fl Normal 36.1-45.8 [facility] Comment on above: Performed By: #### L CBCD #### [facility] [address] [place] [address] WBC (Bld) [#/Vol] 7.69 thou/cmm Normal 4.23-9.07 [facility] Comment on above: Performed By: #### L CBCD #### [facility] [address] [place] [address] MRSA Screenon 12-21-2018 MRSA DNA MANUEL+probe Ql (Unsp spec) Test performed at [facility] No MRSA detected. Normal [facility] Comment on above: Performed By: #### L CBCD #### [facility] [address] [place] [address] Urinalysis Routineon 019 Appearance (U) CLEAR Normal [facility] Comment on above: Performed By: #### L CBCD #### [facility] [address] [place] [address] Bilirubin Urine Negative Normal Negative [facility] Comment on above: Performed By: #### L CBCD #### [facility] [address] [place] [address] Color (U) YELLOW Normal [facility] Comment on above: Performed By: #### L CBCD #### [facility] [address] [place] [address] Ep Cells Urine 0-2 Normal 0-5 [facility] Comment on above: Performed By: #### L CBCD #### [facility] [address] [place] [address] Glucose Ql (U) Negative Normal Negative [facility] Comment on above: Performed By: #### L CBCD #### [facility] [address] [place] [address] Hemoglobin,Urine 1+ Abnormal Negative [facility] Comment on above: Performed By: #### L CBCD #### [facility] [address] [place] [address] Hyaline Cast 0-1 Abnormal None [facility] Comment on above: Performed By: #### L CBCD #### [facility] [address] [place] [address] Ketone Urine Negative Normal Negative [facility] Comment on above: Performed By: #### L CBCD #### [place] [address] Leukocytes Esterase Negative Normal Negative [facility] Comment on above: Performed By: #### L CBCD #### [facility] [address] [place] [address] Nitrites Urine Negative Normal Negative [facility] Comment on above: Performed By: #### L CBCD #### [facility] [address] [place] [address] pH (U) 6.5 [pH] Normal 5.0-8.0 [facility] Comment on above: Performed By: #### L CBCD #### [place] [address] Protein (U) [Mass/Vol] 1+ Abnormal Negative [facility] Comment on above: Performed By: #### L CBCD #### [facility] [address] [place] [address] RBC LM.HPF (Urine sed) [#/Area] 0-3 Normal 0-3 [facility] Comment on above: Performed By: #### L CBCD #### [facility] [address] [place] [address] Specific [place], Ur 1.025 Normal 1.005-1.030 [facility] Comment on above: Performed By: #### L CBCD #### [facility] [address] [place], [place] [address] Urobilinogen,Ur 0.2 EU/dL Normal 0.0-1.0 [facility] Comment on above: Performed By: #### L CBCD #### [facility] [address] [place] [address] WBC LM.HPF (Urine sed) [#/Area] 0-2 Normal 0-5 [facility] Comment on above: Performed By: #### L CBCD #### [facility] [address] [place] [address] Urine Drug Screenon 12-22-19 19 Urine Amphetamine Non-Detected Normal Non-Detect e d [facility] Comment on above: Performed By: #### L CBCD #### [place] [address] Urine Barbiturates Non-Detected Normal Non-Detec te d [facility] Comment on above: Performed By: #### L CBCD #### [place] [address] Urine Benzodiazepine see below Normal Non-Det ecte d [facility] Comment on above: Result Comment: Dete cted (unconfirmed) Performed By: #### L CBCD #### [place] [address] Urine Buprenorphine Non-Detected Normal Non-Dete cte d [facility] Comment on above: Result Comment: Urin e Drug Cutoff Levels Urine Amphetamine 500 ng/mL Urine Barbituate 200 ng/mL Urine Benzodiazepines 150 ng/mL Urine Cocaine 150 ng/mL Urine Methamphetamines 500 ng/mL Urine Methadone 200 ng/mL Urine Opiates 100 ng/mL Urine Oxycodone 100 ng/mL Urine Phencyclidine (PCP) 25 ng/mL Urine Propoxyphene 300 ng/mL Urine Tricyclics 300 ng/mL Urine THC 50 ng/mL Urine Buprenorphine 10 ng/mL The results of these analytes are unconfirmed and reported qualitatively as detected or non-detected relative to the cutoff value. Detected results indicate the sample is likely to contain the analyte. Non-detected results indicate that either the sample does not contain the analyte or it is present in concentrations below the cutoff level. This drug screen should be used for medical diagnostic purposes only. Testing Performed at: [address] [address] Performed By: #### L CBCD #### [facility] [address] [place], [place] [address] Urine Cocaine Non-Detected Normal Non-Detecte d [facility] Comment on above: Performed By: #### L CBCD #### [address] [address] Urine Methadone Non-Detected Normal Non-Detecte d [facility] Comment on above: Performed By: #### L CBCD #### [address] [address] Urine Methamphetamine Non-Detected Normal Non-Detecte d [facility] Comment on above: Performed By: #### L CBCD #### [address] [address] Urine Opiate Non-Detected Normal Non-Detecte d [facility] Comment on above: Performed By: #### L CBCD #### [address] [address] Urine Oxycodone Non-Detected Normal Non-Detecte d [facility] Comment on above: Performed By: #### L CBCD #### [address] [address] Urine PCP Non-Detected Normal Non-Detecte d [facility] Comment on above: Performed By: #### L CBCD #### [address] [address] Urine Propoxyphene Non-Detected Normal Non-Detec te d [facility] Comment on above: Performed By: #### L CBCD #### [address] [address] Urine THC Non-Detected Normal Non-Detecte d [facility] Comment on above: Performed By: #### L CBCD #### [address] [address] Urine Tricyclics Non-Detected Normal Non-Detecte d [facility] Comment on above: Performed By: #### L CBCD #### [facility] [address] [place], [place] [address] Venous Blood Gason 9 Base Excess 1.6 mmol/L Normal -3.0-3.0 [facility] Comment on above: Performed By: #### L CBCD #### [facility] [address] [place] [address] HCO3 (Bld) [Moles/Vol] 27.5 mmol/L Normal 21.0-30.0 [facility] Comment on above: Performed By: #### L CBCD #### [facility] [address] [place] [address] O2% Sat Venous 77.1 % High 18.0-74.8 [facility] Comment on above: Performed By: #### L CBCD #### [place] [address] PCO2 Venous 50.8 mm Hg Normal 40.6-60.0 [facility] Comment on above: Performed By: #### L CBCD #### [facility] [address] [place] [address] pH Venous 7.353 Normal 7.320-7.430 [facility] Comment on above: Performed By: #### L CBCD #### [facility] [address] [place] [address] PO2 Venous 45.5 mm Hg High 15.9-37.5 [facility] Comment on above: Performed By: #### L CBCD #### [place] [address] Alcohol, Bloodon 12-20-2018 Alcohol, Blood <10 Normal <10 [facility] Comment on above: Performed By: #### L ALC3 #### [place] [address] Comprehensive Panelon 2018 Anion gap [Moles/Vol] 15 mmol/L Normal 8-20 [facility] Comment on above: Performed By: #### L P14 #### [place] [address] Albumin [Mass/Vol] 3.7 g/dL Normal 3.4-5.0 [facility] Comment on above: Performed By: #### L P14 #### [facility] [address] [place], [place] [address] ALP [Catalytic activity/Vol] 71 U/L Normal 46-116 [facility] Comment on above: Performed By: #### L P14 #### [facility] [address] [place], [place] [address] ALT-SGPT Blood 46 U/L Normal 14-63 [facility] Comment on above: Performed By: #### L P14 #### [facility] [address] [place], [place] [address] AST-SGOT Blood 38 U/L High 15-37 [facility] Comment on above: Performed By: #### L P14 #### [facility] [address] [place], [place] [address] Bilirubin Ql (U) 0.4 mg/dL Normal 0.2-1.0 [facility] Comment on above: Performed By: #### L P14 #### [facility] [address] [place], [place] [address] Calcium [Mass/Vol] 8.7 mg/dL Normal 8.5-10.1 [facility] Comment on above: Performed By: #### L P14 #### [facility] [address] [place] [address] CO2 Blood 30 mEq/L Normal 21-32 [facility] Comment on above: Performed By: #### L P14 #### [facility] [address] [place], [place] [address] Creatinine [Mass/Vol] 0.89 mg/dL Normal 0.67-1.17 [facility] Comment on above: Performed By: #### L P14 #### [facility] [address] [place], [place] [address] Glucose [Mass/Vol] 95 mg/dL Normal 70-99 [facility] Comment on above: Performed By: #### L P14 #### [facility] [address] [place], [place] [address] Protein [Mass/Vol] 7.2 g/dL Normal 6.4-8.2 [facility] Comment on above: Performed By: #### L P14 #### [facility] [address] [place], [place] [address] Urea nitrogen [Mass/Vol] 17 mg/dL Normal 7-25 [facility] Comment on above: Performed By: #### L P14 #### [facility] [address] [place], [place] [address] Urea nitrogen/Creatinine [Mass ratio] 19 mg/mg Normal 10-20 [facility] Comment on above: Performed By: #### L P14 #### [address] [address] Chloride [Moles/Vol] 98 mmol/L Normal 98-109 [facility] Comment on above: Result Comment: Test ing performed on an Mcmahon i-STAT. Performed By: #### L P14 #### [place] [address] Potassium [Moles/Vol] 3.7 mmol/L Normal 3.5-4.9 [facility] Comment on above: Result Comment: Test ing performed on an Mcmahon i-STAT. Performed By: #### L P14 #### [place] [address] Sodium [Moles/Vol] 139 mmol/L Normal 138-146 [facility] Comment on above: Result Comment: Test ing performed on an Mcmahon i-STAT. Performed By: #### L P14 #### [address] [address] Glucose Meteron 12-20-2018 Glucose [Mass/Vol] 94 mg/dL Normal 70-99 [facility] Comment on above: Result Comment: GREG SIMENTAL MD NOTIFIED [place] [address] Performed By: #### L GLMT #### [place] [address] Hemogram/Diffon 12-20-2018 Abs. Baso 0.03 thou/cmm Normal 0.00-0.08 [facility] Comment on above: Performed By: #### L CBCD #### [place] [address] Abs. Stearns 0.55 thou/cmm Normal 0.20-1.00 [facility] Comment on above: Performed By: #### L CBCD #### [facility] [address] [place], [place] [address] Abs. Neut (ANC) 3.28 thou/cmm Normal 3.00-5.67 [facility] Comment on above: Performed By: #### L CBCD #### [facility] [address] [place], [place] [address] Basophils/100 WBC (Bld) 0.6 % Normal [facility] Comment on above: Performed By: #### L CBCD #### [address] [address] Eosinophils (Bld) [#/Vol] 0.14 thou/cmm Normal 0.00-0.41 [facility] Comment on above: Performed By: #### L CBCD #### [place] [address] Eosinophils/100 WBC (Bld) 2.7 % Normal [facility] Comment on above: Performed By: #### L CBCD #### [address] [address] Erythrocyte distribution width (RBC) [Ratio] 12.1 % Normal 11.5-15.9 [facility] Comment on above: Performed By: #### L CBCD #### [place] [address] Hematocrit (Bld) [Volume fraction] 41.4 % Low 42.0-52.0 [facility] Comment on above: Performed By: #### L CBCD #### [address] [address] Hemoglobin (Bld) [Mass/Vol] 14.3 g/dL Normal 14.0-18.0 [facility] Comment on above: Performed By: #### L CBCD #### [address] [address] Lymphocytes (Bld) [#/Vol] 1.10 thou/cmm Low 1.50-3.65 [facility] Comment on above: Performed By: #### L CBCD #### [facility] [address] [place], [place] [address] Lymphocytes/100 WBC (Bld) 21.5 % Normal [facility] Comment on above: Performed By: #### L CBCD #### [facility] [address] [place], [place] [address] MCH (RBC) [Entitic mass] 32.0 pg High 27.0-31.0 [facility] Comment on above: Performed By: #### L CBCD #### [facility] [address] [place], [place] [address] MCHC (RBC) [Mass/Vol] 34.5 % Normal 32.0-36.0 [facility] Comment on above: Performed By: #### L CBCD #### [facility] [address] [place], [place] [address] MCV (RBC) [Entitic vol] 92.6 fL Normal 80.0-94.0 [facility] Comment on above: Performed By: #### L CBCD #### [address] [address] Monocytes/100 WBC (Bld) 10.7 % Normal [facility] Comment on above: Performed By: #### L CBCD #### [place] [address] Platelet mean volume (Bld) [Entitic vol] 9.2 fL Normal 7.1-10.5 [facility] Comment on above: Performed By: #### L CBCD #### [facility] [address] [place], [place] [address] Platelets (Bld) [#/Vol] 197 thou/cmm Normal 150-400 [facility] Comment on above: Performed By: #### L CBCD #### [facility] [address] [place], [place] [address] RBC (Bld) [#/Vol] 4.47 mil/cmm Low 4.60-6.20 [facility] Comment on above: Performed By: #### L CBCD #### [place] [address] Seg Neutrophil 64.5 % Normal [facility] Comment on above: Performed By: #### L CBCD #### [facility] [address] [place] [address] WBC (Bld) [#/Vol] 5.1 thou/cmm Normal 4.8-10.8 [facility] Comment on above: Performed By: #### L CBCD #### [place] [address] Lactic acidon 12-20-2018 Lactate [Moles/Vol] 0.9 mmol/L Normal 0.4-2.0 [facility] Comment on above: Performed By: #### L CBCD #### [place] [address] Lipase Bloodon 12-20-2018 Lipase Blood 146 U/L Normal 73-393 [facility] Comment on above: Performed By: #### L LIP #### [place] [address] MDRD eGFRon 12-20-2018 GFR/1.73 sq M predicted among non-blacks MDRD (S/P/Bld) [Vol rate/Area] mL/min/{1.73_m2} Normal >60mL/min/1 .73m2 [facility] Comment on above: Result Comment: If t he patient is , multiply the result by 1.210. Performed By: #### L GFR #### [place] [address] Magnesium Bloodon 12-20-2018 Magnesium [Mass/Vol] 1.9 mg/dL Normal 1.8-2.4 [facility] Comment on above: Performed By: #### L MAG #### [place] [address] Protimeon 12-20-2018 INR Coag (PPP) [Relative time] 0.97 {INR} Normal 0.90-1.30 [facility] Comment on above: Result Comment: Note : Reference Range Change Vitamin K Antagonist (VKA) Therapeutic Range: INR 2 to 3 (Target INR of 2.5) Note: For patients treated with VKA drugs, such as warfarin, the [place] [employer] 2012 Guideline recommends a therapeutic INR range of 2 to 3 (target INR of 2.5). This recommendation includes high-risk patients with antiphospholipid syndrome with previous arterial or venous thromboembolism, current-generation mechanical or bioprosthetic aortic heart valve replacement. VKA Therapeutic Range for some Mechanical Valve Replacement: INR 2.5 to 3.5 (Target INR of 3) Note: Patients with mechanical aortic valve replacement and additional risk factors for thromboembolic events (atrial fibrillation, previous thromboembolism, LV dysfunction, hypercoagulable conditions) or an older generation mechanical AVR (i.e., ball in-Cage) or any mechanical MVR should have a INR therapeutic range of 2.5 to 3.5 target INR of 3). Jacqueline GH, et al. Chest 2012; 141:7S-47S Rupa RA et al. [facility] 2017; 70: 252-289 Performed By: #### L PT #### [place] [address] PT Coag (PPP) [Time] 9.9 s Normal 9.7-13.0 [facility] Comment on above: Result Comment: . Performed By: #### L PT #### [place] [address] TSHon 12-20-2018 TSH Qn 1.70 uIU/mL Normal 0.34-4.82 [facility] Comment on above: Performed By: #### L TSH #### [place] [address] Troponin Ion 12-20-2018 Troponin I.cardiac [Mass/Vol] ng/mL Normal <=0.07 [facility] Comment on above: Performed By: #### L TRP #### [place] [address] Office Visiton 08-01-2017 Documentation of current medications (procedure) Done Invalid Interpretation Code [facility] Work Phone: [phone] Fall risk assessment No Invalid Interpretation Code [facility] Work Phone: [phone] Clinical Lists 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: 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 Left ventricular Ejection fraction 65 % Invalid Interpretation Code [facility] Work Phone: [phone] Tobacco smoking status NHIS Tobacco smoking status NHIS Invalid Interpretation Code [facility] Work Phone: [phone] Tobacco use [facility] Former smoker Invalid Interpretation Code [facility] Work Phone: [phone] Office Visiton 01-30-2013 Documentation of current medications (procedure) Done Invalid Interpretation Code [facility] Work Phone: [phone] Replaced Document: Mely E CG Observationson 01-30-2013 EKG QRS axis 15 deg Invalid Interpretation Code [facility] Work Phone: [phone] Interpretation Sinus Bradycardia WI THIN NORMAL LIMITS Invalid Interpretation Code [facility] Work Phone: [phone] P Quin[place] 47 deg Invalid Interpretation Code [facility] Work Phone: [phone] LA Interval 160 ms Invalid Interpretation Code [facility] Work Phone: [phone] Pulse (Heart Rate) 59 /min Invalid Interpretation Code [facility] Work Phone: [phone] QRS Duration 106 ms Invalid Interpretation Code [facility] Work Phone: [phone] QT Interval new path ms Invalid Interpretation Code [facility] Work Phone: [phone] QTc Schilling 407 ms Invalid Interpretation Code [facility] Work Phone: [phone] T [place] 28 deg Invalid Interpretation Code [facility] Work Phone: [phone] Vital Signs Date Time Vital Sign Value Performing Clinician Facility 03-27-2025 08:53-0400 Body height 180.[address] Keerthi Hazel MD Work Phone: [facility] 03-27-2025 08:53-0400 Body mass index (BMI) [Ratio] 28.7 kg/m2 Dr. Keerthi Hazel MD Work Phone: [facility] 03-27-2025 08:53-0400 Body weight 93.[address] Keerthi Hazel MD Work Phone: [facility] 03-27-2025 08:53-0400 Diastolic blood pressure 62 mm[Hg] Dr. Keerthi Hazel MD Work Phone: [facility] 03-27-2025 08:53-0400 Heart rate 65 /min Dr. Keerthi Hazel MD Work Phone: [facility] 03-27-2025 08:53-0400 Respiratory rate 18 /min Dr. Keerthi Hazel MD Work Phone: [facility] 03-27-2025 08:53-0400 Systolic blood pressure 99 mm[Hg] Dr. Keerthi Hazel MD Work Phone: [facility] 01-07-2025 11:56-0400 Diastolic blood pressure 67 mm[Hg] Madison Chavarria DO Work Phone: [facility] 01-07-2025 11:56-0400 Heart rate 58 /min Madison Chavarria DO Work Phone: [facility] 01-07-2025 11:56-0400 SaO2% (BldA) [Mass fraction] 96 % Madison Chavarria DO Work Phone: [facility] 01-07-2025 11:56-0400 Systolic blood pressure 111 mm[Hg] Madison Chavarria DO Work Phone: [facility] 12-31-2024 15:00-0400 Diastolic blood pressure 64 mm[Hg] Keerthi Hazel MD Work Phone: [facility] 12-31-2024 15:00-0400 Systolic blood pressure 118 mm[Hg] Keerthi Hazel MD Work Phone: [facility] 12-31-2024 14:28-0400 Body height 182.9 cm Keerthi Hazel MD Work Phone: [facility] 12-31-2024 14:28-0400 Body mass index (BMI) [Ratio] 27.45 kg/m2 Keerthi Hazel MD Work Phone: [facility] 12-31-2024 14:28-0400 Body weight 91.81 kg Keerthi Hazel MD Work Phone: [facility] 12-31-2024 14:28-0400 Heart rate 63 /min Keerthi Hazel MD Work Phone: [facility] 10-29-2024 12:35-0500 Body height 182.9 cm Delilah Rodrigues MD Work Phone: [facility] 10-29-2024 12:35-0500 Body mass index (BMI) [Ratio] 27.12 kg/m2 Delilah Rodrigues MD Work Phone: [facility] 10-29-2024 12:35-0500 Body weight 90.72 kg Delilah Rodrigues MD Work Phone: [facility] 10-29-2024 12:35-0500 Diastolic blood pressure 63 mm[Hg] Delilah Rodrigues MD Work Phone: [facility] 10-29-2024 12:35-0500 Heart rate 58 /min Delilah Rodrigues MD Work Phone: [facility] 10-29-2024 12:35-0500 Respiratory rate 16 /min Delilah Rodrigues MD Work Phone: [facility] 10-29-2024 12:35-0500 Systolic blood pressure 103 mm[Hg] Delilah Rodrigues MD Work Phone: [facility] 10-08-2024 08:57-0500 Body mass index (BMI) [Ratio] 28.94 kg/m2 Ade Garcia Work Phone: [facility] 10-08-2024 08:57-0500 Body temperature 97.3 [degF] Ade Garcia Work Phone: [facility] 10-08-2024 08:57-0500 Body weight 94.12 kg Ade Garcia Work Phone: [facility] 10-08-2024 08:57-0500 Diastolic blood pressure 71 mm[Hg] Ade Garcia Work Phone: [facility] 10-08-2024 08:57-0500 Heart rate 67 /min Ade Garcia Work Phone: [facility] 10-08-2024 08:57-0500 SaO2% (BldA) [Mass fraction] 97 % Ade Garcia Work Phone: [facility] 10-08-2024 08:57-0500 Systolic blood pressure 124 mm[Hg] Ade Garcia Work Phone: [facility] 07-16-2024 09:48-0500 Body mass index (BMI) [Ratio] 29.01 kg/m2 Chin Hatch MD Work Phone: [facility] 07-16-2024 09:48-0500 Body temperature 97.59 [degF] Chin Hatch MD Work Phone: [facility] 07-16-2024 09:48-0500 Body weight 94.35 kg Chin Hatch MD Work Phone: [facility] 07-16-2024 09:48-0500 Diastolic blood pressure 69 mm[Hg] Chin Hatch MD Work Phone: [facility] 07-16-2024 09:48-0500 Heart rate 99 /min Chin Hatch MD Work Phone: [facility] 07-16-2024 09:48-0500 SaO2% (BldA) [Mass fraction] 96 % Chin Hatch MD Work Phone: [facility] 07-16-2024 09:48-0500 Systolic blood pressure 113 mm[Hg] Chin Hatch MD Work Phone: [facility] 06-25-2024 14:16-0400 Body mass index (BMI) [Ratio] 29.18 kg/m2 Keerthi Hazel MD Work Phone: [facility] 06-25-2024 14:16-0400 Body weight 94.9 kg Keerthi Hazel MD Work Phone: [facility] 06-25-2024 14:16-0400 Diastolic blood pressure 78 mm[Hg] Keerthi Hazel MD Work Phone: [facility] 06-25-2024 14:16-0400 Heart rate 68 /min Keerthi Hazel MD Work Phone: [facility] 06-25-2024 14:16-0400 Respiratory rate 18 /min Keerthi Hazel MD Work Phone: [facility] 06-25-2024 14:16-0400 SaO2% (BldA) [Mass fraction] 93 % Keerthi Hazel MD Work Phone: [facility] Comment on above: 92-93 06-25-2024 14:16-0400 Systolic blood pressure 124 mm[Hg] Keerthi Hazel MD Work Phone: [facility] 06-25-2024 09:56-0400 Diastolic blood pressure 70 mm[Hg] Madison Chavarria DO Work Phone: [facility] 06-25-2024 09:56-0400 Heart rate 68 /min Madison Chavarria DO Work Phone: [facility] 06-25-2024 09:56-0400 SaO2% (BldA) [Mass fraction] 97 % Madison Chavarria DO Work Phone: [facility] 06-25-2024 09:56-0400 Systolic blood pressure 113 mm[Hg] Madison Parnellle DO Work Phone: [facility] 03-06-2024 09:05-0400 Body height 180.3 cm Keerthi Hazel MD Work Phone: [facility] 03-06-2024 09:05-0400 Body mass index (BMI) [Ratio] 29.57 kg/m2 Keerthi Hazel MD Work Phone: [facility] 03-06-2024 09:05-0400 Body weight 96.16 kg Keerthi Hazel MD Work Phone: [facility] 03-06-2024 09:05-0400 Diastolic blood pressure 62 mm[Hg] Keerthi Hazel MD Work Phone: [facility] 03-06-2024 09:05-0400 Heart rate 60 /min Keerthi Hazel MD Work Phone: [facility] 03-06-2024 09:05-0400 SaO2% (BldA) [Mass fraction] 95 % Keerthi Hazel MD Work Phone: [facility] 03-06-2024 09:05-0400 Systolic blood pressure 100 mm[Hg] Keerthi Hazel MD Work Phone: [facility] 02-16-2024 11:12-0400 Body mass index (BMI) [Ratio] 30.45 kg/m2 Hortensia Praisler-Wood J2EE DEVELOPER.TRANSCRIPTIONIST Work Phone: [facility] 02-16-2024 11:12-0400 Body temperature 97.5 [degF] Hortensia Praisler-Wood J2EE DEVELOPER.TRANSCRIPTIONIST Work Phone: [facility] 02-16-2024 11:12-0400 Body weight 94 kg Hortensia Praisler-Wood J2EE DEVELOPER.TRANSCRIPTIONIST Work Phone: [facility] 02-16-2024 11:12-0400 Diastolic blood pressure 70 mm[Hg] Hortensia Praisler-Wood J2EE DEVELOPER.TRANSCRIPTIONIST Work Phone: [facility] 02-16-2024 11:12-0400 Heart rate 60 /min Hortensia Praisler-Wood J2EE DEVELOPER.TRANSCRIPTIONIST Work Phone: [facility] 02-16-2024 11:12-0400 Respiratory rate 20 /min Hortensia Praisler-Wood J2EE DEVELOPER.TRANSCRIPTIONIST Work Phone: [facility] 02-16-2024 11:12-0400 SaO2% (BldA) [Mass fraction] 95 % Hortensia Praisler-Wood J2EE DEVELOPER.TRANSCRIPTIONIST Work Phone: [facility] 02-16-2024 11:12-0400 Systolic blood pressure 111 mm[Hg] Hortensia Praisler-Wood J2EE DEVELOPER.TRANSCRIPTIONIST Work Phone: [facility] 02-07-2024 08:09-0400 Body mass index (BMI) [Ratio] 30.74 kg/m2 [place] Marrero J2EE DEVELOPER.TRANSCRIPTIONIST Work Phone: [facility] 02-07-2024 08:09-0400 Body temperature 97.2 [degF] Mars Marrero J2EE DEVELOPER.TRANSCRIPTIONIST Work Phone: [facility] 02-07-2024 08:09-0400 Body weight 94.89 kg Mars Eldridgeenter J2EE DEVELOPER.TRANSCRIPTIONIST Work Phone: [facility] 02-07-2024 08:09-0400 Diastolic blood pressure 77 mm[Hg] Mars Marrero J2EE DEVELOPER.TRANSCRIPTIONIST Work Phone: [facility] 02-07-2024 08:09-0400 Heart rate 62 /min Mars Marrero J2EE DEVELOPER.TRANSCRIPTIONIST Work Phone: [facility] 02-07-2024 08:09-0400 SaO2% (BldA) [Mass fraction] 97 % Mars Marrero J2EE DEVELOPER.TRANSCRIPTIONIST Work Phone: [facility] 02-07-2024 08:09-0400 Systolic blood pressure 122 mm[Hg] Mars Marrero J2EE DEVELOPER.TRANSCRIPTIONIST Work Phone: [facility] 01-17-2024 09:28-0400 Body mass index (BMI) [Ratio] 30.9 kg/m2 Vidhya Mahoney APRN.TRANSCRIPTIONIST Work Phone: [facility] 01-17-2024 09:28-0400 Body weight 95.4 kg Vidhya Mahoney APRN.TRANSCRIPTIONIST Work Phone: [facility] 01-17-2024 09:28-0400 Diastolic blood pressure 73 mm[Hg] Vidhya Mahoney APRN.TRANSCRIPTIONIST Work Phone: [facility] 01-17-2024 09:28-0400 Heart rate 54 /min Vidhya Mahoney APRN.TRANSCRIPTIONIST Work Phone: [facility] 01-17-2024 09:28-0400 SaO2% (BldA) [Mass fraction] 97 % Vidhya Mahoney APRN.TRANSCRIPTIONIST Work Phone: [facility] 01-17-2024 09:28-0400 Systolic blood pressure 114 mm[Hg] Vidhya Mahoney J2EE DEVELOPER.TRANSCRIPTIONIST Work Phone: [facility] 11-28-2023 15:07-0400 Body weight 95.71 kg Madison Chavarria DO Work Phone: [facility] 11-28-2023 15:07-0400 Diastolic blood pressure 77 mm[Hg] Madison Chavarria DO Work Phone: [facility] 11-28-2023 15:07-0400 Heart rate 55 /min Madison Chavarria DO Work Phone: [facility] 11-28-2023 15:07-0400 SaO2% (BldA) [Mass fraction] 95 % Madison Chavarria DO Work Phone: [facility] 11-28-2023 15:07-0400 Systolic blood pressure 132 mm[Hg] Madison Chavarria DO Work Phone: [facility] 10-10-2023 09:26-0500 Diastolic blood pressure 68 mm[Hg] Madison Chavarria DO Work Phone: [facility] 10-10-2023 09:26-0500 Heart rate 66 /min Madison Chavarria DO Work Phone: [facility] 10-10-2023 09:26-0500 SaO2% (BldA) [Mass fraction] 96 % Madison Chavarria DO Work Phone: [facility] 10-10-2023 09:26-0500 Systolic blood pressure 133 mm[Hg] Madison Chavarria DO Work Phone: [facility] 07-21-2023 09:38-0500 Body height 182.9 cm Andres Saxena PA-C Work Phone: [facility] 07-21-2023 09:38-0500 Body weight 92.99 kg Andres Saxena PA-C Work Phone: [facility] 07-21-2023 09:38-0500 Diastolic blood pressure 59 mm[Hg] Andres Saxena PA-C Work Phone: [facility] 07-21-2023 09:38-0500 Heart rate 58 /min Andres Saxena PA-C Work Phone: [facility] 07-21-2023 09:38-0500 SaO2% (BldA) [Mass fraction] 99 % Andres Saxena PA-C Work Phone: [facility] 07-21-2023 09:38-0500 Systolic blood pressure 114 mm[Hg] Andres Saxena PA-C Work Phone: [facility] 07-17-2023 10:32-0500 Body height 176 cm Chin Hatch MD Work Phone: [facility] 07-17-2023 10:32-0500 Body temperature 97.5 [degF] Chin Hatch MD Work Phone: [facility] 07-17-2023 10:32-0500 Body weight 95.94 kg Chin Hatch MD Work Phone: [facility] 07-17-2023 10:32-0500 Diastolic blood pressure 78 mm[Hg] Chin Hatch MD Work Phone: [facility] 07-17-2023 10:32-0500 Heart rate 64 /min Chin Hatch MD Work Phone: [facility] 07-17-2023 10:32-0500 SaO2% (BldA) [Mass fraction] 97 % Chin Hatch MD Work Phone: [facility] 07-17-2023 10:32-0500 Systolic blood pressure 137 mm[Hg] Chin Hatch MD Work Phone: [facility] 11-29-2022 10:46-0400 Diastolic blood pressure 59 mm[Hg] Amber Elizalde J2EE DEVELOPER.BUILDING SUPERINTENDENT Work Phone: [facility] 11-29-2022 10:46-0400 Heart rate 60 /min Amber Elizalde J2EE DEVELOPER.BUILDING SUPERINTENDENT Work Phone: [facility] 11-29-2022 10:46-0400 SaO2% (BldA) [Mass fraction] 96 % Amber [place] J2EE DEVELOPER.BUILDING SUPERINTENDENT Work Phone: [facility] 11-29-2022 10:46-0400 Systolic blood pressure 106 mm[Hg] Amber Dina J2EE DEVELOPER.BUILDING SUPERINTENDENT Work Phone: [facility] 11-15-2022 09:11-0400 Body height 182.9 cm Cordt Skraba J2EE DEVELOPER.TRANSCRIPTIONIST Work Phone: [facility] 11-15-2022 09:11-0400 Body weight 97.07 kg Cordt Skraba J2EE DEVELOPER.TRANSCRIPTIONIST Work Phone: [facility] 11-15-2022 09:11-0400 Diastolic blood pressure 66 mm[Hg] Cordt Skraba J2EE DEVELOPER.TRANSCRIPTIONIST Work Phone: [facility] 11-15-2022 09:11-0400 Heart rate 69 /min Cordt Skraba J2EE DEVELOPER.TRANSCRIPTIONIST Work Phone: [facility] 11-15-2022 09:11-0400 SaO2% (BldA) [Mass fraction] 96 % Cordt Skraba J2EE DEVELOPER.TRANSCRIPTIONIST Work Phone: [facility] 11-15-2022 09:11-0400 Systolic blood pressure 118 mm[Hg] Cordt Skraba J2EE DEVELOPER.TRANSCRIPTIONIST Work Phone: [facility] 09-14-2022 10:01-0500 Body weight 96.16 kg Cordt Skraba J2EE DEVELOPER.TRANSCRIPTIONIST Work Phone: [facility] 09-14-2022 10:01-0500 Diastolic blood pressure 72 mm[Hg] Cordt Skraba J2EE DEVELOPER.TRANSCRIPTIONIST Work Phone: [facility] 09-14-2022 10:01-0500 Heart rate 60 /min Cordt Skraba J2EE DEVELOPER.TRANSCRIPTIONIST Work Phone: [facility] 09-14-2022 10:01-0500 SaO2% (BldA) [Mass fraction] 97 % Cordt Skraba J2EE DEVELOPER.TRANSCRIPTIONIST Work Phone: [facility] 09-14-2022 10:01-0500 Systolic blood pressure 126 mm[Hg] Loli Tran J2EE DEVELOPER.TRANSCRIPTIONIST Work Phone: [facility] 07-21-2022 08:40-0500 Body height 182.9 cm Keerthi Hazel MD Work Phone: [facility] 07-21-2022 08:40-0500 Body weight 95.71 kg Keerthi Hazel MD Work Phone: [facility] 07-21-2022 08:40-0500 Diastolic blood pressure 76 mm[Hg] Keerthi Hazel MD Work Phone: [facility] 07-21-2022 08:40-0500 Heart rate 58 /min Keerthi Hazel MD Work Phone: [facility] 07-21-2022 08:40-0500 SaO2% (BldA) [Mass fraction] 96 % Keerthi Hazel MD Work Phone: [facility] 07-21-2022 08:40-0500 Systolic blood pressure 116 mm[Hg] Keerthi Hazel MD Work Phone: [facility] 07-20-2022 08:46-0500 Body temperature 97.9 [degF] Aparna Thorne MD Work Phone: [facility] 07-20-2022 08:46-0500 Body weight 96.62 kg Aparna Thorne MD Work Phone: [facility] 07-20-2022 08:46-0500 Diastolic blood pressure 83 mm[Hg] Aparna Thorne MD Work Phone: [facility] 07-20-2022 08:46-0500 Heart rate 60 /min Aparna Thorne MD Work Phone: [facility] 07-20-2022 08:46-0500 Systolic blood pressure 139 mm[Hg] Aparna Thorne MD Work Phone: [facility] 07-04-2022 15:14-0400 Diastolic blood pressure 69 mm[Hg] Amber Elizalde J2EE DEVELOPER.BUILDING SUPERINTENDENT Work Phone: [facility] 07-04-2022 15:14-0400 Heart rate 56 /min [facility] Dina J2EE DEVELOPER.BUILDING SUPERINTENDENT Work Phone: [facility] 07-04-2022 15:14-0400 SaO2% (BldA) [Mass fraction] 95 % Amberkeila NuñezDina J2EE DEVELOPER.BUILDING SUPERINTENDENT Work Phone: [facility] 07-04-2022 15:14-0400 Systolic blood pressure 140 mm[Hg] [facility] Dina J2EE DEVELOPER.BUILDING SUPERINTENDENT Work Phone: [facility] 03-25-2022 15:07-0400 Body height 182.9 cm Montserrat Short PA Work Phone: [facility] 03-25-2022 15:07-0400 Body weight 95.62 kg Montserrat Short PA Work Phone: [facility] 03-25-2022 15:07-0400 Diastolic blood pressure 58 mm[Hg] Montserrat Short PA Work Phone: [facility] 03-25-2022 15:07-0400 Heart rate 65 /min Montserrat Short PA Work Phone: [facility] 03-25-2022 15:07-0400 SaO2% (BldA) [Mass fraction] 96 % Montserrat Short PA Work Phone: [facility] 03-25-2022 15:07-0400 Systolic blood pressure 102 mm[Hg] Montserrat Short PA Work Phone: [facility] 03-23-2022 09:18-0400 Body height 180.[address] Keerthi Hazel Work Phone: [facility] Work Phone: 03-23-2022 09:18-0400 Body mass index (BMI) [Ratio] 29.2 kg/m2 Dr. Keerthi Hazel Work Phone: [facility] Work Phone: 03-23-2022 09:18-0400 Body weight 95.[address] Keerthi Hazel Work Phone: [facility] Work Phone: 03-23-2022 09:18-0400 Diastolic blood pressure 70 mm[Hg] Dr. Keerthi Hazel Work Phone: [facility] Work Phone: 03-23-2022 09:18-0400 Heart rate 60 /min Dr. Keerthi Hazel Work Phone: [facility] Work Phone: 03-23-2022 09:18-0400 Systolic blood pressure 130 mm[Hg] Dr. Keerthi Hazel Work Phone: [facility] Work Phone: 03-21-2022 11:09-0400 Body temperature 97.39 [degF] Aparna Thorne MD Work Phone: [facility] 03-21-2022 11:09-0400 Body weight 95.71 kg Aparna Thorne MD Work Phone: [facility] 03-21-2022 11:09-0400 Diastolic blood pressure 53 mm[Hg] Aparna Thorne MD Work Phone: [facility] 03-21-2022 11:09-0400 Heart rate 54 /min Aparna Thorne MD Work Phone: [facility] 03-21-2022 11:09-0400 SaO2% (BldA) [Mass fraction] 98 % Aparna Thorne MD Work Phone: [facility] 03-21-2022 11:09-0400 Systolic blood pressure 102 mm[Hg] Aparna Thorne MD Work Phone: [facility] 03-03-2022 13:28-0400 Diastolic blood pressure 49 mm[Hg] Amber Elizalde J2EE DEVELOPER.BUILDING SUPERINTENDENT Work Phone: [facility] 03-03-2022 13:28-0400 Heart rate 65 /min Amber Dina J2EE DEVELOPER.BUILDING SUPERINTENDENT Work Phone: [facility] 03-03-2022 13:28-0400 SaO2% (BldA) [Mass fraction] 95 % Amber Elizalde J2EE DEVELOPER.BUILDING SUPERINTENDENT Work Phone: [facility] 03-03-2022 13:28-0400 Systolic blood pressure 99 mm[Hg] Amber Elizalde J2EE DEVELOPER.BUILDING SUPERINTENDENT Work Phone: [facility] 01-19-2022 11:23-0400 Body weight 97.98 kg Keerthi Hazel MD Work Phone: [facility] 01-19-2022 11:23-0400 Diastolic blood pressure 70 mm[Hg] Keerthi Hazel MD Work Phone: [facility] 01-19-2022 11:23-0400 Heart rate 66 /min Keerthi Hazel MD Work Phone: [facility] 01-19-2022 11:23-0400 Respiratory rate 16 /min Keerthi Hazel MD Work Phone: [facility] 01-19-2022 11:23-0400 SaO2% (BldA) [Mass fraction] 97 % Keerthi Hazel MD Work Phone: [facility] 01-19-2022 11:23-0400 Systolic blood pressure 122 mm[Hg] Keerthi Hazel MD Work Phone: [facility] 01-17-2022 10:41-0400 Body temperature 98.2 [degF] Aparna Thorne MD Work Phone: [facility] 01-17-2022 10:41-0400 Body weight 96.39 kg Aparna Thorne MD Work Phone: [facility] 01-17-2022 10:41-0400 Diastolic blood pressure 63 mm[Hg] Aparna Thorne MD Work Phone: [facility] 01-17-2022 10:41-0400 Heart rate 55 /min Aparna Thorne MD Work Phone: [facility] 01-17-2022 10:41-0400 SaO2% (BldA) [Mass fraction] 95 % Aparna Thorne MD Work Phone: [facility] 01-17-2022 10:41-0400 Systolic blood pressure 116 mm[Hg] Aparna Thorne MD Work Phone: [facility] 12-02-2021 11:21-0400 Body weight 98.43 kg Keerthi Hazel MD Work Phone: [facility] 12-02-2021 11:21-0400 Diastolic blood pressure 72 mm[Hg] Keerthi Hazel MD Work Phone: [facility] 12-02-2021 11:21-0400 Heart rate 68 /min Keerthi Hazel MD Work Phone: [facility] 12-02-2021 11:21-0400 Systolic blood pressure 112 mm[Hg] Keerthi Hazel MD Work Phone: [facility] 11-03-2021 17:00-0500 Body height 182.9 cm [facility] J2EE DEVELOPER.BUILDING SUPERINTENDENT Work Phone: [facility] 11-03-2021 17:00-0500 Diastolic blood pressure 77 mm[Hg] [facility] [place] J2EE DEVELOPER.BUILDING SUPERINTENDENT Work Phone: [facility] 11-03-2021 17:00-0500 Heart rate 62 /min [facility] [place] J2EE DEVELOPER.BUILDING SUPERINTENDENT Work Phone: [facility] 11-03-2021 17:00-0500 SaO2% (BldA) [Mass fraction] 96 % [facility] Dina J2EE DEVELOPER.BUILDING SUPERINTENDENT Work Phone: [facility] 11-03-2021 17:00-0500 Systolic blood pressure 145 mm[Hg] [facility] [place] J2EE DEVELOPER.BUILDING SUPERINTENDENT Work Phone: [facility] 09-15-2020 14:00-0500 BP Diastolic 70 mm[Hg] [facility] , [place] 09-15-2020 14:00-0500 BP Systolic 121 mm[Hg] [facility] , [place] 09-15-2020 14:00-0500 Pulse (Heart Rate) 58 /min [facility], [place] 09-15-2020 14:00-0500 Pulse Oximetry 97 % [facility] , [place] 09-15-2020 14:00-0500 Respiratory Rate 18 /min [facility] 09-15-2020 13:25-0500 Body Temperature 97.5 [degF] [facility] [place] [place] 09-15-2020 09:57-0500 BMI (Body Mass Index) 29.01 kg/m2 [facility] 09-15-2020 09:57-0500 Body weight 94.35 kg [facility] [place] 09-15-2020 09:57-0500 Height 180.3 cm [facility] [place] 12-21-2018 02:24-0400 Body temperature 37.0 Deg Sofía [facility] Comment on above: Performed By: #### L CBCD #### [place] [id number] 08-01-2017 16:08-0500 BMI (Body Mass Index) 29.77 kg/m2 Fidelina Cabrales [facility] Work Phone: 08-01-2017 16:08-0500 BP Diastolic 70 mm[Hg] [facility] Work Phone: 08-01-2017 16:08-0500 BP Systolic 120 mm[Hg] [facility] Work Phone: 08-01-2017 16:08-0500 Height 182.88 cm [facility] Work Phone: 08-01-2017 16:08-0500 Pulse (Heart Rate) 56 /min [facility] Work Phone: 08-01-2017 16:08-0500 Respiratory Rate 20 /min [facility] Work Phone: 08-01-2017 16:08-0500 Weight 99.57 kg [facility] Work Phone: 01-30-2013 14:16-0400 BMI (Body Mass Index) 31.38 kg/m2 Leidy Marx RN [facility] Work Phone: 01-30-2013 14:16-0400 BP Diastolic 70 mm[Hg] Leidy Marx RN [facility] Work Phone: 01-30-2013 14:16-0400 BP Systolic 120 mm[Hg] Leidy Marx RN [facility] Work Phone: 01-30-2013 14:16-0400 Height 180.34 cm Leidy Marx RN [facility] Work Phone: 01-30-2013 14:16-0400 Pulse (Heart Rate) 64 /min Leidy Marx RN [facility] Work Phone: 01-30-2013 14:16-0400 Respiratory Rate 20 /min Leidy Marx RN [facility] Work Phone: 01-30-2013 14:16-0400 Weight 101.7 kg Leidy Marx RN [facility] Work Phone: NEGATED: Highlighted [id number] 15:25-0500 BMI (Body Mass Index) 28.47 kg/m2 Ava Traci [facility] Work Phone: NEGATED: Highlighted [id number] 15:25-0500 Body weight 97.52 kg Ava Traci [facility] Work Phone: NEGATED: Highlighted [id number] 15:25-0500 Body weight 98 kg Ava Traci [facility] Work Phone: NEGATED: Highlighted [id number] 15:25-0500 Height 185.42 cm Ava Traci [facility] Work Phone: NEGATED: Highlighted [id number] 15:25-0500 Height 185 cm Ava Traci [facility] Work Phone: Encounters Encounter Date Encounter Type Care Provider Facility Start: 04-23-2025 ambulatory José Barron NP Facility :[facility] Start: 03-27-2025 End: 03-27-2025 ambulatory KEERTHI HAZEL Facility:[facility] Start: 03-27-2025 End: 03-27-2025 Patient encounter procedure José Barron SLASHER TENDER-C -[facility] Work Phone: Start: 03-27-2025 End: 03-27-[address] Keerthi Hazel MD Work Phone: -[facility] Start: 01-07-2025 End: 01-07-2025 Patient encounter procedure Madison Chavarria DO Work Phone: Vascular Surgery Comment on above: Bilateral carotid ar hebert stenosis (Primary Dx); PAD (peripheral artery disease) Start: 01-07-2025 End: 01-07-2025 ambulatory MADISON CHAVARRIA Facility:[facility] Start: 01-02-2025 End: 03-04-2025 Follow-up encounter Keerthi Hazel MD Work Phone: Pulmonology [facility] Start: 01-01-2025 End: 01-01-2025 ambulatory KEERTHI HAZEL Facility:[facility] Start: 12-31-2024 End: 12-31-2024 Patient encounter procedure Keerthi Hazel MD Work Phone: [facility] [place] Comment on above: Essential hypertensi on (Primary Dx); Coronary artery disease involving [place] coronary artery of [place] heart without angina pectoris; Seizure disorder (HCC); Mixed hyperlipidemia; Chronic diastolic CHF (congestive heart failure) ([facility]); PAD (peripheral artery disease); Chronic obstructive pulmonary disease, unspecified COPD type ([facility]); Gastroesophageal reflux disease, unspecified whether esophagitis present; Diffuse large B-cell lymphoma of intra-abdominal lymph nodes (HCC); Hypokalemia; Degeneration of intervertebral disc of lumbar region, unspecified whether pain present; Screening for diabetes mellitus; Medication monitoring encounter; Need for vaccination Start: 12-31-2024 End: 12-31-2024 ambulatory KEERTHI HAZEL Facility:[facility] Start: 12-24-2024 End: 12-24-2024 ambulatory MADISON Hernan PARNELLLE Facility:[facility] Start: 12-10-2024 End: 12-10-2024 Refill Keerthi Hazel MD Work Phone: Family [facility] Comment on above: Refill Request Start: 11-26-2024 End: 11-27-2024 Refill Keerthi Hazel MD Work Phone: Family [facility] Comment on above: Refill Request Start: 10-29-2024 End: 10-29-2024 Office outpatient new 60 minutes Delilah Rodrigues MD Work Phone: Neurology Epilepsy Comment on above: 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, unspecified epilepsy type (HCC) (Primary Dx) Start: 10-29-2024 End: 10-29-2024 ambulatory DELILAH RODRIGUES Facility:[facility] Start: 10-14-2024 ambulatory Romulo Flores Facility:[facility] [place] Start: 10-14-2024 End: 10-14-2024 ambulatory [facility] Facility:[facility] Start: 10-08-2024 End: 10-08-2024 ambulatory Ade Garcia Work Phone: Hematology/Oncology Comment on above: 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) (Primary Dx) Start: 10-08-2024 End: 10-08-2024 Patient encounter procedure Ade Garcia Work Phone: Hematology/Oncology Start: 10-07-2024 End: 10-07-2024 Telephone encounter Chin Hatch MD Work Phone: Hematology/Oncology Comment on above: Patient Question Start: 10-04-2024 End: 10-04-2024 ambulatory [facility] Facility:[facility] Start: 10-04-2024 End: 10-04-2024 ambulatory [facility] Facility:[facility] Start: 10-02-2024 End: 10-02-2024 Telephone encounter Keerthi Hazel MD Work Phone: Family [facility] Comment on above: Opened In Error Start: 09-19-2024 End: 09-19-2024 Patient encounter procedure Imad Najm MD Work Phone: Neurology Comment on above: Seizure disorder (HC C) (Primary Dx) Start: 09-19-2024 End: 09-19-2024 Telephone encounter Keerthi Hazel MD Work Phone: [facility] [place] Comment on above: Referral Request Start: 09-05-2024 End: 09-05-2024 Refill Keerthi Hazel MD Work Phone: [facility] [place] Comment on above: Refill Request Start: 07-22-2024 ambulatory [facility] Facility:[facility] Start: 07-18-2024 End: 07-18-2024 ambulatory Lulu Reid RN [employer] Comment on above: CDM ([facility] Outreach Call) Start: 07-16-2024 End: 07-16-2024 Patient encounter procedure Chin Hatch MD Work Phone: Hematology/Oncology Start: 07-16-2024 End: 07-16-2024 ambulatory Chin Hatch MD Work Phone: Hematology/Oncology Comment on above: 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) (Primary Dx) Start: 07-11-2024 End: 07-11-2024 ambulatory [facility] Facility:[facility] Start: 07-11-2024 End: 07-11-2024 Subsequent hospital visit by physician Susan [facility] (I-Stat) Work Phone: Cat Scan Comment on above: 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) [C83.35] Start: 07-11-2024 End: 07-11-2024 ambulatory [facility] Facility:[facility] Start: 07-11-2024 End: 07-11-2024 Subsequent hospital visit by physician Susan Levin [facility] Cat Scan Start: 06-26-2024 End: 06-26-2024 Telephone encounter Keerthi Hazel MD Work Phone: [facility] [place] Comment on above: Results Start: 06-25-2024 End: 06-25-2024 Subsequent hospital visit by physician Sg [facility] [place] Work Phone: Radiology Comment on above: Cough, unspecified t ype [R05.9] Start: 06-25-2024 End: 06-25-2024 ambulatory KEERTHI HAZEL Facility:[facility] Start: 06-25-2024 End: 06-25-2024 Patient encounter procedure Keerthi Hazel MD Work Phone: [facility] Comment on above: Cough, unspecified t ype (Primary Dx); Seizure disorder (HCC); Coronary artery disease involving [place] coronary artery of narr[place] heart without angina pectoris; Essential hypertension; Mixed hyperlipidemia; Chronic diastolic CHF (congestive heart failure) (HCC); Acute diastolic CHF (congestive heart failure) (HCC); PAD (peripheral artery disease) (HCC); Chronic obstructive pulmonary disease, unspecified COPD type (HCC); Diffuse large B-cell lymphoma of intra-abdominal lymph nodes (HCC); Abnormal breath sounds; Vitamin D deficiency Start: 06-25-2024 End: 06-25-2024 ambulatory MADISON CHAVARRIA Facility:[facility] Start: 06-25-2024 End: 06-25-2024 Patient encounter procedure Madison Chavarria DO Work Phone: Vascular Surgery Comment on above: Bilateral carotid ar hebert stenosis (Primary Dx) Start: 06-20-2024 End: 06-20-2024 ambulatory Lulu Reid RN Simulation Developer Management Comment on above: CDM (Community Monit oring Outreach Call) Start: 06-19-2024 End: 06-19-2024 ambulatory KEERTHI Amor ILIR Facility:[facility] Start: 05-22-2024 End: 05-22-2024 ambulatory Lulu Reid RN Simulation Developer Management Comment on above: CDM (Community Monit oring Outreach Call) Refill Request Start: 05-21-2024 End: 05-21-2024 ambulatory Lulu Reid RN Simulation Developer Management Comment on above: CDM (Community Monit oring Outreach Call) Start: 05-21-2024 End: 05-21-2024 E-mail encounter from caregiver Yair Butt MD Work Phone: Pulmonary Medicine Start: 05-21-2024 End: 05-21-2024 Patient encounter procedure Yair Butt MD Work Phone: Pulmonary Medicine Comment on above: Appointment Start: 04-24-2024 End: 04-24-2024 ambulatory Lulu Reid RN Simulation Developer Management Comment on above: CDM (Community Monit oring Outreach Call) Start: 04-10-2024 ambulatory Lulu Reid RN Ambula tory Care Management Comment on above: CDM (Community Monit oring Outreach Call) Start: 04-08-2024 End: 04-08-2024 ambulatory RADHA ALLEN Not Available Start: 04-02-2024 End: 04-02-2024 ambulatory KEERTHI HAZEL Facility:[facility] Start: 04-01-2024 Telephone encounter Yissel Becerra [facility] Comment on above: Fabric Transition of Care Start: 03-26-2024 Telephone encounter Yissel Becerra [facility] Comment on above: Fabric Transition of Care Start: 03-20-2024 E-mail encounter fro m caregiver Vidhya Mahoney APRN.TRANSCRIPTIONIST Work Phone: Pulmonary Medicine Start: 03-20-2024 Patient encounter procedure Vidhya Mahoney APRN.TRANSCRIPTIONIST Work Phone: Pulmonary Medicine Comment on above: Appointment Start: 03-18-2024 Telephone encounter Keerthi Hazel MD Work Phone: Family Medicine [place] Comment on above: Results Fab[employer] Transition of Care Start: 03-14-2024 Telephone encounter Keerthi Hazel MD Work Phone: Pulmonology [facility] Comment on above: Results Start: 03-13-2024 End: 03-13-2024 Subsequent hospital visit by physician Sg [facility] [place] Work Phone: Radiology Comment on above: Bacterial pneumonia [J15.9] Start: 03-11-2024 Telephone encounter Yissel Becerra [facility] Comment on above: Fabric Transition of Care Start: 03-06-2024 Telephone encounter Yissel Becerra [facility] Comment on above: Fabric Transition of Care Medication Question (YISSEL) Start: 03-06-2024 End: 03-06-2024 Patient encounter procedure Keerthi Hazel MD Work Phone: [facility] Comment on above: Bacterial pneumonia (Primary Dx); Seizure disorder (HCC); Coronary artery disease involving [place] coronary artery of [place] heart without angina pectoris; Essential hypertension; Mixed hyperlipidemia; PAD (peripheral artery disease) (HCC); Chronic diastolic CHF (congestive heart failure) (HCC); Acute diastolic CHF (congestive heart failure) (HCC); Chronic obstructive pulmonary disease, unspecified COPD type (HCC); Gastroesophageal reflux disease, unspecified whether esophagitis present; Diffuse large B-cell lymphoma of intra-abdominal lymph nodes (HCC); Coronary artery disease of [place] heart with stable angina pectoris, unspecified vessel or lesion type (HCC); Troponin level elevated; Elevated brain natriuretic peptide (BNP) level Start: 03-05-2024 Patient Outreach Mone Danielle RN Work Phone: Simulation Developer Management Comment on above: Transition Of Care ( Hospital reach in) [employer] - [facility] Follow Up Start: 03-02-2024 End: 03-05-2024 Evaluation and management of inpatient KEERTHI Amor [facility] Facility:[facility] Start: 03-02-2024 End: 03-02-2024 Emergency department patient visit [facility] Facility:[facility] Start: 02-16-2024 End: 02-16-2024 Patient encounter procedure Hortensia Knutson APRN.CNP Work Phone: [facility] Comment on above: Acute otitis externa of right ear, unspecified type (Primary Dx) Start: 02-12-2024 ambulatory Isatu Terry RN Work Phone: Simulation Developer Management Comment on above: Community Monitoring Outreach (CDM) Start: 02-07-2024 End: 02-07-2024 ambulatory Mars Marrero APRN.TRANSCRIPTIONIST Work Phone: Hematology/Oncology Comment on above: 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) (Primary Dx); Diffuse large B-cell lymphoma of intra-abdominal lymph nodes (HCC) Start: 02-07-2024 End: 02-07-2024 Patient encounter procedure Mars Marrero APRN.TRANSCRIPTIONIST Work Phone: Hematology/Oncology Start: 02-01-2024 ambulatory Estefani Jules [facility] [place] Start: 02-01-2024 Follow-up encounter Amy samuel RN Work Phone: Simulation Developer Management Comment on above: Community Monitoring Outreach (Follow up ) Start: 02-01-2024 Patient encounter procedure Estefani Jules MA [facility] [place] Comment on above: Population Health Na vigation Outreach ([place] AWV/HCC and care gaps ) Start: 01-31-2024 ambulatory Amy Castaneda RN Work Phone: Simulation Developer Management Start: 01-31-2024 Follow-up encounter Amy samuel RN Work Phone: Simulation Developer Management Comment on above: Community Monitoring Outreach (Follow up ) Start: 01-17-2024 End: 01-17-2024 Patient encounter procedure Vidhya Mahonye APRN.CNP Work Phone: Pulmonary Medicine Comment on above: Chronic obstructive pulmonary disease, unspecified COPD type (HCC) (Primary Dx); Elevated diaphragm; Former smoker; Lung nodule Start: 01-15-2024 End: 01-15-2024 Subsequent hospital visit by physician Sg [facility] [place] Work Phone: Radiology Start: 01-04-2024 ambulatory Lulu Reid RN Ambulmiriam ramirez Care Management Comment on above: CDM (Community Monit oring Outreach Call) Start: 12-12-2023 ambulatory Lulu Reid RN Ambulmiriam toremily Care Management Comment on above: CDM (Community Monit oring Outreach Call) Start: 11-28-2023 End: 11-28-2023 Patient encounter procedure Madison Hernan Chavarria DO Work Phone: Vascular Surgery Comment on above: PAD (peripheral hayden ry disease) (HCC) (Primary Dx); Bilateral carotid artery stenosis Start: 11-15-2023 ambulatory Lulu Reid RN Ambula tory Care Management Comment on above: CDM (Community Monit oring Outreach Call) Refill Request Refill Request; Refi ll Request Start: 11-14-2023 [facility] Start: 11-14-2023 Patient encounter procedure Estefani Jules [facility] [place] Comment on above: Population Health Na vigation Outreach ([place] Annual Wellness Visit ) Start: 10-18-2023 ambulatory Lulu Reid RN Ambula [facility] Care Management Comment on above: CDM (Community [facility] ori Outreach Call) Refill Request Start: 10-16-2023 End: 10-16-2023 ambulatory RADHA ALLEN Not Available Start: 10-10-2023 End: 10-10-2023 Patient encounter procedure Madison Chavarria DO Work Phone: Vascular Surgery Comment on above: Bruit (Primary Dx); PAD (peripheral artery disease) (HCC); Popliteal artery aneurysm (HCC) Start: 10-04-[address] bender SLASHER TENDER Work Phone: [facility] Comment on above: Unspecified convulsi ons (CMS/HCC) Start: 08-21-2023 ambulatory Elvie Nichols RN Work Phone: Simulation Developer Management Comment on above: cdm (engagement) Start: 08-14-2023 End: 08-14-2023 ambulatory Viet Veloz [facility] Comment on above: DDD (degenerative di sc disease), lumbar (Primary Dx); Osseous stenosis of neural canal of lumbar region Start: 08-08-2023 End: 08-08-2023 ambulatory Viet Veloz PT [facility] Comment on above: DDD (degenerative di sc disease), lumbar (Primary Dx); Osseous stenosis of neural canal of lumbar region Start: 07-21-2023 End: 07-21-2023 Patient encounter procedure Andres Saxena PA-C Work Phone: [facility] [place] Comment on above: 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); DDD (degenerative disc disease), lumbar Start: 07-17-2023 End: 07-17-2023 Refill Cordt Marc ACEVESTRANSCRIPTIONIST Work Phone: Pulmonary Medicine Comment on above: Refill Request 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 Kaylyn mae [facility] Facility:[id number] Start: 05-22-2023 Telephone encounter Yair Butt MD Work Phone: Pulmonary Medicine Comment on above: Orders Start: 05-12-2023 ambulatory Catrachita Shearer RN Work Phone: Simulation Developer Management Comment on above: CDM Engagement Start: 05-03-2023 Telephone encounter Chad pryor J2EE DEVELOPER.TRANSCRIPTIONIST Work Phone: Pain [facility] Comment on above: Future Appointment Start: 04-25-2023 ambulatory [facility] Provider Simulation Developer Management Comment on above: Home Monitoring Ques tionnaire Reminder Start: 04-25-2023 E-mail encounter negro m caregiver [facility] Provider [facility] [place] Start: 03-30-2023 ambulatory STEPHON INFANTE Facil ity:[phone] Start: 03-23-2023 ambulatory Catrachita Shearer RN Work Phone: Simulation Developer Management Comment on above: CDM Engagement Start: 03-09-2023 Telephone encounter Stephon Infante DO Work Phone: MR PAIN MANAGEMENT Comment on above: Returning Patient's Call Start: 03-02-2023 End: 03-03-2023 ambulatory AMBER DINA Facility:[id number] Start: 01-08-2023 ambulatory [facility] Provider Simulation Developer Management Comment on above: Home Monitoring Ques tionnaire: Getting Started Reminder Start: 01-08-2023 E-mail encounter fro m caregiver [facility] Provider [facility] [place] Start: 12-23-2022 ambulatory [facility] Provider Simulation Developer Management Comment on above: Home Monitoring Ques tionnaire: Getting Started Reminder Start: 12-23-2022 E-mail encounter negro mccauley caregiver [facility] Provider ROBERTO KATHY DOUGLASS Start: 11-29-2022 End: 11-30-2022 ambulatory AMBER ELIZALDE Facility:[id number] Start: 11-29-2022 End: 11-29-2022 Office outpatient visit 25 minutes Amber Elizalde J2EE DEVELOPER.BUILDING SUPERINTENDENT Work Phone: Pain Management Comment on above: Spinal stenosis, lum bar region with neurogenic claudication (Primary Dx); Lumbar radiculopathy; Chronic pain syndrome Start: 11-28-2022 Refill Cordt Skraba J2EE DEVELOPER.TRANSCRIPTIONIST Work Phone: Pulmonary Medicine Comment on above: Refill Request Start: 11-23-2022 ambulatory Catrachita Shearer RN Work Phone: Simulation Developer Management Comment on above: CDM Engagement Start: 11-15-2022 End: 11-15-2022 Patient encounter procedure Cordt Skraba J2EE DEVELOPER.TRANSCRIPTIONIST Work Phone: Pulmonary Medicine Comment on above: Chronic obstructive pulmonary disease, unspecified COPD type (HCC) (Primary Dx); Hemidiaphragmatic eventration; Former smoker; Lung nodules; Diffuse large B-cell lymphoma, unspecified body region (HCC) Start: 11-07-2022 ambulatory [facility] Provider Simulation Developer Management Comment on above: Home Monitoring Ques tionnaire: Getting Started Start: 11-07-2022 E-mail encounter ngero mccauley caregiver [facility] Provider DEEPAK DOUGLASS Start: 10-24-2022 ambulatory Kia diaz RN Work Phone: Simulation Developer Management Comment on above: Community Monitoring Outreach (Enrollment H@H ) Start: 10-14-2022 End: 10-14-2022 Subsequent hospital visit by physician [facility] Work Phone: Radiology Comment on above: Hemidiaphragmatic ev entration [Q79.1] Start: 10-05-2022 Refill Keerthi Hazel MD Work Phone: [facility] Comment on above: Refill Request Start: 09-30-2022 End: 09-30-2022 [facility] Work Phone: [facility] Comment on above: Spirometry Start: 09-30-2022 End: 09-30-2022 Patient encounter procedure Pulm Fct Lab [facility] Work Phone: [facility] Start: 09-19-2022 Telephone encounter Loli Baker ba J2EE DEVELOPER.TRANSCRIPTIONIST Work Phone: Pulmonary Medicine Comment on above: Orders; Patient Upda te Start: 09-14-2022 End: 09-14-2022 Patient encounter procedure Loli Tran J2EE DEVELOPER.TRANSCRIPTIONIST Work Phone: Pulmonary Medicine Comment on above: Chronic obstructive pulmonary disease, unspecified COPD type (HCC) (Primary Dx); Shortness of breath; Diffuse large B-cell lymphoma, unspecified body region (HCC); Former smoker; Lung nodules Start: 08-31-2022 Telephone encounter Aparna Thorne MD Work Phone: Hematology/Oncology Comment on above: Patient Question Start: 08-04-2022 Telephone encounter Keerthi Hazel MD Work Phone: [facility] [place] Comment on above: Medication issue Start: 08-03-2022 Telephone encounter Montserrat PAREKH Work Phone: Pulmonology Comment on above: Patient Update Start: 07-21-2022 End: 07-21-2022 Patient encounter procedure Keerthi Hazel MD Work Phone: [facility] [place] Comment on above: Seizure disorder (HC C) (Primary Dx); Coronary artery disease involving [place] coronary artery of narr[place] heart without angina pectoris; Essential hypertension; Hyperlipidemia, unspecified hyperlipidemia type; PAD (peripheral artery disease) (HCC); Acute bronchitis with chronic obstructive pulmonary disease (COPD) (HCC); Diffuse large B-cell lymphoma of intra-abdominal lymph nodes (HCC) Start: 07-20-2022 End: 07-20-2022 ambulatory Aparna Thorne MD Work Phone: Hematology/Oncology Comment on above: Acute bronchitis wit h chronic obstructive pulmonary disease (COPD) (HCC) (Primary Dx); 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); Diffuse large B-cell lymphoma of intra-abdominal lymph nodes (HCC) Start: 07-20-2022 End: 07-20-2022 Patient encounter procedure Aparna Thorne MD Work Phone: [facility] Start: 07-18-2022 Telephone encounter Aparna Thorne MD Work Phone: Hematology/Oncology Comment on above: orders Start: 07-13-2022 Refill Keerthi Hazel MD Work Phone: [facility] Comment on above: Refill Request Start: 07-04-2022 End: 07-05-2022 ambulatory [facility] D[facility] Facility:[id number] Start: 07-04-2022 End: 07-04-2022 Office outpatient visit 25 minutes Amberkeila Elizalde J2EE DEVELOPER.BUILDING SUPERINTENDENT Work Phone: Pain Management Comment on above: Lumbar radiculopathy (Primary Dx); Spinal stenosis, lumbar region with neurogenic claudication; Chronic pain syndrome Start: 04-13-2022 Non-patient / Non-visit Dr. Renetta Hazel Work Phone: [facility] Start: 04-13-2022 End: 04-13-[address] Keerthi Hazel Work Phone: [facility] Start: 03-25-2022 End: 03-25-2022 Patient encounter procedure Montserrat PAREKH Work Phone: Pulmonary Medicine Comment on above: Chronic obstructive pulmonary disease, unspecified COPD type (HCC) (Primary Dx); Lung nodules; Leg swelling; Diffuse large B-cell lymphoma, unspecified body region (HCC) Start: 03-23-2022 End: 03-23-[address] Keerthi Hazel Work Phone: [facility] Start: 03-22-2022 Telephone encounter Keerthi Hazel MD Work Phone: [facility] Comment on above: Results Start: 03-21-2022 Telephone encounter Aparna Thorne MD Work Phone: Hematology/Oncology Comment on above: Orders Start: 03-21-2022 End: 03-21-2022 Subsequent hospital visit by physician Xr [facility] [place] Vaz[place] Work Phone: Radiology Comment on above: Diffuse large B-cell lymphoma of intra-abdominal lymph nodes (HCC) [C83.33] Start: 03-21-2022 End: 03-21-2022 ambulatory Aparna Thorne MD Work Phone: Hematology/Oncology Comment on above: Diffuse large B-cell lymphoma of intra-abdominal lymph nodes (HCC) (Primary Dx); Groin pain, right; 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) Start: 03-21-2022 End: 03-21-2022 Patient encounter procedure Aparna Thorne MD Work Phone: [facility] Start: 03-16-2022 [facility] Start: 03-16-2022 Telephone encounter Aparna Throne MD Work Phone: Hematology/Oncology Comment on above: Patient Update (Symp toms ) Start: 03-08-2022 Patient encounter [facility] Start: 03-03-2022 End: 03-03-2022 Office outpatient visit 25 minutes Amber Elizalde APRN.BUILDING SUPERINTENDENT Work Phone: Pain Management Comment on above: Spinal stenosis, lum bar region without neurogenic claudication (Primary Dx); Lumbar radiculopathy; Chronic pain syndrome Start: 02-16-2022 Chart abstracting Amber becerra APRN.BUILDING SUPERINTENDENT Work Phone: Pain Management Start: 02-01-2022 End: 02-01-2022 Patient encounter procedure Ann Marie Hedrick MD Work Phone: General Surgery Comment on above: 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) (Primary Dx) Start: 01-19-2022 End: 01-19-2022 Patient encounter procedure Keerthi Hazel MD Work Phone: [facility] [place] Comment on above: Essential hypertensi on (Primary Dx); Hyperlipidemia, unspecified hyperlipidemia type; Coronary artery disease involving [place] coronary artery of [place] heart without angina pectoris; Seizure disorder (HCC); 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) Start: 01-17-2022 End: 01-17-2022 ambulatory Aparna Thorne MD Work Phone: Hematology/Oncology Comment on above: 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) (Primary Dx); Essential hypertension; Multiple renal cysts; Diffuse large B-cell lymphoma of intra-abdominal lymph nodes (HCC) Start: 01-17-2022 End: 01-17-2022 Patient encounter procedure Aparna Thorne MD Work Phone: [facility] Start: 01-14-2022 End: 01-14-2022 ambulatory Lab/[place] [facility] Work Phone: Hematology/Oncology Comment on above: 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); Diffuse large B-cell lymphoma of intra-abdominal lymph nodes (HCC) Start: 01-14-2022 End: 01-14-2022 Subsequent hospital visit by physician Ct Prep [facility] Cat Scan Comment on above: Diffuse large B-cell lymphoma of intra-abdominal lymph nodes (HCC) [C83.33] Start: 12-21-2021 Refill Keerthi Hazel MD Work Phone: Family [facility] [place] Comment on above: Refill Request Start: 12-15-2021 End: 12-15-2021 ambulatory Lab/[place] [facility] Work Phone: Hematology/Oncology Comment on above: Adrenal hyperplasia (HCC) Start: 12-10-2021 Telephone encounter Keerthi Hazel MD Work Phone: Family Medicine [place] Comment on above: Results Start: 12-06-2021 Telephone encounter Keerthi Hazel MD Work Phone: Family Medicine [place] Comment on above: Results Start: 12-04-2021 Patient encounter procedure Dannielle Pittman MD Work Phone: Endocrinology Start: 12-02-2021 End: 12-02-2021 Patient encounter procedure Keerthi Hazel MD Work Phone: [facility] [place] Comment on above: Elevated troponin (P rimary Dx); Coronary artery disease of [place] heart with stable angina pectoris, unspecified vessel or lesion type (HCC); COPD with exacerbation (HCC); Coronary artery disease involving [place] coronary artery of [place] heart without angina pectoris; Essential hypertension; Hyperlipidemia, unspecified hyperlipidemia type; Abnormal abdominal CT scan Start: 11-22-2021 ambulatory Keerthi Hazel MD Work Phone: [facility] [place] Comment on above: moderate to severe s hortness of breath; Dizziness Start: 11-19-2021 Telephone encounter Keerthi Hazel MD Work Phone: [facility] [place] Comment on above: Results Start: 11-17-2021 End: 11-17-2021 Subsequent hospital visit by physician Sg [facility] [place] Work Phone: Radiology Comment on above: Acute pain of right shoulder [M25.511] Start: 09-15-2020 End: 09-15-2020 Subsequent hospital visit by physician Benji Avila Work Phone: [facility] General Surgery Comment on above: Arrived Start: 08-12-2020 End: 08-12-2020 Patient encounter procedure Benji Avila MD Work Phone: [facility] Work Phone: Procedures Date Procedure Procedure Detail Performing Clinician Start: 12-31-2024 PFIZER-BIONTHark COVI D-19 VACCINE AGE 12+ YR (COMIRNATY) Keerthi Hazel MD Work Phone: Start: 06-25-2024 Radiologic exam ches t 2 views Keerthi Hazel MD Work Phone: Start: 03-13-2024 Radiologic exam ches t 2 views Keerthi Hazel MD Work Phone: Start: 03-06-2024 Adult depression scr eening assessment Gyant Provider Start: 10-14-2022 Fluoroscopy up to 1 hour physician/qhp time Loli Tran APRN.CNP Work Phone: Start: 09-30-2022 Unlisted pulmonary service/procedure Loli Tran APRN.CNP Work Phone: Start: 04-13-2022 Cardiovascular stres s test using pharmacologic stress agent Dr. Keerthi Hazel Work Phone: Start: 03-21-2022 Radex hip unilateral with pelvis 2-3 views Aparna Thorne MD Work Phone: Start: 01-17-2022 Adult depression scr eening assessment Aparna Thorne MD Work Phone: Start: 01-14-2022 Ct thorax w/contrast material Aparna Thorne MD Work Phone: Start: 01-14-2022 Ct abdomen & pelvis w/contrast material Aparna Thorne MD Work Phone: Start: 01-14-2022 End: 01-14-2022 Blood count complete auto&auto difrntl wbc Aparna Thorne MD Work Phone: Start: 11-17-2021 Radex shoulder compl ete minimum 2 views Keerthi Hazel MD Work Phone: Start: 11-17-2021 Radiologic exam ches t 2 views Keerthi Hazel MD Work Phone: Start: 04-22-2021 Adult depression scr eening assessment Keerthi Hazel MD Work Phone: Start: 09-15-2020 OPERATIVE REPORT 3m Sca nning Start: 09-15-2020 Basic metabolic pane l calcium total Joby M Emily Work Phone: Start: 09-15-2020 Ecg routine ecg w/le ast 12 lds w/i&r Joby M Emily Work Phone: Start: 08-12-2020 End: 08-12-2020 Blood pressure screening not performed - reason not given Benji Avila MD Work Phone: Start: 08-12-2020 End: 08-12-2020 BMI outside of normal parameters - no follow-up plan/reason not given Benji Avila MD Work Phone: Start: 08-12-2020 End: 08-12-2020 Documentation of current medications Benji Avila MD Work Phone: Start: 08-12-2020 End: 08-12-2020 Falls plan of care not done for unspecified reasons Benji Avila MD Work Phone: Start: 08-12-2020 End: 08-12-2020 Falls risk not documented - reason not given Benji Avila MD Work Phone: Start: 08-12-2020 End: 08-12-2020 Pain assessment documented as positive - follow-up documented Benji Avila MD Work Phone: Start: 08-12-2020 End: 08-12-2020 Ptfalls assess-docd ge2>/yr Benji Avila MD Work Phone: Start: 08-12-2020 End: 08-12-2020 Tobacco non-user Benji Avila MD Work Phone: Start: 01-30-2013 End: 01-30-2013 Ecg routine ecg w/least 12 lds w/i&r Romulo Flores MD Start: 01-30-2013 End: 07-31-2017 Echocardiography Romulo Flores MD Start: 01-30-2013 End: 07-31-2017 Follow Up Appt Other Romulo Flores MD NEGATED: Highlighted rowStart: 08-12-2020 End: 08-12-2020 Documentation of current medications Ava Aviles LPN Plan of Treatment Date Care Activity Detail Author Start: 01-02-2028 Diabetes Screening Diabetes Screening [facility] Start: 06-25-2027 Diabetes Screening Diabetes Screening [facility] Start: 03-13-2027 Diabetes Screening Diabetes Screening [facility] Start: 03-05-2027 Diabetes Screening Diabetes Screening [facility] Start: 01-25-2027 Diabetes Screening Diabetes Screening [facility] Start: 09-05-2026 Diabetes Screening Diabetes Screening [facility] Start: 07-10-2026 Diabetes Screening Diabetes Screening [facility] Start: 01-16-2026 DIABETES SCREEN DIABETES SCREEN [facility] Start: 01-16-2026 Diabetes Screening Diabetes Screening [facility] Start: 01-07-2026 BP Controlled (<130/80) BP Controlled (<130/80) [facility] Start: 01-01-2026 Hepatitis B surface antibody level LDL Cholesterol [facility] Start: 12-31-2025 Annual PCP Team Chronic Disease Visit Annual PCP Team Chronic Disease Visit [facility] Start: 12-31-2025 BP Controlled (<130/80) BP Controlled (<130/80) [facility] Start: 12-31-2025 Covid-19 Vaccine () Covid-19 Vaccine () [facility] Comment on above: Postponed from 02/25/2025 (Declined at t his time) Start: 10-29-2025 BP Controlled (<130/80) BP Controlled (<130/80) [facility] Start: 10-08-2025 BP Controlled (<130/80) BP Controlled (<130/80) [facility] Start: 10-05-2025 DIABETES SCREEN DIABETES SCREEN [facility] Start: 08-24-2025 DIABETES SCREEN DIABETES SCREEN [facility] Start: 07-22-2025 End: 07-22-2025 Patient encounter procedure Vasculary Surgery Comment on above: (peripheral artery disease) [I73.9 Bilateral carotid ar hebert stenosis [I65.23] follow up Start: 07-18-2025 DIABETES SCREEN DIABETES SCREEN [facility] Start: 07-16-2025 BP Controlled (<130/80) BP Controlled (<130/80) [facility] Start: 07-16-2025 End: 07-16-2025 ambulatory Hematology/Oncology Comment on above: 1 YR OV* Start: 07-02-2025 End: 07-02-2025 Patient encounter procedure 07/02/2025 9:00 AM EDT Office Visit Family Medicine [place] [address] [place] [phone] Zakia Camp, J2EE DEVELOPER.TRANSCRIPTIONIST [address] [place] [place] [phone] 6 mo f/u [facility] [place] Comment on above: 6 mo f/u Start: 07-01-2025 End: 07-01-2025 Patient encounter procedure 07/01/2025 11:00 AM EDT Office Visit Neurology Epilepsy [address] [place] [address] Delilah Rodrigues MD [address] [place] [address] follow up Neurology Epilepsy Comment on above: follow up Start: 06-25-2025 Annual PCP Team Chronic Disease Visit Annual PCP Team Chronic Disease Visit [facility] Start: 06-25-2025 BP Controlled (<130/80) BP Controlled (<130/80) [facility] Start: 05-05-2025 Influenza vaccination [facility] Start: 03-21-2025 DIABETES SCREEN DIABETES SCREEN [facility] Start: 03-06-2025 Annual PCP Team Chronic Disease Visit Annual PCP Team Chronic Disease Visit [facility] Start: 03-06-2025 Anxiety Screening Anxiety Screening [facility] Start: 03-06-2025 BP Controlled (<130/80) BP Controlled (<130/80) [facility] Start: 03-06-2025 Covid-19 Vaccine ( season) Covid-19 Vaccine () [facility] Comment on above: Postponed from 11/04/2023 (Declined at t his time) Start: 03-06-2025 Depression Screening Depression Screening [facility] Start: 03-06-2025 Urine microalbumin profile DTaP,Tdap,Td Vaccine (2 - Td or Tdap) [facility] Comment on above: Postponed from 01/09/2023 (Declined at t his time) Start: 02-15-2025 BP Controlled (<130/80) BP Controlled (<130/80) [facility] Start: 02-06-2025 BP Controlled (<130/80) BP Controlled (<130/80) [facility] Start: 01-25-2025 Hepatitis B surface antibody level LDL Cholesterol [facility] Start: 01-16-2025 BP Controlled (<130/80) BP Controlled (<130/80) [facility] Start: 01-14-2025 DIABETES SCREEN DIABETES SCREEN [facility] Start: 01-07-2025 End: 01-07-2025 Patient encounter procedure 01/07/2025 10:30 AM EDT Office Visit Vascular Surgery [address] [place] [address] Madison Chavarria, DO [address] [place] [address] follow up / rescheduled from 12/24 Vascular Surgery Comment on above: follow up / rescheduled from 12/24 Start: 12-31-2024 End: 12-31-2024 Patient encounter procedure 12/31/2024 2:40 PM EDT Office Visit Family [facility] [place] [address] [place] [address] Keerthi Hazel MD [address] [place], [place] [phone] 6 mo f/u [facility] [place] Comment on above: 6 mo f/u Start: 12-31-2024 End: 04-01-2025 CBC W Auto Differential panel - Blood COMPLETE BLOOD COUNT AND DIFFERENTIAL Lab Routine Seizure disorder (HCC) Expected: 12/31/2024, Expires: 04/01/2025 [facility] Comment on above: Expected: 12/31/2024, Expires: Start: 12-31-2024 End: 04-01-2025 Cobalamin (Vitamin B12) [Mass/volume] in Serum or Plasma VITAMIN B12 Lab Routine Medication monitoring encounter Expected: 12/31/2024, Expires: 04/01/2025 [facility] Comment on above: Expected: 12/31/2024, Expires: Start: 12-31-2024 End: 04-01-2025 Comprehensive metabolic 2000 panel - Serum or Plasma COMPREHENSIVE METABOLIC PANEL Lab Routine Seizure disorder (HCC) Expected: 12/31/2024, Expires: 04/01/2025 [facility] Comment on above: Expected: 12/31/2024, Expires: Start: 12-31-2024 End: 04-01-2025 Hemoglobin A1c in Blood HEMOGLOBIN A1C Lab Routine Screening for diabetes mellitus Expected: 12/31/2024, Expires: 04/01/2025 [facility] Comment on above: Expected: 12/31/2024, Expires: Start: 12-31-2024 End: 04-01-2025 levETIRAcetam [Mass/volume] in Serum or Plasma LEVETIRACETAM Lab Routine Seizure disorder (HCC) Expected: 12/31/2024, Expires: 04/01/2025 [facility] Work Phone: Comment on above: Expected: 12/31/2024, Expires: Start: 12-31-2024 End: 04-01-2025 Lipid 1996 panel - Serum or Plasma LIPID PANEL, FASTING Lab Routine Mixed hyperlipidemia Expected: 12/31/2024, Expires: 04/01/2025 [facility] Comment on above: Expected: 12/31/2024, Expires: Start: 12-31-2024 End: 04-01-2025 Magnesium [Mass/volume] in Serum or Plasma MAGNESIUM Lab Routine Medication monitoring encounter Expected: 12/31/2024, Expires: 04/01/2025 [facility] Comment on above: Expected: 12/31/2024, Expires: Start: 12-24-2024 End: 12-24-2024 Patient encounter procedure Vasculary Surgery Comment on above: Bilateral carotid artery stenosis [I65.2 3] follow up Start: 11-23-2024 DIABETES SCREEN DIABETES SCREEN [facility] Start: 11-12-2024 Covid-19 Vaccine () Covid-19 Vaccine () [facility] Start: 11-11-2024 End: 11-11-2024 Patient encounter procedure 11/11/2024 10:30 AM EDT Office Visit Neurology [address] [facility] [place] [address] Seizure disorder (HCC) [G40.909] Neurology Comment on above: Seizure disorder (HCC) [G40.909] Start: 10-29-2024 End: 10-29-2024 Patient encounter procedure 10/29/2024 1:00 PM EST Office Visit Neurology Epilepsy [address] [address] Delilah Rodrigues MD [address] [place] [address] New Consult Neurology Epilepsy Comment on above: New Consult Start: 10-08-2024 End: 10-08-2024 ambulatory 10/08/2024 9:00 AM EST Visit (SP) Office Hematology/Oncology [address] [place], [place] [phone] Ade Garcia [address] [facility] [address] [place], [place] [phone] OV/lump on tailbone and strange feeling in groin area-See phone note 2/3* Hematology/Oncology Comment on above: OV/lump on tailbone and strange feeling in groin area-See phone note 2/3* Start: 09-05-2024 Hepatitis B surface antibody level LDL Cholesterol [facility] Start: 09-04-2024 Advance Directive Discussion Advance Directive Discussion [facility] Start: 09-04-2024 Medicare Advantage Annual Wellness Visit Medicare Advantage Annual Wellness Visit [facility] Start: 08-30-2024 Annual PCP Team Chronic Disease Visit Annual PCP Team Chronic Disease Visit [facility] Start: 07-29-2024 End: 07-29-2024 Patient encounter procedure 07/29/2024 10:00 AM EST Office Visit Pulmonary Medicine [address] [address] Yair Butt MD [address] [place] [address] 6 month follow up Pulmonary Medicine Comment on above: 6 month follow up Start: 07-27-2024 End: 10-26-2024 25-hydroxyvitamin D3 [Mass/volume] in Serum or Plasma VITAMIN D 25 HYDROXY Lab Routine Vitamin D deficiency Expected: 07/27/2024, Expires: 10/26/2024 [facility] Work Phone: Comment on above: Expected: 07/27/2024, Expires: Start: 07-21-2024 BP Controlled (<130/80) BP Controlled (<130/80) [facility] Start: 07-16-2024 End: 07-16-2024 ambulatory [facility] Comment on above: CBC/CMP/LD. 5 MTH OV* CBC/CMP/LD . PRIOR Start: 07-11-2024 End: 07-11-2024 Patient encounter procedure Cat Scan Comment on above: ABD / PEL / CHEST Start: 07-10-2024 Covid-19 Vaccine () Covid-19 Vaccine () [facility] Start: 06-25-2024 End: 06-25-2024 Patient encounter procedure 06/25/2024 2:20 PM EDT Office Visit Family [facility] [place] [address] [place], [place] [phone] Keerthi Hazel MD [address] [place], [place] [phone] 3 month follow up [facility] [place] Comment on above: 3 month follow up Start: 06-25-2024 End: 09-24-2024 25-hydroxyvitamin D3 [Mass/volume] in Serum or Plasma [facility] Comment on above: Expected: 06/25/2024, Expires: Start: 06-25-2024 End: 09-24-2024 CBC W Auto Differential panel - Blood [facility] Work Phone: Comment on above: Expected: 06/25/2024, Expires: Start: 06-25-2024 End: 09-24-2024 Comprehensive metabolic 2000 panel - Serum or Plasma [facility] Comment on above: Expected: 06/25/2024, Expires: Start: 06-25-2024 End: 09-24-2024 levETIRAcetam [Mass/volume] in Serum or Plasma [facility] Comment on above: Expected: 06/25/2024, Expires: Start: 06-25-2024 End: 09-24-2024 Natriuretic peptide.B prohormone N-Terminal [Mass/volume] in Serum or Plasma [facility] Comment on above: Expected: 06/25/2024, Expires: Start: 06-25-2024 End: 06-25-2024 Patient encounter procedure 06/25/2024 9:45 AM EDT Office Visit Vascular Surgery [address] [place] [address] Madison Chavarria, DO [address] [place], [place] [phone] follow up Vascular Surgery Comment on above: follow up Start: 06-19-2024 End: 06-19-2024 Patient encounter procedure Vasculary Surgery Comment on above: PVR carotid US Start: 06-04-2024 End: 06-04-2024 Patient encounter procedure 06/04/2024 10:30 AM EDT Office Visit Vascular Surgery [address] [place] [address] Madison Chavarria, DO [address] [place], [place] [phone] 6 mo follow up Vascular Surgery Comment on above: 6 mo follow up Start: 05-30-2024 End: 05-30-2024 Patient encounter procedure Vasculary Surgery Comment on above: Bilateral carotid artery stenosis [I65.2 3] Start: 05-05-2024 Covid-19 Vaccine ( season) Covid-19 Vaccine ( season) [facility] Start: 05-05-2024 Covid-19 Vaccine ( season) Covid-19 Vaccine ( season) [facility] Start: 05-05-2024 Influenza [facility] Start: 04-18-2024 End: 04-18-2024 Patient encounter procedure 04/18/2024 9:30 AM EDT Office Visit Pulmonary Medicine [address] [address] Vidhya Mahoney APRN.TRANSCRIPTIONIST [address] [address] 3 month follow up Pulmonary Medicine Comment on above: 3 month follow up Start: 03-14-2024 End: 03-14-2025 CBC W Auto Differential panel - Blood COMPLETE BLOOD COUNT AND DIFFERENTIAL Lab Routine Anemia, unspecified type Expected: 03/14/2024, Expires: 03/14/2025 [facility] Work Phone: Comment on above: Expected: 03/14/2024, Expires: Start: 03-14-2024 End: 03-14-2025 Cobalamin (Vitamin B12) [Mass/volume] in Serum or Plasma VITAMIN B12 Lab Routine Anemia, unspecified type Expected: 03/14/2024, Expires: 03/14/2025 [facility] Comment on above: Expected: 03/14/2024, Expires: Start: 03-14-2024 End: 03-14-2025 Ferritin [Mass/volume] in Serum or Plasma FERRITIN Lab Routine Anemia, unspecified type Expected: 03/14/2024, Expires: 03/14/2025 [facility] Comment on above: Expected: 03/14/2024, Expires: Start: 03-14-2024 End: 03-14-2025 Folate [Mass/volume] in Serum or Plasma FOLATE, SERUM Lab Routine Anemia, unspecified type Expected: 03/14/2024, Expires: 03/14/2025 [facility] Comment on above: Expected: 03/14/2024, Expires: Start: 03-14-2024 End: 03-14-2025 Hemoglobin.gastrointestin al.lower [Presence] in Stool by Immunoassay IMMUNOCHEMICAL FECAL OCCULT BLOOD TEST Lab Routine Anemia, unspecified type Expected: 03/14/2024, Expires: 03/14/2025 [facility] Comment on above: Expected: 03/14/2024, Expires: Start: 03-14-2024 End: 03-14-2025 Iron and Iron binding capacity panel - Serum or Plasma IRON AND TIBC Lab Routine Anemia, unspecified type Expected: 03/14/2024, Expires: 03/14/2025 [facility] Comment on above: Expected: 03/14/2024, Expires: 5 Start: 03-06-2024 End: 06-05-2024 CBC W Auto Differential panel - Blood COMPLETE BLOOD COUNT AND DIFFERENTIAL Lab Routine Essential hypertension Expected: 03/06/2024, Expires: 06/05/2024 [facility] Work Phone: Comment on above: Expected: 03/06/2024, Expires: Start: 03-06-2024 End: 06-05-2024 Comprehensive metabolic 2000 panel - Serum or Plasma COMPREHENSIVE METABOLIC PANEL Lab Routine Essential hypertension Expected: 03/06/2024, Expires: 06/05/2024 [facility] Comment on above: Expected: 03/06/2024, Expires: Start: 03-06-2024 End: 06-05-2024 Magnesium [Mass/volume] in Serum or Plasma MAGNESIUM Lab Routine Essential hypertension Expected: 03/06/2024, Expires: 06/05/2024 [facility] Comment on above: Expected: 03/06/2024, Expires: Start: 03-06-2024 End: 06-05-2024 Natriuretic peptide.B prohormone N-Terminal [Mass/volume] in Serum or Plasma NT PRO BNP Lab Routine Chronic diastolic CHF (congestive heart failure) (HCC) Expected: 03/06/2024, Expires: 06/05/2024 [facility] Comment on above: Expected: 03/06/2024, Expires: Start: 03-06-2024 End: 03-06-2024 Patient encounter procedure 03/06/2024 9:20 AM EDT Office Visit Family [facility] [address] [facility] [place] [address] Keerthi Hazel MD [address] [facility] [place] [phone] 6 mth f/u Family [facility] Comment on above: 6 mth f/u Start: 03-02-2024 BP CONTROLLED (<130/80) BP CONTROLLED (<130/80) [facility] Start: 02-28-2024 ANNUAL PCP TEAM CHRONIC DISEASE VISIT ANNUAL PCP TEAM CHRONIC DISEASE VISIT [facility] Start: 02-28-2024 Urine microalbumin profile [facility] Comment on above: Postponed from 01/09/2023 (Declined at t his time) Start: 02-07-2024 End: 02-07-2024 ambulatory [facility] Comment on above: cbc ldh 6mo ov/labs today* 6mo ov/labs today* p t has been moved 3 times and has not yet met Dr. Pineda plz schedule next ov with Dr. Pineda if appropriate. Pt spouse was slightly upset about rescheduled so many times. Start: 02-02-2024 End: 02-02-2024 Patient encounter procedure 02/02/2024 1:50 PM EDT Office Visit Cardiology [address] [place] [address] outside order scanned in doucuments Cardiology Comment on above: outside order scanned in doucuments Start: 01-17-2024 End: 01-17-2024 Patient encounter procedure 01/17/2024 9:30 AM EDT Office Visit Pulmonary Medicine [address] [address] Vidhya Mahoney APRN.TRANSCRIPTIONIST [address] [address] Follow up for COPD Pulmonary Medicine Comment on above: Follow up for COPD Start: 01-16-2024 End: 01-16-2024 ambulatory [facility] Comment on above: cbc ldh 6mo ov/labs today* Start: 11-30-2023 BP CONTROLLED (<130/80) BP CONTROLLED (<130/80) [facility] Start: 11-16-2023 BP CONTROLLED (<130/80) BP CONTROLLED (<130/80) [facility] Start: 11-04-2023 Covid-19 Vaccine () Covid-19 Vaccine () [facility] Start: 09-14-2023 BP CONTROLLED (<130/80) BP CONTROLLED (<130/80) [facility] Start: 09-04-2023 Advance Directive Discussion Advance Directive Discussion [facility] Start: 09-04-2023 Behavioral Health Screening Behavioral Health Screening [facility] Start: 09-04-2023 Depression Assessment Depression Assessment [facility] Start: 08-24-2023 ANNUAL PCP TEAM CHRONIC DISEASE VISIT ANNUAL PCP TEAM CHRONIC DISEASE VISIT [facility] Start: 08-24-2023 BP CONTROLLED (<130/80) BP CONTROLLED (<130/80) [facility] Start: 07-21-2023 ANNUAL PCP TEAM CHRONIC DISEASE VISIT ANNUAL PCP TEAM CHRONIC DISEASE VISIT [facility] Start: 07-21-2023 BP CONTROLLED (<130/80) BP CONTROLLED (<130/80) [facility] Start: 05-05-2023 Covid-19 Vaccine () Covid-19 Vaccine () [facility] Start: 05-05-2023 Influenza vaccination [facility] Start: 03-25-2023 BP CONTROLLED (<130/80) BP CONTROLLED (<130/80) [facility] Start: 03-21-2023 BP CONTROLLED (<130/80) BP CONTROLLED (<130/80) [facility] Start: 03-03-2023 BP CONTROLLED (<130/80) BP CONTROLLED (<130/80) [facility] Start: 01-19-2023 ANNUAL PCP TEAM CHRONIC DISEASE VISIT ANNUAL PCP TEAM CHRONIC DISEASE VISIT [facility] Start: 01-19-2023 BP CONTROLLED (<130/80) BP CONTROLLED (<130/80) [facility] Start: 01-17-2023 Adult depression screening assessment DEPRESSION SCREENING [facility] Start: 01-17-2023 BP CONTROLLED (<130/80) BP CONTROLLED (<130/80) [facility] Start: 01-09-2023 DTaP/Tdap/Td vaccine (2 - Td) DTaP/Tdap/Td vaccine (2 - Td) [place], [place] Start: 01-09-2023 Urine microalbumin profile [facility] Start: 12-02-2022 ANNUAL PCP TEAM CHRONIC DISEASE VISIT ANNUAL PCP TEAM CHRONIC DISEASE VISIT [facility] Start: 12-02-2022 BP CONTROLLED (<130/80) BP CONTROLLED (<130/80) [facility] Start: 11-26-2022 COVID-19 VACCINE (5 - Alex risk series) COVID-19 VACCINE (5 - Alex risk series) [facility] Start: 10-21-2022 Hepatitis B surface antibody level LDL CHOLESTEROL [facility] Start: 09-04-2022 ADVANCE DIRECTIVE DISCUSSION ADVANCE DIRECTIVE DISCUSSION [facility] Start: 09-04-2022 DEPRESSION ASSESSMENT DEPRESSION ASSESSMENT [facility] Start: 07-20-2022 End: 02-16-2023 Ct abdomen & pelvis w/contrast material CT ABD/PEL W IVCON Radiology Routine 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) Multiple renal cysts Diffuse large B-cell lymphoma of intra-abdominal lymph nodes (HCC) Expected: 07/20/2022, Expires: 02/16/2023 [facility] Work Phone: Comment on above: Expected: 07/20/2022, Expires: 3 Start: 07-20-2022 End: 02-16-2023 Ct thorax w/contrast material CT CHEST W IVCON Radiology Routine 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) Expected: 07/20/2022, Expires: 02/16/2023 [facility] Work Phone: Comment on above: Expected: 07/20/2022, Expires: 3 Start: 05-05-2022 Influenza vaccination INFLUENZA (#1) [facility] Start: 04-27-2022 COVID-19 VACCINE (4 - Booster for Alex series) COVID-19 VACCINE (4 - Booster for Alex series) [facility] Start: 04-22-2022 Adult depression screening assessment DEPRESSION SCREENING [facility] Start: 03-25-2022 End: 05-25-2022 Natriuretic peptide.B prohormone N-Terminal [Mass/volume] in Serum or Plasma NT PRO BNP Lab Routine Leg swelling Expected: 03/25/2022, Expires: 05/25/2022 [facility] Work Phone: Comment on above: Expected: 03/25/2022, Expires: 2 Start: 03-21-2022 End: 05-21-2022 CBC W Auto Differential panel - Blood [facility] Work Phone: Comment on above: Expected: 03/21/2022, Expires: 2 Start: 03-21-2022 End: 05-21-2022 Comprehensive metabolic 2000 panel - Serum or Plasma [facility] Work Phone: Comment on above: Expected: 03/21/2022, Expires: 2 Start: 03-21-2022 End: 05-21-2022 Erythrocyte sedimentation rate SED RATE WESTERGREN Lab Routine Groin pain, right Expected: 03/21/2022, Expires: 05/21/2022 [facility] Work Phone: Comment on above: Expected: 03/21/2022, Expires: 2 Start: 03-21-2022 End: 05-21-2022 Lactate dehydrogenase [Enzymatic activity/volume] in Serum or Plasma [facility] Work Phone: Comment on above: Expected: 03/21/2022, Expires: 2 Start: 03-16-2022 End: 05-16-2022 CBC W Auto Differential panel - Blood CBC + DIFF Lab Routine 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) Expected: 03/16/2022, Expires: 05/16/2022 [facility] Work Phone: Comment on above: Expected: 03/16/2022, Expires: 2 Start: 03-16-2022 End: 05-16-2022 Comprehensive metabolic 2000 panel - Serum or Plasma COMP METABOLIC PANEL Lab Routine 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) Expected: 03/16/2022, Expires: 05/16/2022 [facility] Work Phone: Comment on above: Expected: 03/16/2022, Expires: 2 Start: 03-16-2022 End: 05-16-2022 Lactate dehydrogenase [Enzymatic activity/volume] in Serum or Plasma LD LACTATE DEHYDRO Lab Routine 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) Expected: 03/16/2022, Expires: 05/16/2022 [facility] Work Phone: Comment on above: Expected: 03/16/2022, Expires: 2 Start: 02-20-2022 COVID-19 VACCINE (3 - Booster for Alex series) COVID-19 VACCINE (3 - Booster for Alex series) [facility] Start: 02-20-2022 COVID-19 VACCINE (4 - Booster for Alex series) COVID-19 VACCINE (4 - Booster for Alex series) [facility]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 use disorder [F17.200] 11/29/2017 Other psoriasis [L40.8] Lung nodule [R91.1] 08/14/2017 Coronary artery disease involving [place]*08/14/2017 Bright red blood per rectum [K62.5] 09/18/2017 03/09/2018 Positive occult stool blood test [R19.5] 09/18/2017 03/09/2018 Vascular catheter fitting or adjustment [Z45.2] 09/18/2017 04/21/2021 Gimenez's esophagus without dysplasia [K22.70] 03/09/2018 02/11/2019 Acute encephalopathy [G93.40] 12/21/2018 02/11/2019 Seizure disorder (HCC) [G40.909] 12/22/2018 Nicotine use disorder, F17.2 [F17.200] 12/24/2018 02/11/2019 Obesity, Class I, BMI 30-34.9 [E66.9] 12/24/2018 Chronic obstructive pulmonary disease (HCC) [J4*01/16/2019 Phimosis [N47.1] 02/11/2019 Essential hypertension [I10] History of seizure [Z87.898] 07/21/2022 Mixed hyperlipidemia [E78.2] Snoring [R06.83] GERD (gastroesophageal reflux disease) [K21.9] Vertigo [R42] 07/21/2022 PAD (peripheral artery disease) (HCC) [I73.9] 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 Chest pain [R07.9] 11/22/2021 01/19/2022 Elevated troponin [R79.89] 11/22/2021 01/19/2022 Multiple renal cysts [Q61.02] 01/17/2022 Spinal stenosis, lumbar region with neurogenic *07/04/2022 Platelets decreased (HCC) [D69.6] 01/18/2023 03/06/2024 DDD (degenerative disc disease), lumbar [M51.36]08/01/2023 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 [facility] 05-21-2024 Note HNO ID: [id number] Author: LULU REID RN Service: ? Author Type: Registered Nurse Type: Progress Notes Filed: 05/21/2024 10:47 Note Text: [facility] Telephonic Outreach Provider Action/FYI Contacted for: Routine Telephonic Outreach Contact made with patient: No, left message. Lulu Reid RN May 21, 2024 10:47 AM [facility] 05-21-2024 History of Present illness Narrative [facility] Telephonic Outreach Provider Action/FYI Contacted for: Routine Telephonic Outreach Contact made with patient: No, left message. Lulu Reid RN May 21, 2024 10:47 AM documented in this encounter [facility] 05-21-2024 Note Patient Outreach (AM [facility]) ANN MARIE ELAM SR ([id number]) 1945 M T Date Time Provider Department 05/21/24 LULU REID During your visit today, we recorded the following information about you: Lulu Reid RN 05/21/2024 10:47 AM Signed [facility] Telephonic Outreach Provider Action/FYI Contacted for: Routine Telephonic Outreach Contact made with patient: No, left message. Lulu Reid RN May 21, 2024 10:47 AM Allergies As of Date: 05/21/2024 Noted Allergy Reaction LIPITOR (ATORVASTATIN CALCIUM) 05/13/2018 17 - Myalgia NEOSPORIN ([id number]* 0 14 - Other: See Comments Comments: Skin reaction Date Reviewed: 03/06/2024 Reviewed by: Susan Danielle MA - Fully Assessed Reason for Visit: CDM [Other] Cmt: Community Monitoring Outreach Call Prescriptions as of 05/21/2024 - magnesium oxide (MAG-OX) 400 mg (241.3 mg magnesium) tablet Take 1 tablet by mouth once daily. - umeclidinium-vilanterol (ANORO ELLIPTA) 62.5-25 mcg/actuation inhaler Inhale 1 Inhalation as instructed once daily. - furosemide (LASIX) 40 mg tablet Take 1 tablet by mouth two times a day. - VENTOLIN HFA 90 mcg/actuation inhaler Inhale 2 Puffs as instructed every 4 hours as needed for wheezing/shortness of breath. - omeprazole (PRILOSEC) 40 mg capsule Take 1 capsule by mouth once daily. - ezetimibe (ZETIA) 10 mg tablet Take 1 tablet by mouth once daily. - metoprolol succinate ER (TOPROL XL) 25 mg 24 hr tablet Take 50 mg by mouth once daily. - cholecalciferol, Vitamin D3, (VITAMIN D3) 1,250 mcg (50,000 unit) cap capsule Take 1 capsule by mouth one time a week. - aspirin 81 mg chewable tablet Take 81 mg by mouth once daily. - acetaminophen (TYLENOL EXTRA STRENGTH) 500 mg tablet Take 1,000 mg by mouth every 8 hours as needed. - lisinopril (ZESTRIL, PRINIVIL) 10 mg tablet Take 10 mg by mouth once daily. - levETIRAcetam (KEPPRA) 250 mg tablet Take 1 tablet by mouth twice daily. - levETIRAcetam (KEPPRA) 1,000 mg tablet Take 1,000 mg by mouth twice daily. Problem List As Of Date 05/21/2024 Noted Resolved Ganglion [M67.40] Sleep related leg cramps [G47.62] Tobacco use disorder [F17.200] 11/29/2017 Other psoriasis [L40.8] Lung nodule [R91.1] 08/14/2017 Coronary artery disease involving [place]*08/14/2017 Bright red blood per rectum [K62.5] 09/18/2017 03/09/2018 Positive occult stool blood test [R19.5] 09/18/2017 03/09/2018 Vascular catheter fitting or adjustment [Z45.2] 09/18/2017 04/21/2021 Gimenez's esophagus without dysplasia [K22.70] 03/09/2018 02/11/2019 Acute encephalopathy [G93.40] 12/21/2018 02/11/2019 Seizure disorder (HCC) [G40.909] 12/22/2018 Nicotine use disorder, F17.2 [F17.200] 12/24/2018 02/11/2019 Obesity, Class I, BMI 30-34.9 [E66.9] 12/24/2018 Chronic obstructive pulmonary disease (HCC) [J4*01/16/2019 Phimosis [N47.1] 02/11/2019 Essential hypertension [I10] History of seizure [Z87.898] 07/21/2022 Mixed hyperlipidemia [E78.2] Snoring [R06.83] GERD (gastroesophageal reflux disease) [K21.9] Vertigo [R42] 07/21/2022 PAD (peripheral artery disease) (HCC) [I73.9] 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 Chest pain [R07.9] 11/22/2021 01/19/2022 Elevated troponin [R79.89] 11/22/2021 01/19/2022 Multiple renal cysts [Q61.02] 01/17/2022 Spinal stenosis, lumbar region with neurogenic *07/04/2022 Platelets decreased (HCC) [D69.6] 01/18/2023 03/06/2024 DDD (degenerative disc disease), lumbar [M51.36]08/01/2023 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*08/01/2023 Sepsis (HCC) [A41.9] 03/02/2024 03/05/2024 PNA (pneumonia) [J18.9] 03/02/2024 03/06/2024 Lactate blood increase [R79.89] 03/02/2024 03/03/2024 Troponin level elevated [R79.89] 03/02/2024 Acute respiratory failure with hypoxia (HCC) [J*03/03/2024 03/06/2024 Chronic diastolic CHF (congestive heart failure*03/03/2024 Physical debility [R53.81] 03/03/2024 Hypokalemia [E87.6] 03/04/2024 Acute diastolic CHF (congestive heart failure) *03/05/2024 Encounter Status:Closed by LULU REID on 05/21/24 [facility] 04-24-2024 History of Present illness Narrative [facility] Telephonic Outreach Provider Action/FYI Contacted for: Routine Telephonic Outreach Contact made with patient: No, left message. Lulu Reid RN April 24, 2024 11:45 AM documented in this encounter [facility] 04-24-2024 Note HNO ID: [id number] Author: LULU REID RN Service: ? Author Type: Registered Nurse Type: Progress Notes Filed: 04/24/2024 11:46 Note Text: [facility] Telephonic Outreach Provider Action/FYI Contacted for: Routine Telephonic Outreach Contact made with patient: No, left message. Lulu Reid RN April 24, 2024 11:45 AM [facility] 04-24-2024 Note Patient Outreach ([place] [facility] [place] ANN MARIE ELAM SR ([id number]) 1945 M T Date Time Provider Department 04/24/24 LULU REID During your visit today, we recorded the following information about you: Lulu Reid RN 04/24/2024 11:46 AM Signed CDM Telephonic Outreach Provider Lucas/FYChuy Contacted for: Routine Telephonic Outreach Contact made with patient: No, left message. Lulu Reid RN April 24, 2024 11:45 AM Allergies As of Date: 04/24/2024 Noted Allergy Reaction LIPITOR (ATORVASTATIN CALCIUM) 05/13/2018 17 - Myalgia NEOSPORIN ([id number]* 0 14 - Other: See Comments Comments: Skin reaction Date Reviewed: 03/06/2024 Reviewed by: Susan Danielle MA - Fully Assessed Reason for Visit: CDM [Other] Cmt: Community Monitoring Outreach Call Prescriptions as of 04/24/2024 - magnesium oxide (MAG-OX) 400 mg (241.3 mg magnesium) tablet Take 1 tablet by mouth once daily. - umeclidinium-vilanterol (ANORO ELLIPTA) 62.5-25 mcg/actuation inhaler Inhale 1 Inhalation as instructed once daily. - furosemide (LASIX) 40 mg tablet Take 1 tablet by mouth two times a day. - VENTOLIN HFA 90 mcg/actuation inhaler Inhale 2 Puffs as instructed every 4 hours as needed for wheezing/shortness of breath. - omeprazole (PRILOSEC) 40 mg capsule Take 1 capsule by mouth once daily. - ezetimibe (ZETIA) 10 mg tablet Take 1 tablet by mouth once daily. - metoprolol succinate ER (TOPROL XL) 25 mg 24 hr tablet Take 50 mg by mouth once daily. - cholecalciferol, Vitamin D3, (VITAMIN D3) 1,250 mcg (50,000 unit) cap capsule Take 1 capsule by mouth one time a week. - aspirin 81 mg chewable tablet Take 81 mg by mouth once daily. - acetaminophen (TYLENOL EXTRA STRENGTH) 500 mg tablet Take 1,000 mg by mouth every 8 hours as needed. - lisinopril (ZESTRIL, PRINIVIL) 10 mg tablet Take 10 mg by mouth once daily. - levETIRAcetam (KEPPRA) 250 mg tablet Take 1 tablet by mouth twice daily. - levETIRAcetam (KEPPRA) 1,000 mg tablet Take 1,000 mg by mouth twice daily. Problem List As Of Date 04/24/2024 Noted Resolved Ganglion [M67.40] Sleep related leg cramps [G47.62] Tobacco use disorder [F17.200] 11/29/2017 Other psoriasis [L40.8] Lung nodule [R91.1] 08/14/2017 Coronary artery disease involving [place]*08/14/2017 Bright red blood per rectum [K62.5] 09/18/2017 03/09/2018 Positive occult stool blood test [R19.5] 09/18/2017 03/09/2018 Vascular catheter fitting or adjustment [Z45.2] 09/18/2017 04/21/2021 Gimenez's esophagus without dysplasia [K22.70] 03/09/2018 02/11/2019 Acute encephalopathy [G93.40] 12/21/2018 02/11/2019 Seizure disorder (HCC) [G40.909] 12/22/2018 Nicotine use disorder, F17.2 [F17.200] 12/24/2018 02/11/2019 Obesity, Class I, BMI 30-34.9 [E66.9] 12/24/2018 Chronic obstructive pulmonary disease (HCC) [J4*01/16/2019 Phimosis [N47.1] 02/11/2019 Essential hypertension [I10] History of seizure [Z87.898] 07/21/2022 Mixed hyperlipidemia [E78.2] Snoring [R06.83] GERD (gastroesophageal reflux disease) [K21.9] Vertigo [R42] 07/21/2022 PAD (peripheral artery disease) ([facility]) [I73.9] 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 Chest pain [R07.9] 11/22/2021 01/19/2022 Elevated troponin [R79.89] 11/22/2021 01/19/2022 Multiple renal cysts [Q61.02] 01/17/2022 Spinal stenosis, lumbar region with neurogenic *07/04/2022 Platelets decreased (HCC) [D69.6] 01/18/2023 03/06/2024 DDD (degenerative disc disease), lumbar [M51.36]08/01/2023 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 Author Type: Registered Nurse Type: Progress Notes Filed: 04/11/2024 09:20 Note Text: [facility] Telephonic Outreach Provider Action/FYI Second attempt Contacted for: Routine Telephonic Outreach Contact made with patient: No, unable to leave message. Lulu Reid RN April 11, 2024 9:19 AM [facility] 04-10-2024 Note HNO ID: [id number] Author: LULU REID RN Service: ? Author Type: Registered Nurse Type: Progress Notes Filed: 04/10/2024 09:41 Note Text: [facility] Telephonic Outreach Provider Action/FYI Contacted for: Routine Telephonic Outreach Contact made with patient: No, left message. Lulu Reid RN April 10, 2024 9:40 AM [facility] 04-10-2024 History of Present illness Narrative [facility] Telephonic Outreach Provider Action/FYI Contacted for: Routine Telephonic Outreach Contact made with patient: No, left message. Lulu Reid RN April 10, 2024 9:40 AM documented in this encounter [facility] 04-10-2024 Note Patient Outreach (AM [facility]) ANN MARIE ELAM SR ([id number]) 1945 M T Date Time Provider Department 04/10/24 LULU REIDG During your visit today, we recorded the following information about you: Lulu Reid RN 04/10/2024 9:41 AM Signed CD Telephonic Outreach Provider Action/FYI Contacted for: Routine Telephonic Outreach Contact made with patient: No, left message. Lulu Reid RN April 10, 2024 9:40 AM Lulu Reid RN 04/11/2024 9:20 AM Addendum CDM Telephonic Outreach Provider Action/FYI Second attempt Contacted for: Routine Telephonic Outreach Contact made with patient: No, unable to leave message. Lulu Reid RN April 11, 2024 9:19 AM Allergies As of Date: 04/10/2024 Noted Allergy Reaction LIPITOR (ATORVASTATIN CALCIUM) 05/13/2018 17 - Myalgia NEOSPORIN ([id number]* 0 14 - Other: See Comments Comments: Skin reaction Date Reviewed: 03/06/2024 Reviewed by: Susan Danielle MA - Fully Assessed Reason for Visit: CDM [Other] Cmt: Community Monitoring Outreach Call Prescriptions as of 04/11/2024 - magnesium oxide (MAG-OX) 400 mg (241.3 mg magnesium) tablet Take 1 tablet by mouth once daily. - umeclidinium-vilanterol (ANORO ELLIPTA) 62.5-25 mcg/actuation inhaler Inhale 1 Inhalation as instructed once daily. - furosemide (LASIX) 40 mg tablet Take 1 tablet by mouth two times a day. - VENTOLIN HFA 90 mcg/actuation inhaler Inhale 2 Puffs as instructed every 4 hours as needed for wheezing/shortness of breath. - omeprazole (PRILOSEC) 40 mg capsule Take 1 capsule by mouth once daily. - ezetimibe (ZETIA) 10 mg tablet Take 1 tablet by mouth once daily. - metoprolol succinate ER (TOPROL XL) 25 mg 24 hr tablet Take 50 mg by mouth once daily. - cholecalciferol, Vitamin D3, (VITAMIN D3) 1,250 mcg (50,000 unit) cap capsule Take 1 capsule by mouth one time a week. - aspirin 81 mg chewable tablet Take 81 mg by mouth once daily. - acetaminophen (TYLENOL EXTRA STRENGTH) 500 mg tablet Take 1,000 mg by mouth every 8 hours as needed. - lisinopril (ZESTRIL, PRINIVIL) 10 mg tablet Take 10 mg by mouth once daily. - levETIRAcetam (KEPPRA) 250 mg tablet Take 1 tablet by mouth twice daily. - levETIRAcetam (KEPPRA) 1,000 mg tablet Take 1,000 mg by mouth twice daily. Problem List As Of Date 04/10/2024 Noted Resolved Ganglion [M67.40] Sleep related leg cramps [G47.62] Tobacco use disorder [F17.200] 11/29/2017 Other psoriasis [L40.8] Lung nodule [R91.1] 08/14/2017 Coronary artery disease involving [place]*08/14/2017 Bright red blood per rectum [K62.5] 09/18/2017 03/09/2018 Positive occult stool blood test [R19.5] 09/18/2017 03/09/2018 Vascular catheter fitting or adjustment [Z45.2] 09/18/2017 04/21/2021 Gimenez's esophagus without dysplasia [K22.70] 03/09/2018 02/11/2019 Acute encephalopathy [G93.40] 12/21/2018 02/11/2019 Seizure disorder (HCC) [G40.909] 12/22/2018 Nicotine use disorder, F17.2 [F17.200] 12/24/2018 02/11/2019 Obesity, Class I, BMI 30-34.9 [E66.9] 12/24/2018 Chronic obstructive pulmonary disease (HCC) [J4*01/16/2019 Phimosis [N47.1] 02/11/2019 Essential hypertension [I10] History of seizure [Z87.898] 07/21/2022 Mixed hyperlipidemia [E78.2] Snoring [R06.83] GERD (gastroesophageal reflux disease) [K21.9] Vertigo [R42] 07/21/2022 PAD (peripheral artery disease) (HCC) [I73.9] 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 Chest pain [R07.9] 11/22/2021 01/19/2022 Elevated troponin [R79.89] 11/22/2021 01/19/2022 Multiple renal cysts [Q61.02] 01/17/2022 Spinal stenosis, lumbar region with neurogenic *07/04/2022 Platelets decreased (HCC) [D69.6] 01/18/2023 03/06/2024 DDD (degenerative disc disease), lumbar [M51.36]08/01/2023 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*08/01/2023 Sepsis (HCC) [A41.9] 03/02/2024 03/05/2024 PNA (pneumonia) [J18.9] 03/02/2024 03/06/2024 Lactate blood increase [R79.89] 03/02/2024 03/03/2024 Troponin level elevated [R79.89] 03/02/2024 Acute respiratory failure with hypoxia (HCC) [J*03/03/2024 03/06/2024 Chronic diastolic CHF (congestive heart failure*03/03/2024 Physical debility [R53.81] 03/03/2024 Hypokalemia [E87.6] 03/04/2024 Acute diastolic CHF (congestive heart failure) *03/05/2024 Encounter Status:Closed by LULU REID on 04/10/24 [facility] 04-01-2024 Telephone encounter Note Record ID: [id number] Patient name: Ann Marie Elam Date: April 01, 2024 - 08:50 Administered by: YISSEL Protocol: -> Great! Now we are in a secure chat environment. Protecting your health information is important to us. Ok, let's get started. Please verify your name and date of . Please click on the button with your first name. -> Great! Now we are in a secure chat environment. Protecting your health information is important to us. Ok, let's get started. Please verify your name and date of . Please click on the button with your first name. -> Ann Marie Got it. On to the next question... Select the button with your last name. -> Elam Got it, thank you. Please enter your date of in MM/DD/YYYY format:(e.g., 09/22/1969 for Sep 22, 1969) -> 1945 Thank you for verifying your information. I'd like to ask you a few questions about how your recovery is going. One final check: have you experienced any new or worsening symptoms since your last response? -> No I'm glad to hear that. Thank you for your time and for allowing us to care for you. Please be sure to reach out to your provider for any further symptoms or needs. Please rate your satisfaction with the care and support you have received from us since you have been home: (scale 1-5; 1 worst and 5 best) -> 5 Please tell me what you liked best about your experience: -> I feel that I had the best nursing staff. That I could have ever expressed a lot of things have changed. And? Please tell me what you liked least about your experience: -> Great! Now we are in a secure chat environment. Protecting your health information is important to us. Ok, let's get started. Please verify your name and date of . Please click on the button with your first name. -> Ann Marie Got it. On to the next question... Select the button with your last name. -> Elam Got it, thank you. Please enter your date of in MM/DD/YYYY format:(e.g., 09/22/1969 for Sep 22, 1969) -> 1945 Thank you for verifying your information. I'd like to ask you a few questions about how your recovery is going. One final check: have you experienced any new or worsening symptoms since your last response? -> No I'm glad to hear that. Thank you for your time and for allowing us to care for you. Please be sure to reach out to your provider for any further symptoms or needs. Please rate your satisfaction with the care and support you have received from us since you have been home: (scale 1-5; 1 worst and 5 best) -> 5 Please tell me what you liked best about your experience: -> I had the best nursing staff.I have ever hadd in any hospital.Make sir, I got this message.Thank you Please tell me what you liked least about your experience: -> Great! Now we are in a secure chat environment. Protecting your health information is important to us. Ok, let's get started. Please verify your name and date of . Please click on the button with your first name. -> Ann Marie Got it. On to the next question... Select the button with your last name. -> Elam Got it, thank you. Please enter your date of in MM/DD/YYYY format:(e.g., 09/22/1969 for Sep 22, 1969) -> 1945 Thank you for verifying your information. I'd like to ask you a few questions about how your recovery is going. One final check: have you experienced any new or worsening symptoms since your last response? -> No I'm glad to hear that. Thank you for your time and for allowing us to care for you. Please be sure to reach out to your provider for any further symptoms or needs. Please rate your satisfaction with the care and support you have received from us since you have been home: (scale 1-5; 1 worst and 5 best) -> 5 Please tell me what you liked best about your experience: -> I had the best nursing staff that I have ever had and the housekeeping was awesome and the Doctor was very explanatory on my recovery. I don't lose that. Please tell me what you liked least about your experience: -> Well, being sick and not being able to go to the bathroom on my own.But that is not because the staff was not helpful , they were awesome [facility] 04-01-2024 Miscellaneous Notes Record ID: [id number] Patient name: Ann Marie Elam Date: April 01, 2024 - 08:50 Administered by: GYANT Protocol: -> Great! Now we are in a secure chat environment. Protecting your health information is important to us. Ok, let's get started. Please verify your name and date of . Please click on the button with your first name. -> Great! Now we are in a secure chat environment. Protecting your health information is important to us. Ok, let's get started. Please verify your name and date of . Please click on the button with your first name. -> Ann Marie Got it. On to the next question... Select the button with your last name. -> Marialuisa Got it, thank you. Please enter your date of in MM/DD/YYYY format:(e.g., 09/22/1969 for Sep 22, 1969) -> 1945 Thank you for verifying your information. I'd like to ask you a few questions about how your recovery is going. One final check: have you experienced any new or worsening symptoms since your last response? -> No I'm glad to hear that. Thank you for your time and for allowing us to care for you. Please be sure to reach out to your provider for any further symptoms or needs. Please rate your satisfaction with the care and support you have received from us since you have been home: (scale 1-5; 1 worst and 5 best) -> 5 Please tell me what you liked best about your experience: -> I feel that I had the best nursing staff. That I could have ever expressed a lot of things have changed. And? Please tell me what you liked least about your experience: -> Great! Now we are in a secure chat environment. Protecting your health information is important to us. Ok, let's get started. Please verify your name and date of . Please click on the button with your first name. -> Ann Marie Got it. On to the next question... Select the button with your last name. -> Marialuisa Got it, thank you. Please enter your date of in MM/DD/YYYY format:(e.g., 09/22/1969 for Sep 22, 1969) -> 1945 Thank you for verifying your information. I'd like to ask you a few questions about how your recovery is going. One final check: have you experienced any new or worsening symptoms since your last response? -> No I'm glad to hear that. Thank you for your time and for allowing us to care for you. Please be sure to reach out to your provider for any further symptoms or needs. Please rate your satisfaction with the care and support you have received from us since you have been home: (scale 1-5; 1 worst and 5 best) -> 5 Please tell me what you liked best about your experience: -> I had the best nursing staff.I have ever hadd in any hospital.Make sir, I got this message.Thank you Please tell me what you liked least about your experience: -> Great! Now we are in a secure chat environment. Protecting your health information is important to us. Ok, let's get started. Please verify your name and date of . Please click on the button with your first name. -> Ann Marie Got it. On to the next question... Select the button with your last name. -> Marialuisa Got it, thank you. Please enter your date of in MM/DD/YYYY format:(e.g., 09/22/1969 for Sep 22, 1969) -> 1945 Thank you for verifying your information. I'd like to ask you a few questions about how your recovery is going. One final check: have you experienced any new or worsening symptoms since your last response? -> No I'm glad to hear that. Thank you for your time and for allowing us to care for you. Please be sure to reach out to your provider for any further symptoms or needs. Please rate your satisfaction with the care and support you have received from us since you have been home: (scale 1-5; 1 worst and 5 best) -> 5 Please tell me what you liked best about your experience: -> I had the best nursing staff that I have ever had and the housekeeping was awesome and the Doctor was very explanatory on my recovery. I don't lose that. Please tell me what you liked least about your experience: -> Well, being sick and not being able to go to the bathroom on my own.But that is not because the staff was not helpful , they were awesome documented in this encounter [facility] 03-26-2024 Telephone encounter Note Record ID: [id number] 7af Patient name: Ann Marie Elam Date: March 26, 2024 - 09:26 Administered by: YISSEL Protocol: -> Great! Now we are in a secure chat environment. Protecting your health information is important to us. Ok, let's get started. Please verify your name and date of . Please click on the button with your first name. -> Ann Marie Got it. On to the next question... Select the button with your last name. -> Marialuisa Got it, thank you. Please enter your date of in MM/DD/YYYY format:(e.g., 09/22/1969 for Sep 22, 1969) -> 1945 Thank you for verifying your information. I'd like to ask you a few questions about how your recovery is going. Have you noticed any new or worsening symptoms since your last check-in? -> No I'm glad to hear that. It can be normal to feel anxious or down during a time like this. Would you like to talk to a mental health professional about how you have been feeling? -> No Ok thank you for responding and if anything changes or you decide you need some support, please let your provider know. Thank you for your time and allowing us to care for you. We will check in on you over the next four weeks to ensure you continue to recover and support your needs. In the meantime, please reach out to your PCP for any questions or concerns.Thank you for choosing [facility]! -> Great! Now we are in a secure chat environment. Protecting your health information is important to us. Ok, let's get started. Please verify your name and date of . Please click on the button with your first name. -> Ann Marie Got it. On to the next question... Select the button with your last name. -> Marialuisa Got it, thank you. Please enter your date of in MM/DD/YYYY format:(e.g., 09/22/1969 for Sep 22, 1969) -> 1945 Thank you for verifying your information. I'd like to ask you a few questions about how your recovery is going. Have you noticed any new or worsening symptoms since your last check-in? -> No I'm glad to hear that. It can be normal to feel anxious or down during a time like this. Would you like to talk to a mental health professional about how you have been feeling? -> No [facility] 03-26-2024 Miscellaneous Notes Record ID: [id number] 7af Patient name: Ann Marie Elam Date: March 26, 2024 - 09:26 Administered by: YISSEL Protocol: -> Great! Now we are in a secure chat environment. Protecting your health information is important to us. Ok, let's get started. Please verify your name and date of . Please click on the button with your first name. -> Ann Marie Got it. On to the next question... Select the button with your last name. -> Marialuisa Got it, thank you. Please enter your date of in MM/DD/YYYY format:(e.g., 09/22/1969 for Sep 22, 1969) -> 1945 Thank you for verifying your information. I'd like to ask you a few questions about how your recovery is going. Have you noticed any new or worsening symptoms since your last check-in? -> No I'm glad to hear that. It can be normal to feel anxious or down during a time like this. Would you like to talk to a mental health professional about how you have been feeling? -> No Ok thank you for responding and if anything changes or you decide you need some support, please let your provider know. Thank you for your time and allowing us to care for you. We will check in on you over the next four weeks to ensure you continue to recover and support your needs. In the meantime, please reach out to your PCP for any questions or concerns.Thank you for choosing [facility]! -> Great! Now we are in a secure chat environment. Protecting your health information is important to us. Ok, let's get started. Please verify your name and date of . Please click on the button with your first name. -> Ann Marie Got it. On to the next question... Select the button with your last name. -> Marialuisa Got it, thank you. Please enter your date of in MM/DD/YYYY format:(e.g., 09/22/1969 for Sep 22, 1969) -> 1945 Thank you for verifying your information. I'd like to ask you a few questions about how your recovery is going. Have you noticed any new or worsening symptoms since your last check-in? -> No I'm glad to hear that. It can be normal to feel anxious or down during a time like this. Would you like to talk to a mental health professional about how you have been feeling? -> No documented in this encounter [facility] 03-26-2024 Telephone encounter Note Record ID: [id number] 7af Patient name: Ann Marie Elam Date: March 26, 2024 - 09:25 Administered by: YISSEL Protocol: -> Great! Now we are in a secure chat environment. Protecting your health information is important to us. Ok, let's get started. Please verify your name and date of . Please click on the button with your first name. -> Ann Marie Got it. On to the next question... Select the button with your last name. -> Marialuisa Got it, thank you. Please enter your date of in MM/DD/YYYY format:(e.g., 09/22/1969 for Sep 22, 1969) -> 1945 Thank you for verifying your information. I'd like to ask you a few questions about how your recovery is going. Have you noticed any new or worsening symptoms since your last check-in? -> No I'm glad to hear that. It can be normal to feel anxious or down during a time like this. Would you like to talk to a mental health professional about how you have been feeling? -> No [facility] 03-26-2024 Miscellaneous Notes Record ID: [id number] 7af Patient name: Ann Marie Elam Date: March 26, 2024 - :25 Administered by: YISSEL Protocol: -> Great! Now we are in a secure chat environment. Protecting your health information is important to us. Ok, let's get started. Please verify your name and date of . Please click on the button with your first name. -> Ann Marie Got it. On to the next question... Select the button with your last name. -> Marialuisa Got it, thank you. Please enter your date of in MM/DD/YYYY format:(e.g., 09/22/1969 for Sep 22, 1969) -> 1945 Thank you for verifying your information. I'd like to ask you a few questions about how your recovery is going. Have you noticed any new or worsening symptoms since your last check-in? -> No I'm glad to hear that. It can be normal to feel anxious or down during a time like this. Would you like to talk to a mental health professional about how you have been feeling? -> No documented in this encounter [facility] 03-18-2024 Telephone encounter Note Record ID: [id number] 7af Patient name: Ann Marie Elam Date: March 18, 2024 - 04:08 Administered by: YISSEL Protocol: -> Great! Now we are in a secure chat environment. Protecting your health information is important to us. Ok, let's get started. Please verify your name and date of . Please click on the button with your first name. -> Ann Marie Got it. On to the next question... Select the button with your last name. -> Marialuisa Got it, thank you. Please enter your date of in MM/DD/YYYY format:(e.g., 09/22/1969 for Sep 22, 1969) -> 1945 Thank you for verifying your information. I'd like to ask you a few questions about how your recovery is going. Have there been any new or worsening symptoms since your last response? -> No I'm glad to hear that. Have you had a hospital follow-up appointment yet since your discharge? -> Yes We would like to make sure you have what you need so that your basic needs are met including your personal safety, food, and housing. Would you like to speak to a social work merchandise flow team member to help give you the support for any of these needs? -> No [facility] 03-18-2024 Miscellaneous Notes Record ID: [id number] 7af Patient name: Ann Marie Elam Date: March 18, 2024 - 04:08 Administered by: YISSEL Protocol: -> Great! Now we are in a secure chat environment. Protecting your health information is important to us. Ok, let's get started. Please verify your name and date of . Please click on the button with your first name. -> Ann Marie Got it. On to the next question... Select the button with your last name. -> Marialuisa Got it, thank you. Please enter your date of in MM/DD/YYYY format:(e.g., 09/22/1969 for Sep 22, 1969) -> 1945 Thank you for verifying your information. I'd like to ask you a few questions about how your recovery is going. Have there been any new or worsening symptoms since your last response? -> No I'm glad to hear that. Have you had a hospital follow-up appointment yet since your discharge? -> Yes We would like to make sure you have what you need so that your basic needs are met including your personal safety, food, and housing. Would you like to speak to a social work merchandise flow team member to help give you the support for any of these needs? -> No documented in this encounter [facility] 03-18-2024 Telephone encounter Note Blanca informed and verbalized understanding. Susan Danielle MA [facility] 03-18-2024 Miscellaneous Notes Blanca informed and verbalized understanding. Susan Danielle MA Recheck xray in two to four weeks. Call if any symptoms develop No fever. Does have some productive cough. Is getting less up but still some there. Breathing is stable. CT scan isn't until next visit in Jul. Xray still shows an area that could be resolving pneumonia and maybe a little fluid. Verify with them when next ct scan is. Make sure no further cough or shortness of breath or fever. documented in this encounter [facility] 03-18-2024 Telephone encounter Note Recheck xray in two to four weeks. Call if any symptoms develop [facility] 03-18-2024 Telephone encounter Note No fever. Does have some productive cough. Is getting less up but still some there. Breathing is stable. CT scan isn't until next visit in Jul. [facility] 03-18-2024 Telephone encounter Note Xray still shows an area that could be resolving pneumonia and maybe a little fluid. Verify with them when next ct scan is. Make sure no further cough or shortness of breath or fever. [facility] 03-14-2024 Telephone encounter Note Patient notified. Verbalized understanding. [facility] 03-14-2024 Miscellaneous Notes Patient notified. Verbalized understanding. Labs show anemia is improving from hospital stay. Iron etc looks ok. To be on safe side recheck labs in two weeks. Do ifobt. documented in this encounter [facility] 03-14-2024 Telephone encounter Note Labs show anemia is improving from hospital stay. Iron etc looks ok. To be on safe side recheck labs in two weeks. Do ifobt. [facility] 03-13-2024 History of Present illness Narrative Radiology Service Progress Note PATIENT NAME: Ann Marie Elam DATE OF SERVICE: March 13, 2024 TIME: 1:45 PM PATIENT IDENTITY VERIFICATION COMPLETED USING TWO (2) IDENTIFIERS: Name and Date of confirmed by patient verbally. FALL SCREENING: Has the patient had 2 falls in the last year or 1 fall with injury or currently using an Ambulatory Assistive Device (Walker, Cane, Wheelchair, Crutches, etc.)? Yes, Patient High Risk for Falls What interventions were put in place to prevent falls during this visit? Offered Assistance with Transfers/Clothing, Instructed Patient to Remain Seated (Not on Exam Table) Until Exam, and Increased Observations by Caregivers PATIENT GENDER DATA: Male PATIENT RELEVANT IMPLANT DATA REVIEWED: Yes PATIENT PRESENTS WITH AN IMPLANTABLE OR ATTACHED AIRPORT SCREENER: No RADIOLOGY DEPARTMENT: General X-ray: Exam(s) Completed: Chest X-Ray PERIPHERAL IV DATA: Not applicable SIGNED BY: RT Umang(R) March 13, 2024 1:45 PM documented in this encounter [facility] 03-11-2024 Telephone encounter Note Record ID: [id number] 7af Patient name: Ann Marie Elam Date: March 11, 2024 - 09:02 Administered by: YISSEL Protocol: -> Great! Now we are in a secure chat environment. Protecting your health information is important to us. Ok, let's get started. Please verify your name and date of . Please click on the button with your first name. -> Great! Now we are in a secure chat environment. Protecting your health information is important to us. Ok, let's get started. Please verify your name and date of . Please click on the button with your first name. -> Ann Marie Got it. On to the next question... Select the button with your last name. -> Marialuisa Got it, thank you. Please enter your date of in MM/DD/YYYY format:(e.g., 09/22/1969 for Sep 22, 1969) -> 1945 Thank you for verifying your information. I'd like to ask you a few questions about how your recovery is going. Have you experienced any new or worsening symptoms since returning home? -> No I'm glad to hear that. Have you had a hospital follow-up appointment yet since your discharge? -> No Why do you think you will not be able to attend? -> Great! Now we are in a secure chat environment. Protecting your health information is important to us. Ok, let's get started. Please verify your name and date of . Please click on the button with your first name. -> Ann Marie Got it. On to the next question... Select the button with your last name. -> Marialuisa Got it, thank you. Please enter your date of in MM/DD/YYYY format:(e.g., 09/22/1969 for Sep 22, 1969) -> 1945 Thank you for verifying your information. I'd like to ask you a few questions about how your recovery is going. Have you experienced any new or worsening symptoms since returning home? -> No I'm glad to hear that. Have you had a hospital follow-up appointment yet since your discharge? -> No Why do you think you will not be able to attend? -> Great! Now we are in a secure chat environment. Protecting your health information is important to us. Ok, let's get started. Please verify your name and date of . Please click on the button with your first name. -> Ann Marie Got it. On to the next question... Select the button with your last name. -> Marialuisa Got it, thank you. Please enter your date of in MM/DD/YYYY format:(e.g., 09/22/1969 for Sep 22, 1969) -> 1945 Thank you for verifying your information. I'd like to ask you a few questions about how your recovery is going. Have you experienced any new or worsening symptoms since returning home? -> No I'm glad to hear that. Have you had a hospital follow-up appointment yet since your discharge? -> Yes Many patients have concerns about their medication once they are home. Do you have any questions about taking your medications or which medications you should be on? -> No Good! When you were discharged from the hospital were you discharged home with home health care services? -> No Ok thanks for confirming. When you were discharged from the hospital were you given orders to obtain medical equipment? -> No [facility] 03-11-2024 Miscellaneous Notes Record ID: [id number] 7af Patient name: Ann Marie Elam Date: March 11, 2024 - 09:02 Administered by: YISSEL Protocol: -> Great! Now we are in a secure chat environment. Protecting your health information is important to us. Ok, let's get started. Please verify your name and date of . Please click on the button with your first name. -> Great! Now we are in a secure chat environment. Protecting your health information is important to us. Ok, let's get started. Please verify your name and date of . Please click on the button with your first name. -> Ann Marie Got it. On to the next question... Select the button with your last name. -> Marialuisa Got it, thank you. Please enter your date of in MM/DD/YYYY format:(e.g., 09/22/1969 for Sep 22, 1969) -> 1945 Thank you for verifying your information. I'd like to ask you a few questions about how your recovery is going. Have you experienced any new or worsening symptoms since returning home? -> No I'm glad to hear that. Have you had a hospital follow-up appointment yet since your discharge? -> No Why do you think you will not be able to attend? -> Great! Now we are in a secure chat environment. Protecting your health information is important to us. Ok, let's get started. Please verify your name and date of . Please click on the button with your first name. -> Ann Marie Got it. On to the next question... Select the button with your last name. -> Marialuisa Got it, thank you. Please enter your date of in MM/DD/YYYY format:(e.g., 09/22/1969 for Sep 22, 1969) -> 1945 Thank you for verifying your information. I'd like to ask you a few questions about how your recovery is going. Have you experienced any new or worsening symptoms since returning home? -> No I'm glad to hear that. Have you had a hospital follow-up appointment yet since your discharge? -> No Why do you think you will not be able to attend? -> Great! Now we are in a secure chat environment. Protecting your health information is important to us. Ok, let's get started. Please verify your name and date of . Please click on the button with your first name. -> Ann Marie Got it. On to the next question... Select the button with your last name. -> Marialuisa Got it, thank you. Please enter your date of in MM/DD/YYYY format:(e.g., 09/22/1969 for Sep 22, 1969) -> 1945 Thank you for verifying your information. I'd like to ask you a few questions about how your recovery is going. Have you experienced any new or worsening symptoms since returning home? -> No I'm glad to hear that. Have you had a hospital follow-up appointment yet since your discharge? -> Yes Many patients have concerns about their medication once they are home. Do you have any questions about taking your medications or which medications you should be on? -> No Good! When you were discharged from the hospital were you discharged home with home health care services? -> No Ok thanks for confirming. When you were discharged from the hospital were you given orders to obtain medical equipment? -> No documented in this encounter [facility] 03-06-2024 Telephone encounter Note Record ID: [id number] 7af Patient name: Ann Marie Elam Date: March 06, 2024 - 02:30 Administered by: YISSEL Protocol: -> Great! Now we are in a secure chat environment. Protecting your health information is important to us. Ok, let's get started. Please verify your name and date of . Please click on the button with your first name. -> Ann Marie Got it. On to the next question... Select the button with your last name. -> Marialuisa Got it, thank you. Please enter your date of in MM/DD/YYYY format:(e.g., 09/22/1969 for Sep 22, 1969) -> 1945 Thank you for verifying your information. I'd like to ask you a few questions about how your recovery is going. Since leaving the hospital, do you have any new or worsening symptoms? -> No I'm glad to hear that. We encourage a follow-up appointment with a physician within two weeks of being discharged from the hospital to oversee your recovery. It seems you have a follow up appointment scheduled, are you able to attend? -> Yes Many patients have concerns about their medication once they are home. Do you have any questions about taking your medications or which medications you should be on? -> Yes [facility] 03-06-2024 Miscellaneous Notes Record ID: [id number] 7af Patient name: Ann Marie Elam Date: March 06, 2024 - 02:30 Administered by: YISSEL Protocol: -> Great! Now we are in a secure chat environment. Protecting your health information is important to us. Ok, let's get started. Please verify your name and date of . Please click on the button with your first name. -> Ann Marie Got it. On to the next question... Select the button with your last name. -> Marialuisa Got it, thank you. Please enter your date of in MM/DD/YYYY format:(e.g., 09/22/1969 for Sep 22, 1969) -> 1945 Thank you for verifying your information. I'd like to ask you a few questions about how your recovery is going. Since leaving the hospital, do you have any new or worsening symptoms? -> No I'm glad to hear that. We encourage a follow-up appointment with a physician within two weeks of being discharged from the hospital to oversee your recovery. It seems you have a follow up appointment scheduled, are you able to attend? -> Yes Many patients have concerns about their medication once they are home. Do you have any questions about taking your medications or which medications you should be on? -> Yes documented in this encounter [facility] 03-06-2024 Telephone encounter Note Pharmacy Community Monitoring Outreach Provider Action/FYI: [facility] pharmacy outreach for medication question completed for patient. See below for details. No further action required at this time. Patient indicated a medication question during YISSEL questionnaire. Encounter was routed to Pharmacy Medication Question Pool for follow up. Initial contact with patient post discharge, spoke to spouse, Blanca,, and verified that any applicable caregiver is active in patient's medical care. Patient identified by name and . Patient indicated medication question(s) regarding: Patient selected in error Confirmed patient picked up the new medications from pharmacy yesterday and has no questions or concerns See medication list table below for details. Medications discussed regarding the patient are outlined in bold in the table below. I encouraged them to contact PCP office with any additional questions or concerns. Medication Reconciliation Legend: Stopped, New, Changed, Added to list Medication List Medication Directions Comments Action/Plan acetaminophen (TYLENOL EXTRA STRENGTH) 500 mg tablet Take 1,000 mg by mouth every 8 hours as needed. amoxicillin-clavulanate potassium (AUGMENTIN) 875-125 mg per tablet Take 1 tablet by mouth two times a day for 5 days. aspirin 81 mg chewable tablet Take 81 mg by mouth once daily. azithromycin (ZITHROMAX) 500 mg tablet Take 1 tablet by mouth once daily for 3 days. cholecalciferol, Vitamin D3, (VITAMIN D3) 1,250 mcg (50,000 unit) cap capsule Take 1 capsule by mouth one time a week. ezetimibe (ZETIA) 10 mg tablet Take 1 tablet by mouth once daily. furosemide (LASIX) 40 mg tablet Take 1 tablet by mouth two times a day. Discontinued: 03/05/2024 1:15 PM levETIRAcetam (KEPPRA) 1,000 mg tablet Take 1,000 mg by mouth twice daily. levETIRAcetam (KEPPRA) 250 mg tablet Take 1 tablet by mouth twice daily. lisinopril (ZESTRIL, PRINIVIL) 10 mg tablet Take 10 mg by mouth once daily. magnesium oxide (MAG-OX) 400 mg (241.3 mg magnesium) tablet Take 1 tablet by mouth once daily. metoprolol succinate ER (TOPROL XL) 25 mg 24 hr tablet Take 50 mg by mouth once daily. omeprazole (PRILOSEC) 40 mg capsule Take 1 capsule by mouth once daily. potassium chloride ER (KLOR-CON) 20 mEq tablet Take 1 tablet by mouth once daily. Discontinued: 03/06/2024 9:05 AM umeclidinium-vilanterol (ANORO ELLIPTA) 62.5-25 mcg/actuation inhaler Inhale 1 Inhalation as instructed once daily. VENTOLIN HFA 90 mcg/actuation inhaler Inhale 2 Puffs as instructed every 4 hours as needed for wheezing/shortness of breath. Discontinued: 03/02/2024 1:17 PM Interventions Made: None Pharmacist Recommendations Made None Care Coordination: None at this time Time spent on patient: 0-15 minutes Ebony Balderas RPh March 06, 2024 4:10 PM [facility] Work Phone: 03-06-2024 Miscellaneous Notes Pharmacy Community Monitoring Outreach Provider Action/FYI: [facility] pharmacy outreach for medication question completed for patient. See below for details. No further action required at this time. Patient indicated a medication question during GYANT questionnaire. Encounter was routed to Pharmacy Medication Question Pool for follow up. Initial contact with patient post discharge, spoke to spouse, Blanca,, and verified that any applicable caregiver is active in patient's medical care. Patient identified by name and . Patient indicated medication question(s) regarding: Patient selected in error Confirmed patient picked up the new medications from pharmacy yesterday and has no questions or concerns See medication list table below for details. Medications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 04/28/22 LESI Plan of care: Encouraged to follow instructions of oncologist Continue Tylenol PRN. No more 4000mg in a day OARRS reviewed and consistent Followup in 4-5 months in office Pain level:09/13 States had 80% relief from LESI Denies any ED visits or hospitalizations since last office visit Reports pain worse with splitting wood, riding tractor, bending over Reports pain better with tylenol ES and LESI Describes pain in lower back as intermittent ache States pain radiates to right hip at times Denies numbness/tingling States he trips quite a bit Right drop foot Denies issues with bowels or bladder Denies nausea or vomiting Denies dizziness. Hx vertigo Denies headaches Physical assessment Alert and oriented x3 Skin pink,warm,, and dry. No conversational shortness of breath appreciated Wearing face mask. Mood pleasant and cooperative. Able to ascend and descend from sitting position without difficulty accompanied by +5/5 motor strength in both legs. Negative SLR from seated position bilaterally.Sensory is intact to light touch in all dermatomes. Negative Sylwia's test bilaterally. Lumbar flexion is 90 degrees and lumbar extension is < 10 degrees. Negative lumbar facet loading Deferred toe and heel walking due to poor balance. [facility] 06-30-2022 History of Present illness Narrative Patient was last seen by me on 11/03/21 for back pain Last procedure 04/28/22 LESI Plan of care: Encouraged to follow instructions of oncologist Continue Tylenol PRN. No more 4000mg in a day OARRS reviewed and consistent Followup in 4-5 months in office Pain level:09/13 States had 80% relief from LESI Denies any ED visits or hospitalizations since last office visit Reports pain worse with splitting wood, riding tractor, bending over Reports pain better with tylenol ES and LESI Describes pain in lower back as intermittent ache States pain radiates to right hip at times Denies numbness/tingling States he trips quite a bit Right drop foot Denies issues with bowels or bladder Denies nausea or vomiting Denies dizziness. Hx vertigo Denies headaches Physical assessment Alert and oriented x3 Skin pink,warm,, and dry. No conversational shortness of breath appreciated Wearing face mask. Mood pleasant and cooperative. Able to ascend and descend from sitting position without difficulty accompanied by +5/5 motor strength in both legs. Negative SLR from seated position bilaterally.Sensory is intact to light touch in all dermatomes. Negative Sylwia's test bilaterally. Lumbar flexion is 90 degrees and lumbar extension is < 10 degrees. Negative lumbar facet loading Deferred toe and heel walking due to poor balance. documented in this encounter [facility] 03-25-2022 Instructions IGLESIA Siu - 03/25/2022 3:24 PM EDT - continue Anoro one puff once daily - may use 1-2 puffs albuterol every 4-6 hours as needed for shortness of breath - work on regular exercise - check with your infrastructure director on getting an updated echocardiogram. Also weigh yourself every day. If gaining more than 1lb a day or 4-5 lbs a week let your infrastructure director know - follow up in 6 months documented in this encounter [facility] 03-25-2022 History of Present illness Narrative Images from the original note were not included. [facility]PART[facility] ESTABLISHED PATIENT OFFICE VISIT 03/25/2022 PRIMARY CARE PHYSICIAN: Keerthi Hazel MD HISTORY OF PRESENT ILLNESS: Ann Marie Elam SR is a 77 year old male who presents today for follow-up regarding COPD. Past medical history is also significant for COPD, lung nodules, hypertension, PAD, GERD, seizure disorder, diffuse large B-cell lymphoma. Former smoker. Most recent pulmonary office visit was on 11/08/21 with Rory Hager PA-C. Recommendations from that office visit were as follows: - stop stiolto (sore throat), start Anoro - use albuterol every 4 hours as needed - repeat spirometry and DLCO prior to next office visit - continue to abstain from smoking - follow up CT scheduled through oncology for his diffuse large B-cell lymphoma Today, the patient reports they are about the same since last office visit. - shortness of breath at baseline - wheeze occasionally - cough occasionally, with clear phlegm - orthopnea - hospitalized in November with AECOPD - last time he did breathing tests felt like he was going to - uses albuterol every few days - takes lasix every day ROS: (+) see above (-) fever, chills, chest pain, leg swelling Current Outpatient Medications Medication Sig Dispense Refill vitamin B complex (SUPER B [id number] ORAL) Take by mouth once daily. cyclobenzaprine (FLEXERIL) 10 mg tablet Take 1 tablet by mouth at bedtime as needed. 30 tablet 0 aspirin 81 mg chewable tablet DAILY@0800 meclizine (ANTIVERT) 25 mg tab Take by mouth. omeprazole (PRILOSEC) 40 mg capsule Take 1 capsule by mouth once daily. 90 capsule 3 umeclidinium-vilanterol (ANORO ELLIPTA) 62.5-25 mcg/actuation inhaler Inhale 1 Inhalation as instructed once daily. 60 Each 5 albuterol sulfate 90 mcg/actuation breath activated powder inhaler Inhale 2 Puffs as instructed every 4 hours as needed for wheezing/shortness of breath. 1 Each 11 cholecalciferol, Vitamin D3, (VITAMIN D3) 1,250 mcg (50,000 unit) cap capsule Take 1 capsule by mouth one time a week. 12 capsule 1 metoprolol succinate ER (TOPROL XL) 50 mg 24 hr tablet Take 0.5 tablets by mouth once daily. 45 tablet 3 ubidecarenone (COQ-10 ORAL) Take by mouth once daily. RED YEAST RICE ORAL Take by mouth once daily. acetaminophen (TYLENOL EXTRA STRENGTH) 500 mg tablet Take 1,000 mg by mouth every 8 hours as needed. furosemide (LASIX) 40 mg tablet Take 40 mg by mouth twice daily. lisinopril (ZESTRIL, PRINIVIL) 10 mg tablet Take 10 mg by mouth once daily. levETIRAcetam (KEPPRA) 250 mg tablet Take 1 tablet by mouth twice daily. levETIRAcetam (KEPPRA) 1,000 mg tablet Take 1,000 mg by mouth twice daily. No current facility-administered medications for this visit. I have reviewed and updated the medication list in the EMR. ALLERGIES Allergen Reactions Lipitor [Atorvastat* Myalgia Neosporin [Neomycin* Other: See Comments Skin reaction SOCIAL HISTORY: Social History Tobacco Use Smoking status: Former Smoker Packs/day: 1.50 Years: 40.00 Pack years: 60.00 Types: Cigarettes Start date: 1956 Quit date: 2003 Years since quittin.5 Smokeless tobacco: Former User Types: Chew Quit date: 09/24/2015 Tobacco comment: quit smoking around 2003 Vaping Use Vaping Use: Never used Substance Use Topics Alcohol use: Not Currently Comment: Pebbles a few nights a week Drug use: No IMMUNIZATIONS: COVID-19: 2 doses, last for 2021 PPSV23: 12/2011 PCV13: 05/2015 Influenza: X PHYSICAL EXAMINATION: VITAL SIGNS: BP 102/58 Pulse 65 Ht 182.9 cm (6' 0.01) Wt 95.6 kg (210 lb 12.8 oz) SpO2 96% BMI 28.58 kg/m O2: Room air GENERAL: Alert, no acute distress HEENT: Sclera anicteric. CV: Regular rate and rhythm. 1+ BLE edema. PULM: Decreased intensity of breath sounds bilaterally. No wheezes rhonchi or rales MSK: Extremities warm and well perfused. No cyanosis. NEURO: A&O x 3. Answers questions appropriately. PSYCH: Mood and affect appropriate for situation. DATA REVIEW: I have personally reviewed the following: Spirometry 04/2019: Spirometry shows a reduced FEV1/FVC ratio; but individually normal FVC and FEV1 predicted values.This pattern indicates mild obstruction or a normal variant. The diffusing capacity is normal Spirometry 01/2019: Spirometry shows no obstruction. The reduced FVC suggests restriction. There is no significant bronchodilator response. The TLC is mildly reduced, indicating restriction. CT chest 01/14/2022 Improvement in the pulmonary nodularity aeration of lungs when compared to the prior exam. Persistent areas of nodularity are noted within the lungs. Findings of remote granulomatous disease. Additional findings noted above. ASSESSMENT & PLAN: 1. Chronic obstructive pulmonary disease, unspecified COPD type (HCC) - ICD9: 496, ICD10: J44.9 (primary diagnosis) -Spirometry is not showing clear obstructive pattern, restrictive pattern in 2019. Patient unable to repeat them due to feeling like he was going to last time -Symptoms stable -Continue Anoro 62.5-25 mcg 1 inhalation once daily, albuterol every 4 hours as needed -Encouraged regular exercise -Encouraged COVID booster and influenza vaccine this fall 2. Lung nodules - ICD9: 793.19, ICD10: R91.8 -Calcified granulomas throughout the lung -Nodularity in right upper lobe stable on CT 01/2022 -Has repeat CT chest anticipated July 2022 for oncology follow-up 3. Leg swelling - ICD9: 729.81, ICD10: M79.89 -Most recent echo from 2017 -Adherent to Lasix 40 mg twice daily - NT PRO BNP-we will get blood work today -Patient to call infrastructure director office today or Monday -Advised of need to go to ED if worsening shortness of breath and fluid retention 4. Diffuse large B-cell lymphoma, unspecified body region (HCC) - ICD9: 202.80, ICD10: C83.30 -Treated with R-CHOP x3. Field radiation therapy finished on 08/2021 - Clinically in complete remission on PET imaging. - Follows with Dr. Thorne I have discussed the above recommendations in detail with the patient. Patient verbalizes understanding and is in agreement with plan as stated above. Follow-up in 6 months IGLESIA Siu-C [facility] [place] March 25, 2022 documented in this encounter [facility] 03-23-2022 Miscellaneous Notes Phoned patient and given provider's message below with verbalized understanding. Patient agreeable. Let him know I talked with Dr. Thorne. If hip/groin continue to bother him, please follow up documented in this encounter [facility] 03-21-2022 History of Present illness Narrative PATIENT NAME: Ann Marie Elam. CLINIC NO: [id number]. ATTENDING PHYSICIAN: Aparna Thorne MD. DATE OF SERVICE: 03/21/2022. DIAGNOSIS: Diffuse large B-cell lymphoma CHIEF COMPLAINT: Right groin pain HPI: 76-year-old gentleman with history of hypertension, peripheral vascular disease, ASCAD and seizure disorder who presented to the emergency room with a palpable right inguinal lymph node for about 2 months. He denies any additional adenopathy, but possibly have felt a lump in his right groin a year ago. The lump in his groin is not painful or warm to touch. He had no previous surgery or trauma to his leg. He denies fever, chills, night sweat, pruritus or weight loss. He noted mild fatigue, but no chest pain or shortness of breath. Evaluation in emergency room show a normal CBC. CT abdomen pelvis obtained demonstrated multiple inguinal adenopathies involving his right groin area, but no pelvic or retroperitoneal adenopathy. He saw Dr. Espinal 2 weeks ago for a an ultrasound-guided core needle biopsy of the right inguinal lymph node. FINAL DIAGNOSIS Lymph node, right inguinal, needle biopsy Aggressive B-cell lymphoma, FISH studies pending (see comment) COMMENT The histologic sections show lymphoid tissue with a diffuse infiltrate of large transformed lymphocytes. Immunohistochemical stains show the large atypical cells to be positive for CD20, CD10, BCL6 and BCL2 (90%). Small CD3 positive cells are also present. The large B cells are negative for CD5, MUM1, cyclin D1 and TdT. Approximately 30% of nuclei are positive for MYC. 90% of nuclei are positive for Ki-67. An QUIANA in situ hybridization stain is negative. A cytokeratin AE1/AE3 stain is negative. These findings demonstrate an aggressive B-cell lymphoma with a germinal center phenotype. The cytologic features are compatible with a diagnosis of diffuse large B-cell lymphoma, but FISH studies for BCL-2, BCL6 and MYC remain pending to exclude the possibility of a double hit genotype. Final classification of this lymphoma by current WHO criteria will follow in an addendum report upon completion of the FISH studies. RESULT: Result Reference Range BCL6 Rearrangement 3% (0-9%) MYC Rearrangement Unsatisfactory (0-11%) MYC/IGH 0% (0-7%) BCL2 Rearrangement Unsatisfactory (0-5%) Current treatment: R-CHOP x 3 (04/26/21 -06/27/21) CR/ PET negative Involved field radiation therapy finished on 08/09/21 Interim history: He had severe right groin pain for the last several weeks. This pain is exacerbated by walking and bending. He is taking Tylenol 2000mg /day with some relief. He denied weight loss or early satiety. He has no fever, chills or night sweat. No cough or shortness of breath. No urinary symptoms including hematuria. All medications & allergies updated and reviewed by me. . REVIEW OF SYSTEMS: CONSTITUTIONAL: No fevers, chills, nightsweats, unintended weight loss HEENT: Denies frequent or severe heaches, nasal congestion/sinus symptoms, problematic allergy problems. EYES: No diplopia or blurry vision. CARDIOVASCULAR: No chest pain, dyspnea, palpitations, orthopnea, PND, ankle edema. PULM: No dyspnea, unexplained cough. GI: No dysphagia/odynophagia, problematic reflux, constipation, diarrhea, changes in stool habits, hematochezia, melena. : No new urinary complaints, including dysuria, gross hematuria or pyuria. NEURO: No new balance problems, peripheral weakness/paresthesias or numbness of concern. MUSC-SKEL: No new joint pain, swelling, or erythema. PSY: No concerns regarding depression, anxiety or panic. INTEGUMENTARY: No new skin changes (rash, new or changing mole, new growth) PHYSICAL EXAMINATION: 76-year-old well-nourished well-developed gentleman in no acute distress Performance status 100% BP 102/53 Pulse 54 Temp 97.4 Wt 211 lb (95.7kg) SpO2 98% HEENT: Head is normocephalic, atraumatic. Sclerae white, conjunctivae pink. PEERL. EOMs are intact. Oropharynx is benign. LYMPHATICS: There is no palpable adenopathy in the neck, supraclavicular region, axillae, no palpable inguinal adenopathy LUNGS: Lungs are clear to percussion and auscultation. HEART: Heart is normal without murmurs, gallops, or rubs. ABDOMEN: Soft and nontender without organomegaly. No masses can be palpated. No inguinal hernia or tenderness or adenopathy on his groin EXTREMITIES: Are without edema. Increased pain with external rotation of the right hip NEUROLOGIC: Exam is physiologic; no sensory deficit. LABORATORY DATA: Component Latest Ref Rng & Units 03/21/2022 WBC 3.70 - 11.00 k/uL 3.16 (L) RBC 4.20 - 6.00 m/uL 4.02 (L) Hemoglobin 13.0 - 17.0 g/dL 13.5 Hematocrit 39.0 - 51.0 % 38.3 (L) MCV 80.0 - 100.0 fL 95.3 MCH 26.0 - 34.0 pg 33.6 MCHC 30.5 - 36.0 g/dL 35.2 RDW-CV 11.5 - 15.0 % 12.4 Platelet Count 150 - 400 k/uL 153 MPV 9.0 - 12.7 fL 8.4 (L) Neut% % 71.9 Abs Neut (ANC) 1.45 - 7.50 k/uL 2.27 Lymph% % 13.3 Abs Lymph 1.00 - 4.00 k/uL 0.42 (L) Stearns% % 11.7 Abs Stearns <0.87 k/uL 0.37 Eosin% % 2.5 Abs Eosin <0.46 k/uL 0.08 Baso% % 0.3 Abs Baso <0.11 k/uL <0.03 Immature Gran % % 0.3 IMMATURE GRANS (ABS) <0.10 k/uL <0.03 NRBC /100 WBC 0.0 Absolute nRBC <0.01 k/uL <0.01 DTYPE Auto Component Latest Ref Rng & Units 03/21/2022 Protein, Total 6.3 - 8.0 g/dL 6.5 Albumin 3.9 - 4.9 g/dL 4.2 Calcium 8.5 - 10.2 mg/dL 8.9 Bilirubin, Total 0.2 - 1.3 mg/dL 0.4 Alkaline Phosphatase 38 - 113 U/L 57 AST 14 - 40 U/L 36 ALT 10 - 54 U/L 29 Glucose 74 - 99 mg/dL 103 (H) BUN 9 - 24 mg/dL 17 Creatinine 0.73 - 1.22 mg/dL 0.85 Sodium 136 - 144 mmol/L 139 Potassium 3.7 - 5.1 mmol/L 4.0 Chloride 97 - 105 mmol/L 100 CO2 22 - 30 mmol/L 30 Anion Gap 9 - 18 mmol/L 9 eGFR >=60 mL/min/1.73m 89 X Ray: Pending ASSESSMENT/PLAN: 76-year-old gentleman with stage II, diffuse large B-cell lymphoma with germinal center phenotype. 1) stage II diffuse large B-cell lymphoma involving the right groin and pelvis (nonbulky) -Clinically in complete remission on PET imaging. -BJ on exam Plan: -Repeat CT chest abdomen pelvis in 4 months -Repeat CBC, CMP, LDH and office visit in 4 months. 2) right hip/groin pain probably secondary to arthritis or bursitis of his hip Plan: -Check sed rate and x-ray of the right hip today. -Follow-up with PCP next week. Portions of this documentation were copied and pasted from previous office visit notes in order to provide a cohesive continuity of the history. The note has been reviewed and edited and updated as necessary. Aparna Thorne MD Cc: Dr. Keerthi Hazel documented in this encounter [facility] 03-21-2022 History of Present illness Narrative Radiology Service Progress Note PATIENT NAME: Ann Marie Elam DATE OF SERVICE: March 21, 2022 TIME: 11:33 AM PATIENT IDENTITY VERIFICATION COMPLETED USING TWO (2) IDENTIFIERS: Name and Date of confirmed by patient verbally. FALL SCREENING: Has the patient had 2 falls in the last year or 1 fall with injury or currently using an Ambulatory Assistive Device (Walker, Cane, Wheelchair, Crutches, etc.)? No PATIENT GENDER DATA: Male PATIENT RELEVANT IMPLANT DATA REVIEWED: Not Applicable RADIOLOGY DEPARTMENT: General X-ray: Exam(s) Completed: Pelvis X-Ray: Pelvis with Hip Right PERIPHERAL IV DATA: Not applicable SIGNED BY: RT Kristen(R) March 21, 2022 11:33 AM documented in this encounter [facility] 03-21-2022 Miscellaneous Notes Please sign orders, schedulers unable to release existing orders. Mone Hatch LPN documented in this encounter [facility] 03-17-2022 Miscellaneous Notes Spoke with patient's spouse and scheduled lab/OV next week. Confirmed date/time of appts. OV next week first before getting CT scan. CBC, CMP, & LDH next week Aparna Thorne MD Per last OV notes on 01/17/22: stage II diffuse large B-cell lymphoma involving the right groin and pelvis (nonbulky) -Clinically in complete remission on PET imaging Spoke to . stated patient found a lump underneath this skin in the crease of his right groin yesterday. stated the lump is firm and between the size of a nickel to a quarter. stated the lump is irritating but denies pain, redness, the skin being warm to touch, fever, or chills. is asking if patient should be seen for an OV or have CT scans completed. Patients next appointment with our office is 07/18 CT scans, 07/[address] Thorne. Christina Hi RN Patient calling stating he found a lump in R groin area. Just came about a within the last few days. It is nickel-quarter sized, not warm or red to touch. Wondering if scan needs moved up, or if he needs seen? Please advise and contact patient at [phone]. documented in this encounter [facility] 03-03-2022 History of Present illness Narrative Patient was last seen by me on 11/03/21 for back pain Plan of care: 1) Encouraged to follow instructions of oncologist 2) Will wait on proceeding on injections since doing well with tylenol and having cancer treatment 3) Sign Records Release for MRI lumbar spine from [facility] 4) Continue Tylenol PRN. No more 4000mg in a day 5) OARRS reviewed and consistent 6) Followup in 4-5 months in office Pain level:6/10 Denies any ED visits or hospitalizations since last office visit Reports pain worse with standing, walking too long Reports pain better with tylenol ES 2 tabs TID Describes pain in lower back as constant ache States pain radiates to right hip States has some numbness in feet at times Greater on right states he falls frequently. Right drop foot Denies issues with bowels or bladder Denies nausea or vomtiing Denies dizziness. Hx vertigo Denies headaches Current Meds:see list Physical assessment Alert and oriented x3 Skin pink,warm,, and dry. No conversational shortness of breath appreciated Wearing face mask. Mood pleasant and cooperative. Able to ascend and descend from sitting position without difficulty accompanied by +5/5 motor strength in both legs. Negative SLR from seated position bilaterally.Sensory is intact to light touch in all dermatomes. Negative Sylwia's test bilaterally. Lumbar flexion is 90 degrees and lumbar extension is < 10 degrees. Positive lumbar facet loading, R>L. Deferred toe and heel walking due to poor balance. documented in this encounter [facility] 02-01-2022 History of Present illness Narrative FOLLOW UP VISIT - PORTACATH REMOVAL NAME: Ann Marie [facility] NO.: [id number] DATE OF SERVICE: 02/01/2022 : 1945 REFERRING PHYSICIAN: Keerthi Hazel MD Ann Marie is a patient I am following for Diffuse large b-cell lymphoma of lymph nodes of inguinal region (hcc) (primary encounter diagnosis). The patient needed mcfp IV access. A right portacath was placed. The patient currently no longer requires the portacath. Ann Marie returns for portacath removal. VITALS: There were no vitals taken for this visit. On examination, the port incision site is clean and intact. PROCEDURE: PORTACATH REMOVAL The risks, benefits and anticipated outcomes of the procedure, the risks and benefits of the alternatives to the procedure, and the roles and tasks of the personnel to be involved, were discussed with the patient, and the patient consents to the procedure and agrees to proceed. After consent was obtained and the site, person, and procedure verified, the patient`s skin was prepped and draped in the usual fashion. A combination of Lidocaine and Marcaine was injected into the skin. A linear incision was made over the prior incision and dissection was carried down to the portacath. The fixing proline sutures were removed. The port was then dissected from it's pocket. The port and catheter were then removed. The distal tip of the port was intact. The skin was then closed with deep 3-0 interrupted vicryl sutures. The patient tolerated the procedure well. Assessment IMPRESSION: Status post right port a cath removal PLAN: If the patient notes any problems or signs of wound infections, he should contact me immediately. Diagnoses: (C83.35) 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) (primary encounter diagnosis) Return to Clinic: The patient is instructed to follow-up with me as needed. Ann Marie Hedrick III, MD UNIVERSAL PROTOCOL / SAFETY CHECKLIST Procedure to be Performed: Removal of Power Port Sign In: A Moment of CARE was completed. Personnel directly involved with the procedure wore the appropriate PPE (Personal Protective Equipment). Patient/Surrogate Stated/Verified: PATIENT VERIFIED(optional for EMERGENT procedures): Patient name, Date of , Relevant allergies and The intended procedure Time Out Communication: Intended patient and procedure match the source documents. Consent documented and matches the intended procedure. Sign Out: SIGN OUT (optional for EMERGENT procedures): No specimen collected. Post-procedure follow-up management communicated and Plan of Care Visit completed when applicable. Jayshree Vickers documented in this encounter [facility] 01-19-2022 History of Present illness Narrative Patient presents with: Follow Up: 6 week HPI: Patient presents today for office visit for follow up. Reviewed his e consult for his adrenals. His work up was negative. He is scheduled for another ct scan in July. Feels well. Feels like he is back to normal. He states he saw the cardiology SLASHER TENDER felt everything was ok. I do not have the old records currently available. No chest pain or new shortness of breath. No new swelling. No seizures. Component Latest Ref Rng & Units 12/09/2021 12/15/2021 01/14/2022 01/17/2022 WBC 3.70 - 11.00 k/uL 3.01 (L) RBC 4.20 - 6.00 m/uL 3.86 (L) Hemoglobin 13.0 - 17.0 g/dL 12.8 (L) Hematocrit 39.0 - 51.0 % 36.5 (L) MCV 80.0 - 100.0 fL 94.6 MCH 26.0 - 34.0 pg 33.2 MCHC 30.5 - 36.0 g/dL 35.1 RDW-CV 11.5 - 15.0 % 12.4 Platelet Count 150 - 400 k/uL 151 MPV 9.0 - 12.7 fL 8.0 (L) Neut% % 73.7 Abs Neut (ANC) 1.45 - 7.50 k/uL 2.22 Lymph% % 8.3 Abs Lymph 1.00 - 4.00 k/uL 0.25 (L) Stearns% % 13.0 Abs Stearns <0.87 k/uL 0.39 Eosin% % 4.0 Abs Eosin <0.46 k/uL 0.12 Baso% % 0.7 Abs Baso <0.11 k/uL <0.03 Immature Gran % % 0.3 IMMATURE GRANS (ABS) <0.10 k/uL <0.03 NRBC /100 WBC 0.0 Absolute nRBC <0.01 k/uL <0.01 DTYPE Auto Protein, Total 6.3 - 8.0 g/dL 6.8 Albumin 3.9 - 4.9 g/dL 3.9 4.3 Calcium 8.5 - 10.2 mg/dL 8.8 9.2 Bilirubin, Total 0.2 - 1.3 mg/dL 0.3 Alkaline Phosphatase 38 - 113 U/L 59 AST 14 - 40 U/L 36 ALT 10 - 54 U/L 36 Glucose 74 - 99 mg/dL 104 (H) 108 (H) BUN 9 - 24 mg/dL 14 25 (H) Creatinine 0.73 - 1.22 mg/dL 0.80 0.83 Sodium 136 - 144 mmol/L 138 139 Potassium 3.7 - 5.1 mmol/L 3.8 4.1 Chloride 97 - 105 mmol/L 103 102 CO2 22 - 30 mmol/L 29 27 Anion Gap 9 - 18 mmol/L 6 (L) 10 eGFR >=60 mL/min/1.73m 92 91 Color Yellow Light Yellow Clarity Clear Clear Glucose, Urine Negative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 of Past illness Narrative* Problem Noted Date Resolved Date Chest pain 11/22/2021 01/19/2022 Elevated troponin 11/22/2021 01/19/2022 Chronic obstructive pulmonary disease 01/16/2019 01/19/2022 Last Assessment & Plan: Assessment: Lungs clear. Using Albuterol every other night typically. Not using Spiriva. PFTs showed restriction 01/2019. SOB with stairs, [place] ground [place]. Former smoker. Following with Dr. Butt. 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 03/09/2018 02/11/2019 Overview: Diagnosed 2018., repeat egd in three years Bright red blood per rectum 09/18/201702/2018 Overview: Added automatically from request for surgery [id number] Positive occult stool blood test 09/18/2017 03/09/2018 Overview: Added automatically from request for surgery [id number] Vascular catheter fitting or adjustment 09/18/19 18 04/21/2021 Overview: Added automatically from request for surgery [id number] Tobacco use disorder 11/29/2017 documented as of this encounter (statuses as of 07/04/2022) [facility]22 History of Past illness Narrative* Problem Noted Date Resolved Date Chest pain 11/22/2021 01/19/2022 Elevated troponin 11/22/2021 01/19/2022 Chronic obstructive pulmonary disease 01/16/2019 01/19/2022 Last Assessment & Plan: Assessment: Lungs clear. Using Albuterol every other night typically. Not using Spiriva. PFTs showed restriction 01/2019. SOB with stairs, [place] ground [place]. Former smoker. Following with Dr. Butt. 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 03/09/2018 02/11/2019 Overview: Diagnosed 2018., repeat egd in three years Bright red blood per rectum 09/18/2017 07/02/2018 Overview: Added automatically from request for surgery [id number] Positive occult stool blood test 09/18/2017 03/09/2018 Overview: Added automatically from request for surgery [id number] Vascular catheter fitting or adjustment 09/18/19 18 04/21/2021 Overview: Added automatically from request for surgery [id number] Tobacco use disorder 11/29/2017 documented as of this encounter (statuses as of 07/13/2022) [facility]22 History of Past illness Narrative* Problem Noted Date Resolved Date Chest pain 11/22/2021 01/19/2022 Elevated troponin 11/22/2021 01/19/2022 Chronic obstructive pulmonary disease 01/16/2019 01/19/2022 Last Assessment & Plan: Assessment: Lungs clear. Using Albuterol every other night typically. Not using Spiriva. PFTs showed restriction 01/2019. SOB with stairs, [place]. Former smoker. Following with Dr. Butt. 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 Wonder if related to carbon monoxide inhalation. Last Assessment & Plan: Assessment: Recent hospital admission 12/2018 - thought to be due to acute hypoxemic event (inhaling gas fumes in the garage). EEG showed encephalopathy. No recent seizures. Stopped Depakote due to SE. Vertigo 07/21/2022 Last Assessment & Plan: Assessment: Has PRN Meclizine. Last used 2 weeks ago. documented as of this encounter (statuses as of 07/21/2022) [facility]22 History of Past illness Narrative* Problem Noted Date Resolved Date Chest pain 11/22/2021 01/19/2022 Elevated troponin 11/22/2021 01/19/2022 Chronic obstructive pulmonary disease 01/16/2019 01/19/2022 Last Assessment & Plan: Assessment: Lungs clear. Using Albuterol every other night typically. Not using Spiriva. PFTs showed restriction 01/2019. SOB with stairs, [place]. Former smoker. Following with Dr. Butt. 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 Wonder if related to carbon monoxide inhalation. Last Assessment & Plan: Assessment: Recent hospital admission 12/2018 - thought to be due to acute hypoxemic event (inhaling gas fumes in the garage). EEG showed encephalopathy. No recent seizures. Stopped Depakote due to SE. Vertigo 07/21/2022 Last Assessment & Plan: Assessment: Has PRN Meclizine. Last used 2 weeks ago. documented as of this encounter (statuses as of 07/21/2022) [facility]22 History of Past illness Narrative* Problem Noted Date Resolved Date Chest pain 11/22/2021 01/19/2022 Elevated troponin 11/22/2021 01/19/2022 Chronic obstructive pulmonary disease 01/16/2019 01/19/2022 Last Assessment & Plan: Assessment: Lungs clear. Using Albuterol every other night typically. Not using Spiriva. PFTs showed restriction 01/2019. SOB with stairs, [place]. Former smoker. Following with Dr. Butt. 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 Wonder if related to carbon monoxide inhalation. Last Assessment & Plan: Assessment: Recent hospital admission 12/2018 - thought to be due to acute hypoxemic event (inhaling gas fumes in the garage). EEG showed encephalopathy. No recent seizures. Stopped Depakote due to SE. Vertigo 07/21/2022 Last Assessment & Plan: Assessment: Has PRN Meclizine. Last used 2 weeks ago. documented as of this encounter (statuses as of 07/21/2022) [facility]22 History of Past illness Narrative* Problem Noted Date Resolved Date Chest pain 11/22/2021 01/19/2022 Elevated troponin 11/22/2021 01/19/2022 Chronic obstructive pulmonary disease 01/16/2019 01/19/2022 Last Assessment & Plan: Assessment: Lungs clear. Using Albuterol every other night typically. Not using Spiriva. PFTs showed restriction 01/2019. SOB with stairs, [place]. Former smoker. Following with Dr. Butt. 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 Wonder if related to carbon monoxide inhalation. Last Assessment & Plan: Assessment: Recent hospital admission 12/2018 - thought to be due to acute hypoxemic event (inhaling gas fumes in the garage). EEG showed encephalopathy. No recent seizures. Stopped Depakote due to SE. Vertigo 07/21/2022 Last Assessment & Plan: Assessment: Has PRN Meclizine. Last used 2 weeks ago. documented as of this encounter (statuses as of 08/04/2022) [facility]22 History of Past illness Narrative* Problem Noted Date Resolved Date Chest pain 11/22/2021 01/19/2022 Elevated troponin 11/22/2021 01/19/2022 Chronic obstructive pulmonary disease 01/16/2019 01/19/2022 Last Assessment & Plan: Assessment: Lungs clear. Using Albuterol every other night typically. Not using Spiriva. PFTs showed restriction 01/2019. SOB with stairs, [place]. Former smoker. Following with Dr. Butt. 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 Wonder if related to carbon monoxide inhalation. Last Assessment & Plan: Assessment: Recent hospital admission 12/2018 - thought to be due to acute hypoxemic event (inhaling gas fumes in the garage). EEG showed encephalopathy. No recent seizures. Stopped Depakote due to SE. Vertigo 07/21/2022 Last Assessment & Plan: Assessment: Has PRN Meclizine. Last used 2 weeks ago. documented as of this encounter (statuses as of 09/06/2022) [facility]22 History of Past illness Narrative* Problem Noted Date Resolved Date Chest pain 11/22/2021 01/19/2022 Elevated troponin 11/22/2021 01/19/2022 Chronic obstructive pulmonary disease 01/16/2019 01/19/2022 Last Assessment & Plan: Assessment: Lungs clear. Using Albuterol every other night typically. Not using Spiriva. PFTs showed restriction 01/2019. SOB with stairs, [place]. Former smoker. Following with Dr. Butt. 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 Wonder if related to carbon monoxide inhalation. Last Assessment & Plan: Assessment: Recent hospital admission 12/2018 - thought to be due to acute hypoxemic event (inhaling gas fumes in the garage). EEG showed encephalopathy. No recent seizures. Stopped Depakote due to SE. Vertigo 07/21/2022 Last Assessment & Plan: Assessment: Has PRN Meclizine. Last used 2 weeks ago. documented as of this encounter (statuses as of 09/14/2022) [facility] History of Past illness Narrative* Problem Noted Date Resolved Date Chest pain 11/22/2021 01/19/2022 Elevated troponin 11/22/2021 01/19/2022 Chronic obstructive pulmonary disease 01/16/2019 01/19/2022 Last Assessment & Plan: Assessment: Lungs clear. Using Albuterol every other night typically. Not using Spiriva. PFTs showed restriction 01/2019. SOB with stairs, [place]. Former smoker. Following with Dr. Butt. 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 Wonder if related to carbon monoxide inhalation. Last Assessment & Plan: Assessment: Recent hospital admission 12/2018 - thought to be due to acute hypoxemic event (inhaling gas fumes in the garage). EEG showed encephalopathy. No recent seizures. Stopped Depakote due to SE. Vertigo 07/21/2022 Last Assessment & Plan: Assessment: Has PRN Meclizine. Last used 2 weeks ago. documented as of this encounter (statuses as of 09/20/2022) [facility] History of Past illness Narrative* Problem Noted Date Resolved Date Chest pain 11/22/2021 01/19/2022 Elevated troponin 11/22/2021 01/19/2022 Chronic obstructive pulmonary disease 01/16/2019 01/19/2022 Last Assessment & Plan: Assessment: Lungs clear. Using Albuterol every other night typically. Not using Spiriva. PFTs showed restriction 01/2019. SOB with stairs, [place]. Former smoker. Following with Dr. Butt. 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 Wonder if related to carbon monoxide inhalation. Last Assessment & Plan: Assessment: Recent hospital admission 12/2018 - thought to be due to acute hypoxemic event (inhaling gas fumes in the garage). EEG showed encephalopathy. No recent seizures. Stopped Depakote due to SE. Vertigo 07/21/2022 Last Assessment & Plan: Assessment: Has PRN Meclizine. Last used 2 weeks ago. documented as of this encounter (statuses as of 09/30/2022) [facility] History of Past illness Narrative* Problem Noted Date Resolved Date Chest pain 11/22/2021 01/19/2022 Elevated troponin 11/22/2021 01/19/2022 Chronic obstructive pulmonary disease 01/16/2019 01/19/2022 Last Assessment & Plan: Assessment: Lungs clear. Using Albuterol every other night typically. Not using Spiriva. PFTs showed restriction 01/2019. SOB with stairs, [place]. Former smoker. Following with Dr. Butt. 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 Wonder if related to carbon monoxide inhalation. Last Assessment & Plan: Assessment: Recent hospital admission 12/2018 - thought to be due to acute hypoxemic event (inhaling gas fumes in the garage). EEG showed encephalopathy. No recent seizures. Stopped Depakote due to SE. Vertigo 07/21/2022 Last Assessment & Plan: Assessment: Has PRN Meclizine. Last used 2 weeks ago. documented as of this encounter (statuses as of 10/05/2022) [facility] History of Past illness Narrative* Problem Noted Date Resolved Date Chest pain 11/22/2021 01/19/2022 Elevated troponin 11/22/2021 01/19/2022 Chronic obstructive pulmonary disease 01/16/2019 01/19/2022 Last Assessment & Plan: Assessment: Lungs clear. Using Albuterol every other night typically. Not using Spiriva. PFTs showed restriction 01/2019. SOB with stairs, [place]. Former smoker. Following with Dr. Butt. 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 Wonder if related to carbon monoxide inhalation. Last Assessment & Plan: Assessment: Recent hospital admission 12/2018 - thought to be due to acute hypoxemic event (inhaling gas fumes in the garage). EEG showed encephalopathy. No recent seizures. Stopped Depakote due to SE. Vertigo 07/21/2022 Last Assessment & Plan: Assessment: Has PRN Meclizine. Last used 2 weeks ago. documented as of this encounter (statuses as of 10/15/2022) [facility]-21-2022 History of Past illness Narrative* Problem Noted Date Resolved Date Chest pain 11/22/2021 01/19/2022 Elevated troponin 11/22/2021 01/19/2022 Chronic obstructive pulmonary disease 01/16/2019 01/19/2022 Last Assessment & Plan: Assessment: Lungs clear. Using Albuterol every other night typically. Not using Spiriva. PFTs showed restriction 01/2019. SOB with stairs, [place] ground [place]. Former smoker. Following with Dr. Butt. 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 Wonder if related to carbon monoxide inhalation. Last Assessment & Plan: Assessment: Recent hospital admission 12/2018 - thought to be due to acute hypoxemic event (inhaling gas fumes in the garage). EEG showed encephalopathy. No recent seizures. Stopped Depakote due to SE. Vertigo 07/21/2022 Last Assessment & Plan: Assessment: Has PRN Meclizine. Last used 2 weeks ago. documented as of this encounter (statuses as of 10/24/2022) [facility]-21[facility]2022 History of Past illness Narrative* Problem Noted Date Resolved Date Chest pain 11/22/2021 01/19/2022 Elevated troponin 11/22/2021 01/19/2022 Chronic obstructive pulmonary disease 01/16/2019 01/19/2022 Last Assessment & Plan: Assessment: Lungs clear. Using Albuterol every other night typically. Not using Spiriva. PFTs showed restriction 01/2019. SOB with stairs, [place] ground [place]. Former smoker. Following with Dr. Butt. 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 Wonder if related to carbon monoxide inhalation. Last Assessment & Plan: Assessment: Recent hospital admission 12/2018 - thought to be due to acute hypoxemic event (inhaling gas fumes in the garage). EEG showed encephalopathy. No recent seizures. Stopped Depakote due to SE. Vertigo 07/21/2022 Last Assessment & Plan: Assessment: Has PRN Meclizine. Last used 2 weeks ago. documented as of this encounter (statuses as of 11/07/2022) [facility]-21[facility]2022 History of Past illness Narrative* Problem Noted Date Resolved Date Chest pain 11/22/2021 01/19/2022 Elevated troponin 11/22/2021 01/19/2022 Chronic obstructive pulmonary disease 01/16/2019 01/19/2022 Last Assessment & Plan: Assessment: Lungs clear. Using Albuterol every other night typically. Not using Spiriva. PFTs showed restriction 01/2019. SOB with stairs, [place] ground [place]. Former smoker. Following with Dr. Butt. 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 Wonder if related to carbon monoxide inhalation. Last Assessment & Plan: Assessment: Recent hospital admission 12/2018 - thought to be due to acute hypoxemic event (inhaling gas fumes in the garage). EEG showed encephalopathy. No recent seizures. Stopped Depakote due to SE. Vertigo 07/21/2022 Last Assessment & Plan: Assessment: Has PRN Meclizine. Last used 2 weeks ago. documented as of this encounter (statuses as of 11/15/2022) [facility]2022 History of Past illness Narrative* Problem Noted Date Resolved Date Chest pain 11/22/2021 01/19/2022 Elevated troponin 11/22/2021 01/19/2022 Chronic obstructive pulmonary disease 01/16/2019 01/19/2022 Last Assessment & Plan: Assessment: Lungs clear. Using Albuterol every other night typically. Not using Spiriva. PFTs showed restriction 01/2019. SOB with stairs, [place] ground [place]. Former smoker. Following with Dr. Butt. 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 Wonder if related to carbon monoxide inhalation. Last Assessment & Plan: Assessment: Recent hospital admission 12/2018 - thought to be due to acute hypoxemic event (inhaling gas fumes in the garage). EEG showed encephalopathy. No recent seizures. Stopped Depakote due to SE. Vertigo 07/21/2022 Last Assessment & Plan: Assessment: Has PRN Meclizine. Last used 2 weeks ago. documented as of this encounter (statuses as of 11/23/2022) [facility]21[facility]2022 History of Past illness Narrative* Problem Noted Date Resolved Date Chest pain 11/22/2021 01/19/2022 Elevated troponin 11/22/2021 01/19/2022 Chronic obstructive pulmonary disease 01/16/2019 01/19/2022 Last Assessment & Plan: Assessment: Lungs clear. Using Albuterol every other night typically. Not using Spiriva. PFTs showed restriction 01/2019. SOB with stairs, [place] ground [place]. Former smoker. Following with Dr. Butt. 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 Wonder if related to carbon monoxide inhalation. Last Assessment & Plan: Assessment: Recent hospital admission 12/2018 - thought to be due to acute hypoxemic event (inhaling gas fumes in the garage). EEG showed encephalopathy. No recent seizures. Stopped Depakote due to SE. Vertigo 07/21/2022 Last Assessment & Plan: Assessment: Has PRN Meclizine. Last used 2 weeks ago. documented as of this encounter (statuses as of 11/28/2022) [facility]2022 History of Past illness Narrative* Problem Noted Date Resolved Date Chest pain 11/22/2021 01/19/2022 Elevated troponin 11/22/2021 01/19/2022 Chronic obstructive pulmonary disease 01/16/2019 01/19/2022 Last Assessment & Plan: Assessment: Lungs clear. Using Albuterol every other night typically. Not using Spiriva. PFTs showed restriction 01/2019. SOB with stairs, [place] ground [place]. Former smoker. Following with Dr. Butt. 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 Wonder if related to carbon monoxide inhalation. Last Assessment & Plan: Assessment: Recent hospital admission 12/2018 - thought to be due to acute hypoxemic event (inhaling gas fumes in the garage). EEG showed encephalopathy. No recent seizures. Stopped Depakote due to SE. Vertigo 07/21/2022 Last Assessment & Plan: Assessment: Has PRN Meclizine. Last used 2 weeks ago. documented as of this encounter (statuses as of 11/29/2022) [facility]21[facility]2022 History of Past illness Narrative* Problem Noted Date Resolved Date Chest pain 11/22/2021 01/19/2022 Elevated troponin 11/22/2021 01/19/2022 Chronic obstructive pulmonary disease 01/16/2019 01/19/2022 Last Assessment & Plan: Assessment: Lungs clear. Using Albuterol every other night typically. Not using Spiriva. PFTs showed restriction 01/2019. SOB with stairs, [place] ground [place]. Former smoker. Following with Dr. Butt. 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 Wonder if related to carbon monoxide inhalation. Last Assessment & Plan: Assessment: Recent hospital admission 12/2018 - thought to be due to acute hypoxemic event (inhaling gas fumes in the garage). EEG showed encephalopathy. No recent seizures. Stopped Depakote due to SE. Vertigo 07/21/2022 Last Assessment & Plan: Assessment: Has PRN Meclizine. Last used 2 weeks ago. documented as of this encounter (statuses as of 12/23/2022) [facility]21[facility]2022 History of Past illness Narrative* Problem Noted Date Resolved Date Chest pain 11/22/2021 01/19/2022 Elevated troponin 11/22/2021 01/19/2022 Chronic obstructive pulmonary disease 01/16/2019 01/19/2022 Last Assessment & Plan: Assessment: Lungs clear. Using Albuterol every other night typically. Not using Spiriva. PFTs showed restriction 01/2019. SOB with stairs, [place] ground [place]. Former smoker. Following with Dr. Butt. 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 Wonder if related to carbon monoxide inhalation. Last Assessment & Plan: Assessment: Recent hospital admission 12/2018 - thought to be due to acute hypoxemic event (inhaling gas fumes in the garage). EEG showed encephalopathy. No recent seizures. Stopped Depakote due to SE. Vertigo 07/21/2022 Last Assessment & Plan: Assessment: Has PRN Meclizine. Last used 2 weeks ago. documented as of this encounter (statuses as of 01/09/2023) [facility]21[facility]2022 History of Past illness Narrative* Problem Noted Date Resolved Date Chest pain 11/22/2021 01/19/2022 Elevated troponin 11/22/2021 01/19/2022 Chronic obstructive pulmonary disease 01/16/2019 01/19/2022 Last Assessment & Plan: Assessment: Lungs clear. Using Albuterol every other night typically. Not using Spiriva. PFTs showed restriction 01/2019. SOB with stairs, [place]. Former smoker. Following with Dr. Butt. 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 Wonder if related to carbon monoxide inhalation. Last Assessment & Plan: Assessment: Recent hospital admission 12/2018 - thought to be due to acute hypoxemic event (inhaling gas fumes in the garage). EEG showed encephalopathy. No recent seizures. Stopped Depakote due to SE. Vertigo 07/21/2022 Last Assessment & Plan: Assessment: Has PRN Meclizine. Last used 2 weeks ago. documented as of this encounter (statuses as of 03/09/2023) [facility]21[facility]2022 History of Past illness Narrative* Problem Noted Date Diagnosed Date Resolved Date Chest pain 11/22/2021 01/19/2022 Elevated troponin 11/22/2021 01/19/2022 Chronic obstructive pulmonary disease 01/16/2019 01/19/2022 Last Assessment & Plan: Assessment: Lungs clear. Using Albuterol every other night typically. Not using Spiriva. PFTs showed restriction 01/2019. SOB with stairs, [place]. Former smoker. Following with Dr. Butt. 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 Wonder if related to carbon monoxide inhalation. Last Assessment & Plan: Assessment: Recent hospital admission 12/2018 - thought to be due to acute hypoxemic event (inhaling gas fumes in the garage). EEG showed encephalopathy. No recent seizures. Stopped Depakote due to SE. Vertigo 07/21/2022 Last Assessment & Plan: Assessment: Has PRN Meclizine. Last used 2 weeks ago. documented as of this encounter (statuses as of 03/24/2023) [facility]21[facility]2022 History of Past illness Narrative* Problem Noted Date Diagnosed Date Resolved Date Chest pain 11/22/2021 01/19/2022 Elevated troponin 11/22/2021 01/19/2022 Chronic obstructive pulmonary disease 01/16/2019 01/19/2022 Last Assessment & Plan: Assessment: Lungs clear. Using Albuterol every other night typically. Not using Spiriva. PFTs showed restriction 01/2019. SOB with stairs, [place]. Former smoker. Following with Dr. Butt. 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 Wonder if related to carbon monoxide inhalation. Last Assessment & Plan: Assessment: Recent hospital admission 12/2018 - thought to be due to acute hypoxemic event (inhaling gas fumes in the garage). EEG showed encephalopathy. No recent seizures. Stopped Depakote due to SE. Vertigo 07/21/2022 Last Assessment & Plan: Assessment: Has PRN Meclizine. Last used 2 weeks ago. documented as of this encounter (statuses as of 04/25/2023) [facility]21[facility]2022 History of Past illness Narrative* Problem Noted Date Diagnosed Date Resolved Date Chest pain 11/22/2021 01/19/2022 Elevated troponin 11/22/2021 01/19/2022 Chronic obstructive pulmonary disease 01/16/2019 01/19/2022 Last Assessment & Plan: Assessment: Lungs clear. Using Albuterol every other night typically. Not using Spiriva. PFTs showed restriction 01/2019. SOB with stairs, [place]. Former smoker. Following with Dr. Butt. 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 Wonder if related to carbon monoxide inhalation. Last Assessment & Plan: Assessment: Recent hospital admission 12/2018 - thought to be due to acute hypoxemic event (inhaling gas fumes in the garage). EEG showed encephalopathy. No recent seizures. Stopped Depakote due to SE. Vertigo 07/21/2022 Last Assessment & Plan: Assessment: Has PRN Meclizine. Last used 2 weeks ago. documented as of this encounter (statuses as of 05/03/2023) [facility]2022 History of Past illness Narrative* Problem Noted Date Diagnosed Date Resolved Date Chest pain 11/22/2021 01/19/2022 Elevated troponin 11/22/2021 01/19/2022 Chronic obstructive pulmonary disease 01/16/2019 01/19/2022 Last Assessment & Plan: Assessment: Lungs clear. Using Albuterol every other night typically. Not using Spiriva. PFTs showed restriction 01/2019. SOB with stairs, [place]. Former smoker. Following with Dr. Butt. 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 Wonder if related to carbon monoxide inhalation. Last Assessment & Plan: Assessment: Recent hospital admission 12/2018 - thought to be due to acute hypoxemic event (inhaling gas fumes in the garage). EEG showed encephalopathy. No recent seizures. Stopped Depakote due to SE. Vertigo 07/21/2022 Last Assessment & Plan: Assessment: Has PRN Meclizine. Last used 2 weeks ago. documented as of this encounter (statuses as of 05/12/2023) [facility]2022 History of Past illness Narrative* Problem Noted Date Diagnosed Date Resolved Date Chest pain 11/22/2021 01/19/2022 Elevated troponin 11/22/2021 01/19/2022 Chronic obstructive pulmonary disease 01/16/2019 01/19/2022 Last Assessment & Plan: Assessment: Lungs clear. Using Albuterol every other night typically. Not using Spiriva. PFTs showed restriction 01/2019. SOB with stairs, [place]. Former smoker. Following with Dr. Butt. 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 Wonder if related to carbon monoxide inhalation. Last Assessment & Plan: Assessment: Recent hospital admission 12/2018 - thought to be due to acute hypoxemic event (inhaling gas fumes in the garage). EEG showed encephalopathy. No recent seizures. Stopped Depakote due to SE. Vertigo 07/21/2022 Last Assessment & Plan: Assessment: Has PRN Meclizine. Last used 2 weeks ago. documented as of this encounter (statuses as of 05/22/2023) [facility]22 History of Past illness Narrative* Problem Noted Date Diagnosed Date Resolved Date Chest pain 11/22/2021 01/19/2022 Elevated troponin 11/22/2021 01/19/2022 Chronic obstructive pulmonary disease 01/16/2019 01/19/2022 Last Assessment & Plan: Assessment: Lungs clear. Using Albuterol every other night typically. Not using Spiriva. PFTs showed restriction 01/2019. SOB with stairs, [place] ground [place]. Former smoker. Following with Dr. Butt. 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 Wonder if related to carbon monoxide inhalation. Last Assessment & Plan: Assessment: Recent hospital admission 12/2018 - thought to be due to acute hypoxemic event (inhaling gas fumes in the garage). EEG showed encephalopathy. No recent seizures. Stopped Depakote due to SE. Vertigo 07/21/2022 Last Assessment & Plan: Assessment: Has PRN Meclizine. Last used 2 weeks ago. documented as of this encounter (statuses as of 06/27/2023) [facility]-21-2022 History of Past illness Narrative* Problem Noted Date Diagnosed Date Resolved Date Chest pain 11/22/2021 01/19/2022 Elevated troponin 11/22/2021 01/19/2022 Chronic obstructive pulmonary disease 01/16/2019 01/19/2022 Last Assessment & Plan: Assessment: Lungs clear. Using Albuterol every other night typically. Not using Spiriva. PFTs showed restriction 01/2019. SOB with stairs, flat ground [place]. Former smoker. Following with Dr. Butt. 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 Wonder if related to carbon monoxide inhalation. Last Assessment & Plan: Assessment: Recent hospital admission 12/2018 - thought to be due to acute hypoxemic event (inhaling gas fumes in the garage). EEG showed encephalopathy. No recent seizures. Stopped Depakote due to SE. Vertigo 07/21/2022 Last Assessment & Plan: Assessment: Has PRN Meclizine. Last used 2 weeks ago. documented as of this encounter (statuses as of 07/11/2023) [facility]2022 History of Past illness Narrative* Problem Noted Date Diagnosed Date Resolved Date Chest pain 11/22/2021 01/19/2022 Elevated troponin 11/22/2021 01/19/2022 Chronic obstructive pulmonary disease 01/16/2019 01/19/2022 Last Assessment & Plan: Assessment: Lungs clear. Using Albuterol every other night typically. Not using Spiriva. PFTs showed restriction 01/2019. SOB with stairs, flat ground [place]. Former smoker. Following with Dr. Butt. 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 Wonder if related to carbon monoxide inhalation. Last Assessment & Plan: Assessment: Recent hospital admission 12/2018 - thought to be due to acute hypoxemic event (inhaling gas fumes in the garage). EEG showed encephalopathy. No recent seizures. Stopped Depakote due to SE. Vertigo 07/21/2022 Last Assessment & Plan: Assessment: Has PRN Meclizine. Last used 2 weeks ago. documented as of this encounter (statuses as of 07/11/2023) [facility]2022 History of Past illness Narrative* Problem Noted Date Diagnosed Date Resolved Date Chest pain 11/22/2021 01/19/2022 Elevated troponin 11/22/2021 01/19/2022 Chronic obstructive pulmonary disease 01/16/2019 01/19/2022 Last Assessment & Plan: Assessment: Lungs clear. Using Albuterol every other night typically. Not using Spiriva. PFTs showed restriction 01/2019. SOB with stairs, [place] ground [place]. Former smoker. Following with Dr. Butt. 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 Wonder if related to carbon monoxide inhalation. Last Assessment & Plan: Assessment: Recent hospital admission 12/2018 - thought to be due to acute hypoxemic event (inhaling gas fumes in the garage). EEG showed encephalopathy. No recent seizures. Stopped Depakote due to SE. Vertigo 07/21/2022 Last Assessment & Plan: Assessment: Has PRN Meclizine. Last used 2 weeks ago. documented as of this encounter (statuses as of 07/13/2023) [facility]2022 History of Past illness Narrative* Problem Noted Date Diagnosed Date Resolved Date Chest pain 11/22/2021 01/19/2022 Elevated troponin 11/22/2021 01/19/2022 Chronic obstructive pulmonary disease 01/16/2019 01/19/2022 Last Assessment & Plan: Assessment: Lungs clear. Using Albuterol every other night typically. Not using Spiriva. PFTs showed restriction 01/2019. SOB with stairs, [place] ground [place]. Former smoker. Following with Dr. Butt. 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 Wonder if related to carbon monoxide inhalation. Last Assessment & Plan: Assessment: Recent hospital admission 12/2018 - thought to be due to acute hypoxemic event (inhaling gas fumes in the garage). EEG showed encephalopathy. No recent seizures. Stopped Depakote due to SE. Vertigo 07/21/2022 Last Assessment & Plan: Assessment: Has PRN Meclizine. Last used 2 weeks ago. documented as of this encounter (statuses as of 07/17/2023) [facility]2022 History of Past illness Narrative* Problem Noted Date Diagnosed Date Resolved Date Chest pain 11/22/2021 01/19/2022 Elevated troponin 11/22/2021 01/19/2022 Chronic obstructive pulmonary disease 01/16/2019 01/19/2022 Last Assessment & Plan: Assessment: Lungs clear. Using Albuterol every other night typically. Not using Spiriva. PFTs showed restriction 01/2019. SOB with stairs, [place] ground [place]. Former smoker. Following with Dr. Butt. 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 Wonder if related to carbon monoxide inhalation. Last Assessment & Plan: Assessment: Recent hospital admission 12/2018 - thought to be due to acute hypoxemic event (inhaling gas fumes in the garage). EEG showed encephalopathy. No recent seizures. Stopped Depakote due to SE. Vertigo 07/21/2022 Last Assessment & Plan: Assessment: Has PRN Meclizine. Last used 2 weeks ago. documented as of this encounter (statuses as of 07/18/2023) [facility]2022 History of Past illness Narrative* Problem Noted Date Diagnosed Date Resolved Date Chest pain 11/22/2021 01/19/2022 Elevated troponin 11/22/2021 01/19/2022 Chronic obstructive pulmonary disease 01/16/2019 01/19/2022 Last Assessment & Plan: Assessment: Lungs clear. Using Albuterol every other night typically. Not using Spiriva. PFTs showed restriction 01/2019. SOB with stairs, [place] ground [place]. Former smoker. Following with Dr. Butt. 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 Wonder if related to carbon monoxide inhalation. Last Assessment & Plan: Assessment: Recent hospital admission 12/2018 - thought to be due to acute hypoxemic event (inhaling gas fumes in the garage). EEG showed encephalopathy. No recent seizures. Stopped Depakote due to SE. Vertigo 07/21/2022 Last Assessment & Plan: Assessment: Has PRN Meclizine. Last used 2 weeks ago. documented as of this encounter (statuses as of 07/20/2023) [facility]2022 History of Past illness Narrative* Problem Noted Date Diagnosed Date Resolved Date Chest pain 11/22/2021 01/19/2022 Elevated troponin 11/22/2021 01/19/2022 Chronic obstructive pulmonary disease 01/16/2019 01/19/2022 Last Assessment & Plan: Assessment: Lungs clear. Using Albuterol every other night typically. Not using Spiriva. PFTs showed restriction 01/2019. SOB with stairs, [place] ground [place]. Former smoker. Following with Dr. Butt. 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 Wonder if related to carbon monoxide inhalation. Last Assessment & Plan: Assessment: Recent hospital admission 12/2018 - thought to be due to acute hypoxemic event (inhaling gas fumes in the garage). EEG showed encephalopathy. No recent seizures. Stopped Depakote due to SE. Vertigo 07/21/2022 Last Assessment & Plan: Assessment: Has PRN Meclizine. Last used 2 weeks ago. documented as of this encounter (statuses as of 07/21/2023) [facility]2022 History of Past illness Narrative* Problem Noted Date Diagnosed Date Resolved Date Chest pain 11/22/2021 01/19/2022 Elevated troponin 11/22/2021 01/19/2022 Chronic obstructive pulmonary disease 01/16/2019 01/19/2022 Last Assessment & Plan: Assessment: Lungs clear. Using Albuterol every other night typically. Not using Spiriva. PFTs showed restriction 01/2019. SOB with stairs, [place] ground [place]. Former smoker. Following with Dr. Butt. 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 Wonder if related to carbon monoxide inhalation. Last Assessment & Plan: Assessment: Recent hospital admission 12/2018 - thought to be due to acute hypoxemic event (inhaling gas fumes in the garage). EEG showed encephalopathy. No recent seizures. Stopped Depakote due to SE. Vertigo 07/21/2022 Last Assessment & Plan: Assessment: Has PRN Meclizine. Last used 2 weeks ago. documented as of this encounter (statuses as of 08/08/2023) [facility]2022 History of Past illness Narrative* Problem Noted Date Diagnosed Date Resolved Date Chest pain 11/22/2021 01/19/2022 Elevated troponin 11/22/2021 01/19/2022 Chronic obstructive pulmonary disease 01/16/2019 01/19/2022 Last Assessment & Plan: Assessment: Lungs clear. Using Albuterol every other night typically. Not using Spiriva. PFTs showed restriction 01/2019. SOB with stairs, [place] ground [place]. Former smoker. Following with Dr. Butt. 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 Wonder if related to carbon monoxide inhalation. Last Assessment & Plan: Assessment: Recent hospital admission 12/2018 - thought to be due to acute hypoxemic event (inhaling gas fumes in the garage). EEG showed encephalopathy. No recent seizures. Stopped Depakote due to SE. Vertigo 07/21/2022 Last Assessment & Plan: Assessment: Has PRN Meclizine. Last used 2 weeks ago. documented as of this encounter (statuses as of 08/14/2023) [facility]2022 History of Past illness Narrative* Problem Noted Date Diagnosed Date Resolved Date Chest pain 11/22/2021 01/19/2022 Elevated troponin 11/22/2021 01/19/2022 Chronic obstructive pulmonary disease 01/16/2019 01/19/2022 Last Assessment & Plan: Assessment: Lungs clear. Using Albuterol every other night typically. Not using Spiriva. PFTs showed restriction 01/2019. SOB with stairs, [place] ground [place]. Former smoker. Following with Dr. Butt. 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 Wonder if related to carbon monoxide inhalation. Last Assessment & Plan: Assessment: Recent hospital admission 12/2018 - thought to be due to acute hypoxemic event (inhaling gas fumes in the garage). EEG showed encephalopathy. No recent seizures. Stopped Depakote due to SE. Vertigo 07/21/2022 Last Assessment & Plan: Assessment: Has PRN Meclizine. Last used 2 weeks ago. documented as of this encounter (statuses as of 08/22/2023) [facility]21[facility]2022 History of Past illness Narrative* Problem Noted Date Diagnosed Date Resolved Date Chest pain 11/22/2021 01/19/2022 Elevated troponin 11/22/2021 01/19/2022 Chronic obstructive pulmonary disease 01/16/2019 01/19/2022 Last Assessment & Plan: Assessment: Lungs clear. Using Albuterol every other night typically. Not using Spiriva. PFTs showed restriction 01/2019. SOB with stairs, [place] ground [place]. Former smoker. Following with Dr. Butt. 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 Wonder if related to carbon monoxide inhalation. Last Assessment & Plan: Assessment: Recent hospital admission 12/2018 - thought to be due to acute hypoxemic event (inhaling gas fumes in the garage). EEG showed encephalopathy. No recent seizures. Stopped Depakote due to SE. Vertigo 07/21/2022 Last Assessment & Plan: Assessment: Has PRN Meclizine. Last used 2 weeks ago. documented as of this encounter (statuses as of 10/10/2023) [facility]2022 History of Past illness Narrative* Problem Noted Date Diagnosed Date Resolved Date Chest pain 11/22/2021 01/19/2022 Elevated troponin 11/22/2021 01/19/2022 Chronic obstructive pulmonary disease 01/16/2019 01/19/2022 Last Assessment & Plan: Assessment: Lungs clear. Using Albuterol every other night typically. Not using Spiriva. PFTs showed restriction 01/2019. SOB with stairs, [place] ground [place]. Former smoker. Following with Dr. Butt. 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 Wonder if related to carbon monoxide inhalation. Last Assessment & Plan: Assessment: Recent hospital admission 12/2018 - thought to be due to acute hypoxemic event (inhaling gas fumes in the garage). EEG showed encephalopathy. No recent seizures. Stopped Depakote due to SE. Vertigo 07/21/2022 Last Assessment & Plan: Assessment: Has PRN Meclizine. Last used 2 weeks ago. documented as of this encounter (statuses as of 10/18/2023) [facility]2022 History of Past illness Narrative* Problem Noted Date Diagnosed Date Resolved Date Chest pain 11/22/2021 01/19/2022 Elevated troponin 11/22/2021 01/19/2022 Chronic obstructive pulmonary disease 01/16/2019 01/19/2022 Last Assessment & Plan: Assessment: Lungs clear. Using Albuterol every other night typically. Not using Spiriva. PFTs showed restriction 01/2019. SOB with stairs, [place] ground [place]. Former smoker. Following with Dr. Butt. 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 Wonder if related to carbon monoxide inhalation. Last Assessment & Plan: Assessment: Recent hospital admission 12/2018 - thought to be due to acute hypoxemic event (inhaling gas fumes in the garage). EEG showed encephalopathy. No recent seizures. Stopped Depakote due to SE. Vertigo 07/21/2022 Last Assessment & Plan: Assessment: Has PRN Meclizine. Last used 2 weeks ago. documented as of this encounter (statuses as of 10/18/2023) [facility]2022 History of Past illness Narrative* Problem Noted Date Diagnosed Date Resolved Date Chest pain 11/22/2021 01/19/2022 Elevated troponin 11/22/2021 01/19/2022 Chronic obstructive pulmonary disease 01/16/2019 01/19/2022 Last Assessment & Plan: Assessment: Lungs clear. Using Albuterol every other night typically. Not using Spiriva. PFTs showed restriction 01/2019. SOB with stairs, [place] ground [place]. Former smoker. Following with Dr. Butt. 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 Wonder if related to carbon monoxide inhalation. Last Assessment & Plan: Assessment: Recent hospital admission 12/2018 - thought to be due to acute hypoxemic event (inhaling gas fumes in the garage). EEG showed encephalopathy. No recent seizures. Stopped Depakote due to SE. Vertigo 07/21/2022 Last Assessment & Plan: Assessment: Has PRN Meclizine. Last used 2 weeks ago. documented as of this encounter (statuses as of 10/18/2023) [facility]20[facility] History of Past illness Narrative* Problem Noted Date Diagnosed Date Resolved Date Chest pain 11/22/2021 01/19/2022 Elevated troponin 11/22/2021 01/19/2022 Chronic obstructive pulmonary disease 01/16/2019 01/19/2022 Last Assessment & Plan: Assessment: Lungs clear. Using Albuterol every other night typically. Not using Spiriva. PFTs showed restriction 01/2019. SOB with stairs, [place] ground [place]. Former smoker. Following with Dr. Butt. 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 Wonder if related to carbon monoxide inhalation. Last Assessment & Plan: Assessment: Recent hospital admission 12/2018 - thought to be due to acute hypoxemic event (inhaling gas fumes in the garage). EEG showed encephalopathy. No recent seizures. Stopped Depakote due to SE. Vertigo 07/21/2022 Last Assessment & Plan: Assessment: Has PRN Meclizine. Last used 2 weeks ago. documented as of this encounter (statuses as of 11/15/2023) [facility] History of Past illness Narrative* Problem Noted Date Diagnosed Date Resolved Date Chest pain 11/22/2021 01/19/2022 Elevated troponin 11/22/2021 01/19/2022 Chronic obstructive pulmonary disease 01/16/2019 01/19/2022 Last Assessment & Plan: Assessment: Lungs clear. Using Albuterol every other night typically. Not using Spiriva. PFTs showed restriction 01/2019. SOB with stairs, flat ground [place]. Former smoker. Following with Dr. Butt. 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 Wonder if related to carbon monoxide inhalation. Last Assessment & Plan: Assessment: Recent hospital admission 12/2018 - thought to be due to acute hypoxemic event (inhaling gas fumes in the garage). EEG showed encephalopathy. No recent seizures. Stopped Depakote due to SE. Vertigo 07/21/2022 Last Assessment & Plan: Assessment: Has PRN Meclizine. Last used 2 weeks ago. documented as of this encounter (statuses as of 11/16/2023) [facility] History of Past illness Narrative* Problem Noted Date Diagnosed Date Resolved Date Chest pain 11/22/2021 01/19/2022 Elevated troponin 11/22/2021 01/19/2022 Chronic obstructive pulmonary disease 01/16/2019 01/19/2022 Last Assessment & Plan: Assessment: Lungs clear. Using Albuterol every other night typically. Not using Spiriva. PFTs showed restriction 01/2019. SOB with stairs, flat ground [place]. Former smoker. Following with Dr. Butt. 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 Wonder if related to carbon monoxide inhalation. Last Assessment & Plan: Assessment: Recent hospital admission 12/2018 - thought to be due to acute hypoxemic event (inhaling gas fumes in the garage). EEG showed encephalopathy. No recent seizures. Stopped Depakote due to SE. Vertigo 07/21/2022 Last Assessment & Plan: Assessment: Has PRN Meclizine. Last used 2 weeks ago. documented as of this encounter (statuses as of 11/16/2023) [facility] History of Past illness Narrative* Problem Noted Date Diagnosed Date Resolved Date Chest pain 11/22/2021 01/19/2022 Elevated troponin 11/22/2021 01/19/2022 Chronic obstructive pulmonary disease 01/16/2019 01/19/2022 Last Assessment & Plan: Assessment: Lungs clear. Using Albuterol every other night typically. Not using Spiriva. PFTs showed restriction 01/2019. SOB with stairs, flat ground [place]. Former smoker. Following with Dr. Butt. 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 Wonder if related to carbon monoxide inhalation. Last Assessment & Plan: Assessment: Recent hospital admission 12/2018 - thought to be due to acute hypoxemic event (inhaling gas fumes in the garage). EEG showed encephalopathy. No recent seizures. Stopped Depakote due to SE. Vertigo 07/21/2022 Last Assessment & Plan: Assessment: Has PRN Meclizine. Last used 2 weeks ago. documented as of this encounter (statuses as of 11/16/2023) [facility] History of Past illness Narrative* Problem Noted Date Diagnosed Date Resolved Date Chest pain 11/22/2021 01/19/2022 Elevated troponin 11/22/2021 01/19/2022 Chronic obstructive pulmonary disease 01/16/2019 01/19/2022 Last Assessment & Plan: Assessment: Lungs clear. Using Albuterol every other night typically. Not using Spiriva. PFTs showed restriction 01/2019. SOB with stairs, flat ground [place]. Former smoker. Following with Dr. Butt. 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 Wonder if related to carbon monoxide inhalation. Last Assessment & Plan: Assessment: Recent hospital admission 12/2018 - thought to be due to acute hypoxemic event (inhaling gas fumes in the garage). EEG showed encephalopathy. No recent seizures. Stopped Depakote due to SE. Vertigo 07/21/2022 Last Assessment & Plan: Assessment: Has PRN Meclizine. Last used 2 weeks ago. documented as of this encounter (statuses as of 11/28/2023) [facility] History of Past illness Narrative* Problem Noted Date Diagnosed Date Resolved Date Chest pain 11/22/2021 01/19/2022 Elevated troponin 11/22/2021 01/19/2022 Chronic obstructive pulmonary disease 01/16/2019 01/19/2022 Last Assessment & Plan: Assessment: Lungs clear. Using Albuterol every other night typically. Not using Spiriva. PFTs showed restriction 01/2019. SOB with stairs, flat ground [place]. Former smoker. Following with Dr. Butt. 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 Wonder if related to carbon monoxide inhalation. Last Assessment & Plan: Assessment: Recent hospital admission 12/2018 - thought to be due to acute hypoxemic event (inhaling gas fumes in the garage). EEG showed encephalopathy. No recent seizures. Stopped Depakote due to SE. Vertigo 07/21/2022 Last Assessment & Plan: Assessment: Has PRN Meclizine. Last used 2 weeks ago. documented as of this encounter (statuses as of 12/13/2023) [facility]20[facility] Miscellaneous Notes* Telephone Encounter - Lisa Curtis RN - 11/22/2021 8:23 AM EDT Protocol recommended patient got to ER now due to moderate to severe SOB, among other symptoms. Patient and spouse agreeable-spouse states she will drive patient. Reason for Disposition [1] MODERATE difficulty breathing (e.g., speaks in phrases, SOB even at rest, pulse 100-120) AND [2] NEW-onset or WORSE than normal Answer Assessment - Initial Assessment Questions 1. RESPIRATORY STATUS: Only speaking in short sentences, inhaling deep breath between short sentences 2. ONSET: patient has chronic history but has worsened 3. PATTERN: constant since last night 4. SEVERITY:moderate to severe: SOB at rest, SOB becomes more severe with minimal exertion, prefersto sit, cannot lie down flat, speaks in phrases 5. RECURRENT SYMPTOM: 6. CARDIAC HISTORY: yes-see history 7. 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 CAUSE:patient unsure 9. OTHER SYMPTOMS:Having occasional dizziness. No runny nose, no cough, no chest pain, no fever 10. : n/a 11. TRAVEL: n/a Protocols used: BREATHING [id number] [facility] Miscellaneous Notes* Telephone Encounter - Aparna Thorne MD - 11/19/2021 11:21 AM EDT I agree he should see pulmonary medicine for evaluation for his lung nodules Aparna Thorne MD * Telephone Encounter - Keerthi Hazel MD - 11/19/2021 11:[address] shows some new nodules but no enlarged lymph nodes etc. Still shows an elevated diaphragm. Lets have him see pulmonary for completeness sake. [facility] History of Present illness Narrative* Keli Montelongo, RT(R) - 11/17/2021 12:10 PM EDT Radiology Service Progress Note PATIENT NAME: Ann Marie Elam DATE OF SERVICE: November 17, 2021 TIME: 12:10 PM PATIENT IDENTITY VERIFICATION COMPLETED USING TWO (2) IDENTIFIERS: Name and Date of confirmedby patient verbally. FALL SCREENING: Has the patient had 2 falls in the last year or 1 fall with injury or currently using an Ambulatory Assistive Device (Walker, Cane, Wheelchair, Crutches, etc.)? 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 03/09/2018 02/11/2019 Overview: Diagnosed 2017., repeat egd in three years Bright red blood per rectum 09/18/201702/2018 Overview: Added automatically from request for surgery [id number] Positive occult stool blood test 09/18/2017 03/09/2018 Overview: Added automatically from request for surgery [id number] Vascular catheter fitting or adjustment 09/18/19 18 04/21/2021 Overview: Added automatically from request for surgery [id number] Tobacco use disorder 11/29/2017 documented as of this encounter (statuses as of 12/02/2021) [facility] History of Past illness Narrative* Problem Noted Date Resolved Date 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 03/09/2018 02/11/2019 Overview: Diagnosed 2017., repeat egd in three years Bright red blood per rectum 09/18/201702/2018 Overview: Added automatically from request for surgery [id number] Positive occult stool blood test 09/18/2017 03/09/2018 Overview: Added automatically from request for surgery [id number] Vascular catheter fitting or adjustment 09/18/19 18 04/21/2021 Overview: Added automatically from request for surgery [id number] Tobacco use disorder 11/29/2017 documented as of this encounter (statuses as of 12/03/2021) [facility] History of Past illness Narrative* Problem Noted Date Resolved Date 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 03/09/2018 02/11/2019 Overview: Diagnosed 2017., repeat egd in three years Bright red blood per rectum 09/18/201702/2018 Overview: Added automatically from request for surgery [id number] Positive occult stool blood test 09/18/2017 03/09/2018 Overview: Added automatically from request for surgery [id number] Vascular catheter fitting or adjustment 09/18/19 18 04/21/2021 Overview: Added automatically from request for surgery [id number] Tobacco use disorder 11/29/2017 documented as of this encounter (statuses as of 12/04/2021) [facility] History of Past illness Narrative* Problem Noted Date Resolved Date 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 03/09/2018 02/11/2019 Overview: Diagnosed 2017., repeat egd in three years Bright red blood per rectum 09/18/201702/2018 Overview: Added automatically from request for surgery [id number] Positive occult stool blood test 09/18/2017 03/09/2018 Overview: Added automatically from request for surgery [id number] Vascular catheter fitting or adjustment 09/18/19 18 04/21/2021 Overview: Added automatically from request for surgery [id number] Tobacco use disorder 11/29/2017 documented as of this encounter (statuses as of 12/06/2021) [facility] History of Past illness Narrative* Problem Noted Date Resolved Date 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 03/09/2018 02/11/2019 Overview: Diagnosed 2017., repeat egd in three years Bright red blood per rectum 09/18/201702/2018 Overview: Added automatically from request for surgery [id number] Positive occult stool blood test 09/18/2017 03/09/2018 Overview: Added automatically from request for surgery [id number] Vascular catheter fitting or adjustment 09/18/19 18 04/21/2021 Overview: Added automatically from request for surgery [id number] Tobacco use disorder 11/29/2017 documented as of this encounter (statuses as of 12/10/2021) [facility] History of Past illness Narrative* Problem Noted Date Resolved Date 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 03/09/2018 02/11/2019 Overview: Diagnosed 2017., repeat egd in three years Bright red blood per rectum 09/18/201702/2018 Overview: Added automatically from request for surgery [id number] Positive occult stool blood test 09/18/2017 03/09/2018 Overview: Added automatically from request for surgery [id number] Vascular catheter fitting or adjustment 09/18/19 18 04/21/2021 Overview: Added automatically from request for surgery [id number] Tobacco use disorder 11/29/2017 documented as of this encounter (statuses as of 12/15/2021) [facility] History of Past illness Narrative* Problem Noted Date Resolved Date 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 03/09/2018 02/11/2019 Overview: Diagnosed 2017., repeat egd in three years Bright red blood per rectum 09/18/201702/2018 Overview: Added automatically from request for surgery [id number] Positive occult stool blood test 09/18/2017 03/09/2018 Overview: Added automatically from request for surgery [id number] Vascular catheter fitting or adjustment 09/18/19 18 04/21/2021 Overview: Added automatically from request for surgery [id number] Tobacco use disorder 11/29/2017 documented as of this encounter (statuses as of 12/22/2021) [facility] History of Past illness Narrative* Problem Noted Date Resolved Date 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 03/09/2018 02/11/2019 Overview: Diagnosed 2017., repeat egd in three years Bright red blood per rectum 09/18/201702/2018 Overview: Added automatically from request for surgery [id number] Positive occult stool blood test 09/18/2017 03/09/2018 Overview: Added automatically from request for surgery [id number] Vascular catheter fitting or adjustment 09/18/19 18 04/21/2021 Overview: Added automatically from request for surgery [id number] Tobacco use disorder 11/29/2017 documented as of this encounter (statuses as of 01/14/2022) [facility] History of Past illness Narrative* Problem Noted Date Resolved Date 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 03/09/2018 02/11/2019 Overview: Diagnosed 2017., repeat egd in three years Bright red blood per rectum 09/18/201702/2018 Overview: Added automatically from request for surgery [id number] Positive occult stool blood test 09/18/2017 03/09/2018 Overview: Added automatically from request for surgery [id number] Vascular catheter fitting or adjustment 09/18/19 18 04/21/2021 Overview: Added automatically from request for surgery [id number] Tobacco use disorder 11/29/2017 documented as of this encounter (statuses as of 01/15/2022) [facility] History of Past illness Narrative* Problem Noted Date Resolved Date 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 03/09/2018 02/11/2019 Overview: Diagnosed 2017., repeat egd in three years Bright red blood per rectum 09/18/201702/2018 Overview: Added automatically from request for surgery [id number] Positive occult stool blood test 09/18/2017 03/09/2018 Overview: Added automatically from request for surgery [id number] Vascular catheter fitting or adjustment 09/18/19 18 04/21/2021 Overview: Added automatically from request for surgery [id number] Tobacco use disorder 11/29/2017 documented as of this encounter (statuses as of 01/15/2022) [facility] of Past illness Narrative* Problem Noted Date Resolved Date 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 03/09/2018 02/11/2019 Overview: Diagnosed 2018., repeat egd in three years Bright red blood per rectum 09/18/201702/2018 Overview: Added automatically from request for surgery [id number] Positive occult stool blood test 09/18/2017 03/09/2018 Overview: Added automatically from request for surgery [id number] Vascular catheter fitting or adjustment 09/18/1904/21/2021 Overview: Added automatically from request for surgery [id number] Tobacco use disorder 11/29/2017 documented as of this encounter (statuses as of 01/18/2022) [facility] Diagnosis Elevated troponin- Primary Other abnormal blood chemistry Coronary artery disease of [place] heart with stable angina pectoris, unspecified vessel or lesion type (HCC) COPD with exacerbation (HCC) Obstructive chronic bronchitis with exacerbation Essential hypertension Unspecified essential hypertension Hyperlipidemia, unspecified hyperlipidemia type Abnormal abdominal CT scan Nonspecific (abnormal) findings on radiological and other examination of abdominal area, including retroperitoneum documented in this encounter [facility] note* Diagnosis Acquired elevated diaphragm- Primary Disorders of diaphragm Lung nodule Solitary pulmonary nodule [facility] Disorder of adrenal gland (HCC)- Primary Unspecified disorder of adrenal glands [facility]* Diagnosis Adrenal hyperplasia (HCC)- Primary Other specified disorders of adrenal glands [facility]* Diagnosis Adrenal hyperplasia (HCC)- Primary Other specified disorders of adrenal glands [facility]* Diagnosis Adrenal hyperplasia (HCC) Other specified disorders of adrenal glands [facility]* Diagnosis GERD with esophagitis [facility]* Diagnosis 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) Other malignant lymphomas of intra-abdominal lymph nodes [facility]* Diagnosis Diffuse large B-cell lymphoma of intra-abdominal lymph nodes (HCC) Other malignant lymphomas of intra-abdominal lymph nodes 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) [facility]* Diagnosis 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)- Primary Essential hypertension Unspecified essential hypertension Multiple renal cysts Diffuse large B-cell lymphoma of intra-abdominal lymph nodes (HCC) Other malignant lymphomas of intra-abdominal lymph nodes [facility]* Diagnosis Essential hypertension- Primary Unspecified essential hypertension Hyperlipidemia, unspecified hyperlipidemia type Coronary artery disease involving [place] coronary artery of [place] heart without angina pectoris Seizure disorder (HCC) Unspecified epilepsy without mention of intractable epilepsy 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) [facility]* Diagnosis 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)- Primary [facility]* Diagnosis Spinal stenosis, lumbar region without neurogenic claudication- Primary Lumbar radiculopathy Thoracic or lumbosacral neuritis or radiculitis, unspecified Chronic pain syndrome [facility]* Diagnosis 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)- Primary [facility]* Diagnosis Diffuse large B-cell lymphoma of intra-abdominal lymph nodes (HCC) Other malignant lymphomas of intra-abdominal lymph nodes Groin pain, right [facility] Diagnosis Diffuse large B-cell lymphoma of intra-abdominal lymph nodes (HCC)- Primary Other malignant lymphomas of intra-abdominal lymph nodes Groin pain, right 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) [facility] Diagnosis 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)- Primary documented in this encounter [facility]* Diagnosis Chronic obstructive pulmonary disease, unspecified COPD type (HCC)- Primary Lung nodules Other nonspecific abnormal finding of lung field Leg swelling Swelling of limb Diffuse large B-cell lymphoma, unspecified body region (HCC) documented in this encounter [facility]* Diagnosis Onset Date Resolution Status [id number] chronic Essential (primary) hypertension chronic Hyperlipemia, mixed chronic [facility] Work Phone: Evaluation note* Diagnosis Lumbar radiculopathy- Primary Thoracic or lumbosacral neuritis or radiculitis, unspecified Spinal stenosis, lumbar region with neurogenic claudication Chronic pain syndrome [facility]* Diagnosis Vitamin D deficiency Unspecified vitamin D deficiency Coronary artery disease involving [place] coronary artery of [place] heart without angina pectoris GERD with esophagitis documented in this encounter [facility]* Diagnosis Acute bronchitis with chronic obstructive pulmonary disease (COPD) (HCC)- Primary Obstructive chronic bronchitis with acute bronchitis 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) Other malignant lymphomas of intra-abdominal lymph nodes documented in this encounter [facility]* Diagnosis Seizure disorder (HCC)- Primary Unspecified epilepsy without mention of intractable epilepsy Coronary artery disease involving [place] coronary artery of [place] heart without angina pectoris Essential hypertension Unspecified essential hypertension Hyperlipidemia, unspecified hyperlipidemia type PAD (peripheral artery disease) (HCC) Peripheral vascular disease, unspecified Acute bronchitis with chronic obstructive pulmonary disease (COPD) (HCC) Obstructive chronic bronchitis with acute bronchitis Diffuse large B-cell lymphoma of intra-abdominal lymph nodes (HCC) Other malignant lymphomas of intra-abdominal lymph nodes [facility]* Diagnosis 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)- [facility] Diagnosis Chronic obstructive pulmonary disease, unspecified COPD type (HCC)- Primary Shortness of breath Diffuse large B-cell lymphoma, unspecified body region (HCC) Former smoker Personal history of tobacco use, presenting hazards to health Lung nodules Other nonspecific abnormal finding of lung field [facility] Diagnosis 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 [facility]* Diagnosis 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 [facility]* Diagnosis Vitamin D deficiency Unspecified vitamin D deficiency [facility]* Diagnosis 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 [facility] Diagnosis Chronic obstructive pulmonary disease, unspecified COPD type (HCC)- Primary 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 Former smoker Personal history of tobacco use, presenting hazards to health Lung nodules Other nonspecific abnormal finding of lung field Diffuse large B-cell lymphoma, unspecified body region (HCC) [facility] Diagnosis Chronic obstructive pulmonary disease, unspecified COPD type (HCC) [facility]* Diagnosis Spinal stenosis, lumbar region with neurogenic claudication- Primary Lumbar radiculopathy Thoracic or lumbosacral neuritis or radiculitis, unspecified Chronic pain syndrome [facility]* Diagnosis COPD with acute bronchitis (HCC)- Primary Obstructive chronic bronchitis with acute bronchitis [facility]* Diagnosis 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) Other malignant lymphomas of intra-abdominal lymph nodes [facility]* Diagnosis Chronic obstructive pulmonary disease, unspecified COPD type (HCC) [facility]* Diagnosis 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)- Primary [facility]* Diagnosis Osseous stenosis of neural canal of lumbar region- Primary Spinal stenosis, lumbar region, without neurogenic claudication DDD (degenerative disc disease), lumbar Degeneration of lumbar or lumbosacral intervertebral disc [facility]* Diagnosis DDD (degenerative disc disease), lumbar- Primary Degeneration of lumbar or lumbosacral intervertebral disc Osseous stenosis of neural canal of lumbar region Spinal stenosis, lumbar region, without neurogenic claudication documented in this encounter [facility]* Diagnosis Unspecified convulsions (CMS/HCC) [facility]* Diagnosis Bruit- Primary Other symptoms involving cardiovascular system PAD (peripheral artery disease) ([facility]) Peripheral vascular disease, unspecified Popliteal artery aneurysm (HCC) Aneurysm of artery of lower extremity documented in this encounter [facility]* Diagnosis GERD with esophagitis documented in this encounter [facility]* Diagnosis Chronic obstructive pulmonary disease, unspecified COPD type (HCC) GERD with esophagitis documented in this encounter [facility]* Diagnosis PAD (peripheral artery disease) ([facility])- Primary Peripheral vascular disease, unspecified Bilateral carotid artery stenosis Occlusion and stenosis of carotid artery without mention of cerebral infarction documented [facility] this encounter [facility]* Diagnosis Chronic obstructive pulmonary disease, unspecified COPD type (HCC)- Primary Elevated diaphragm Disorders of diaphragm Former smoker Personal history of tobacco use, presenting hazards to health Lung nodule Solitary pulmonary nodule documented in this encounter [facility]* Diagnosis 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)- Primary Diffuse large B-cell lymphoma of intra-abdominal lymph nodes (HCC) Other malignant lymphomas of intra-abdominal lymph nodes documented in this encounter [facility]* Diagnosis Acute otitis externa of right ear, unspecified type- Primary documented in this encounter [facility]* Diagnosis Bacterial pneumonia- Primary Bacterial pneumonia, unspecified Seizure disorder (HCC) Unspecified epilepsy without mention of intractable epilepsy Coronary artery disease of [place] heart with stable angina pectoris, unspecified vessel or lesion type ([facility]) Essential hypertension Unspecified essential hypertension Mixed hyperlipidemia PAD (peripheral artery disease) (HCC) Peripheral vascular disease, unspecified Chronic diastolic CHF (congestive heart failure) (HCC) Chronic diastolic heart failure Acute diastolic CHF (congestive heart failure) (HCC) Acute diastolic heart failure Chronic obstructive pulmonary disease, unspecified COPD type (HCC) Gastroesophageal reflux disease, unspecified whether esophagitis present Diffuse large B-cell lymphoma of intra-abdominal lymph nodes (HCC) Other malignant lymphomas of intra-abdominal lymph nodes Troponin level elevated Other abnormal blood chemistry Elevated brain natriuretic peptide (BNP) level Other nonspecific findings on examination of blood [facility]* Diagnosis Anemia, unspecified type- Primary documented in this encounter [facility]* Diagnosis Bacterial pneumonia- Primary Bacterial pneumonia, unspecified documented in this encounter [facility]* Diagnosis Preoperative examination- Primary Preoperative examination, unspecified Phimosis Redundant prepuce and phimosis Essential hypertension Unspecified essential hypertension Chronic obstructive pulmonary disease, unspecified COPD type (HCC) Coronary artery disease involving [place] coronary artery of [place] heart without angina pectoris Hyperlipidemia, unspecified hyperlipidemia type Gastroesophageal reflux disease with esophagitis PAD (peripheral artery disease) (HCC) Peripheral vascular disease, unspecified Bacterial pneumonia Bacterial pneumonia, unspecified [facility]* Diagnosis Obesity, Class I, BMI 30-34.9 Obesity, unspecified Preoperative examination- Primary Preoperative examination, unspecified Phimosis Redundant prepuce and phimosis Essential hypertension Unspecified essential hypertension Chronic obstructive pulmonary disease, unspecified COPD type (HCC) Coronary artery disease involving [place] coronary artery of [place] heart without angina pectoris Hyperlipidemia, unspecified hyperlipidemia type Gastroesophageal reflux disease with esophagitis PAD (peripheral artery disease) (HCC) Peripheral vascular disease, unspecified Acute pain of right shoulder Cough [facility]* Diagnosis Preoperative examination- Primary Preoperative examination, unspecified Phimosis Redundant prepuce and phimosis Essential hypertension Unspecified essential hypertension Chronic obstructive pulmonary disease, unspecified COPD type (HCC) Coronary artery disease involving [place] coronary artery of [place] heart without angina pectoris Hyperlipidemia, unspecified hyperlipidemia type Gastroesophageal reflux disease with esophagitis PAD (peripheral artery disease) (HCC) Peripheral vascular disease, unspecified Bilateral carotid artery stenosis- Primary Occlusion and stenosis of carotid artery without mention of cerebral infarction [facility]* Diagnosis Preoperative examination- Primary Preoperative examination, unspecified Phimosis Redundant prepuce and phimosis Essential hypertension Unspecified essential hypertension Chronic obstructive pulmonary disease, unspecified COPD type (HCC) Coronary artery disease involving [place] coronary artery of [place] heart without angina pectoris Hyperlipidemia, unspecified hyperlipidemia type Gastroesophageal reflux disease with esophagitis PAD (peripheral artery disease) (HCC) Peripheral vascular disease, unspecified Cough, unspecified type- Primary Seizure disorder (HCC) Unspecified epilepsy without mention of intractable epilepsy Coronary artery disease involving [place] coronary artery of [place] heart without angina pectoris Essential hypertension Unspecified essential hypertension Mixed hyperlipidemia Chronic diastolic CHF (congestive heart failure) (HCC) Chronic diastolic heart failure Acute diastolic CHF (congestive heart failure) (HCC) Acute diastolic heart failure PAD (peripheral artery disease) (HCC) Peripheral vascular disease, unspecified Chronic obstructive pulmonary disease, unspecified COPD type (HCC) Diffuse large B-cell lymphoma of intra-abdominal lymph nodes (HCC) Other malignant lymphomas of intra-abdominal lymph nodes Abnormal breath sounds Abnormal chest sounds Vitamin D deficiency Unspecified vitamin D deficiency Cough, unspecified type Abnormal breath sounds Abnormal chest sounds [facility]* Diagnosis Preoperative examination- Primary Preoperative examination, unspecified Phimosis Redundant prepuce and phimosis Essential hypertension Unspecified essential hypertension Chronic obstructive pulmonary disease, unspecified COPD type (HCC) Coronary artery disease involving [place] coronary artery of [place] heart without angina pectoris Hyperlipidemia, unspecified hyperlipidemia type Gastroesophageal reflux disease with esophagitis PAD (peripheral artery disease) (HCC) Peripheral vascular disease, unspecified Cough, unspecified type Abnormal breath sounds Abnormal chest sounds [facility]* Diagnosis Preoperative examination- Primary Preoperative examination, unspecified Phimosis Redundant prepuce and phimosis Essential hypertension Unspecified essential hypertension Chronic obstructive pulmonary disease, unspecified COPD type (HCC) Coronary artery disease involving [place] coronary artery of [place] heart without angina pectoris Hyperlipidemia, unspecified hyperlipidemia type Gastroesophageal reflux disease with esophagitis PAD (peripheral artery disease) (HCC) Peripheral vascular disease, unspecified Vitamin D deficiency- Primary Unspecified vitamin D deficiency [facility]* Diagnosis Preoperative examination- Primary Preoperative examination, unspecified Phimosis Redundant prepuce and phimosis Essential hypertension Unspecified essential hypertension Chronic obstructive pulmonary disease, unspecified COPD type (HCC) Coronary artery disease involving [place] coronary artery of [place] heart without angina pectoris Hyperlipidemia, unspecified hyperlipidemia type Gastroesophageal reflux disease with esophagitis PAD (peripheral artery disease) (HCC) Peripheral vascular disease, unspecified 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) Other malignant lymphomas of intra-abdominal lymph nodes documented in this encounter [facility]* Diagnosis Preoperative examination- Primary Preoperative examination, unspecified Phimosis Redundant prepuce and phimosis Essential hypertension Unspecified essential hypertension Chronic obstructive pulmonary disease, unspecified COPD type (HCC) Coronary artery disease involving [place] coronary artery of [place] heart without angina pectoris Hyperlipidemia, unspecified hyperlipidemia type Gastroesophageal reflux disease with esophagitis PAD (peripheral artery disease) (HCC) Peripheral vascular disease, unspecified 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)- Primary documented in this encounter [facility]* Diagnosis Preoperative examination- Primary Preoperative examination, unspecified Phimosis Redundant prepuce and phimosis Essential hypertension Unspecified essential hypertension Chronic obstructive pulmonary disease, unspecified COPD type (HCC) Coronary artery disease involving [place] coronary artery of [place] heart without angina pectoris Hyperlipidemia, unspecified hyperlipidemia type Gastroesophageal reflux disease with esophagitis PAD (peripheral artery disease) (HCC) Peripheral vascular disease, unspecified Mixed hyperlipidemia documented in this encounter [facility]* Diagnosis Preoperative examination- Primary Preoperative examination, unspecified Phimosis Redundant prepuce and phimosis Essential hypertension Unspecified essential hypertension Chronic obstructive pulmonary disease, unspecified COPD type (HCC) Coronary artery disease involving [place] coronary artery of [place] heart without angina pectoris Hyperlipidemia, unspecified hyperlipidemia type Gastroesophageal reflux disease with esophagitis PAD (peripheral artery disease) (HCC) Peripheral vascular disease, unspecified Seizure disorder (HCC)- Primary Unspecified epilepsy without mention of intractable epilepsy documented [facility] this [facility]* Diagnosis Preoperative examination- Primary Preoperative examination, unspecified Phimosis Redundant prepuce and phimosis Essential hypertension Unspecified essential hypertension Chronic obstructive pulmonary disease, unspecified COPD type (HCC) Coronary artery disease involving [place] coronary artery of [place] heart without angina pectoris Hyperlipidemia, unspecified hyperlipidemia type Gastroesophageal reflux disease with esophagitis PAD (peripheral artery disease) (HCC) Peripheral vascular disease, unspecified Seizure disorder (HCC)- Primary Unspecified epilepsy without mention of intractable epilepsy [facility]* Diagnosis Preoperative examination- Primary Preoperative examination, unspecified Phimosis Redundant prepuce and phimosis Essential hypertension Unspecified essential hypertension Chronic obstructive pulmonary disease, unspecified COPD type (HCC) Coronary artery disease involving [place] coronary artery of [place] heart without angina pectoris Hyperlipidemia, unspecified hyperlipidemia type Gastroesophageal reflux disease with esophagitis PAD (peripheral artery disease) (HCC) Peripheral vascular disease, unspecified 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)- Primary documented in this encounter [facility]* Diagnosis Preoperative examination- Primary Preoperative examination, unspecified Phimosis Redundant prepuce and phimosis Essential hypertension Unspecified essential hypertension Chronic obstructive pulmonary disease, unspecified COPD type (HCC) Coronary artery disease involving [place] coronary artery of [place] heart without angina pectoris Hyperlipidemia, unspecified hyperlipidemia type Gastroesophageal reflux disease with esophagitis PAD (peripheral artery disease) (HCC) Peripheral vascular disease, unspecified Nonintractable epilepsy without status epilepticus, unspecified epilepsy type (HCC)- Primary documented in this encounter [facility] note* Diagnosis Preoperative examination- Primary Preoperative examination, unspecified Phimosis Redundant prepuce and phimosis Essential hypertension Unspecified essential hypertension Chronic obstructive pulmonary disease, unspecified COPD type (HCC) Coronary artery disease involving [place] coronary artery of [place] heart without angina pectoris Hyperlipidemia, unspecified hyperlipidemia type Gastroesophageal reflux disease with esophagitis PAD (peripheral artery disease) (HCC) Peripheral vascular disease, unspecified GERD with esophagitis documented in this encounter [facility] note* Diagnosis Preoperative examination- Primary Preoperative examination, unspecified Phimosis Redundant prepuce and phimosis Essential hypertension Unspecified essential hypertension Chronic obstructive pulmonary disease, unspecified COPD type (HCC) Coronary artery disease involving [place] coronary artery of [place] heart without angina pectoris Hyperlipidemia, unspecified hyperlipidemia type Gastroesophageal reflux disease with esophagitis PAD (peripheral artery disease) Peripheral vascular disease, unspecified Essential hypertension- Primary Unspecified essential hypertension Coronary artery disease involving [place] coronary artery of [place] heart without angina pectoris Seizure disorder (HCC) Unspecified epilepsy without mention of intractable epilepsy Mixed hyperlipidemia Chronic diastolic CHF (congestive heart failure) (HCC) Chronic diastolic heart failure PAD (peripheral artery disease) Peripheral vascular disease, unspecified Chronic obstructive pulmonary disease, unspecified COPD type (HCC) Gastroesophageal reflux disease, unspecified whether esophagitis present Diffuse large B-cell lymphoma of intra-abdominal lymph nodes (HCC) Other malignant lymphomas of intra-abdominal lymph nodes Hypokalemia Hypopotassemia Degeneration of intervertebral disc of lumbar region, unspecified whether pain present Screening for diabetes mellitus Medication monitoring encounter Encounter for therapeutic drug monitoring Need for vaccination Need for prophylactic vaccination and inoculation against unspecified single disease documented in this encounter [facility] note* Diagnosis Preoperative examination- Primary Preoperative examination, unspecified Phimosis Redundant prepuce and phimosis Essential hypertension Unspecified essential hypertension Chronic obstructive pulmonary disease, unspecified COPD type (HCC) Coronary artery disease involving [place] coronary artery of [place] heart without angina pectoris Hyperlipidemia, unspecified hyperlipidemia type Gastroesophageal reflux disease with esophagitis PAD (peripheral artery disease) Peripheral vascular disease, unspecified Bilateral carotid artery stenosis- Primary Occlusion and stenosis of carotid artery without mention of cerebral infarction PAD (peripheral artery disease) Peripheral vascular disease, unspecified [facility] Diagnosis Onset Date Resolution Status Admit Date HERCULES (dyspnea on exertion) acute March 27, 2025 8:49am Atherosclerosis of [place] coronary artery of [place] heart without angina chronic March 27, 2025 8:49am Essential (primary) hypertension chr onic March 27, 2025 8:49am Hyperlipemia, mixed chronic March 27, 2025 8:49am [facility] Work Phone: [email or web address] for referral (narrative)* Diagnostic Procedure Only (Routine) - Closed Specialty Diagnoses / Procedures Referred By Puneet bonilla Referred To Contact XR IMAGING Diagnoses Diffuse large B-cell lymphoma of intra-abdominal lymph nodes (HCC) Groin pain, right Procedures XR HIP GENERAL 3V PELV/AP/LAT RIGHT RADEX HIP UNILATERAL WITH PELVIS 2-3 VIEWS Aparna Thorne MD [address] [place] [address] Xr Imaging Referral ID Status Reason Start Date Expiration Date V isits Requested Visits Authorized [id number] Closed Auto-Generate d Referral 03/21/2022 04/20/2023 1 1 [facility] for referral (narrative)* Diagnostic Procedure Only (Routine) - Closed Specialty Diagnoses / Procedures Referred By Puneet bonilla Referred To Contact XR IMAGING Diagnoses Diffuse large B-cell lymphoma of intra-abdominal lymph nodes (HCC) Groin pain, right Procedures XR HIP GENERAL 3V PELV/AP/LAT RIGHT RADEX HIP UNILATERAL WITH PELVIS 2-3 VIEWS Aparna Thorne MD [address] [place] [address] Xr Imaging Referral ID Status Reason Start Date Expiration Date V isits Requested Visits Authorized [id number] Closed Auto-Generate d Referral 03/21/2022 04/20/2023 1 1 [facility] for referral (narrative)* Outpatient Procedure (Routine) - Authorized Specialty Diagnoses / Procedures Referred By Contac t Referred To Contact [facility] Diagnoses Chronic obstructive pulmonary disease, unspecified COPD type (HCC) Shortness of breath Procedures ECHO ECHO TTHRC R-T 2D W/WOM-MODE COMPL SPEC&COLR D Loli Tran APRN.TRANSCRIPTIONIST [address] [place] [address] [place] [address] Referral ID Status Reason Start Date Expiration Date Visits Requested Visits Authorized [id number] Authorized Auto-Generat ed Referral 09/14/2022 09/14/2023 1 1 [facility] for referral (narrative)* Diagnostic Procedure Only (Routine) - Pending Review Specialty Diagnoses / Procedures Referred By Gunnarac t Referred To Contact XR IMAGING Diagnoses Hemidiaphragmatic eventration Procedures XR CHEST FLUORO SNIFF TEST FLUOROSCOPY UP TO 1 HOUR PHYSICIAN/QHP TIME Loli Tran APRN.TRANSCRIPTIONIST [address] [place] [address] Xr Imaging Referral ID Status Reason Start Date Expiration Date Visits Requested Visits Authorized [id number] Pending Review Auto-Generat ed Referral 09/20/2022 10/19/2023 1 1 * Outpatient Procedure (Routine) - Pending Review Specialty Diagnoses / Procedures Referred By Contac t Referred To Contact [facility] Diagnoses Hemidiaphragmatic eventration Procedures MIPS/MEPS UNLISTED PULMONARY SERVICE/PROCEDURE Loli Tran APRN.TRANSCRIPTIONIST [address] [place] [address] [facility] [address] [place] [address] Referral ID Status Reason Start Date Expiration Date Visits Requested Visits Authorized [id number] Pending Review Auto-Generat ed Referral 09/20/2022 10/19/2023 1 1 [facility] for referral (narrative)* Diagnostic Procedure Only (Routine) - Closed Specialty Diagnoses / Procedures Referred By Contac t Referred To Contact XR IMAGING Diagnoses Hemidiaphragmatic eventration Procedures XR CHEST FLUORO SNIFF TEST FLUOROSCOPY UP TO 1 HOUR PHYSICIAN/QHP TIME Loli Tran APRN.CNP [address] [place] [address] Xr Imaging Referral ID Status Reason Start Date Expiration Date V isits Requested Visits Authorized [id number] Closed Auto-Generate d Referral 09/20/2022 10/19/2023 1 1 [facility] for referral (narrative)* Outpatient Procedure (Routine) - Authorized Specialty Diagnoses / Procedures Referred By Contac t Referred To Contact [facility] Diagnoses Bruit Procedures US CAROTID ARTERIES [facility] DUPLEX SCAN EXTRACRANIAL ART COMPL BI STUDY Madison Chavarria DO [address] [place] [address] [facility] [address] [address] Referral ID Status Reason Start Date Expiration Date Visits Requested Visits Authorized [id number] Authorized Auto-Generat ed Referral 10/10/2023 10/09/2024 1 1 [facility] for referral (narrative)* Outpatient Procedure (Routine) - Authorized Specialty Diagnoses / Procedures Referred By Contac t Referred To Contact [facility] Diagnoses Bilateral carotid artery stenosis Procedures US CAROTID ARTERIES JOMAR [facility] LAB DUPLEX SCAN EXTRACRANIAL ART COMPL BI STUDY Madison Chavarria DO [address] [place] [address] [facility] [id number] [place] [address] Referral ID Status Reason Start Date Expiration Date Visits Requested Visits Authorized [id number] Authorized Auto-Generat ed Referral 11/28/2023 11/27/2024 1 1 * Outpatient Procedure (Routine) - Authorized Specialty Diagnoses / Procedures Referred By Contac t Referred To Contact [facility] Diagnoses PAD (peripheral artery disease) (HCC) Procedures PVR LEG [facility] NON-INVASIVE PHYSIOLOGIC STUDY EXTREMITY 3 LEVLS Madison Chavarria, DO [address] [place] [address] [address] Referral ID Status Reason Start Date Expiration Date Visits Requested Visits Authorized [id number] Authorized Auto-Generat ed Referral 11/28/2023 11/27/2024 1 1 [facility] for referral (narrative)* Diagnostic Procedure Only (Routine) - Closed Specialty Diagnoses / Procedures Referred By Contac t Referred To Contact XR IMAGING Diagnoses Acute pain of right shoulder Procedures XR SHOULDER GENERAL 3V OR MORE AP/TRUE AP/OTHER RIGHT RADEX SHOULDER COMPLETE MINIMUM 2 VIEWS Keerthi Hazel MD [facility] [place] [address] [place] [address] Referral ID Status Reason Start Date Expiration Date V isits Requested Visits Authorized [id number] Closed Auto-Generate d Referral 11/17/2021 12/17/2022 1 1 [facility] for referral (narrative)* Outpatient Procedure (Routine) - Authorized Specialty Diagnoses / Procedures Referred By Contac t Referred To Contact [facility] Diagnoses Bilateral carotid artery stenosis Procedures US CAROTID ARTERIES [facility] DUPLEX SCAN EXTRACRANIAL ART COMPL BI STUDY Madison Chavarria, DO [address] [place] [address] [facility] [address] [address] Referral ID Status Reason Start Date Expiration Date Visits Requested Visits Authorized [id number] Authorized Auto-Generat ed Referral 06/25/2025 1 1 [facility] for referral (narrative)* Outpatient Procedure (Routine) - New Request Specialty Diagnoses / Procedures Referred By Contac t Referred To Contact [facility] Diagnoses Seizure disorder (HCC) Procedures EPIL EEG LONG EEG EXTENDED MONITORING 61-119 MINUTES ELECTROENCEPHALOGRAM REC COMA/SLEEP ONLY Shital Díaz APRN.TRANSCRIPTIONIST [address] [place] [address] [facility] [address] [place] [address] Referral ID Status Reason Start Date Expiration Date Visits Requested Visits Authorized [id number] New Request Auto-Generat ed Referral 09/19/2024 09/19/2025 1 1 [facility] for referral (narrative)No reason for referral [facility] Phone: Reason for visit Narrative* Diagnostic Procedure Only (Routine) - Closed Specialty Diagnoses / Procedures Referred By Contac t Referred To Contact XR IMAGING Diagnoses Diffuse large B-cell lymphoma of intra-abdominal lymph nodes (HCC) Groin pain, right Procedures XR HIP GENERAL 3V PELV/AP/LAT RIGHT RADEX HIP UNILATERAL WITH PELVIS 2-3 VIEWS Aparna Thorne MD [address] [place] [address] Xr Imaging Referral ID Status Reason Start Date Expiration Date V isits Requested Visits Authorized [id number] Closed Auto-Generate d Referral 03/21/2022 04/20/2023 1 1 [facility] for visit Narrative* Diagnostic Procedure Only (Routine) - Closed Specialty Diagnoses / Procedures Referred By Contac t Referred To Contact XR IMAGING Diagnoses Hemidiaphragmatic eventration Procedures XR CHEST FLUORO SNIFF TEST FLUOROSCOPY UP TO 1 HOUR PHYSICIAN/QHP TIME Loli Tran APRN.TRANSCRIPTIONIST [address] [place] [address] Xr Imaging Referral ID Status Reason Start Date Expiration Date V isits Requested Visits Authorized [id number] Closed Auto-Generate d Referral 09/20/2022 10/19/2023 [facility] Diagnostic Procedure Only (Routine) - Closed Specialty Diagnoses / Procedures Referred By Contac t Referred To Contact XR IMAGING Diagnoses Acute pain of right shoulder Procedures XR SHOULDER GENERAL 3V OR MORE AP/TRUE AP/OTHER RIGHT RADEX SHOULDER COMPLETE MINIMUM 2 VIEWS Keerthi Hazel MD [address] [place] [address] [place] [address] Referral ID Status Reason Start Date Expiration Date V isits Requested Visits Authorized [id number] Closed Auto-Generate d Referral 11/17/2021 12/17/2022 1 1 [facility] Summary Purpose Family History No Family History Records Found Relationship Condition Age at Onset Recorded Date/T christine father Coronary artery disease Unknown mother Malignant neoplasm Unknown Coronary artery disease Unknown brother Coronary artery disease Unknown Myocardial infarction Unknown brother Aneurysm of thoracic aorta Unknown brother Hypertension Unknown sister Malignant neoplasm of breast Unknown sister Coronary artery disease Unknown History of coronary artery bypass surgery Unknown Advance Directives No Advanced Directives Records FoundDocuments on File Type Date Recorded Patient Line Out Man Expl anation Advance Directive(s) 05/03/2021 1:59 PM Date Activated Date Inactivated Comments 11/22/2021 6:45 PM 11/23/2021 5:24 PM Question Answer Comments Full Code Order Discussed With: Patient Latest Code Status on File Code Status Date Activated Date Inactivated Comments Full Code 11/22/2021 6:45 PM 11/23/2021 5:24 PM Full Code Order Discussed With: Patient Documents on File Type Date Recorded Patient Line Out Man Expl anation Advance Directive(s) 11/22/2021 10:29 AM Advance Directive(s) 05/03/2021 1:59 PM Advance Directive(s) 04/21/2021 10:46 AM Advance Directive(s) 04/13/2021 1:34 PM Advance Directive(s) 04/12/2021 12:33 PM Advance Directive(s) 04/09/2021 11:15 AM Advance Directive(s) 02/14/2019 12:49 PM Advance Directive(s) 12/20/2018 8:01 PM Advance Directive(s) 10/03/2017 10:09 AM Advance Directive(s) 09/22/2017 10:06 AM Documents on File Type Date Recorded Patient Line Out Man Expl anation Advance Directive(s) 11/22/2021 10:29 AM Advance Directive(s) 05/03/2021 1:59 PM Advance Directive(s) 04/21/2021 10:46 AM Advance Directive(s) 04/13/2021 1:34 PM Advance Directive(s) 04/12/2021 12:33 PM Advance Directive(s) 04/09/2021 11:15 AM Advance Directive(s) 02/14/2019 12:49 PM Advance Directive(s) 12/20/2018 8:01 PM Advance Directive(s) 10/03/2017 10:09 AM Advance Directive(s) 09/22/2017 10:06 AM Latest Code Status on File Code Status Date Activated Date Inactivated Comments Full Code 11/22/2021 6:45 PM 11/23/2021 5:24 PM Advance Directive Response Recorded Date/ Time Advance Directives No April 21, 2020 7:06am Living Will No May 26, 2021 11:33pm Power of Television News Reporter No May 11:33pm Documents on File Type Date Recorded Patient Line Out Man Expl anation Advance Directive(s) 05/03/2021 1:59 PM Latest Code Status on File Code Status Date Activated Date Inactivated Comments Full Code 11/22/2021 6:45 PM 11/23/2021 5:24 PM Question Answer Comments Full Code Order Discussed With: Patient Latest Code Status on File Code Status Date Activated Date Inactivated Comments Full Code 11/22/2021 6:45 PM 11/23/2021 5:24 PM Question Answer Comments Full Code Order Discussed With: Patient Latest Code Status on File Code Status Date Activated Date Inactivated Comments Full Code 11/22/2021 6:45 PM 11/23/2021 5:24 PM Question Answer Comments Full Code Order Discussed With: Patient Date Activated Date Inactivated Comments 11/22/2021 6:45 PM 11/23/2021 5:24 PM Question Answer Comments Full Code Order Discussed With: Patient Date Activated Date Inactivated Comments 03/02/2024 7:18 PM 03/05/2024 5:12 PM Date Activated Date Inactivated Comments 11/22/2021 6:45 PM 11/23/2021 5:24 PM Question Answer Comments Full Code Order Discussed With: Patient Date Activated Date Inactivated Comments 03/02/2024 7:18 PM 03/05/2024 5:12 PM Date Activated Date Inactivated Comments 11/22/2021 6:45 PM 11/23/2021 5:24 PM Question Answer Comments Full Code Order Discussed With: Patient Advance Directive Response Recorded Date/ Time Advance Directives No April 21, 2020 7:06am Chief Complaint Chief Complaint Description Start Date lower back pain Preliminary chief co mplaint data, not yet signed by the author as of Instructions Instruction Description Start Date Completed Assessments There may be information available, but it has not been provided by the sender. Review of System There may be information available, but it has not been provided by the sender. History of Present Illness There may be information available, but it has not been provided by the sender. * Stacey Root RN - 09/15/2020 2:11 PM EST Dc instructions given to patient and spouse via phone, verbalize understanding, tolerating PO, ambulating without difficulty documented in this encounter Reason for Referral Specialty Diagnoses / Procedures Referred By Puneet bonilla Referred To Contact [facility] Medicine Diagnoses Acquired elevated diaphragm Lung nodule Procedures CONSULT TO PULM/CRITICAL CARE OFFICE/OUTPATIENT [facility] 60-74 MINUTES Keerthi Hazel MD [address] [place] [address] Referral ID Status Reason Start Date Expiration Date Visits Requested Visits Authorized [id number] Pending Review PCP Requested Referral 11/19/2021 11/19/2022 1 1 Specialty Diagnoses / Procedures Referred By Puneet bonilla Referred To Contact CT IMAGING Diagnoses 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) Procedures CT CHEST W IVCON DIAGNOSTIC COMPUTED TOMOGRAPHY THORAX W/CONTRAST Aparna Thorne MD [address] [place] [address] Ct Imaging Referral ID Status Reason Start Date Expiration Date V isits Requested Visits Authorized [id number] Closed Auto-Generate d Referral 01/17/2022 10/24/2022 1 1 Specialty Diagnoses / Procedures Referred By Contac t Referred To Contact CT IMAGING Diagnoses 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) Procedures CT ABD/PEL W IVCON CT ABD & PELVIS W/CONTRAST Aparna Thorne MD [address] [place] [address] [address] [address] Imaging Referral ID Status Reason Start Date Expiration Date V isits Requested Visits Authorized [id number] Closed Auto-Generate d Referral 01/17/2022 10/24/2022 1 1 Specialty Diagnoses / Procedures Referred By Contac t Referred To Contact CT IMAGING Diagnoses 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) Procedures CT CHEST W IVCON DIAGNOSTIC COMPUTED TOMOGRAPHY THORAX W/CONTRAST Aparna Thorne MD [address] [place] [address] [address] [address] Imaging Referral ID Status Reason Start Date Expiration Date Visits Requested Visits Authorized [id number] Authorized Auto-Generat ed Referral 2 02/16/2023 1 1 Specialty Diagnoses / Procedures Referred By Contac t Referred To Contact CT IMAGING Diagnoses 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) Multiple renal cysts Diffuse large B-cell lymphoma of intra-abdominal lymph nodes (HCC) Procedures CT ABD/PEL W IVCON CT ABD & PELVIS W/CONTRAST Aparna Thorne MD [address] [place] [address] [address] Imaging Referral ID Status Reason Start Date Expiration Date Visits Requested Visits Authorized [id number] Authorized Auto-Generat ed Referral 2 02/16/2023 1 1 Specialty Diagnoses / Procedures Referred By Contac t Referred To Contact Diagnoses Chronic pain syndrome Amber Elizalde, J2EE DEVELOPER.BUILDING SUPERINTENDENT [address] [place] [address] Referral ID Status Reason Start Date Expiration Date V isits Requested Visits Authorized [id number] Pending Review 1 1 Specialty Diagnoses / Procedures Referred By Contac t Referred To Contact [facility] Diagnoses DDD (degenerative disc disease), lumbar Osseous stenosis of neural canal of lumbar region Procedures CONSULT TO PHYSICAL THERAPY PHYSICAL THERAPY EVALUATION HIGH COMPLEX 45 MINS Andres Saxena PA-C [address] [place] [address] [facility] [address] [place] [address] Referral ID Status Reason Start Date Expiration Date Visits Requested Visits Authorized [id number] Pending Review Auto-Generat ed Referral 3 07/20/2024 1 1 Specialty Diagnoses / Procedures Referred By Contac t Referred To Contact XR IMAGING Diagnoses DDD (degenerative disc disease), lumbar Osseous stenosis of neural canal of lumbar region Procedures XR LUMBAR MOTION 4V AP/LAT/ FLEX/EXT RADEX SPINE LUMBOSACRAL MINIMUM 4 VIEWS Andres Saxena, [place] [address] [id number] [place] [address] Referral ID Status Reason Start Date Expiration Date Visits Requested Visits Authorized [id number] Pending Review Auto-Generat ed Referral 3 08/19/2024 1 1 Specialty Diagnoses / Procedures Referred By Contac t Referred To Contact CT IMAGING Diagnoses 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) Procedures CT CHEST W IVCON DIAGNOSTIC COMPUTED TOMOGRAPHY THORAX W/CONTRAST Mars Marrero, J2EE DEVELOPER.TRANSCRIPTIONIST [address] [place] [address] [place] [address] Referral ID Status Reason Start Date Expiration Date Visits Requested Visits Authorized [id number] Authorized Auto-Generat ed Referral 02/07/2024 03/08/2025 1 1 Specialty Diagnoses / Procedures Referred By Contac t Referred To Contact CT IMAGING Diagnoses 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) Procedures CT ABD/PEL W IVCON CT ABD & PELVIS W/CONTRAST Mars Mrarero APRN.TRANSCRIPTIONIST [address] [place] [address] [place] [address] Referral ID Status Reason Start Date Expiration Date Visits Requested Visits Authorized [id number] Authorized Auto-Generat ed Referral 02/07/2024 03/08/2025 1 1 Specialty Diagnoses / Procedures Referred By Contac t Referred To Contact Cardiology Diagnoses 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, unspecified vessel or lesion type ([facility]) Troponin level elevated Elevated brain natriuretic peptide (BNP) level Procedures CONSULT TO CARDIOLOGY OFFICE/OUTPATIENT [facility] 60 MINUTES Keerthi Hazel MD [address] [place], [place] [id number] Referral ID Status Reason Start Date Expiration Date Visits Requested Visits Authorized [id number] Authorized PCP Requested Referral 03/06/2024 03/06/2025 1 1 Specialty Diagnoses / Procedures Referred By Contac t Referred To Contact Neurology Diagnoses Seizure disorder (HCC) Procedures CONSULT TO NEUROLOGY OFFICE/OUTPATIENT [facility] 60 MINUTES Keerthi Hazel MD [address] [place] [address] Referral ID Status Reason Start Date Expiration Date Visits Requested Visits Authorized [id number] Authorized PCP Requested Referral 09/19/2024 09/19/2025 1 1 Health Concerns Infection Onset Date Last Indicated Resolved Time COVID-19 Rule-Out 11/22/2021 11/22/2021 11/22/2021 11:33 AM EDT Infection Onset Date Last Indicated Resolved Time COVID-19 Rule-Out 11/22/2021 11/22/2021 11/22/2021 11:33 AM EDT Problem Noted Date High Risk Chronic Disease Home Monitorin g Problem 01/17/2023 Problem Noted Date Diagnosed Date High Risk Chronic Disease Home Monitoring Proble m 01/17/2023 Problem Noted Date Diagnosed Date High Risk Chronic Disease Home Monitoring Proble m 01/17/2023 Problem Noted Date Diagnosed Date High Risk Chronic Disease Home Monitoring Proble m 01/17/2023 Problem Noted Date Diagnosed Date High Risk Chronic Disease Home Monitoring [facility] 01/17/2023 Problem Noted Date Diagnosed Date High Risk Chronic Disease Home Monitoring [facility] 01/17/2023 Problem Noted Date Diagnosed Date High Risk Chronic Disease Home Monitoring [facility] 01/17/2023 Problem Noted Date Diagnosed Date High Risk Chronic Disease Home Monitoring [facility] 01/17/2023 Problem Noted Date Diagnosed Date High Risk Chronic Disease Home Monitoring [facility] 01/17/2023 Chief Complaint and Reason for Visit Chief Complaint 3 MO F./U ATHEROSCLEROTIC HEART DISEASE ATHEROSCLEROTIC HEART DISEASE Reason for Visit [id number] Essential (primary) hypertension Hyperlipemia, mixed Chief Complaint Admit Date 6 M FU March 27, 2025 8:49 am Reason for Visit Admit Date HERCULES (dyspnea on exertion) March 27 8:49am Atherosclerosis of [place] co ronary artery of [place] heart without angina March 27, 2025 8:49am Essential (primary) hypertension March 272024 8:49am Hyperlipemia, mixed March 27, 2025 8:49 am Additional Source Comments (unrecognized sect ion and content) No Status Records FoundNo Status Records FoundNo Status Records FoundNo Status Records FoundNo Status Records FoundNo Status Records FoundNo Status Records FoundNo Status Records FoundNo Status Records FoundNo Status Records Found INFORMATION SOURCE (unrecogn ized section and content) DATE CREATED AUTHOR 02/28/2019 [facility] DATE CREATED AUTHOR AUTHOR'S ORGANIZ ATION 09/18/2020 [facility] CREATED AUTHOR AUTHOR'S ORGANIZ ATION 08/16/2022 [facility] CREATED AUTHOR AUTHOR'S ORGANIZ ATION 05/29/2023 [facility] DATE CREATED AUTHOR AUTHOR'S ORGANIZ ATION 06/08/2023 [facility] DATE CREATED AUTHOR AUTHOR'S ORGANIZ ATION 03/06/2024 [facility] DATE CREATED AUTHOR AUTHOR'S ORGANIZ ATION 04/10/2024 [facility] EPIC DATE CREATED AUTHOR AUTHOR'S ORGANIZ ATION 11/02/2024 [facility] DATE CREATED AUTHOR AUTHOR'S ORGANIZ ATION 03/28/2025 [facility] DATE CREATED AUTHOR AUTHOR'S ORGANIZ ATION 04/20/2025 [facility] Reason for Visit (unrecogniz ed section and content) Reason For Visit Description New - 1st visit with practice Preliminary reason f or visit data, not yet signed by the author as of lower back pain Reason Comments Follow Up 1 week follow up- fe luana better Reason Comments Results Reason Comments Results Reason Comments Blood Draw (CVAD) Reason Onset Date Comments Refill Request 12/21/[address] Specialty Diagnoses / Procedures Referred By Contac t Referred To Contact CT IMAGING Diagnoses 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) Procedures CT CHEST W IVCON DIAGNOSTIC COMPUTED TOMOGRAPHY THORAX W/CONTRAST Aparna Thorne MD [address] [facility] [address] Ct Imaging Referral ID Status Reason Start Date Expiration Date V isits Requested Visits Authorized [id number] Closed Auto-Generate d Referral 01/17/2022 10/24/2022 1 1 Reason Comments Established Patient Reason Comments Follow Up 6 week Reason Comments Procedure Port Removal Reason Comments moderate to severe shortness of breath Dizziness Reason Comments Back Pain Reason Comments Patient Update Symptoms Reason Comments Established Patient Reason Comments Orders Reason Comments Follow Up Reason Comments Back Pain Reason Comments Refill Request Reason Comments Established Patient Reason Comments 6 Month Exam Reason Comments orders Reason Comments Patient Update Reason Comments Medication issue Reason Comments Patient Question Reason Comments Follow Up copd Reason Comments Orders Patient Update Reason Comments Spirometry Specialty Diagnoses / Procedures Referred By Puneet t Referred To Contact [facility] Diagnoses Hemidiaphragmatic eventration Procedures MIPS/MEPS UNLISTED PULMONARY SERVICE/PROCEDURE Skclaudia, Leot, J2EE DEVELOPER.TRANSCRIPTIONIST [address] [place] [address] [facility] [address] [place] [address] Referral ID Status Reason Start Date Expiration Date V isits Requested Visits Authorized [id number] Closed Auto-Generate d Referral 09/20/2022 10/19/2023 1 1 Reason Onset Date Comments Refill Request 10/05/2022 Reason Onset Date Comments Community Monitoring Outreach 10/24/2022 En rollment H@H Reason Onset Date Comments CDM Engagement 11/23/2022 Reason Onset Date Comments Refill Request 11/28/2022 Reason Comments Returning Patient's Call Reason Onset Date Comments CDM Engagement 03/23/2023 Reason Comments Future Appointment Reason Onset Date Comments CDM Engagement 05/12/2023 Reason Onset Date Comments CDM Engagement 06/27/2023 Specialty Diagnoses / Procedures Referred By Contac t Referred To Contact CT IMAGING Diagnoses 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) Procedures CT CHEST W IVCON DIAGNOSTIC COMPUTED TOMOGRAPHY THORAX W/CONTRAST Mars Marrero, J2EE DEVELOPER.TRANSCRIPTIONIST [address] [place] [address] [place] [address] Referral ID Status Reason Start Date Expiration Date V isits Requested Visits Authorized [id number] Closed Auto-Generate d Referral 01/18/2023 02/17/2024 [address] Specialty Diagnoses / Procedures [facility] Diagnoses 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) Procedures CT CHEST W IVCON DIAGNOSTIC COMPUTED TOMOGRAPHY THORAX W/CONTRAST Mars Marrero, [employer]2EE DEVELOPER.TRANSCRIPTIONIST [address] [place] [address] [place] [address] Reason Onset Date Comments Refill Request 07/12/2023 Reason Onset Date Comments Refill Request 07/17/2023 Reason Comments Forms [facility] rx Reason Comments New Patient Low Back Pain Leg Pain Right Specialty Diagnoses / [facility] Diagnoses DDD (degenerative disc disease), lumbar Procedures CONSULT TO SPINE SURGERY OFFICE/OUTPATIENT NEW HIGH MDM 60-74 MINUTES Keerthi Hazel MD [address] [place] [address] Referral ID Status Reason Start Date Expiration Date Visits Requested Visits Authorized [id number] Pending Review PCP Requested Referral 3 06/15/2024 1 1 Reason Comments Physical Therapy Specialty Diagnoses / Procedures [facility] Diagnoses DDD (degenerative disc disease), lumbar Osseous stenosis of neural canal of lumbar region Procedures CONSULT TO PHYSICAL THERAPY PHYSICAL THERAPY EVALUATION HIGH COMPLEX 45 MINS Andres Saxena PA-C [address] [place] [address] [facility] [address] [place] [address] Referral ID Status Reason Start Date Expiration Date Visits Requested Visits Authorized [id number] Authorized Auto-Generat ed Referral 09/04/2022 09/03/2023 20 20 Reason Onset Date Comments cdm 08/21/2023 engagement Reason Comments Med Refill Reason Comments New Patient Specialty Diagnoses / Procedures Referred By [facility] Referred To Contact Vascular Surgery Diagnoses PAD (peripheral artery disease) (HCC) Popliteal artery aneurysm (HCC) Procedures CONSULT TO VASCULAR SURGERY OFFICE/OUTPATIENT NEW [facility] MDM 60-74 MINUTES Keerthi Hazel MD [address] [place] [address] Referral ID Status Reason Start Date Expiration Date V isits Requested Visits Authorized [id number] Closed PCP Requested Referral 08/30/2023 08/29/2024 1 1 Reason Onset Date Comments CDM 10/18/2023 [facility] Call Reason Onset Date Comments Refill Request 10/18/2023 Reason Onset Date Comments Population Health Navigation Outreach 11/14/2023 [place] Annual [facility]ness Visit Reason Onset Date Comments CDM 11/15/2023 [facility] Call Reason Onset Date Comments Refill Request 11/15/2023 Reason Onset Date Comments Refill Request 11/15/2023 Refill Request 11/16/2023 Reason Comments Established Patient Follow Up Peripheral Vascular Disease (PVD) Reason Onset Date Comments CDM 12/12/2023 [facility] Call Reason Onset Date Comments CDM 01/04/2024 [facility] Call Reason Comments Follow Up copd Reason Onset Date Comments Community Monitoring Outreach 01/31/2024 Fo llow up Reason Onset Date Comments Population Health Navigation Outreach 02/01/2024 [place] AWV/HCC and care gaps Reason Onset Date Comments [facility] Monitoring Outreach 02/01/2024 Fo llow up Reason Onset Date Comments [facility] Outreach 02/12/2024 CD M Reason Comments Ear Problem Dried blood on lexi w case this am and dried blood in R ear Reason Onset Date Comments Transition Of Care 03/05/2024 Hospital reac h in Reason Comments [employer] - Hospital Follow Up Reason Comments 6 Month Exam Hospital F/U Reason Comments Medication Question GYANT Reason Onset Date Comments [facility] 04/10/2024 [facility] Out[facility] Call Reason Onset Date Comments [facility] 04/24/2024 [facility] Out[facility] Call Reason Onset Date Comments [facility] 05/21/2024 [facility] Call Reason Onset Date Comments [facility] 05/22/2024 [facility] Call Reason Onset Date Comments Refill Request 05/22/2024 Reason Onset Date Comments [facility] 06/20/2024 [facility] Out[facility] Call Reason Comments F/U 3 Month Referral ID Status Reason Start Date Expiration Date V isits Requested Visits Authorized [id number] Closed Auto-Generate d Referral 02/07/2024 03/08/2025 1 1 Reason Onset Date Comments [facility] 07/18/2024 [facility] Out[facility] Call Reason Onset Date Comments Refill Request 09/05/2024 Reason Comments Referral Request Reason Comments Opened In Error Reason Comments New Patient Reason Onset Date Comments Refill Request 11/26/2024 Reason Onset Date Comments Refill Request 12/10/2024 Source Comments (unrecognize d section and content) In the event this informatio n is protected by the Federal Confidentiality of Alcohol and Drug Abuse Patient Records regulations: The Federal rules restrict any use of the information to criminally investigate or prosecute any alcohol or drug abuse patient.[facility] TroyIn the event this information is protected by the Federal Confidentiality of Alcohol and Drug Abuse Patient Records regulations: The Federal rules restrict any use of the information to criminally investigate or prosecute any alcohol or drug abuse patient.[facility] TroyIn the event this information is protected by the Federal Confidentiality of Alcohol and Drug Abuse Patient Records regulations: The Federal rules restrict any use of the information to criminally investigate or prosecute any alcohol or drug abuse patient.[facility] TroyIn the event this information is protected by the Federal Confidentiality of Alcohol and Drug Abuse Patient Records regulations: The Federal rules restrict any use of the information to criminally investigate or prosecute any alcohol or drug abuse patient.[facility] TroyIn the event this information is protected by the Federal Confidentiality of Alcohol and Drug Abuse Patient Records regulations: The Federal rules restrict any use of the information to criminally investigate or prosecute any alcohol or drug abuse patient.[facility] TroyIn the event this information is protected by the Federal Confidentiality of Alcohol and Drug Abuse Patient Records regulations: The Federal rules restrict any use of the information to criminally investigate or prosecute any alcohol or drug abuse patient.[facility] TroyIn the event this information is protected by the Federal Confidentiality of Alcohol and Drug Abuse Patient Records regulations: The Federal rules restrict any use of the information to criminally investigate or prosecute any alcohol or drug abuse patient.[facility] TroyIn the event this information is protected by the Federal Confidentiality of Alcohol and Drug Abuse Patient Records regulations: The Federal rules restrict any use of the information to criminally investigate or prosecute any alcohol or drug abuse patient.[facility] TroyIn the event this information is protected by the Federal Confidentiality of Alcohol and Drug Abuse Patient Records regulations: The Federal rules restrict any use of the information to criminally investigate or prosecute any alcohol or drug abuse patient.[facility] TroyIn the event this information is protected by the Federal Confidentiality of Alcohol and Drug Abuse Patient Records regulations: The Federal rules restrict any use of the information to criminally investigate or prosecute any alcohol or drug abuse patient.[facility] TroyIn the event this information is protected by the Federal Confidentiality of Alcohol and Drug Abuse Patient Records regulations: The Federal rules restrict any use of the information to criminally investigate or prosecute any alcohol or drug abuse patient.[facility] TroyIn the event this information is protected by the Federal Confidentiality of Alcohol and Drug Abuse Patient Records regulations: The Federal rules restrict any use of the information to criminally investigate or prosecute any alcohol or drug abuse patient.[facility] TroyIn the event this information is protected by the Federal Confidentiality of Alcohol and Drug Abuse Patient Records regulations: The Federal rules restrict any use of the information to criminally investigate or prosecute any alcohol or drug abuse patient.[facility] TroyIn the event this information is protected by the Federal Confidentiality of Alcohol and Drug Abuse Patient Records regulations: The Federal rules restrict any use of the information to criminally investigate or prosecute any alcohol or drug abuse patient.[facility] TroyIn the event this information is protected by the Federal Confidentiality of Alcohol and Drug Abuse Patient Records regulations: The Federal rules restrict any use of the information to criminally investigate or prosecute any alcohol or drug abuse patient.[facility] TroyIn the event this information is protected by the Federal Confidentiality of Alcohol and Drug Abuse Patient Records regulations: The Federal rules restrict any use of the information to criminally investigate or prosecute any alcohol or drug abuse patient.[facility] TroyIn the event this information is protected by the Federal Confidentiality of Alcohol and Drug Abuse Patient Records regulations: The Federal rules restrict any use of the information to criminally investigate or prosecute any alcohol or drug abuse patient.[facility] TroyIn the event this information is protected by the Federal Confidentiality of Alcohol and Drug Abuse Patient Records regulations: The Federal rules restrict any use of the information to criminally investigate or prosecute any alcohol or drug abuse patient.[facility] TroyIn the event this information is protected by the Federal Confidentiality of Alcohol and Drug Abuse Patient Records regulations: The Federal rules restrict any use of the information to criminally investigate or prosecute any alcohol or drug abuse patient.[facility] TroyIn the event this information is protected by the Federal Confidentiality of Alcohol and Drug Abuse Patient Records regulations: The Federal rules restrict any use of the information to criminally investigate or prosecute any alcohol or drug abuse patient.[facility] TroyIn the event this information is protected by the Federal Confidentiality of Alcohol and Drug Abuse Patient Records regulations: The Federal rules restrict any use of the information to criminally investigate or prosecute any alcohol or drug abuse patient.[facility] TroyIn the event this information is protected by the Federal Confidentiality of Alcohol and Drug Abuse Patient Records regulations: The Federal rules restrict any use of the information to criminally investigate or prosecute any alcohol or drug abuse patient.[facility] TroyIn the event this information is protected by the Federal Confidentiality of Alcohol and Drug Abuse Patient Records regulations: The Federal rules restrict any use of the information to criminally investigate or prosecute any alcohol or drug abuse patient.[facility] TroyIn the event this information is protected by the Federal Confidentiality of Alcohol and Drug Abuse Patient Records regulations: The Federal rules restrict any use of the information to criminally investigate or prosecute any alcohol or drug abuse patient.[facility] TroyIn the event this information is protected by the Federal Confidentiality of Alcohol and Drug Abuse Patient Records regulations: The Federal rules restrict any use of the information to criminally investigate or prosecute any alcohol or drug abuse patient.[facility] TroyIn the event this information is protected by the Federal Confidentiality of Alcohol and Drug Abuse Patient Records regulations: The Federal rules restrict any use of the information to criminally investigate or prosecute any alcohol or drug abuse patient.[facility] TroyIn the event this information is protected by the Federal Confidentiality of Alcohol and Drug Abuse Patient Records regulations: The Federal rules restrict any use of the information to criminally investigate or prosecute any alcohol or drug abuse patient.[facility] TroyIn the event this information is protected by the Federal Confidentiality of Alcohol and Drug Abuse Patient Records regulations: The Federal rules restrict any use of the information to criminally investigate or prosecute any alcohol or drug abuse patient.[facility] TroyIn the event this information is protected by the Federal Confidentiality of Alcohol and Drug Abuse Patient Records regulations: The Federal rules restrict any use of the information to criminally investigate or prosecute any alcohol or drug abuse patient.[facility] TroyIn the event this information is protected by the Federal Confidentiality of Alcohol and Drug Abuse Patient Records regulations: The Federal rules restrict any use of the information to criminally investigate or prosecute any alcohol or drug abuse patient.[facility] TroyIn the event this information is protected by the Federal Confidentiality of Alcohol and Drug Abuse Patient Records regulations: The Federal rules restrict any use of the information to criminally investigate or prosecute any alcohol or drug abuse patient.[facility] TroyIn the event this information is protected by the Federal Confidentiality of Alcohol and Drug Abuse Patient Records regulations: The Federal rules restrict any use of the information to criminally investigate or prosecute any alcohol or drug abuse patient.[facility] TroyIn the event this information is protected by the Federal Confidentiality of Alcohol and Drug Abuse Patient Records regulations: The Federal rules restrict any use of the information to criminally investigate or prosecute any alcohol or drug abuse patient.[facility] TroyIn the event this information is protected by the Federal Confidentiality of Alcohol and Drug Abuse Patient Records regulations: The Federal rules restrict any use of the information to criminally investigate or prosecute any alcohol or drug abuse patient.[facility] TroyIn the event this information is protected by the Federal Confidentiality of Alcohol and Drug Abuse Patient Records regulations: The Federal rules restrict any use of the information to criminally investigate or prosecute any alcohol or drug abuse patient.[facility] TroyIn the event this information is protected by the Federal Confidentiality of Alcohol and Drug Abuse Patient Records regulations: The Federal rules restrict any use of the information to criminally investigate or prosecute any alcohol or drug abuse patient.[facility] TroyIn the event this information is protected by the Federal Confidentiality of Alcohol and Drug Abuse Patient Records regulations: The Federal rules restrict any use of the information to criminally investigate or prosecute any alcohol or drug abuse patient.[facility] TroyIn the event this information is protected by the Federal Confidentiality of Alcohol and Drug Abuse Patient Records regulations: The Federal rules restrict any use of the information to criminally investigate or prosecute any alcohol or drug abuse patient.[facility] TroyIn the event this information is protected by the Federal Confidentiality of Alcohol and Drug Abuse Patient Records regulations: The Federal rules restrict any use of the information to criminally investigate or prosecute any alcohol or drug abuse patient.[facility] TroyIn the event this information is protected by the Federal Confidentiality of Alcohol and Drug Abuse Patient Records regulations: The Federal rules restrict any use of the information to criminally investigate or prosecute any alcohol or drug abuse patient.[facility] TroyIn the event this information is protected by the Federal Confidentiality of Alcohol and Drug Abuse Patient Records regulations: The Federal rules restrict any use of the information to criminally investigate or prosecute any alcohol or drug abuse patient.[facility] TroyIn the event this information is protected by the Federal Confidentiality of Alcohol and Drug Abuse Patient Records regulations: The Federal rules restrict any use of the information to criminally investigate or prosecute any alcohol or drug abuse patient.[facility] TroyIn the event this information is protected by the Federal Confidentiality of Alcohol and Drug Abuse Patient Records regulations: The Federal rules restrict any use of the information to criminally investigate or prosecute any alcohol or drug abuse patient.[facility] TroyIn the event this information is protected by the Federal Confidentiality of Alcohol and Drug Abuse Patient Records regulations: The Federal rules restrict any use of the information to criminally investigate or prosecute any alcohol or drug abuse patient.[facility]In the event this information is protected by the Federal Confidentiality of Alcohol and Drug Abuse Patient Records regulations: The Federal rules restrict any use of the information to criminally investigate or prosecute any alcohol or drug abuse patient.[facility] TroyIn the event this information is protected by the Federal Confidentiality of Alcohol and Drug Abuse Patient Records regulations: The Federal rules restrict any use of the information to criminally investigate or prosecute any alcohol or drug abuse patient.[facility] TroyIn the event this information is protected by the Federal Confidentiality of Alcohol and Drug Abuse Patient Records regulations: The Federal rules restrict any use of the information to criminally investigate or prosecute any alcohol or drug abuse patient.[facility] TroyIn the event this information is protected by the Federal Confidentiality of Alcohol and Drug Abuse Patient Records regulations: The Federal rules restrict any use of the information to criminally investigate or prosecute any alcohol or drug abuse patient.[facility] TroyIn the event this information is protected by the Federal Confidentiality of Alcohol and Drug Abuse Patient Records regulations: The Federal rules restrict any use of the information to criminally investigate or prosecute any alcohol or drug abuse patient.[facility] TroyIn the event this information is protected by the Federal Confidentiality of Alcohol and Drug Abuse Patient Records regulations: The Federal rules restrict any use of the information to criminally investigate or prosecute any alcohol or drug abuse patient.[facility] TroyIn the event this information is protected by the Federal Confidentiality of Alcohol and Drug Abuse Patient Records regulations: The Federal rules restrict any use of the information to criminally investigate or prosecute any alcohol or drug abuse patient.[facility] TroyIn the event this information is protected by the Federal Confidentiality of Alcohol and Drug Abuse Patient Records regulations: The Federal rules restrict any use of the information to criminally investigate or prosecute any alcohol or drug abuse patient.[facility] TroyIn the event this information is protected by the Federal Confidentiality of Alcohol and Drug Abuse Patient Records regulations: The Federal rules restrict any use of the information to criminally investigate or prosecute any alcohol or drug abuse patient.[facility] TroyIn the event this information is protected by the Federal Confidentiality of Alcohol and Drug Abuse Patient Records regulations: The Federal rules restrict any use of the information to criminally investigate or prosecute any alcohol or drug abuse patient.[facility] TroyIn the event this information is protected by the Federal Confidentiality of Alcohol and Drug Abuse Patient Records regulations: The Federal rules restrict any use of the information to criminally investigate or prosecute any alcohol or drug abuse patient.[facility] TroyIn the event this information is protected by the Federal Confidentiality of Alcohol and Drug Abuse Patient Records regulations: The Federal rules restrict any use of the information to criminally investigate or prosecute any alcohol or drug abuse patient.[facility] TroyIn the event this information is protected by the Federal Confidentiality of Alcohol and Drug Abuse Patient Records regulations: The Federal rules restrict any use of the information to criminally investigate or prosecute any alcohol or drug abuse patient.[facility] TroyIn the event this information is protected by the Federal Confidentiality of Alcohol and Drug Abuse Patient Records regulations: The Federal rules restrict any use of the information to criminally investigate or prosecute any alcohol or drug abuse patient.[facility] TroyIn the event this information is protected by the Federal Confidentiality of Alcohol and Drug Abuse Patient Records regulations: The Federal rules restrict any use of the information to criminally investigate or prosecute any alcohol or drug abuse patient.[facility] TroyIn the event this information is protected by the Federal Confidentiality of Alcohol and Drug Abuse Patient Records regulations: The Federal rules restrict any use of the information to criminally investigate or prosecute any alcohol or drug abuse patient.[facility] TroyIn the event this information is protected by the Federal Confidentiality of Alcohol and Drug Abuse Patient Records regulations: The Federal rules restrict any use of the information to criminally investigate or prosecute any alcohol or drug abuse patient.[facility] TroyIn the event this information is protected by the Federal Confidentiality of Alcohol and Drug Abuse Patient Records regulations: The Federal rules restrict any use of the information to criminally investigate or prosecute any alcohol or drug abuse patient.[facility] TroyIn the event this information is protected by the Federal Confidentiality of Alcohol and Drug Abuse Patient Records regulations: The Federal rules restrict any use of the information to criminally investigate or prosecute any alcohol or drug abuse patient.[facility] TroyIn the event this information is protected by the Federal Confidentiality of Alcohol and Drug Abuse Patient Records regulations: The Federal rules restrict any use of the information to criminally investigate or prosecute any alcohol or drug abuse patient.[facility] TroyIn the event this information is protected by the Federal Confidentiality of Alcohol and Drug Abuse Patient Records regulations: The Federal rules restrict any use of the information to criminally investigate or prosecute any alcohol or drug abuse patient.[facility] TroyIn the event this information is protected by the Federal Confidentiality of Alcohol and Drug Abuse Patient Records regulations: The Federal rules restrict any use of the information to criminally investigate or prosecute any alcohol or drug abuse patient.[facility] TroyIn the event this information is protected by the Federal Confidentiality of Alcohol and Drug Abuse Patient Records regulations: The Federal rules restrict any use of the information to criminally investigate or prosecute any alcohol or drug abuse patient.[facility] TroyIn the event this information is protected by the Federal Confidentiality of Alcohol and Drug Abuse Patient Records regulations: The Federal rules restrict any use of the information to criminally investigate or prosecute any alcohol or drug abuse patient.[facility] TroyIn the event this information is protected by the Federal Confidentiality of Alcohol and Drug Abuse Patient Records regulations: The Federal rules restrict any use of the information to criminally investigate or prosecute any alcohol or drug abuse patient.[facility] TroyIn the event this information is protected by the Federal Confidentiality of Alcohol and Drug Abuse Patient Records regulations: The Federal rules restrict any use of the information to criminally investigate or prosecute any alcohol or drug abuse patient.[facility] TroyIn the event this information is protected by the Federal Confidentiality of Alcohol and Drug Abuse Patient Records regulations: The Federal rules restrict any use of the information to criminally investigate or prosecute any alcohol or drug abuse patient.[facility] TroyIn the event this information is protected by the Federal Confidentiality of Alcohol and Drug Abuse Patient Records regulations: The Federal rules restrict any use of the information to criminally investigate or prosecute any alcohol or drug abuse patient.[facility] TroyIn the event this information is protected by the Federal Confidentiality of Alcohol and Drug Abuse Patient Records regulations: The Federal rules restrict any use of the information to criminally investigate or prosecute any alcohol or drug abuse patient.[facility] TroyIn the event this information is protected by the Federal Confidentiality of Alcohol and Drug Abuse Patient Records regulations: The Federal rules restrict any use of the information to criminally investigate or prosecute any alcohol or drug abuse patient.[facility] TroyIn the event this information is protected by the Federal Confidentiality of Alcohol and Drug Abuse Patient Records regulations: The Federal rules restrict any use of the information to criminally investigate or prosecute any alcohol or drug abuse patient.[facility] TroyIn the event this information is protected by the Federal Confidentiality of Alcohol and Drug Abuse Patient Records regulations: The Federal rules restrict any use of the information to criminally investigate or prosecute any alcohol or drug abuse patient.[facility] TroyIn the event this information is protected by the Federal Confidentiality of Alcohol and Drug Abuse Patient Records regulations: The Federal rules restrict any use of the information to criminally investigate or prosecute any alcohol or drug abuse patient.[facility] TroyIn the event this information is protected by the Federal Confidentiality of Alcohol and Drug Abuse Patient Records regulations: The Federal rules restrict any use of the information to criminally investigate or prosecute any alcohol or drug abuse patient.[facility] TroyIn the event this information is protected by the Federal Confidentiality of Alcohol and Drug Abuse Patient Records regulations: The Federal rules restrict any use of the information to criminally investigate or prosecute any alcohol or drug abuse patient.[facility] TroyIn the event this information is protected by the Federal Confidentiality of Alcohol and Drug Abuse Patient Records regulations: The Federal rules restrict any use of the information to criminally investigate or prosecute any alcohol or drug abuse patient.[facility] TroyIn the event this information is protected by the Federal Confidentiality of Alcohol and Drug Abuse Patient Records regulations: The Federal rules restrict any use of the information to criminally investigate or prosecute any alcohol or drug abuse patient.[facility] TroyIn the event this information is protected by the Federal Confidentiality of Alcohol and Drug Abuse Patient Records regulations: The Federal rules restrict any use of the information to criminally investigate or prosecute any alcohol or drug abuse patient.[facility] TroyIn the event this information is protected by the Federal Confidentiality of Alcohol and Drug Abuse Patient Records regulations: The Federal rules restrict any use of the information to criminally investigate or prosecute any alcohol or drug abuse patient.[facility] TroyIn the event this information is protected by the Federal Confidentiality of Alcohol and Drug Abuse Patient Records regulations: The Federal rules restrict any use of the information to criminally investigate or prosecute any alcohol or drug abuse patient.[facility] TroyIn the event this information is protected by the Federal Confidentiality of Alcohol and Drug Abuse Patient Records regulations: The Federal rules restrict any use of the information to criminally investigate or prosecute any alcohol or drug abuse patient.[facility] TroyIn the event this information is protected by the Federal Confidentiality of Alcohol and Drug Abuse Patient Records regulations: The Federal rules restrict any use of the information to criminally investigate or prosecute any alcohol or drug abuse patient.[facility] TroyIn the event this information is protected by the Federal Confidentiality of Alcohol and Drug Abuse Patient Records regulations: The Federal rules restrict any use of the information to criminally investigate or prosecute any alcohol or drug abuse patient.[facility] TroyIn the event this information is protected by the Federal Confidentiality of Alcohol and Drug Abuse Patient Records regulations: The Federal rules restrict any use of the information to criminally investigate or prosecute any alcohol or drug abuse patient.[facility] TroyIn the event this information is protected by the Federal Confidentiality of Alcohol and Drug Abuse Patient Records regulations: The Federal rules restrict any use of the information to criminally investigate or prosecute any alcohol or drug abuse patient.[facility] TroyIn the event this information is protected by the Federal Confidentiality of Alcohol and Drug Abuse Patient Records regulations: The Federal rules restrict any use of the information to criminally investigate or prosecute any alcohol or drug abuse patient.[facility] TroyIn the event this information is protected by the Federal Confidentiality of Alcohol and Drug Abuse Patient Records regulations: The Federal rules restrict any use of the information to criminally investigate or prosecute any alcohol or drug abuse patient.[facility] TroyIn the event this information is protected by the Federal Confidentiality of Alcohol and Drug Abuse Patient Records regulations: The Federal rules restrict any use of the information to criminally investigate or prosecute any alcohol or drug abuse patient.[facility] TroyIn the event this information is protected by the Federal Confidentiality of Alcohol and Drug Abuse Patient Records regulations: The Federal rules restrict any use of the information to criminally investigate or prosecute any alcohol or drug abuse patient.[facility] TroyIn the event this information is protected by the Federal Confidentiality of Alcohol and Drug Abuse Patient Records regulations: The Federal rules restrict any use of the information to criminally investigate or prosecute any alcohol or drug abuse patient.[facility]In the event this information is protected by the Federal Confidentiality of Alcohol and Drug Abuse Patient Records regulations: The Federal rules restrict any use of the information to criminally investigate or prosecute any alcohol or drug abuse patient.[facility] TroyIn the event this information is protected by the Federal Confidentiality of Alcohol and Drug Abuse Patient Records regulations: The Federal rules restrict any use of the information to criminally investigate or prosecute any alcohol or drug abuse patient.[facility] TroyIn the event this information is protected by the Federal Confidentiality of Alcohol and Drug Abuse Patient Records regulations: The Federal rules restrict any use of the information to criminally investigate or prosecute any alcohol or drug abuse patient.[facility] TroyIn the event this information is protected by the Federal Confidentiality of Alcohol and Drug Abuse Patient Records regulations: The Federal rules restrict any use of the information to criminally investigate or prosecute any alcohol or drug abuse patient.[facility] TroyIn the event this information is protected by the Federal Confidentiality of Alcohol and Drug Abuse Patient Records regulations: The Federal rules restrict any use of the information to criminally investigate or prosecute any alcohol or drug abuse patient.[facility] TroyIn the event this information is protected by the Federal Confidentiality of Alcohol and Drug Abuse Patient Records regulations: The Federal rules restrict any use of the information to criminally investigate or prosecute any alcohol or drug abuse patient.[facility] TroyIn the event this information is protected by the Federal Confidentiality of Alcohol and Drug Abuse Patient Records regulations: The Federal rules restrict any use of the information to criminally investigate or prosecute any alcohol or drug abuse patient.[facility] TroyIn the event this information is protected by the Federal Confidentiality of Alcohol and Drug Abuse Patient Records regulations: The Federal rules restrict any use of the information to criminally investigate or prosecute any alcohol or drug abuse patient.[facility] TroyIn the event this information is protected by the Federal Confidentiality of Alcohol and Drug Abuse Patient Records regulations: The Federal rules restrict any use of the information to criminally investigate or prosecute any alcohol or drug abuse patient.[facility] TroyIn the event this information is protected by the Federal Confidentiality of Alcohol and Drug Abuse Patient Records regulations: The Federal rules restrict any use of the information to criminally investigate or prosecute any alcohol or drug abuse patient.[facility] TroyIn the event this information is protected by the Federal Confidentiality of Alcohol and Drug Abuse Patient Records regulations: The Federal rules restrict any use of the information to criminally investigate or prosecute any alcohol or drug abuse patient.[facility] TroyIn the event this information is protected by the Federal Confidentiality of Alcohol and Drug Abuse Patient Records regulations: The Federal rules restrict any use of the information to criminally investigate or prosecute any alcohol or drug abuse patient.[facility] TroyIn the event this information is protected by the Federal Confidentiality of Alcohol and Drug Abuse Patient Records regulations: The Federal rules restrict any use of the information to criminally investigate or prosecute any alcohol or drug abuse patient.[facility] TroyIn the event this information is protected by the Federal Confidentiality of Alcohol and Drug Abuse Patient Records regulations: The Federal rules restrict any use of the information to criminally investigate or prosecute any alcohol or drug abuse patient.[facility] TroyIn the event this information is protected by the Federal Confidentiality of Alcohol and Drug Abuse Patient Records regulations: The Federal rules restrict any use of the information to criminally investigate or prosecute any alcohol or drug abuse patient.[facility] TroyIn the event this information is protected by the Federal Confidentiality of Alcohol and Drug Abuse Patient Records regulations: The Federal rules restrict any use of the information to criminally investigate or prosecute any alcohol or drug abuse patient.[facility] TroyIn the event this information is protected by the Federal Confidentiality of Alcohol and Drug Abuse Patient Records regulations: The Federal rules restrict any use of the information to criminally investigate or prosecute any alcohol or drug abuse patient.[facility] TroyIn the event this information is protected by the Federal Confidentiality of Alcohol and Drug Abuse Patient Records regulations: The Federal rules restrict any use of the information to criminally investigate or prosecute any alcohol or drug abuse patient.[facility] TroyIn the event this information is protected by the Federal Confidentiality of Alcohol and Drug Abuse Patient Records regulations: The Federal rules restrict any use of the information to criminally investigate or prosecute any alcohol or drug abuse patient.[facility] TroyIn the event this information is protected by the Federal Confidentiality of Alcohol and Drug Abuse Patient Records regulations: The Federal rules restrict any use of the information to criminally investigate or prosecute any alcohol or drug abuse patient.[facility] TroyIn the event this information is protected by the Federal Confidentiality of Alcohol and Drug Abuse Patient Records regulations: The Federal rules restrict any use of the information to criminally investigate or prosecute any alcohol or drug abuse patient.[facility] TroyIn the event this information is protected by the Federal Confidentiality of Alcohol and Drug Abuse Patient Records regulations: The Federal rules restrict any use of the information to criminally investigate or prosecute any alcohol or drug abuse patient.[facility] TroyIn the event this information is protected by the Federal Confidentiality of Alcohol and Drug Abuse Patient Records regulations: The Federal rules restrict any use of the information to criminally investigate or prosecute any alcohol or drug abuse patient.[facility] TroyIn the event this information is protected by the Federal Confidentiality of Alcohol and Drug Abuse Patient Records regulations: The Federal rules restrict any use of the information to criminally investigate or prosecute any alcohol or drug abuse patient.[facility] TroyIn the event this information is protected by the Federal Confidentiality of Alcohol and Drug Abuse Patient Records regulations: The Federal rules restrict any use of the information to criminally investigate or prosecute any alcohol or drug abuse patient.[facility] TroyIn the event this information is protected by the Federal Confidentiality of Alcohol and Drug Abuse Patient Records regulations: The Federal rules restrict any use of the information to criminally investigate or prosecute any alcohol or drug abuse patient.[facility] TroyIn the event this information is protected by the Federal Confidentiality of Alcohol and Drug Abuse Patient Records regulations: The Federal rules restrict any use of the information to criminally investigate or prosecute any alcohol or drug abuse patient.[facility] TroyIn the event this information is protected by the Federal Confidentiality of Alcohol and Drug Abuse Patient Records regulations: The Federal rules restrict any use of the information to criminally investigate or prosecute any alcohol or drug abuse patient.[facility] TroyIn the event this information is protected by the Federal Confidentiality of Alcohol and Drug Abuse Patient Records regulations: The Federal rules restrict any use of the information to criminally investigate or prosecute any alcohol or drug abuse patient.[facility] TroyIn the event this information is protected by the Federal Confidentiality of Alcohol and Drug Abuse Patient Records regulations: The Federal rules restrict any use of the information to criminally investigate or prosecute any alcohol or drug abuse patient.[facility] TroyIn the event this information is protected by the Federal Confidentiality of Alcohol and Drug Abuse Patient Records regulations: The Federal rules restrict any use of the information to criminally investigate or prosecute any alcohol or drug abuse patient.[facility] Care Teams (unrecognized sec tion and content) Tank Storage Supervisor Relationship Specialty Start Date End Date Keerthi Hazel MD [address] [place] [address] PCP - General Family Practice 05/08/15 Christina Hi RN Specialty Casket Assembler Metal Oncology 04/26/21 Angela Ambrocio MD, [address] [facility] [place] [address] Physician Radiation Oncology 06/25/21 Anabel Jerez, GREG [address] [place] [address] Card Clothier Hematology/Oncology 11/22/21 Tank Storage Supervisor Relationship Specialty Start Date End Date Keerthi Hazel MD [address] [place] [address] PCP - General Family Practice 05/08/15 Christina Hi RN Specialty Casket Assembler Metal Oncology 04/26/21 Angela Ambrocio MD, [address] [address] Physician Radiation Oncology 06/25/21 Anabel Jerez RN [address] [place] [address] Card Clothier Hematology/Oncology 11/22/21 Tank Storage Supervisor Relationship Specialty Start Date End Date Keerthi Hazel MD [address] [place] [address] PCP - General Family Practice 05/08/15 Christina Hi RN Specialty Casket Assembler Metal Oncology 04/26/21 Angela Ambrocio MD, [address] [place] [address] Physician Radiation Oncology 06/25/21 Anabel Jerez, RN [address] [place] [address] Card Clothier Hematology/Oncology 11/22/21 Tank Storage Supervisor Relationship Specialty Start Date End Date Keerthi Hazel MD [address] [facility] [place] [address] PCP - General Family Practice 05/08/15 Christina Hi RN Specialty Casket Assembler Metal Oncology 04/26/21 Angela Ambrocio MD, [address] [place] [address] Physician Radiation Oncology 06/25/21 Anabel Jerez RN [address] [place] [address] Card Clothier Hematology/Oncology 11/22/21 Tank Storage Supervisor Relationship Specialty Start Date End Date Keerthi Hazel MD [address] [place] [address] PCP - General Family Practice 05/08/15 Christina Hi RN Specialty Casket Assembler Metal Oncology 04/26/21 Angela Ambrocio MD, [address] [place] [address] Physician Radiation Oncology 06/25/21 Anabel Jerez, GREG [address] [place] [address] Card Clothier Hematology/Oncology 11/22/21 Tank Storage Supervisor Relationship Specialty Start Date End Date Keerthi Hazel MD [address] [place] [address] PCP - General Family Practice 05/08/15 Christina Hi RN Specialty Casket Assembler Metal Oncology 04/26/21 Angela Ambrocio MD, [address] [place] [address] Physician Radiation Oncology 06/25/21 nAabel Jerez, RN [address] [place] [address] Card Clothier Hematology/Oncology 11/22/21 Tank Storage Supervisor Relationship Specialty Start Date End Date Keerthi Hazel MD [address] [facility] [place] [address] PCP - General Family Practice 05/08/15 Christina Hi RN Specialty Casket Assembler Metal Oncology 04/26/21 Angela Ambrocio MD, [address] [place] [address] Physician Radiation Oncology 06/25/21 Anabel Jerez, GREG [address] [place] [address] Card Clothier Hematology/Oncology 11/22/21 Tank Storage Supervisor Relationship Specialty Start Date End Date Keerthi Hazel MD [address] [place] [address] PCP - General Family Practice 05/08/15 Christina Hi RN Specialty Casket Assembler Metal Oncology 04/26/21 Angela Ambrocio MD, [address] [place] [address] Physician Radiation Oncology 06/25/21 Anabel Jerez, RN [address] [place] [address] Card Clothier Hematology/Oncology 11/22/21 Tank Storage Supervisor Relationship Specialty Start Date End Date Keerthi Hazel MD [address] [place] [address] PCP - General Family Practice 05/08/15 Christina Hi RN Specialty Casket Assembler Metal Oncology 04/26/21 Angela Ambrocio MD, [address] [place] [address] Physician Radiation Oncology 06/25/21 Anabel Jerez, GREG [address] [place] [address] Card Clothier Hematology/Oncology 11/22/21 Tank Storage Supervisor Relationship Specialty Start Date End Date Keerthi Hazel MD [address] [facility] [place] [address] PCP - General Family Practice 05/08/15 Angela Ambrocio MD, [address] [place] [address] Physician Radiation Oncology 06/25/21 Anabel Jerez, GREG [address] [place] [address] Specialty Casket Assembler Metal Hematology/Oncology 11/22/21 Tank Storage Supervisor Relationship Specialty Start Date End Date Keerthi Hazel MD [address] [facility] [place] [address] PCP - General Family Practice 05/08/15 Angela Ambrocio MD, [address] [place] [address] Physician Radiation Oncology 06/25/21 Anabel Jerez, GREG [address] [place] [address] Specialty Casket Assembler Metal Hematology/Oncology 11/22/21 Tank Storage Supervisor Relationship Specialty Start Date End Date Keerthi Hazel MD [address] [place] [address] PCP - General Family Practice 05/08/15 Angela Ambrocio MD, [address] [place] [address] Physician Radiation Oncology 06/25/21 Anabel Jerez, GREG [address] [place] [address] Specialty Casket Assembler Metal Hematology/Oncology 11/22/21 Tank Storage Supervisor Relationship Specialty Start Date End Date Keerthi Hazel MD [address] [place] [address] PCP - General Family Practice 05/08/15 Christina Hi RN Specialty Casket Assembler Metal Oncology 04/26/21 01/18/22 Angela Ambrocio MD, [address] [place] [address] Physician Radiation Oncology 06/25/21 Anabel Jerez, GREG [address] [place] [address] Specialty Casket Assembler Metal Hematology/Oncology 11/22/21 Tank Storage Supervisor Relationship Specialty Start Date End Date Keerthi Hazel MD [address] [place] [address] PCP - General Family Practice 05/08/15 Angela Ambrocio MD, [address] [place] [address] Physician Radiation Oncology 06/25/21 Anabel Jerez, GREG [address] [place] [address] Specialty Casket Assembler Metal Hematology/Oncology 11/22/21 Tank Storage Supervisor Relationship Specialty Start Date End Date Keerthi Hazel MD [address] [place] [address] PCP - General Family Practice 05/08/15 Angela Ambrocio MD, [address] [place] [address] Physician Radiation Oncology 06/25/21 Anabel Jerez, RN [address] [place] [address] Specialty Casket Assembler Metal Hematology/Oncology 11/22/21 Tank Storage Supervisor Relationship Specialty Start Date End Date Keerthi Hazel MD [address] [place] [address] PCP - General Family Practice 05/08/15 Angela Ambrocio MD, [address] [place] [address] Physician Radiation Oncology 06/25/21 Anabel Jerez, GREG [address] [place] [address] Specialty Casket Assembler Metal Hematology/Oncology 11/22/21 Tank Storage Supervisor Relationship Specialty Start Date End Date Keerthi Hazel MD [address] [facility] [place] [address] PCP - General Family Practice 05/08/15 Angela Ambrocio MD, [address] [place] [address] Physician Radiation Oncology 06/25/21 Anabel Jerez, GREG [address] [place] [address] Specialty Casket Assembler Metal Hematology/Oncology 11/22/21 Tank Storage Supervisor Relationship Specialty Start Date End Date Keerthi Hazel MD [address] [place] [address] PCP - General Family Practice 05/08/15 Angela Ambrocio MD, [address] [place] [address] Physician Radiation Oncology 06/25/21 Anabel Jerez, RN [address] [place] [address] Specialty Casket Assembler Metal Hematology/Oncology 11/22/21 Tank Storage Supervisor Relationship Specialty Start Date End Date Keerthi Hazel MD [address] [place] [address] PCP - General Family Practice 05/08/15 Angela Ambrocio MD, [address] [place] [address] Physician Radiation Oncology 06/25/21 Anabel Jerez, GREG [address] [place] [address] Specialty Casket Assembler Metal Hematology/Oncology 11/22/21 Tank Storage Supervisor Relationship Specialty Start Date End Date Keerthi Hazel MD [address] [place] [address] PCP - General Family Practice 05/08/15 Angela Ambrocio MD, MD [address] [place] [address] Physician Radiation Oncology 06/25/21 Anabel Jerez, GREG [address] [place] [address] Specialty Casket Assembler Metal Hematology/Oncology 11/22/21 Tank Storage Supervisor Relationship Specialty Start Date End Date Keerthi Hazel MD [address] [place] [address] PCP - General Family Practice 05/08/15 Angela Ambrocio MD, [address] [place] [address] Physician Radiation Oncology 06/25/21 Anabel Jerez RN [address] [place] [address] Specialty Casket Assembler Metal Hematology/Oncology 11/22/21 Tank Storage Supervisor Relationship Specialty Start Date End Date Keerthi Hazel MD [address] [place] [address] PCP - General Family Medicine 05/08/15 Angela Ambrocio MD, [address] [place] [address] Physician Radiation Oncology 06/25/21 Anabel Jerez RN [address] [place] [address] Specialty Casket Assembler Metal Hematology/Oncology 11/22/21 Tank Storage Supervisor Relationship Specialty Start Date End Date Keerthi Hazel MD [address] [place] [address] PCP - General Family Medicine 05/08/15 Angela Ambrocio MD, [address] [place] [address] Physician Radiation Oncology 06/25/21 Anabel Jerez RN [address] [place] [address] Specialty Casket Assembler Metal Hematology/Oncology 11/22/21 Tank Storage Supervisor Relationship Specialty Start Date End Date Keerthi Hazel MD [address] [place] [address] PCP - General Family Medicine 05/08/15 Angela Ambrocio MD, [address] [place] [address] Physician Radiation Oncology 06/25/21 Anabel Jerez RN [address] [place] [address] Specialty Casket Assembler Metal Hematology/Oncology 11/22/21 Tank Storage Supervisor Relationship Specialty Start Date End Date Keerthi Hazel MD [address] [place] [address] PCP - General Family Medicine 05/08/15 Angela Ambrocio MD, [address] [place] [address] Physician Radiation Oncology 06/25/21 Anabel Jerez, GREG [address] [place] [address] Specialty Casket Assembler Metal Hematology/Oncology 11/22/21 Tank Storage Supervisor Relationship Specialty Start Date End Date Keerthi Hazel MD [address] [place] [address] PCP - General Family Medicine 05/08/15 Angela Ambrocio MD, [address] [place] [address] Physician Radiation Oncology 06/25/21 Anabel Jerez, GREG [address] [place] [address] Specialty Casket Assembler Metal Hematology/Oncology 11/22/21 Tank Storage Supervisor Relationship Specialty Start Date End Date Keerthi Hazel MD [address] [place] [address] PCP - General Family Medicine 05/08/15 Angela Ambrocio MD, [address] [place] [address] Physician Radiation Oncology 06/25/21 Anabel Jerez, GREG [address] [place] [address] Specialty Casket Assembler Metal Hematology/Oncology 11/22/21 Tank Storage Supervisor Relationship Specialty Start Date End Date Keerthi Hazel MD [address] [facility] [place] [address] PCP - General Family Medicine 05/08/15 Angela Ambrocio MD, [address] [place] [address] Physician Radiation Oncology 06/25/21 Anabel Jerez, RN [address] [place] [address] Specialty Casket Assembler Metal Hematology/Oncology 11/22/21 Tank Storage Supervisor Relationship Specialty Start Date End Date Keerthi Hazel MD [address] [facility] [place] [address] PCP - General Family Medicine 05/08/15 Angela Ambrocio MD, [address] [place] [address] Physician Radiation Oncology 06/25/21 Anabel Jerez, RN [address] [place] [address] Specialty Casket Assembler Metal Hematology/Oncology 11/22/21 Tank Storage Supervisor Relationship Specialty Start Date End Date Keerthi Hazel MD [address] [facility] [place] [address] PCP - General Family Medicine 05/08/15 Angela Ambrocio MD, [address] [place] [address] Physician Radiation Oncology 06/25/21 Anabel Jerez, GREG [address] [place] [address] Specialty Casket Assembler Metal Hematology/Oncology 11/22/21 Tank Storage Supervisor Relationship Specialty Start Date End Date Keerthi Hazel MD [address] [facility] [place] [address] PCP - General Family Medicine 05/08/15 Angela Ambrocio MD, [address] [place] [address] Physician Radiation Oncology 06/25/21 Anabel Jerez, GREG [address] [place] [address] Specialty Casket Assembler Metal Hematology/Oncology 11/22/21 Tank Storage Supervisor Relationship Specialty Start Date End Date Keerthi Hzael MD [address] [place] [address] PCP - General Family Medicine 05/08/15 Angela Ambrocio MD, [address] [place] [address] Physician Radiation Oncology 06/25/21 Anabel Jerez RN [address] [place] [address] Specialty Casket Assembler Metal Hematology/Oncology 11/22/21 Tank Storage Supervisor Relationship Specialty Start Date End Date Keerthi Hazel MD [address] [place] [address] PCP - General Family Medicine 05/08/15 Angela Ambrocio MD, [address] [place] [address] Physician Radiation Oncology 06/25/21 Anabel Jerez, GREG [address] [place] [address] Specialty Casket Assembler Metal Hematology/Oncology 11/22/21 Catrachita Shearer, GREG [address] [place] [address] Angle Dozer Operator Family Medicine 10/24/22 Tank Storage Supervisor Relationship Specialty Start Date End Date Keerthi Hazel MD [address] [place] [address] PCP - General Family Medicine 05/08/15 Angela Ambrocoi MD, [address] [place] [address] Physician Radiation Oncology 06/25/21 Anabel Jerez, GREG [address] [place] [address] Specialty Casket Assembler Metal Hematology/Oncology 11/22/21 Catrachita Shearer, RN [address] [place] [address] Angle Dozer Operator Family Medicine 10/24/22 Tank Storage Supervisor Relationship Specialty Start Date End Date Keerthi Hazel MD [address] [facility] [place] [address] PCP - General Family Medicine 05/08/15 Angela Ambrocio MD, [address] [place] [address] Physician Radiation Oncology 06/25/21 Anabel Jerez, GREG [address] [place] [address] Specialty Casket Assembler Metal Hematology/Oncology 11/22/21 Catrachita Shearer, GREG [address] [place] [address] Angle Dozer Operator Family Medicine 10/24/22 Tank Storage Supervisor Relationship Specialty Start Date End Date Keerthi Hazel MD [address] [facility] [place] [address] PCP - General Family Medicine 05/08/15 Angela Ambrocio MD, [address] [place] [address] Physician Radiation Oncology 06/25/21 Anabel Jerez, GREG [address] [place] [address] Specialty Casket Assembler Metal Hematology/Oncology 11/22/21 Catrachita Shearer RN [address] [place], [place] [id number] Angle Dozer Operator Family Medicine 10/24/22 Tank Storage Supervisor Relationship Specialty Start Date End Date Keerthi Hazel MD [address] [facility] [place] [address] PCP - General Family Medicine 05/08/15 Angela Ambrocio MD, [address] [address] Physician Radiation Oncology 06/25/21 Anabel Jerez RN [address] [place] [address] Specialty Casket Assembler Metal Hematology/Oncology 11/22/21 Catrachita Shearer RN [address] [place], [place] [id number] Angle Dozer Operator Family Medicine 10/24/22 Tank Storage Supervisor Relationship Specialty Start Date End Date Keerthi Hazel MD [address] [facility] [place] [address] PCP - General Family Medicine 05/08/15 Angela Ambrocio MD, [address] [place] [address] Physician Radiation Oncology 06/25/21 Anabel Jerez, GREG [address] [place] [address] Specialty Casket Assembler Metal Hematology/Oncology 11/22/21 Catrachita Shearer RN [address] [place] [address] Angle Dozer Operator Family Medicine 10/24/22 Tank Storage Supervisor Relationship Specialty Start Date End Date Keerthi Hazel MD [address] [facility] [place] [address] PCP - General Family Medicine 05/08/15 Angela Ambrocio MD, [address] [place] [address] Physician Radiation Oncology 06/25/21 Anabel Jerez, RN [address] [place] [address] Specialty Casket Assembler Metal Hematology/Oncology 11/22/21 Catrachita Shearer, RN [address] [place] [address] Angle Dozer Operator Family Medicine 10/24/22 Tank Storage Supervisor Relationship Specialty Start Date End Date Keerthi Hazel MD [address] [facility] [place] [address] PCP - General Family Medicine 05/08/15 Angela Ambrocio MD, [address] [place] [address] Physician Radiation Oncology 06/25/21 Anabel Jerez, RN [address] [place] [address] Specialty Casket Assembler Metal Hematology/Oncology 11/22/21 Catrachita Shearer, RN [address] [place], [place] [id number] Angle Dozer Operator Family Medicine 10/24/22 Tank Storage Supervisor Relationship Specialty Start Date End Date Keerthi Hazel MD [address] [place] [address] PCP - General Family Medicine 05/08/15 Angela Ambrocio MD, [address] [place] [address] Physician Radiation Oncology 06/25/21 Anabel Jerez, RN [address] [place] [address] Specialty Casket Assembler Metal Hematology/Oncology 11/22/21 Catrachita Shearer, RN [address] [place], [place] [id number] Angle Dozer Operator Family Medicine 10/24/22 Tank Storage Supervisor Relationship Specialty Start Date End Date Keerthi Hazel MD [address] [place] [address] PCP - General Family Medicine 05/08/15 Angela Ambrocio MD, MD [address] [place] [address] Physician Radiation Oncology 06/25/21 Anabel Jerez RN [address] [place] [address] Specialty Casket Assembler Metal Hematology/Oncology 11/22/21 Catrachita Shearer, RN [address] [place] [address] Angle Dozer Operator Family Medicine 10/24/22 Tank Storage Supervisor Relationship Specialty Start Date End Date Keerthi Hazel MD [address] [place] [address] PCP - General Family Medicine 05/08/15 Angela Ambrocio MD, [address] [place] [address] Physician Radiation Oncology 06/25/21 Anabel Jerez, GREG [address] [place] [address] Specialty Casket Assembler Metal Hematology/Oncology 11/22/21 Catrachita Shearer, GREG [address] [facility] [place] [address] Angle Dozer Operator Family Medicine 10/24/22 Tank Storage Supervisor Relationship Specialty Start Date End Date Keerthi Hazel MD [address] [place] [address] PCP - General Family Medicine 05/08/15 Angela Ambrocio MD, MD [address] [place] [address] Physician Radiation Oncology 06/25/21 Anabel Jerez, GREG [address] [place] [address] Specialty Casket Assembler Metal Hematology/Oncology 11/22/21 Catrachita Shearer, GREG [address] [place] [address] Angle Dozer Operator Family Medicine 10/24/22 Tank Storage Supervisor Relationship Specialty Start Date End Date Keerthi Hazel MD [address] [place] [address] PCP - General Family Medicine 05/08/15 Angela Ambrocio MD, MD [address] [place] [address] Physician Radiation Oncology 06/25/21 Anabel Jerez, RN [address] [place] [address] Specialty Casket Assembler Metal Hematology/Oncology 11/22/21 Elvie Nichols RN [address] [facility] [place] [address] Angle Dozer Operator 07/06/23 Tank Storage Supervisor Relationship Specialty Start Date End Date Keerthi Hazel MD [address] [place] [address] PCP - General Family Medicine 05/08/15 Angela Ambrocio MD, [address] [place] [address] Physician Radiation Oncology 06/25/21 Anabel Jerez, RN [address] [place] [address] Specialty Casket Assembler Metal Hematology/Oncology 11/22/21 Elvie Nichols, RN [address] [place], [place] [id number] Angle Dozer Operator 07/06/23 Tank Storage Supervisor Relationship Specialty Start Date End Date Keerthi Hazel MD [address] [facility] [place] [address] PCP - General Family Medicine 05/08/15 Angela Ambrocio MD, [address] [place] [address] Physician Radiation Oncology 06/25/21 Anabel Jerez, RN [address] [place] [address] Specialty Casket Assembler Metal Hematology/Oncology 11/22/21 Elvie Nichols, RN [address] [place], [place] [phone] Angle Dozer Operator 07/06/23 Tank Storage Supervisor Relationship Specialty Start Date End Date Keerthi Hazel MD [address] [facility] [place] [address] PCP - General Family Medicine 05/08/15 Angela Ambrocio MD, [address] [place] [address] Physician Radiation Oncology 06/25/21 Anabel Jerez, GREG [address] [place] [address] Specialty Casket Assembler Metal Hematology/Oncology 11/22/21 Elvie Nichols, GREG [address] [place], [place] [phone] Angle Dozer Operator 07/06/23 Tank Storage Supervisor Relationship Specialty Start Date End Date Keerthi Hazel MD [address] [place] [address] PCP - General Family Medicine 05/08/15 Angela Ambrocio MD, [address] [place] [address] Physician Radiation Oncology 06/25/21 Anabel Jerez RN [address] [place] [address] Specialty Casket Assembler Metal Hematology/Oncology 11/22/21 Elvie Nichols, GREG [address] [place] [address] Angle Dozer Operator 07/06/23 Tank Storage Supervisor Relationship Specialty Start Date End Date Keerthi Hazel MD [address] [place] [address] PCP - General Family Medicine 05/08/15 Angela Ambrocio MD, MD [address] [place] [address] Physician Radiation Oncology 06/25/21 Anabel Jerez, GREG [address] [place] [address] Specialty Casket Assembler Metal Hematology/Oncology 11/22/21 Elvie Nichols, RN [address] [place] [address] Angle Dozer Operator 07/06/23 Tank Storage Supervisor Relationship Specialty Start Date End Date Keerthi Hazel MD [address] [place] [address] PCP - General Family Medicine 05/08/15 Angela Ambrocio MD, [address] [place] [address] Physician Radiation Oncology 06/25/21 Anabel Jerez, RN [address] [place] [address] Specialty Casket Assembler Metal Hematology/Oncology 11/22/21 Elvie Nichols RN [address] [place] [address] Angle Dozer Operator 07/06/23 Chin Hatch MD [address] [place] [address] Hematology/Oncology 08/10/23 Tank Storage Supervisor Relationship Specialty Start Date End Date Keerthi Hazel MD [address] [place] [address] PCP - General Family Medicine 05/08/15 Angela Ambrocio MD, MD [address] [place] [address] Physician Radiation Oncology 06/25/21 Anabel Jerez, RN [address] [place] [address] Specialty Casket Assembler Metal Hematology/Oncology 11/22/21 Elvie Nichols RN [address] [place] [address] Angle Dozer Operator 07/06/23 Chin Hatch MD [address] [place] [address] Hematology/Oncology 08/10/23 Tank Storage Supervisor Relationship Specialty Start Date End Date Keerthi Hazel MD [address] [place] [address] PCP - General Family Medicine 05/08/15 Angela Ambrocio MD [address] [place] [address] Physician Radiation Oncology 06/25/21 Anabel Jerez RN [address] [place] [address] Specialty Casket Assembler Metal Hematology/Oncology 11/22/21 Chin Hatch MD [address] [place] [address] Hematology/Oncology 08/10/23 Lulu Reid RN Angle Dozer Operator 09/28/23 Tank Storage Supervisor Relationship Specialty Start Date End Date Keerthi Hazel MD [address] [place] [address] PCP - General Family Medicine 05/08/15 Angela Ambrocio MD [address] [place] [address] Physician Radiation Oncology 06/25/21 Anabel Jerez RN [address] [place] [address] Specialty Casket Assembler Metal Hematology/Oncology 11/22/21 Chin Hatch MD [address] [place] [address] Hematology/Oncology 08/10/23 Lulu Reid, puff iron operatorAngle Dozer Operator 09/28/23 Tank Storage Supervisor Relationship Specialty Start Date End Date Keerthi Hazel MD [address] [place] [address] PCP - General Family Medicine 05/08/15 Angela Ambrocio MD [address] [place] [address] Physician Radiation Oncology 06/25/21 Anabel Jerez RN [address] [place] [address] Specialty Casket Assembler Metal Hematology/Oncology 11/22/21 Chin Hatch MD [address] [place] [address] Hematology/Oncology 08/10/23 Lulu Reid, puff iron operatorAngle Dozer Operator 09/28/23 Tank Storage Supervisor Relationship Specialty Start Date End Date Keerthi Hazel MD [address] [place] [address] PCP - General Family Medicine 05/08/15 Angela Ambrocio MD [address] [place] [address] Physician Radiation Oncology 06/25/21 Anabel Jerez RN [address] [place] [address] Specialty Casket Assembler Metal Hematology/Oncology 11/22/21 Chin Hatch MD [address] [place] [address] Hematology/Oncology 08/10/23 Lulu Reid, puff iron operatorAngle Dozer Operator 09/28/23 Tank Storage Supervisor Relationship Specialty Start Date End Date Keerthi Hazel MD [address] [place] [address] PCP - General Family Medicine 05/08/15 Angela Ambrocio MD [address] [place] [address] Physician Radiation Oncology 06/25/21 Anabel Jerez RN [address] [place] [address] Specialty Casket Assembler Metal Hematology/Oncology 11/22/21 Chin Hatch MD [address] [place] [address] Hematology/Oncology 08/10/23 Lulu Reid puff iron operatorAngle Dozer Operator 09/28/23 Tank Storage Supervisor Relationship Specialty Start Date End Date Keerthi Hazel MD [address] [place] [address] PCP - General Family Medicine 05/08/15 Angela Ambrocio MD [address] [place] [address] Physician Radiation Oncology 06/25/21 Anabel Jerez RN [address] [place] [address] Specialty Casket Assembler Metal Hematology/Oncology 11/22/21 Chin Hatch MD [address] [place] [address] Hematology/Oncology 08/10/23 Lulu Reid, puff iron operatorAngle Dozer Operator 09/28/23 Tank Storage Supervisor Relationship Specialty Start Date End Date Keerthi Hazel MD [address] [place] [address] PCP - General Family Medicine 05/08/15 Angela Ambrocio MD [address] [place] [address] Physician Radiation Oncology 06/25/21 Anabel Jerez RN [address] [place] [address] Specialty Casket Assembler Metal Hematology/Oncology 11/22/21 Chin Hatch MD [address] [place] [address] Hematology/Oncology 08/10/23 Lulu Reid, puff iron operatorAngle Dozer Operator 09/28/23 Tank Storage Supervisor Relationship Specialty Start Date End Date Keerthi Hazel MD [address] [place] [address] PCP - General Family Medicine 05/08/15 Angela Ambrocio MD [address] [place] [address] Physician Radiation Oncology 06/25/21 Anabel Jerez, GREG [address] [place] [address] Specialty Casket Assembler Metal Hematology/Oncology 11/22/21 Chin Hatch MD [address] [place] [address] Hematology/Oncology 08/10/23 Lulu Reid, puff iron operatorAngle Dozer Operator 09/28/23 Tank Storage Supervisor Relationship Specialty Start Date End Date Keerthi Hazel MD [address] [place] [address] PCP - General Family Medicine 05/08/15 Angela Ambrocio MD [address] [place] [address] Physician Radiation Oncology 06/25/21 Anabel Jerez, GREG [address] [place] [address] Specialty Casket Assembler Metal Hematology/Oncology 11/22/21 Chin Hatch MD [address] [place] [address] Hematology/Oncology 08/10/23 Lulu Reid, puff iron operatorAngle Dozer Operator 09/28/23 Tank Storage Supervisor Relationship Specialty Start Date End Date Keerthi Hazel MD [address] [place] [address] PCP - General Family Medicine 05/08/15 Angela Ambrocio MD [address] [place] [address] Physician Radiation Oncology 06/25/21 Anabel Jerez, GREG [address] [place] [address] Specialty Casket Assembler Metal Hematology/Oncology 11/22/21 Chin Hatch MD [address] [place] [address] Hematology/Oncology 08/10/23 Lulu Reid, puff iron operatorAngle Dozer Operator 09/28/23 Tank Storage Supervisor Relationship Specialty Start Date End Date Keerthi Hazel MD [address] [place] [address] PCP - General Family Medicine 05/08/15 Angela Ambrocio MD [address] [place] [address] Physician Radiation Oncology 06/25/21 Anabel Jerez, RN [address] [place] [address] Specialty Casket Assembler Metal Hematology/Oncology 11/22/21 Chin Hatch MD [address] [place] [address] Hematology/Oncology 08/10/23 Lulu Reid, puff iron operatorAngle Dozer Operator 09/28/23 Tank Storage Supervisor Relationship Specialty Start Date End Date Keerthi Hazel MD [address] [place] [address] PCP - General Family Medicine 05/08/15 Angela Ambrocio MD [address] [place] [address] Physician Radiation Oncology 06/25/21 Anabel Jerez, RN [address] [place] [address] Specialty Casket Assembler Metal Hematology/Oncology 11/22/21 Chin Hatch MD [address] [place] [address] Hematology/Oncology 08/10/23 Lulu Reid RN Angle Dozer Operator 09/28/23 Tank Storage Supervisor Relationship Specialty Start Date End Date Keerthi Hazel MD [address] [place] [address] PCP - General Family Medicine 05/08/15 Angela Ambrocio MD [address] [place] [address] Physician Radiation Oncology 06/25/21 Anabel Jerez, GREG [address] [place] [address] Specialty Casket Assembler Metal Hematology/Oncology 11/22/21 Chin Hatch MD [address] [place] [address] Hematology/Oncology 08/10/23 Lulu Reid RN Angle Dozer Operator 09/28/23 ProviderYissel MD Type Copy Examiner 03/05/24 04/03/24 Tank Storage Supervisor Relationship Specialty Start Date End Date Keerthi Hazel MD [address] [place] [address] PCP - General Family Medicine 05/08/15 Angela Ambrocio MD [address] [place] [address] Physician Radiation Oncology 06/25/21 Anabel Jerez, GREG [address] [place] [address] Specialty Casket Assembler Metal Hematology/Oncology 11/22/21 Chin Hatch MD [address] [place] [address] Hematology/Oncology 08/10/23 Lulu Reid RN Angle Dozer Operator 09/28/23 Yissel Queen MD Type Copy Examiner 03/05/24 04/03/24 Tank Storage Supervisor Relationship Specialty Start Date End Date Keerthi Hazel MD [address] [place] [address] PCP - General Family Medicine 05/08/15 Angela Ambrocio MD [address] [place] [address] Physician Radiation Oncology 06/25/21 Anabel Jerez RN [address] [place] [address] Specialty Casket Assembler Metal Hematology/Oncology 11/22/21 Chin Hatch MD [address] [place] [address] Hematology/Oncology 08/10/23 Lulu Reid RN Angle Dozer Operator 09/28/23 ProviderYissel MD Type Copy Examiner 03/05/24 04/03/24 Tank Storage Supervisor Relationship Specialty Start Date End Date Keerthi Hazel MD [address] [place] [address] PCP - General Family Medicine 05/08/15 Angela Ambrocio MD [address] [place] [address] Physician Radiation Oncology 06/25/21 Anabel Jerez RN [address] [place] [address] Specialty Casket Assembler Metal Hematology/Oncology 11/22/21 Chin Hatch MD [address] [place] [address] Hematology/Oncology 08/10/23 Lulu Reid RN Angle Dozer Operator 09/28/23 Yissel Queen MD Type Copy Examiner 03/05/24 04/03/24 Tank Storage Supervisor Relationship Specialty Start Date End Date Keerthi Hazel MD [address] [place] [address] PCP - General Family Medicine 05/08/15 Angela Ambrocio MD [address] [place] [address] Physician Radiation Oncology 06/25/21 Anabel Jerez RN [address] [place] [address] Specialty Casket Assembler Metal Hematology/Oncology 11/22/21 Chin Hatch MD [address] [place] [address] Hematology/Oncology 08/10/23 Lulu Reid RN Angle Dozer Operator 09/28/23 Yissel Queen MD Type Copy Examiner 03/05/24 04/03/24 Tank Storage Supervisor Relationship Specialty Start Date End Date Keerthi Hazel MD [address] [place] [address] PCP - General Family Medicine 05/08/15 Angela Ambrocio MD [address] [place] [address] Physician Radiation Oncology 06/25/21 Anabel Jerez, GREG [address] [place] [address] Specialty Casket Assembler Metal Hematology/Oncology 11/22/21 Chin Hatch MD [address] [place] [address] Hematology/Oncology 08/10/23 Lulu Reid RN Angle Dozer Operator 09/28/23 Yissel uQeen MD Type Copy Examiner 03/05/24 04/03/24 Tank Storage Supervisor Relationship Specialty Start Date End Date Keerthi Hazel MD [address] [place] [address] PCP - General Family Medicine 05/08/15 Angela Ambrocio MD [address] [place] [address] Physician Radiation Oncology 06/25/21 Anabel Jerez, GREG [address] [place] [address] Specialty Casket Assembler Metal Hematology/Oncology 11/22/21 Chin Hatch MD [address] [place] [address] Hematology/Oncology 08/10/23 Lulu Reid RN Angle Dozer Operator 09/28/23 Yissel Queen MD Type Copy Examiner 03/05/24 04/03/24 Tank Storage Supervisor Relationship Specialty Start Date End Date Keerthi Hazel MD [address] [place] [address] PCP - General Family Medicine 05/08/15 Angela Ambrocio MD [address] [place] [address] Physician Radiation Oncology 06/25/21 Anabel Jerez, GREG [address] [place] [address] Specialty Casket Assembler Metal Hematology/Oncology 11/22/21 Chin Hatch MD [address] [place] [address] Hematology/Oncology 08/10/23 Lulu Reid RN Angle Dozer Operator 09/28/23 ProviderYissel MD Type Copy Examiner 03/05/24 04/03/24 Tank Storage Supervisor Relationship Specialty Start Date End Date Keerthi Hazel MD [address] [place] [address] PCP - General Family Medicine 05/08/15 Angela Ambrocio MD [address] [place] [address] Physician Radiation Oncology 06/25/21 Anabel Jerez, GREG [address] [place] [address] Specialty Casket Assembler Metal Hematology/Oncology 11/22/21 Chin Hatch MD [address] [place] [address] Hematology/Oncology 08/10/23 Lulu Reid RN Angle Dozer Operator 09/28/23 Tank Storage Supervisor Relationship Specialty Start Date End Date Keerthi Hazel MD [address] [place] [address] PCP - General Family Medicine 05/08/15 Angela Ambrocio MD [address] [place] [address] Physician Radiation Oncology 06/25/21 Anabel Jerez, GREG [address] [place] [address] Specialty Casket Assembler Metal Hematology/Oncology 11/22/21 Chin Hatch MD [address] [place] [address] Hematology/Oncology 08/10/23 Lulu Reid RN Angle Dozer Operator 09/28/23 Tank Storage Supervisor Relationship Specialty Start Date End Date Keerthi Hazel MD [address] [place] [address] PCP - General Family Medicine 05/08/15 Angela Ambrocio MD [address] [place] [address] Physician Radiation Oncology 06/25/21 Anabel Jerez, GREG [address] [place] [address] Specialty Casket Assembler Metal Hematology/Oncology 11/22/21 Chin Hatch MD [address] [place] [address] Hematology/Oncology 08/10/23 Lulu Reid, puff iron operatorAngle Dozer Operator 09/28/23 Yissel Queen MD Type Copy Examiner 03/05/24 04/03/24 Tank Storage Supervisor Relationship Specialty Start Date End Date Keerthi Hazel MD [address] [place] [address] PCP - General Family Medicine 05/08/15 Angela Ambrocio MD [address] [place] [address] Physician Radiation Oncology 06/25/21 Anabel Jerez, GREG [address] [place] [address] Specialty Casket Assembler Metal Hematology/Oncology 11/22/21 Chin Hatch MD [address] [place] [address] Hematology/Oncology 08/10/23 Lulu Reid RN Angle Dozer Operator 09/28/23 Tank Storage Supervisor Relationship Specialty Start Date End Date Keerthi Hazel MD [address] [place] [address] PCP - General Family Medicine 05/08/15 Angela Ambrocio MD [address] [place] [address] Physician Radiation Oncology 06/25/21 Anabel Jerez, GREG [address] [place] [address] Specialty Casket Assembler Metal Hematology/Oncology 11/22/21 Chin Hatch MD [address] [place] [address] Hematology/Oncology 08/10/23 Lulu Reid RN Angle Dozer Operator 09/28/23 Tank Storage Supervisor Relationship Specialty Start Date End Date Keerthi Hazel MD [address] [place] [address] PCP - General Family Medicine 05/08/15 Christina Hi RN Specialty Casket Assembler Metal Oncology 04/26/21 01/18/22 Angela Ambrocio MD [address] [place] [address] Physician Radiation Oncology 06/25/21 Tank Storage Supervisor Relationship Specialty Start Date End Date Keerthi Hazel MD [address] [place] [address] PCP - General Family Medicine 05/08/15 Angela Ambrocio MD [address] [place] [address] Physician Radiation Oncology 06/25/21 Anabel Jerez RN [address] [place] [address] Specialty Casket Assembler Metal Hematology/Oncology 11/22/21 Chin Hatch MD [address] [place] [address] Hematology/Oncology 08/10/23 Lulu Reid RN Angle Dozer Operator 09/28/23 Tank Storage Supervisor Relationship Specialty Start Date End Date Keerthi Hazel MD [address] [place] [address] PCP - General Family Medicine 05/08/15 Angela Ambrocio MD [address] [place] [address] Physician Radiation Oncology 06/25/21 Anabel Jerez RN [address] [place] [address] Specialty Casket Assembler Metal Hematology/Oncology 11/22/21 Chin Hatch MD [address] [place] [address] Hematology/Oncology 08/10/23 Lulu Reid, puff iron operatorAngle Dozer Operator 09/28/23 Tank Storage Supervisor Relationship Specialty Start Date End Date Keerthi Hazel MD [address] [place] [address] PCP - General Family Medicine 05/08/15 Angela Ambrocio MD [address] [place] [address] Physician Radiation Oncology 06/25/21 Anabel Jerez RN [address] [place] [address] Specialty Casket Assembler Metal Hematology/Oncology 11/22/21 Chin Hatch MD [address] [place] [address] Hematology/Oncology 08/10/23 Lulu Reid, puff iron operatorAngle Dozer Operator 09/28/23 Tank Storage Supervisor Relationship Specialty Start Date End Date Keerthi Hazel MD [address] [place] [address] PCP - General Family Medicine 05/08/15 Angela Ambrocio MD [address] [place] [address] Physician Radiation Oncology 06/25/21 Anabel Jerez RN [address] [place] [address] Specialty Casket Assembler Metal Hematology/Oncology 11/22/21 Chin Hatch MD [address] [place] [address] Hematology/Oncology 08/10/23 uLlu Reid, puff iron operatorAngle Dozer Operator 09/28/23 Tank Storage Supervisor Relationship Specialty Start Date End Date Keerthi Hazel MD [address] [place] [address] PCP - General Family Medicine 05/08/15 Angela Ambrocio MD [address] [place] [address] Physician Radiation Oncology 06/25/21 Anabel Jerez RN [address] [place] [address] Specialty Casket Assembler Metal Hematology/Oncology 11/22/21 Chin Hatch MD [address] [place] [address] Hematology/Oncology 08/10/23 Lulu Reid, puff iron operatorAngle Dozer Operator 09/28/23 Tank Storage Supervisor Relationship Specialty Start Date End Date Keerthi Hazel MD [address] [place] [address] PCP - General Family Medicine 05/08/15 Angela Ambrocio MD [address] [place] [address] Physician Radiation Oncology 06/25/21 Anabel Jerez RN [address] [place] [address] Specialty Casket Assembler Metal Hematology/Oncology 11/22/21 Chin Hatch MD [address] [place] [address] Hematology/Oncology 08/10/23 Lulu Reid, puff iron operatorAngle Dozer Operator 09/28/23 Tank Storage Supervisor Relationship Specialty Start Date End Date Keerthi Hazel MD [address] [place] [address] PCP - General Family Medicine 05/08/15 Angela Ambrocio MD [address] [place] [address] Physician Radiation Oncology 06/25/21 Anabel Jerez RN [address] [place] [address] Specialty Casket Assembler Metal Hematology/Oncology 11/22/21 Chin Hatch MD [address] [place] [address] Hematology/Oncology 08/10/23 Lulu Reid puff iron operatorAngle Dozer Operator 09/28/23 Tank Storage Supervisor Relationship Specialty Start Date End Date Keerthi Hazel MD [address] [place] [address] PCP - General Family Medicine 05/08/15 Angela Ambrocio MD [address] [place] [address] Physician Radiation Oncology 06/25/21 Anabel Jerez RN [address] [place] [address] Specialty Casket Assembler Metal Hematology/Oncology 11/22/21 Chin Hatch MD [address] [place] [address] Hematology/Oncology 08/10/23 Zakia Camp APRN.TRANSCRIPTIONIST [address] [place] [address] Type Copy Examiner Family Medicine 08/12/24 Yessi Bird APRN.TRANSCRIPTIONIST [address] [place] [address] Type Copy Examiner Family Medicine 08/12/24 Tank Storage Supervisor Relationship Specialty Start Date End Date Keerthi Hazel MD [address] [place] [address] PCP - General Family Medicine 05/08/15 Angela Ambrocio MD [address] [place] [address] Physician Radiation Oncology 06/25/21 Anabel Jerez, RN [address] [place] [address] Specialty Casket Assembler Metal Hematology/Oncology 11/22/21 Chin Hatch MD [address] [place] [address] Hematology/Oncology 08/10/23 Zakia Camp APRN.TRANSCRIPTIONIST [address] [place] [address] Type Copy Examiner Family Medicine 08/12/24 Yessi Bird J2EE DEVELOPER.TRANSCRIPTIONIST [address] [place] [address] Type Copy Examiner Family [facility] 08/12/24 Tank Storage Supervisor Relationship Specialty Start Date End Date Keerthi Hazel MD [address] [place] [address] PCP - General Family Medicine 05/08/15 Angela Ambrocio MD [address] [place] [address] Physician Radiation Oncology 06/25/21 Anabel Jerez, GREG [address] [place] [address] Specialty Casket Assembler Metal Hematology/Oncology 11/22/21 Chin Hatch MD [address] [place] [address] Hematology/Oncology 08/10/23 Zakia Camp, J2EE DEVELOPER.TRANSCRIPTIONIST [address] [place] [address] Type Copy Examiner Family [facility] 08/12/24 Yessi Bird J2EE DEVELOPER.TRANSCRIPTIONIST [address] [place] [address] Type Copy Examiner Family Medicine 08/12/24 Tank Storage Supervisor Relationship Specialty Start Date End Date Keerthi Hazel MD [address] [place] [address] PCP - General Family Medicine 05/08/15 Angela Ambrocio MD [address] [place] [address] Physician Radiation Oncology 06/25/21 Anabel Jerez, GREG [address] [place] [address] Specialty Casket Assembler Metal Hematology/Oncology 11/22/21 Chin Hatch MD [address] [place] [address] Hematology/Oncology 08/10/23 Zakia Camp, J2EE DEVELOPER.TRANSCRIPTIONIST [address] [place] [address] Type Copy Examiner Family Medicine 08/12/24 Yessi Bird J2EE DEVELOPER.TRANSCRIPTIONIST [address] [place] [address] Type Copy Examiner Family Medicine 08/12/24 Tank Storage Supervisor Relationship Specialty Start Date End Date Keerthi Hazel MD [address] [place] [address] PCP - General Family Medicine 05/08/15 Angela Ambrocio MD [address] [place] [address] Physician Radiation Oncology 06/25/21 Anabel Jerez RN [address] [place] [address] Specialty Casket Assembler Metal Hematology/Oncology 11/22/21 Chin Hatch MD [address] [place] [address] Hematology/Oncology 08/10/23 Zakia Camp, J2EE DEVELOPER.TRANSCRIPTIONIST [address] [place] [address] Type Copy Examiner Family Medicine 08/12/24 Yessi Bird J2EE DEVELOPER.TRANSCRIPTIONIST [address] [place] [address] [facility] 08/12/24 Tank Storage Supervisor Relationship Specialty Start Date End Date Keerthi Hazel MD [address] [place] [address] PCP - General Family Medicine 05/08/15 Angela Ambrocio MD [address] [place] [address] Physician Radiation Oncology 06/25/21 Anabel Jerez RN [address] [place] [address] Specialty Casket Assembler Metal Hematology/Oncology 11/22/21 Chin Hatch MD [address] [place] [address] Hematology/Oncology 08/10/23 Zakia Camp, J2EE DEVELOPER.TRANSCRIPTIONIST [address] [place] [address] [facility] 08/12/24 Yessi Bird J2EE DEVELOPER.TRANSCRIPTIONIST [address] [place] [address] [facility] 08/12/24 Tank Storage Supervisor Relationship Specialty Start Date End Date Keerthi Hazel MD [address] [place] [address] PCP - General Family Medicine 05/08/15 Angela Ambrocio MD [address] [place] [address] Physician Radiation Oncology 06/25/21 Anabel Jerez RN [address] [place] [address] Specialty Casket Assembler Metal Hematology/Oncology 11/22/21 Chin Hatch MD [address] [place] [address] Hematology/Oncology 08/10/23 Zakia Camp APRN.TRANSCRIPTIONIST [address] [place] [address] Type Copy Examiner Family Medicine 08/12/24 Yessi Bird APRN.TRANSCRIPTIONIST [address] [place] [address] Type Copy Examiner [facility] 08/12/24 Tank Storage Supervisor Relationship Specialty Start Date End Date Keerthi Hazel MD [address] [place] [address] PCP - General Family Medicine 05/08/15 Angela Ambrocio MD [address] [place] [address] Physician Radiation Oncology 06/25/21 Anabel Jerez RN [address] [place] [address] Specialty Casket Assembler Metal Hematology/Oncology 11/22/21 Chin Hatch MD [address] [place] [address] Hematology/Oncology 08/10/23 Zakia Camp APRN.TRANSCRIPTIONIST [address] [place] [address] Type Copy Examiner Family [facility] 08/12/24 Yessi Bird J2EE DEVELOPER.TRANSCRIPTIONIST [address] [place] [address] Type Copy Examiner [facility] 08/12/24 Tank Storage Supervisor Relationship Specialty Start Date End Date Keerthi Hazel MD [address] [place] [address] PCP - General Family Medicine 05/08/15 Angela Ambrocio MD [address] [place] [address] Physician Radiation Oncology 06/25/21 Anabel Jerez, GREG [address] [place] [address] Specialty Casket Assembler Metal Hematology/Oncology 11/22/21 Chin Hatch MD [address] [place] [address] Hematology/Oncology 08/10/23 Zakia Camp APRN.TRANSCRIPTIONIST [address] [place] [address] Type Copy Examiner Family Medicine 08/12/24 Yessi Bird J2EE DEVELOPER.TRANSCRIPTIONIST [address] [place] [address] [facility] 08/12/24 Tank Storage Supervisor Relationship Specialty Start Date End Date Keerthi Hazel MD [address] [place] [address] PCP - General Family Medicine 05/08/15 Angela Ambrocio MD [address] [place] [address] Physician Radiation Oncology 06/25/21 Anabel Jerez, GREG [address] [place] [address] Specialty Casket Assembler Metal Hematology/Oncology 11/22/21 Chin Hatch MD [address] [place] [address] Hematology/Oncology 08/10/23 Zakia Camp APRN.TRANSCRIPTIONIST [address] [place] [address] Type Copy Examiner Family Medicine 08/12/24 Yessi Bird J2EE DEVELOPER.TRANSCRIPTIONIST [address] [place] [address] Type Copy Examiner Family [facility] 08/12/24 Tank Storage Supervisor Relationship Specialty Start Date End Date Keerthi Hazel MD [address] [place] [address] PCP - General Family Medicine 05/08/15 Angela Ambrocio MD [address] [place] [address] Physician Radiation Oncology 06/25/21 Anabel Jerez, GREG [address] [place] [address] Specialty Casket Assembler Metal Hematology/Oncology 11/22/21 Chin Hatch MD [address] [place] [address] Hematology/Oncology 08/10/23 Zakia Camp APRN.TRANSCRIPTIONIST [address] [place] [address] Type Copy Examiner [facility] 08/12/24 Yessi Bird APRN.TRANSCRIPTIONIST [address] [place] [address] [facility] Team Status: Active Member Role/Relationship Status Dates Dr. Keerthi Hazel MD Primary Care Provider Active Team Status: Inactive Member Role/Relationship Status Dates Dr. Keerthi Hazel MD Primary Care Provider Active Start: March 27, 2025 End: March 27, 2025 Dr. Keerthi Hazel MD Referring Provider Active Start: March 27, 2025 End: March 27, 2025 José Barron SLASHER TENDER, SLASHER TENDER-C Attending Provider Active S tart: March 27, 2025 End: March 27, 2025 Goals (unrecognized section and content) Goals may be documented in a n alternate sectionGoals may be documented in an alternate section FOR RECORDS PERTAINING TO PATIENTS WHO ARE OR HAVE BEEN ENROLLED IN A CHEMICAL DEPENDENCY/SUBSTANCEABUSE PROGRAM, SOME INFORMATION MAY BE OMITTED. This clinical summary was aggregated from multiple sources. Caution should be exercised in using it in the provision of clinical care. This summary normalizes information from multiple sources, and as a consequence, information in this document may materially change the coding, format and clinical context of patient data. In addition, data may be omitted in some cases. CLINICAL DECISIONS SHOULD BE BASED ON THE PRIMARY CLINICAL RECORDS. [employer] provides no warranty or guarantee of the accuracy or completeness of information in this document.
--- NOTE | 2025-04-23 18:33 | STRESSREP ---
Stress Test Report Pharmacologic myocardial perfusion stress test. 80-year-old man with a history of dyspnea on exertion. Resting EKG demonstrates sinus bradycardia with a rate of 48 bpm. Resting blood pressure is 126/70 mmHg. 0.4 mg of regadenoson was infused per usual protocol followed by rapid intravenous saline flush injection. Continuous EKG monitoring was performed. The maximum heart rate was 85 bpm which was 60% of max impacted heart rate the maximum workload was 1 metabolic equivalent. At rest there were no ST or T wave changes noted to suggest ischemia and at peak infusion nonspecific ST changes were noted which did not meet the criteria for ischemia. No clinical angina is noted. The final blood pressure was 110/70 mmHg. Myocardial perfusion protocol. 14.1 mCi of technetium 99m sestamibi was injected at rest. 0.4 mg of regadenoson was infused per usual protocol. At peak infusion 43.3 mCi of technetium 99m sestamibi was injected stress images were obtained stress and rest images were reconstructed and compared in the short axis vertical long and horizontal long axis. Gated images were also obtained. Perfusion SPECT analysis: Review of the stress images demonstrate normal uptake of tracer noted in all areas of the myocardium. The resting images similar demonstrated normal uptake of tracer noted in all areas of the myocardium. No areas of reversibility are noted to suggest ischemia and no previous infarct is noted. Gated SPECT analysis: The gated ejection fraction is 56%. Conclusion: Normal pharmacologic myocardial perfusion stress test. Preserved ejection fraction.
== END | disposition home or self-care (01) ==
PROVIDERS: PCP Family Medicine; Referring Provider Nurse Practitioner Family; Visit Provider Nurse Practitioner Family
DX: R06.09 Other forms of dyspnea (principal); I25.10 Atherosclerotic heart disease of native coronary artery without angina pectoris; I10 Essential (primary) hypertension; E78.2 Mixed hyperlipidemia
CPT/HCPCS: 78452; 93017; A9500; A4216; J2785